=== PATIENT | female | born 1970 | race Caucasian/White ===

== ENCOUNTER 2016-11-21 08:12 | Emergency (ER) | payer OTHER ==
[~2016-11-21 08:12] MED LIST: CYCL5TAB PO; FLUC150T PO; HYDR-2678 PO; HYDR-971 PO; METH-37 PO; ONDA4TAB10 SL
[2016-11-21] MEDS ORDERED: IBUPROFEN 800 MG TABLET. PO ONE (10:15)
[2016-11-21 10:25] LABS: OBC FLU VALID
[2016-11-21 11:41] LABS: BILIRUBIN,URINE NEGATIVE (NEG); GLUCOSE,URINE NEGATIVE (NEG); NITRITE,URINE NEGATIVE (NEG); PROTEIN,URINE NEGATIVE (NEG-TRACE)
[2016-11-21 11:55] LABS: BACTERIA,URINE 0 /HPF (0-FEW); RBC,URINE 0 /HPF (0-2); SQUAMOUS EPITHELIAL CELL,UR MOD /LPF; WBC,URINE 0 /HPF (0-4)
[2016-11-21] MEDS ORDERED: PROAIR HFA8.5 GM INH (12:16)
[2016-11-21] MEDS ORDERED: CYCL10TA2 PO (12:16)
--- NOTE | 2016-11-21 12:16 | PHYS DOC ---
Past Medical History Past Medical History: No Pertinent History, Other Additional Past Medical Histor: sciatica Past Surgical History: Cholecystectomy, Tubal ligation Alcohol Use: None Drug Use: None Adult General Chief Complaint Chief Complaint: BACK PAIN OR INJURY [facility] HPI Patient is a 46 year old female presents emergency department stating that she is having lower back pain. She denies any injury or trauma to the back. She has not taken anything for the pain and discomfort. She states that she comes to the emergency department when she has this pain and discomfort and usually is provided with muscle relaxers and pain medication. Patient states she's had this pain for the last 2 days. She denies urinary frequency urgency pain with urination. She denies any numbness or tingling in the lower extremities. Patient also complains of upper respiratory symptoms, cough congestion runny nose. Review of Systems Review of Systems Constitutional: Denies fever or chills [] Eyes: Denies change in visual acuity, redness, or eye pain [] HENT: nasal congestion denies sore throat [] Respiratory: cough denies shortness of breath [] Cardiovascular: No additional information not addressed in HPI [] GI: Denies abdominal pain, nausea, vomiting, bloody stools or diarrhea [] : Denies dysuria or hematuria [] Musculoskeletal: back pain denies joint pain [] Integument: Denies rash or skin lesions [] Neurologic: Denies headache, focal weakness or sensory changes [] Current Medications Current Medications Current Medications Medications (Trade) Dose Ordered Sig/Nika Start Time Stop Time Status Last Admin Dose Admin Ibuprofen (Motrin) 800 mg 1X ONCE 11/21/16 10:15 11/21/16 10:16 DC 11/21/16 10:27 800 MG Allergies Allergies Allergies Coded Allergies Type Severity Reaction Last Updated Verified No Known Drug Allergies 11/07/13 No Physical Exam Physical Exam Constitutional: Well developed, well nourished, no acute distress, non-toxic appearance. [] HENT: Normocephalic, atraumatic, bilateral external ears normal, oropharynx moist, no oral exudates, nose normal. Lateral tympanic membranes appear to be normal. Throat with no erythematous no drainage no exudates noted. No cervical anterior adenopathy noted. Eyes: PERRLA, EOMI, conjunctiva normal, no discharge. [] Neck: Normal range of motion, no tenderness, supple, no stridor. [] Cardiovascular:Heart rate regular rhythm, no murmur [] Lungs & Thorax: Bilateral breath sounds clear to auscultation [] Skin: Warm, dry, no erythema, no rash. [] Back: Bilateral lower back tenderness. No CVA tenderness noted Extremities: No tenderness, no cyanosis, no clubbing, ROM intact, no edema. [] Neurologic: Alert and oriented X 3, normal motor function, normal sensory function, no focal deficits noted. [] Psychologic: Affect normal, judgement normal, mood normal. [] Current Patient Data Vital Signs Vital Signs Date Time Temp Pulse Resp B/P Pulse Ox O2 Delivery O2 Flow Rate FiO2 11/21/16 08:53 98.8 84 16 144/66 99 Room Air 98.8 Lab Values Laboratory Tests Test 11/21/16 09:50 11/21/16 11:15 Influenza Type A Antigen Negative (NEGATIVE) Influenza Type B Antigen Negative (NEGATIVE) Urine Collection Type Unknown Urine Color Kelsey Urine Clarity Clear Urine pH 6.0 Urine Specific [place] 1.025 Urine Protein Negativemg/dL (NEG-TRACE) Urine Glucose (UA) Negativemg/dL (NEG) Urine Ketones (Stick) >=80mg/dL (NEG) Urine Blood Negative (NEG) Urine Nitrite Negative (NEG) Urine Bilirubin Negative (NEG) Urine Urobilinogen Dipstick 1.0mg/dL (0.2 mg/dL) Urine Leukocyte Esterase Negative (NEG) Urine RBC 0/HPF (0-2) Urine WBC 0/HPF (0-4) Urine Squamous Epithelial Cells Mod/LPF Urine Bacteria 0/HPF (0-FEW) Urine Mucus Marked/LPF EKG EKG [] Radiology/Procedures Radiology/Procedures [] Course & Med Decision Making Course & Med Decision Making Pertinent Labs and Imaging studies reviewed. (See chart for details) Urinalysis was negative, influenza swab was negative. Patient was encouraged to take ibuprofen [id number] as well as providing her with a prescription for Flexeril. She was instructed this medication will cause drowsiness do not take any be alert and oriented. Patient will also be recommended to take over- the-counter medications such as Mucinex DM to help with her cough and congestion. Signs and symptoms to return back to emergency department as been provided. Patient agrees with discharge instructions treatment regimens and follow-up recommendations. [] Dragon Disclaimer Dragon Disclaimer This electronic medical record was generated, in whole or in part, using a voice recognition dictation system. Departure Departure Impression: Primary Impression: URI (upper respiratory infection) Additional Impression: Back pain Disposition: 01 HOME, SELF-CARE Condition: STABLE Referrals: GILSON LEE (PCP) Patient Instructions: Back Pain, Adult, [id number], Upper Respiratory Infection, Adult, [id number] Additional Instructions: Home to rest. You may take Mucinex [id number] to help with her cough and congestion. Ibuprofen 800 mg every 8 hours to help with generalized body aches and discomfort. We'll also help with her back pain. Make sure you take this with food as it may cause an upset stomach. If this develops stop taking the medication. Flexeril as prescribed. This medication will cause drowsiness do not take any be alert and oriented. Stop smoking. Follow-up through primary care physician in the next 3-5 days. Return back to emergency prior signs symptoms of become worse. Scripts Cyclobenzaprine Hcl 10 Mg [id number] Mg PO TID #20 TAB Prov:JENIFER EBNTON NP 11/21/16 Albuterol Sulfate (Proair Hfa Inhaler)8.5 Gm Hfa.aer.ad1 Puff INH PRN Q6HRS PRN SHORTNESS OF BREATH #1 INHALER Prov:JENIFER BENTON NP 11/21/16 Problem Qualifiers JENIFER BENTON NP Nov 21, 2016 12:16
[2016-11-21 12:25] VITALS: BP 122/58
[2016-11-21] MEDS ORDERED: CYCLOBENZAPRINE 10 MG TABLET. PO ONE (12:30)
[2016-11-21] MEDS ORDERED: HYDROCODONE/APAP 5/325MG TABLET. PO ONE (12:30)
== END 2016-11-21 12:32 | disposition home or self-care (01) ==
LOC: ER 08:12
DX: J06.9 Acute upper respiratory infection, unspecified (principal); M54.5 Low back pain
CPT/HCPCS: 81001; 87804; 99284

== ENCOUNTER 2017-03-30 17:04 | Emergency (ER) | payer OTHER ==
[~2017-03-30] VITALS: Ht 162.6 cm; Wt 68.0 kg
[~2017-03-30 17:04] MED LIST changes: +CYCL10TA2 PO; +PROAIR HFA8.5 GM INH
[2017-03-30 17:11] VITALS: BP 147/70
[2017-03-30 17:38] LABS: BILIRUBIN,URINE NEGATIVE (NEG); GLUCOSE,URINE NEGATIVE (NEG); NITRITE,URINE NEGATIVE (NEG); PH,URINE 7.5; PROTEIN,URINE NEGATIVE (NEG-TRACE)
[2017-03-30 17:51] LABS: BACTERIA,URINE 0 /HPF (0-FEW); RBC,URINE 0 /HPF (0-2); SQUAMOUS EPITHELIAL CELL,UR OCC /LPF; WBC,URINE OCC /HPF (0-4)
--- NOTE | 2017-03-30 18:17 | PHYS DOC ---
Past Medical History Past Medical History: Asthma, Other Additional Past Medical Histor: sciatica Past Surgical History: Cholecystectomy, Tubal ligation Alcohol Use: Rarely Drug Use: None Adult General Chief Complaint Chief Complaint: PELVIC PAIN HPI HPI Patient is a 46 year old female presents to the emergency department with a history of left-sided abdominal pain and discomfort. Patient states she's been having normal bowel movements. She states when she vomits that relieves the pain and discomfort. She denies any urinary frequency urgency or pain with urination. She does state she's had some clear vaginal discharge. She does state she sexually active with one partner. Review of Systems Review of Systems Constitutional: Denies fever or chills [] Eyes: Denies change in visual acuity, redness, or eye pain [] HENT: Denies nasal congestion or sore throat [] Respiratory: Denies cough or shortness of breath [] Cardiovascular: No additional information not addressed in HPI [] GI: abdominal pain, nausea, vomiting, denies bloody stools or diarrhea [] : Denies dysuria or hematuria [] Musculoskeletal: Denies back pain or joint pain [] Integument: Denies rash or skin lesions [] Neurologic: Denies headache, focal weakness or sensory changes [] Endocrine: Denies polyuria or polydipsia [] Current Medications Current Medications Current Medications Medications (Trade) Dose Ordered Sig/Nika Start Time Stop Time Status Last Admin Dose Admin Info (Do NOT chart on this entry -- for MONITORING) 1 each PRN DAILY PRN 03/30/17 18:45 04/01/17 18:44 Iohexol (Omnipaque 300 Mg/ml) 75 ml 1X ONCE 03/30/17 18:30 03/30/17 18:31 DC 03/30/17 19:20 75 ML Allergies Allergies Allergies Coded Allergies Type Severity Reaction Last Updated Verified No Known Drug Allergies 11/07/13 No Physical Exam Physical Exam Constitutional: Well developed, well nourished, no acute distress, non-toxic appearance. [] HENT: Normocephalic, atraumatic, bilateral external ears normal, oropharynx moist, no oral exudates, nose normal. [] Eyes: PERRLA, EOMI, conjunctiva normal, no discharge. [] Neck: Normal range of motion, no tenderness, supple, no stridor. [] Cardiovascular:Heart rate regular rhythm, no murmur [] Lungs & Thorax: Bilateral breath sounds clear to auscultation [] Abdomen: Bowel sounds hypoactive, soft, right lower abdominal tenderness, no tenderness noted to the left lower abdominal area, no masses, no pulsatile masses. [] Skin: Warm, dry, no erythema, no rash. [] Back: No tenderness Extremities: No tenderness, no cyanosis, no clubbing, ROM intact, no edema. [] Neurologic: Alert and oriented X 3, normal motor function, normal sensory function, no focal deficits noted. [] Psychologic: Affect normal, judgement normal, mood normal. [] Current Patient Data Vital Signs Vital Signs Date Time Temp Pulse Resp B/P (MAP) Pulse Ox O2 Delivery O2 Flow Rate FiO2 03/30/17 17:11 98.3 87 18 93 Room Air 98.3 Lab Values Laboratory Tests Test 03/30/17 16:38 03/30/17 17:25 03/30/17 17:30 POC Urine HCG, Qualitative Hcg negative (Negative) Urine Color Yellow Urine Clarity Clear Urine pH 7.5 Urine Specific [place] 1.025 Urine Protein Negative mg/dL (NEG-TRACE) Urine Glucose (UA) Negative mg/dL (NEG) Urine Ketones (Stick) Trace mg/dL (NEG) Urine Blood Negative (NEG) Urine Nitrite Negative (NEG) Urine Bilirubin Negative (NEG) Urine Urobilinogen Dipstick 1.0 mg/dL (0.2 mg/dL) Urine Leukocyte Esterase Trace (NEG) Urine RBC 0 /HPF (0-2) Urine WBC Occ /HPF (0-4) Urine Squamous Epithelial Cells Occ /LPF Urine Amorphous Sediment Present /HPF Urine Bacteria 0 /HPF (0-FEW) Urine Mucus Mod /LPF White Blood Count 12.7 x10^3/uL (4.0-11.0) H Red Blood Count 5.13 x10^6/uL (3.50-5.40) Hemoglobin 11.0 g/dL (12.0-15.5) L Hematocrit 35.2 % (36.0-47.0) L Mean Corpuscular Volume 69 fL (79-100) L Mean Corpuscular Hemoglobin 22 pg (25-35) L Mean Corpuscular Hemoglobin Concent 31 g/dL (31-37) Red Cell Distribution Width 18.1 % (11.5-14.5) H Platelet Count 398 x10^3/uL (140-400) Neutrophils (%) (Auto) 79 % (31-73) H Lymphocytes (%) (Auto) 14 % (24-48) L Monocytes (%) (Auto) 6 % (0-9) Eosinophils (%) (Auto) 1 % (0-3) Basophils (%) (Auto) 1 % (0-3) Neutrophils # (Auto) 10.0 x10^3uL (1.8-7.7) H Lymphocytes # (Auto) 1.8 x10^3/uL (1.0-4.8) Monocytes # (Auto) 0.7 x10^3/uL (0.0-1.1) Eosinophils # (Auto) 0.1 x10^3/uL (0.0-0.7) Basophils # (Auto) 0.1 x10^3/uL (0.0-0.2) Platelet Estimate Pending Sodium Level 138 mmol/L (136-145) Potassium Level 3.5 mmol/L (3.5-5.1) Chloride Level 101 mmol/L (98-107) Carbon Dioxide Level 28 mmol/L (21-32) Anion Gap 9 (6-14) Blood Urea Nitrogen 19 mg/dL (7-20) Creatinine 0.7 mg/dL (0.6-1.0) Estimated GFR (Cockcroft-Gault) 90.5 BUN/Creatinine Ratio 27 (6-20) H Glucose Level 94 mg/dL (70-99) Calcium Level 9.2 mg/dL (8.5-10.1) Total Bilirubin 0.5 mg/dL (0.2-1.0) Aspartate Amino Transferase (AST) 18 U/L (15-37) Alanine Aminotransferase (ALT) 25 U/L (14-59) Alkaline Phosphatase 94 U/L (46-116) Total Protein 8.2 g/dL (6.4-8.2) Albumin 4.0 g/dL (3.4-5.0) Albumin/Globulin Ratio 1.0 (1.0-1.7) Laboratory Tests 03/30/17 17:30 Laboratory Tests 03/30/17 17:30 Microbiology 03/30/17 Wet Prep - Final, Complete EKG EKG [] Radiology/Procedures Radiology/Procedures [][facility] [address] [place] [address] IMAGING REPORT Signed PATIENT: ISABELLE WEINER ACCOUNT: [id number] : 1970 LOCATION: ER AGE: 46 SEX: F EXAM STATUS: REG ER ORD. PHYSICIAN: JENIFER BENTON APRN REASON: right lower quadrant and left sided abdominal pain with vomiting PROCEDURE: CT ABD PELV W/ IV CONTRST ONLY EXAM: Abdomen and pelvis CT with intravenous contrast. HISTORY: Right lower quadrant pain. TECHNIQUE: Computed tomographic images of the abdomen and pelvis were obtained following the administration of 75 cc Omnipaque 300 intravenous contrast. Multiplanar reformatting was performed. *One or more of the following individualized dose reduction techniques were utilized for this examination: 1. Automated exposure control. 2. Adjustment of the mA and/or kV according to patient size. 3. Use of iterative reconstruction technique. COMPARISON: 10/09/2014. FINDINGS: Evaluation of the lower thorax demonstrates no infiltrate or effusion. No hepatic lesion is seen. The liver is mildly enlarged. The gallbladder is centrally absent. The pancreas, spleen, adrenal glands and left kidney are unremarkable. There is a 1.8 cm hypodense lesion within the upper pole of the right kidney, likely a cyst. No abnormally thickened or dilated loop of bowel is seen. The appendix is not seen. There is no obstruction. The uterus is unremarkable. There is a 1.8 cm dominant right ovarian follicle/follicular cyst. There is a small amount of nonspecific pelvic free fluid. No suspicious osseous lesion is seen. IMPRESSION: 1. Nonvisualization of the appendix. 2. 1.8 cm dominant right ovarian follicle/follicular cyst and small amount of physiologic pelvic free fluid. 3. Suspected mild hepatomegaly. 4. 1.8 cm hypodense lesion within the upper pole of the right kidney, likely a cyst. Electronically signed by: Kathi Land MD (03/30/2017 7:43 PM) DICTATED and SIGNED BY: KATHI LAND MD DATE: 03/30/17 1938 CC: JENIFER BENTON APRN; NON,STAFF; GILSON LEE ~ Course & Med Decision Making Course & Med Decision Making Pertinent Labs and Imaging studies reviewed. (See chart for details) CBC with a slightly elevated white count at 12.7. Patient's urine was positive for urinary tract infection. Wet prep is negative. Patient does not want to be treated for STDs at this time. Patient's CT scan showed a 1.8 dominant right ovarian follow-up follicular cyst patient was also noted to have a 1.8 cm hypodense lesion within the upper pole of the right kidney likely a cyst. Patient will be discharged home on Macrobid with recommendations to drink plenty of fluids such as water and cranberry juice. Recommended following up with her primary care physician in regards to the CT results. Recommended Tylenol or ibuprofen for pain and discomfort. Signs and symptoms to return back to emergency department has been provided. [] Dragon Disclaimer Dragon Disclaimer This electronic medical record was generated, in whole or in part, using a voice recognition dictation system. Departure Departure Impression: Primary Impression: Urinary tract infection Disposition: HOME, SELF-CARE Condition: STABLE Referrals: GILSON LEE (PCP) Patient Instructions: Urinary Tract Infection, [id number] Additional Instructions: Activity as tolerated. Medication as prescribed. Drink plenty of fluids such as water and cranberry juice. Avoid cranberry juice cocktail, carbonated beverages, citrus fruits and alcohol as this can cause irritation to the bladder. Follow-up with your primary care physician or LOSS CONTROL MANAGER in regards to ovarian cyst on the right. Follow-up through primary care physician in regards to help with dense lesion on the right kidney that is most likely a cyst. Return back to emergency prior signs and symptoms of become worse. Scripts Nitrofurantoin Monohyd/M-Cryst (MACROBID 100 MG CAPSULE) 100 Mg Capsule 1 CAP PO BID, #14 CAP Prov: JENIFER BENTON [employer] 03/30/17 JENIFER BENTON [employer] Mar 30, 2017 18:17
[2017-03-30] MEDS ORDERED: IOHEXOL 300 MG/ML 75 ML VIAL IV ONE (18:30)
[2017-03-30 18:42] LABS: BASO # 0.1 x10^3/uL (0.0-0.2); BASO % 1 % (0-3); EOS % 1 % (0-3); HEMATOCRIT 35.2 % (36.0-47.0); LYMPH # 1.8 x10^3/uL (1.0-4.8); LYMPH % 14 % (24-48); MEAN CORPUSCULAR HEMOGLOBIN 22 pg (25-35); MEAN CORPUSCULAR HGB CONC 31 g/dL (31-37); MEAN CORPUSCULAR VOLUME 69 fL (79-100); MONO % 6 % (0-9); NEUT % 79 % (31-73); PLATELET COUNT 398 x10^3/uL (140-400); RED BLOOD COUNT 5.13 x10^6/uL (3.50-5.40); RED CELL DISTRIBUTION WIDTH 18.1 % (11.5-14.5); WHITE BLOOD COUNT 12.7 x10^3/uL (4.0-11.0)
[2017-03-30] MEDS ORDERED: CONTRAST GIVEN MC PRN (18:45)
[2017-03-30 18:54] LABS: CALCIUM 9.2 mg/dL (8.5-10.1); CREATININE 0.7 mg/dL (0.6-1.0); GFR 90.5; POTASSIUM 3.5 mmol/L (3.5-5.1)
[2017-03-30 19:00] LABS: TOTAL BILIRUBIN 0.5 mg/dL (0.2-1.0); TOTAL PROTEIN 8.2 g/dL (6.4-8.2)
--- NOTE | 2017-03-30 19:46 | RAD ---
EXAM: Abdomen and pelvis CT with intravenous contrast. HISTORY: Right lower quadrant pain. TECHNIQUE: Computed tomographic images of the abdomen and pelvis were obtained following the administration of 75 cc Omnipaque 300 intravenous contrast. Multiplanar reformatting was performed. *One or more of the following individualized dose reduction techniques were utilized for this examination: 1. Automated exposure control. 2. Adjustment of the mA and/or kV according to patient size. 3. Use of iterative reconstruction technique. COMPARISON: 10/09/2014. FINDINGS: Evaluation of the lower thorax demonstrates no infiltrate or effusion. No hepatic lesion is seen. The liver is mildly enlarged. The gallbladder is centrally absent. The pancreas, spleen, adrenal glands and left kidney are unremarkable. There is a 1.8 cm hypodense lesion within the upper pole of the right kidney, likely a cyst. No abnormally thickened or dilated loop of bowel is seen. The appendix is not seen. There is no obstruction. The uterus is unremarkable. There is a 1.8 cm dominant right ovarian follicle/follicular cyst. There is a small amount of nonspecific pelvic free fluid. No suspicious osseous lesion is seen. IMPRESSION: 1. Nonvisualization of the appendix. 2. 1.8 cm dominant right ovarian follicle/follicular cyst and small amount of physiologic pelvic free fluid. 3. Suspected mild hepatomegaly. 4. 1.8 cm hypodense lesion within the upper pole of the right kidney, likely a cyst. Electronically signed by: Kathi Vasques MD (03/30/2017 7:43 PM)
[2017-03-30] MEDS ORDERED: NITR100C62 PO (19:58)
[2017-03-30 20:12] LABS: HYPOCHROMIA SLIGHT; OVALOCYTES OCC; PLT ESTIMATE ADEQUATE (ADEQUATE); POLYCHROMASIA SLIGHT; TARGET CELLS OCC
== END 2017-03-30 20:04 | disposition home or self-care (01) ==
LOC: ER 17:04
DX: N39.0 Urinary tract infection, site not specified (principal); J45.909 Unspecified asthma, uncomplicated; Z90.49 Acquired absence of other specified parts of digestive tract; Z98.51 Tubal ligation status
CPT/HCPCS: 36415; 74177; 80053; 81001; 81025; 85007; 85027; 87086; 87491; 87591; 99285; Q0111; Q9967

== ENCOUNTER 2017-06-08 09:18 | Emergency (ER) | payer SELFPAY ==
[~2017-06-08] VITALS: Ht 162.6 cm; Wt 68.0 kg
[~2017-06-08 09:18] MED LIST changes: +NITR100C62 PO
--- NOTE | 2017-06-08 10:15 | RAD ---
PA and lateral chest radiographs 06/08/2017. Clinical History: Cough for 2 weeks.. PA and lateral digital radiographs of the chest were obtained. Comparison study is dated 06/07/2015. The cardiac and mediastinal silhouettes are within normal limits in size and configuration. No pulmonary infiltrate is seen. No pleural effusion or pneumothorax is noted. Degenerative changes are seen involving the thoracic spine. Impression: No radiographic evidence of active cardiopulmonary disease.
[2017-06-08] MEDS ORDERED: predniSONE 20 MG TABLET PO ONE (11:15)
[2017-06-08] MEDS ORDERED: IPRATRPIUM/ALBUTEROL 0.5/2.5MG 3 ML NEBU. NEB ONE (11:15)
[2017-06-08] MEDS ORDERED: BENZONATATE 100 MG CAPSULE. PO ONE (11:15)
[2017-06-08] MEDS ORDERED: PROAIR HFA8.5 GM INH (11:48)
[2017-06-08] MEDS ORDERED: BENZ100C PO (11:48)
[2017-06-08] MEDS ORDERED: PRED50TA PO (11:48)
[2017-06-08] MEDS ORDERED: ALBU2.5V14 NEB (11:48)
[2017-06-08] MEDS ORDERED: AZIT250T6 PO (11:48)
--- NOTE | 2017-06-08 11:48 | PHYS DOC ---
Past Medical History Past Medical History: Asthma, Bronchitis, Other Additional Past Medical Histor: sciatica Past Surgical History: Cholecystectomy, Tubal ligation Alcohol Use: Rarely Drug Use: None Adult General Chief Complaint Chief Complaint: COUGH HPI HPI Patient is a 47 year old female with history of bronchitis asthma and smoking who presents with a productive cough and nasal congestion for one week. Patient denies any fever. Review of Systems Review of Systems Constitutional: Denies fever or chills [] Eyes: Denies change in visual acuity, redness, or eye pain [] HENT: nasal congestion Respiratory: cough Cardiovascular: No additional information not addressed in HPI [] GI: Denies abdominal pain, nausea, vomiting, bloody stools or diarrhea [] : Denies dysuria or hematuria [] Musculoskeletal: Denies back pain or joint pain [] Integument: Denies rash or skin lesions [] Neurologic: Denies headache, focal weakness or sensory changes [] Endocrine: Denies polyuria or polydipsia [] Current Medications Current Medications Current Medications Medications (Trade) Dose Ordered Sig/[facility] Start Time Stop Time Status Last Admin Dose Admin Albuterol/ Ipratropium (Duoneb) 3 ml 1X ONCE 06/08/17 11:15 06/08/17 11:16 DC 06/08/17 11:12 3 ML Benzonatate (Tessalon Perle) 100 mg 1X ONCE 06/08/17 11:15 06/08/17 11:16 DC 06/08/17 11:00 100 MG Prednisone (Prednisone) 60 mg 1X ONCE 06/08/17 11:15 06/08/17 11:16 DC 06/08/17 11:00 60 MG Allergies Allergies Allergies Coded Allergies Type Severity Reaction Last Updated Verified No Known Drug Allergies 11/07/13 No Physical Exam Physical Exam Constitutional: Well developed, well nourished, no acute distress, non-toxic appearance. [] HENT: Normocephalic, atraumatic, bilateral external ears normal, oropharynx moist, no oral exudates, nose normal. [] Eyes: PERRLA, EOMI, conjunctiva normal, no discharge. [] Neck: Normal range of motion, no tenderness, supple, no stridor. [] Cardiovascular:Heart rate regular rhythm, no murmur [] Lungs & Thorax: Bilateral breath sounds clear to auscultation [] Abdomen: Bowel sounds normal, soft, no tenderness, no masses, no pulsatile masses. [] Skin: Warm, dry, no erythema, no rash. [] Back: No tenderness, no CVA tenderness. [] Extremities: No tenderness, no cyanosis, no clubbing, ROM intact, no edema. [] Neurologic: Alert and oriented X 3, normal motor function, normal sensory function, no focal deficits noted. [] Psychologic: Affect normal, judgement normal, mood normal. [] Current Patient Data Vital Signs Vital Signs Date Time Temp Pulse Resp B/P (MAP) Pulse Ox O2 Delivery O2 Flow Rate FiO2 06/08/17 11:12 98 Room Air 06/08/17 09:45 98.1 80 20 147/70 (95) 98.1 Lab Values Laboratory Tests Test 06/08/17 09:08 POC Urine HCG, Qualitative Hcg negative (Negative) EKG EKG [] Radiology/Procedures Radiology/Procedures [] Course & Med Decision Making Course & Med Decision Making Pertinent Labs and Imaging studies reviewed. (See chart for details) This is a 47-year-old female patient presenting to the ED with symptoms consistent with bronchitis. She is a smoker. Chest x-ray interpreted by radiologist as negative for any acute findings. We encouraged patient to consider smoking cessation. Her blood pressure was 147/70. She has no history of hypertension. We recommended she follows up with the PCP to have this rechecked. Patient was discharged with albuterol inhaler prednisone Duaneon Carlos and Z-Chris. Dragon Disclaimer Dragon Disclaimer This electronic medical record was generated, in whole or in part, using a voice recognition dictation system. Departure Departure Impression: Primary Impression: URI (upper respiratory infection) Additional Impressions: Acute bronchitis Smoking addiction High blood pressure Disposition: HOME, SELF-CARE Condition: STABLE Referrals: UNKNOWN PCP NAME (PCP) follow up with your doctor in one week Patient Instructions: Hypertension, Smoking Cessation, Upper Respiratory Infection, Adult Additional Instructions: You were seen with symptoms consistent of bronchitis. Consider smoking cessation. Your blood pressure was high at 147/70. Follow-up with a primary care doctor and have them recheck your blood pressure. Take the prescribed medicines as ordered. Come back to the ED at any point symptoms worsen. Scripts Prednisone (PREDNISONE) 50 Mg Tablet 1 TAB PO DAILY, #5 TAB Prov: JARED HODGE CLARE 06/08/17 Azithromycin (AZITHROMYCIN TABLET) 250 Mg Tablet 1 PKG PO UD, #6 TAB Prov: JARED HODGE CLARE 06/08/17 Benzonatate (TESSALON PERLE) 100 Mg Capsule 1 CAP PO TID, #30 CAP Prov: JARED HODGE CLARE 06/08/17 Albuterol Sulfate (PROAIR HFA INHALER) 8.5 Gm Hfa.aer.ad 1 PUFF INH PRN Q6HRS Y for SHORTNESS OF BREATH, #1 INHALER 0 Refills Prov: JARED HODGE CLARE 06/08/17 Albuterol Sulfate (ALBUTEROL SULFATE CONC NEB SOLN) 2.5 Mg/0.5 Ml Vial.neb 1 VIAL NEB Q6HRS, #120 VIAL 5 Refills Prov: JARED HODGE CLARE 06/08/17 Problem Qualifiers Primary Impression: URI (upper respiratory infection) URI type: unspecified URI Qualified Codes: J06.9 - Acute upper respiratory infection, unspecified Additional Impressions: Acute bronchitis Bronchitis organism: unspecified organism Qualified Codes: J20.9 - Acute bronchitis, unspecified High blood pressure Hypertension type: unspecified Qualified Codes: I10 - Essential (primary) hypertension JARED HODGE CLARE Jun 08, 2017 11:48
[2017-06-08 11:52] VITALS: BP 141/66
== END 2017-06-08 11:55 | disposition home or self-care (01) ==
LOC: ER 09:18
DX: J06.9 Acute upper respiratory infection, unspecified (principal); J20.9 Acute bronchitis, unspecified; I10 Essential (primary) hypertension; F17.200 Nicotine dependence, unspecified, uncomplicated
CPT/HCPCS: 71020; 81025; 94640; 99284; J7512; J7620

== ENCOUNTER 2019-07-21 08:27 | Emergency (ER) | payer SELFPAY ==
[~2019-07-21] VITALS: Ht 162.6 cm; Wt 56.7 kg
[~2019-07-21 08:27] MED LIST changes: +ALBU2.5V14 NEB; +ALBU2.5V8 INH; +AZIT250T6 PO; +BENZ100C PO; +CIPR500T94 PO; +FERR325T14 PO; +FLUT1DIS3 IH; +HYDR-3164 PO; -HYDR-971 PO; +PRED-220 PO; +PRED50TA PO; -PROAIR HFA8.5 GM INH
[2019-07-21] MEDS ORDERED: IV NORMAL SALINE 1000ML BAG 1,000 ML IV SCH (08:47)
--- NOTE | 2019-07-21 08:52 | PHYS DOC ---
Past Medical History Past Medical History: Asthma, Bronchitis, Other Additional Past Medical Histor: sciatica Past Surgical History: Cholecystectomy, Tubal ligation Smoking: Cigarettes Alcohol Use: Rarely Drug Use: None Adult General Chief Complaint Chief Complaint: SHORTNESS OF BREATH HPI HPI Patient is a 49-year-old female with a past history of COPD, who presents to the emergency department for evaluation. She states that over the past few days she has had a cold, and has had worsening trouble breathing. She appears very anxious and is hyperventilating, out of proportion to the degree of respiratory difficulty she is having. She denies any depression or suicidal ideation. She has had a nonproductive cough. She denies any fevers, or any new pain. There are no alleviating or exacerbating factors to her symptoms otherwise. Review of Systems Review of Systems Constitutional: Denies fever or chills [] Eyes: Denies change in visual acuity, redness, or eye pain [] HENT: Denies nasal congestion or sore throat [] Respiratory: Reports nonproductive cough and shortness of breath, denies pleuritic chest pain[] Cardiovascular: The patient denies any shortness of breath, chest pain, palpitations, or orthopnea [] GI: Denies abdominal pain, nausea, vomiting, bloody stools or diarrhea [] : Denies dysuria or hematuria [] Musculoskeletal: Denies back pain or joint pain [] Integument: Denies rash or skin lesions [] Neurologic: Denies headache, focal weakness or sensory changes [] Endocrine: Denies polyuria or polydipsia [] Psychiatric: Reports being anxious about her breathing, is able to articulate any other definitive stressors. Denies suicidal or homicidal thoughts. All other systems were reviewed and found to be within normal limits, except as documented in this note. Current Medications Current Medications Current Medications Medications (Trade) Dose Ordered Sig/Nika Start Time Stop Time Status Last Admin Dose Admin Albuterol/ Ipratropium (Duoneb) 3 ml 1X ONCE 07/21/19 10:15 07/21/19 10:16 DC 07/21/19 10:10 3 ML Azithromycin 250 ml @ 250 mls/hr 1X ONCE 07/21/19 10:15 07/21/19 11:14 07/21/19 10:27 250 MLS/HR Lorazepam (Ativan Inj) 1 mg 1X ONCE 07/21/19 09:00 07/21/19 09:01 DC 07/21/19 09:26 1 MG Methylprednisolone Sodium Succinate (SOLU-Medrol 125MG VIAL) 125 mg 1X ONCE 07/21/19 10:15 07/21/19 10:16 DC 07/21/19 10:17 125 MG Sodium Chloride 1,000 ml @ 1,000 mls/hr Q1H 07/21/19 08:47 07/21/19 09:46 DC 07/21/19 09:26 1,000 MLS/HR Allergies Allergies Allergies Coded Allergies Type Severity Reaction Last Updated Verified No Known Drug Allergies 11/07/13 No Physical Exam Physical Exam PHYSICAL EXAM: CONSTITUTIONAL: Well developed, well nourished HEAD: normocephalic, atraumatic EENT: PERRL, EOMI. Conjunctivae normal color, sclerae non-icteric; moist mucous membranes. NECK: Supple, non-tender; no meningismus. LUNGS: There are mildly diminished breath sounds diffusely, with faint scattered respiratory wheezes, there are no rhonchi or rales. The patient is hyperventilating. HEART: Regular rate and rhythm, no murmur CHEST: No deformity; non-tender ABDOMEN: The abdomen is soft, and non-tender, no masses or bruits. EXTREM: Normal ROM; no deformity, no calf tenderness. Normal pulses palpable in all extremities. There is no pedal edema. SKIN: No rash; no diaphoresis NEURO: Alert; normal speech and cognition; CN's grossly intact; strength grossly intact without focal deficit. BACK: No CVA TTP. PSYCHIATRIC: The patient exhibits a moderately anxious affect. Current Patient Data Vital Signs Vital Signs Date Time Temp Pulse Resp B/P (MAP) Pulse Ox O2 Delivery O2 Flow Rate FiO2 07/21/19 10:15 93 Room Air 07/21/19 08:27 97.5 83 22 136/86 (103) 97.5 Lab Values Laboratory Tests Test 07/21/19 08:47 07/21/19 08:53 O2 Saturation 90 % (92-99) L Arterial Blood pH 7.46 (7.35-7.45) H Arterial Blood pCO2 at Patient Temp 35 mmHg (35-46) Arterial Blood pO2 at Patient Temp 56 mmHg (75-108) L Arterial Blood HCO3 24 mmol/L (21-28) Arterial Blood Base Excess 1 mmol/L (-3-3) FiO2 21 White Blood Count 7.6 x10^3/uL (4.0-11.0) Red Blood Count 5.79 x10^6/uL (3.50-5.40) H Hemoglobin 13.9 g/dL (12.0-15.5) Hematocrit 42.4 % (36.0-47.0) Mean Corpuscular Volume 73 fL (79-100) L Mean Corpuscular Hemoglobin 24 pg (25-35) L Mean Corpuscular Hemoglobin Concent 33 g/dL (31-37) Red Cell Distribution Width 17.5 % (11.5-14.5) H Platelet Count 352 x10^3/uL (140-400) Neutrophils (%) (Auto) 72 % (31-73) Lymphocytes (%) (Auto) 18 % (24-48) L Monocytes (%) (Auto) 8 % (0-9) Eosinophils (%) (Auto) 1 % (0-3) Basophils (%) (Auto) 1 % (0-3) Neutrophils # (Auto) 5.5 x10^3/uL (1.8-7.7) Lymphocytes # (Auto) 1.4 x10^3/uL (1.0-4.8) Monocytes # (Auto) 0.6 x10^3/uL (0.0-1.1) Eosinophils # (Auto) 0.1 x10^3/uL (0.0-0.7) Basophils # (Auto) 0.0 x10^3/uL (0.0-0.2) Sodium Level 139 mmol/L (136-145) Potassium Level 3.5 mmol/L (3.5-5.1) Chloride Level 99 mmol/L (98-107) Carbon Dioxide Level 29 mmol/L (21-32) Anion Gap 11 (6-14) Blood Urea Nitrogen 16 mg/dL (7-20) Creatinine 0.7 mg/dL (0.6-1.0) Estimated GFR (Cockcroft-Gault) 89.3 BUN/Creatinine Ratio 23 (6-20) H Glucose Level 97 mg/dL (70-99) Calcium Level 9.7 mg/dL (8.5-10.1) Total Bilirubin 0.6 mg/dL (0.2-1.0) Aspartate Amino Transferase (AST) 27 U/L (15-37) Alanine Aminotransferase (ALT) 24 U/L (14-59) Alkaline Phosphatase 100 U/L (46-116) Troponin I Quantitative < 0.017 ng/mL (0.000-0.055) WO-Dnw-B-Type Natriuretic Peptide 130 pg/mL (0-124) H Total Protein 7.9 g/dL (6.4-8.2) Albumin 4.1 g/dL (3.4-5.0) Albumin/Globulin Ratio 1.1 (1.0-1.7) Laboratory Tests 07/21/19 08:53 Laboratory Tests 07/21/19 08:53 EKG EKG Normal sinus rhythm a rate of 79 beats for minute, normal axis, normal intervals, poor anterior R-wave progression, there are no acute ischemic ST/T changes. Left atrial enlargement is present.[] Radiology/Procedures Radiology/Procedures PROCEDURE: CHEST PA & LATERAL EXAM: Chest 2 views DATE: 07/21/2019 9:07 AM INDICATION: Shortness of breath COMPARISON: No Prior FINDINGS: The heart is not enlarged. Mediastinal and hilar contours are normal. No focal parenchymal airspace opacity. No pleural effusion or pneumothorax. Pectus deformity of the chest wall. IMPRESSION: 1. No radiographic evidence for acute cardiopulmonary process.[] Course & Med Decision Making Course & Med Decision Making Pertinent Labs and Imaging studies reviewed. (See chart for details) []10:05 AM: Patient reassessed, diffuse wheezing is now present. Will order additional breathing treatments, steroids, and antibiotics for COPD e xacerbation. 11:10 AM: The patient's condition remains stable. She is feeling better at this time. Her oxygen saturation is in the 90s at rest. She is having more pronounced coarse rhonchorous wheezing at this time. I discussed smoking cessation with the patient, the need for close outpatient follow-up, and return precautions. Dragon Disclaimer Dragon Disclaimer This electronic medical record was generated, in whole or in part, using a voice recognition dictation system. Departure Departure Impression: Primary Impression: COPD exacerbation Disposition: 01 HOME, SELF-CARE Condition: STABLE Referrals: MERRITT MARTINEZ MD Patient Instructions: Acute Bronchitis, Albuterol inhalation aerosol, Chronic Obstructive Pulmonary Disease Scripts Albuterol Sulfate (PROAIR HFA INHALER) 8.5 Gm Hfa.aer.ad 1 PUFF INH PRN Q6HRS PRN for SHORTNESS OF BREATH, #1 INHALER 0 Refills Prov: CHARAN LANDERS MD 07/21/19 Prednisone (PREDNISONE) 20 Mg Tablet 40 MG PO DAILY for 5 Days, #10 TAB Prov: CHARAN LANDERS MD 07/21/19 Azithromycin (AZITHROMYCIN TABLET) 250 Mg Tablet 1 PKG PO UD, #6 TAB Begin 07/22/19 Prov: CHARAN LANDERS MD 07/21/19 CHARAN LANDERS MD Jul 21, 2019 08:52
[2019-07-21] MEDS ORDERED: IPRATRPIUM/ALBUTEROL 0.5/2.5MG 3 ML NEBU. NEB ONE ×3 (09:00→10:15)
[2019-07-21 09:04] LABS: BASO % 1 % (0-3); EOS # 0.1 x10^3/uL (0.0-0.7); EOS % 1 % (0-3); HEMATOCRIT 42.4 % (36.0-47.0); HEMOGLOBIN 13.9 g/dL (12.0-15.5); LYMPH # 1.4 x10^3/uL (1.0-4.8); LYMPH % 18 % (24-48); MEAN CORPUSCULAR HEMOGLOBIN 24 pg (25-35); MEAN CORPUSCULAR HGB CONC 33 g/dL (31-37); MEAN CORPUSCULAR VOLUME 73 fL (79-100); MONO # 0.6 x10^3/uL (0.0-1.1); MONO % 8 % (0-9); NEUT # 5.5 x10^3/uL (1.8-7.7); NEUT % 72 % (31-73); PLATELET COUNT 352 x10^3/uL (140-400); RED BLOOD COUNT 5.79 x10^6/uL (3.50-5.40); RED CELL DISTRIBUTION WIDTH 17.5 % (11.5-14.5); WHITE BLOOD COUNT 7.6 x10^3/uL (4.0-11.0)
[2019-07-21 09:14] LABS: CALCIUM 9.7 mg/dL (8.5-10.1); CREATININE 0.7 mg/dL (0.6-1.0); GFR 89.3; POTASSIUM 3.5 mmol/L (3.5-5.1)
[2019-07-21 09:19] LABS: ALBUMIN 4.1 g/dL (3.4-5.0); ALBUMIN/GLOBULIN RATIO 1.1 (1.0-1.7); TOTAL BILIRUBIN 0.6 mg/dL (0.2-1.0); TOTAL PROTEIN 7.9 g/dL (6.4-8.2)
[2019-07-21 09:30] LABS: BASE EXCESS ABG 1 mmol/L (-3-3); FIO2 ABG 21; HCO3 ABG 24 mmol/L (21-28); PCO2 ABG 35 mmHg (35-46); PO2 ABG 56 mmHg (75-108); SAT O2 ABG 90 % (92-99)
--- NOTE | 2019-07-21 09:31 | RAD ---
EXAM: Chest 2 views DATE: 07/21/2019 9:07 AM INDICATION: Shortness of breath COMPARISON: No Prior FINDINGS: The heart is not enlarged. Mediastinal and hilar contours are normal. No focal parenchymal airspace opacity. No pleural effusion or pneumothorax. Pectus deformity of the chest wall. IMPRESSION: 1. No radiographic evidence for acute cardiopulmonary process. Electronically signed by: Justin Bowser MD (07/21/2019 9:28 AM) [facility]
[2019-07-21] MEDS ORDERED: methylPREDNISolone SOD SUCC PF 125 MG/2 ML VIAL. IV ONE (10:15)
[2019-07-21] MEDS ORDERED: AZITHRMYCN 500MG IVPB FOR OMNI 250 ML IV ONE (10:15)
--- NOTE | 2019-07-21 10:56 | EKG ---
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
[2019-07-21 11:00] VITALS: BP 116/65
[2019-07-21] MEDS ORDERED: AZIT250T6 PO (11:14)
[2019-07-21] MEDS ORDERED: ALBU2.5V8 INH (11:14)
[2019-07-21] MEDS ORDERED: PRED20TA PO (11:14)
== END 2019-07-21 11:45 | disposition home or self-care (01) ==
LOC: ER 08:27
DX: J44.1 Chronic obstructive pulmonary disease with (acute) exacerbation (principal); F17.210 Nicotine dependence, cigarettes, uncomplicated
CPT/HCPCS: 36415; 36600; 71046; 80053; 82805; 83880; 84484; 85025; 93005; 94640; 96365; 96375; 99285; J0456; J2060; J2930; J7030; J7620

== ENCOUNTER → 2019-09-06 | Outpatient (CLI) | payer OTHER ==
[~2019-09-06] MED LIST changes: +ALBUTEROL SULFATE 2.5 MG/3 ML NEBU. NEB ONE; +PRED20TA PO
== END | disposition home or self-care (01) ==
LOC: PF 08:12
PROVIDERS: ATTEND Internal Medicine
DX: Z02.71 Encounter for disability determination (principal)
CPT/HCPCS: 94060; 94640; J7613

== ENCOUNTER 2019-10-07 18:12 | Emergency (ER) | payer SELFPAY ==
[~2019-10-07] VITALS: Ht 162.6 cm; Wt 54.4 kg
[~2019-10-07 18:12] MED LIST changes: -ALBUTEROL SULFATE 2.5 MG/3 ML NEBU. NEB ONE
[2019-10-07 19:43] LABS: BASO % 0 % (0-3); EOS % 0 % (0-3); HEMATOCRIT 41.8 % (36.0-47.0); HEMOGLOBIN 13.8 g/dL (12.0-15.5); LYMPH # 1.6 x10^3/uL (1.0-4.8); LYMPH % 15 % (24-48); MEAN CORPUSCULAR HEMOGLOBIN 24 pg (25-35); MEAN CORPUSCULAR HGB CONC 33 g/dL (31-37); MEAN CORPUSCULAR VOLUME 74 fL (79-100); MONO # 0.5 x10^3/uL (0.0-1.1); MONO % 5 % (0-9); NEUT # 8.6 x10^3/uL (1.8-7.7); NEUT % 80 % (31-73); PLATELET COUNT 281 x10^3/uL (140-400); RED BLOOD COUNT 5.64 x10^6/uL (3.50-5.40); RED CELL DISTRIBUTION WIDTH 19.3 % (11.5-14.5); WHITE BLOOD COUNT 10.8 x10^3/uL (4.0-11.0)
--- NOTE | 2019-10-07 19:43 | PHYS DOC ---
Past Medical History Past Medical History: Asthma, Bronchitis, COPD, Other Additional Past Medical Histor: sciatica Past Surgical History: Cholecystectomy, Tubal ligation Alcohol Use: Rarely Drug Use: None Adult General Chief Complaint Chief Complaint: SHORTNESS OF BREATH HPI HPI 49-year-old female with underlying history of asthma, COPD presents to the emergency department with complaints of epigastric pain, rib pain, decreased appetite, weight loss, nausea. Patient states symptoms been ongoing worse over the last couple of days. Significant other at bedside states she's lost approximately 60 pounds over the last couple of months. Difficult to obtain information from the patient as she is not forthcoming of symptoms or description of symptoms. She denies any headache or visual changes, chest pain. Review of Systems Review of Systems Constitutional: chills Eyes: Denies change in visual acuity, redness, or eye pain [] HENT: Denies nasal congestion or sore throat [] Respiratory: SOB/cough Cardiovascular: No additional information not addressed in HPI [] GI: epigastric pain, nausea, vomiting, no bloody stools or diarrhea [] : Denies dysuria or hematuria [] Musculoskeletal: Denies back pain or joint pain [] Integument: Denies rash or skin lesions [] Neurologic: Denies headache, focal weakness or sensory changes [] All other systems were reviewed and found to be within normal limits, except as documented in this note. Current Medications Current Medications Current Medications Medications (Trade) Dose Ordered Sig/Nika Start Time Stop Time Status Last Admin Dose Admin Albuterol/ Ipratropium (Duoneb) 3 ml 1X ONCE 10/07/19 19:45 10/07/19 19:46 DC 10/07/19 19:59 3 ML Info (CONTRAST GIVEN -- Rx MONITORING) 1 each PRN DAILY PRN 10/07/19 21:45 10/09/19 21:44 Iohexol (Omnipaque 300 Mg/ml) 75 ml 1X ONCE 10/07/19 21:45 10/07/19 21:46 DC 10/07/19 22:12 75 ML Allergies Allergies Allergies Coded Allergies Type Severity Reaction Last Updated Verified No Known Drug Allergies 11/07/13 No Physical Exam Physical Exam Constitutional: Well developed, well nourished, no acute distress, non-toxic appearance. [] HENT: Normocephalic, atraumatic, bilateral external ears normal, oropharynx mois t, no oral exudates, nose normal. [] Eyes: PERRLA, EOMI, conjunctiva normal, no discharge. [] Cardiovascular:Heart rate regular rhythm, no murmur [] Lungs & Thorax: Bilateral breath sounds clear to auscultation [] Abdomen: Bowel sounds normal, soft, no tenderness, no masses, no pulsatile masses. [] Skin: Warm, dry, no erythema, no rash. [] Back: No tenderness, no CVA tenderness. [] Extremities: No tenderness, no edema. [] Neurologic: Alert and oriented X 3, no focal deficits noted. [] Psychologic: Affect normal, judgement normal, mood normal. [] Current Patient Data Vital Signs Vital Signs Date Time Temp Pulse Resp B/P (MAP) Pulse Ox O2 Delivery O2 Flow Rate FiO2 10/07/19 20:49 85 20 113/57 (75) 92 Room Air 10/07/19 19:10 97.7 97.7 Lab Values Laboratory Tests Test 10/07/19 19:20 10/07/19 19:30 10/07/19 19:51 10/07/19 22:23 White Blood Count 10.8 x10^3/uL (4.0-11.0) Red Blood Count 5.64 x10^6/uL (3.50-5.40) H Hemoglobin 13.8 g/dL (12.0-15.5) Hematocrit 41.8 % (36.0-47.0) Mean Corpuscular Volume 74 fL (79-100) L Mean Corpuscular Hemoglobin 24 pg (25-35) L Mean Corpuscular Hemoglobin Concent 33 g/dL (31-37) Red Cell Distribution Width 19.3 % (11.5-14.5) H Platelet Count 281 x10^3/uL (140-400) Neutrophils (%) (Auto) 80 % (31-73) H Lymphocytes (%) (Auto) 15 % (24-48) L Monocytes (%) (Auto) 5 % (0-9) Eosinophils (%) (Auto) 0 % (0-3) Basophils (%) (Auto) 0 % (0-3) Neutrophils # (Auto) 8.6 x10^3/uL (1.8-7.7) H Lymphocytes # (Auto) 1.6 x10^3/uL (1.0-4.8) Monocytes # (Auto) 0.5 x10^3/uL (0.0-1.1) Eosinophils # (Auto) 0.0 x10^3/uL (0.0-0.7) Basophils # (Auto) 0.0 x10^3/uL (0.0-0.2) D-Dimer (Toya) < 0.27 ug/mlFEU Urine Collection Type Unknown Urine Color Kelsey Urine Clarity Clear Urine pH 5.5 Urine Specific [place] >=1.030 Urine Protein 30 mg/dL (NEG-TRACE) Urine Glucose (UA) Negative mg/dL (NEG) Urine Ketones (Stick) >=80 mg/dL (NEG) Urine Blood Negative (NEG) Urine Nitrite Negative (NEG) Urine Bilirubin Small (NEG) Urine Urobilinogen Dipstick 1.0 mg/dL (0.2 mg/dL) Urine Leukocyte Esterase Negative (NEG) Urine RBC Occ /HPF (0-2) Urine WBC 0 /HPF (0-4) Urine Squamous Epithelial Cells Few /LPF Urine Bacteria 0 /HPF (0-FEW) Urine Mucus Marked /LPF Sodium Level 137 mmol/L (136-145) Potassium Level 3.3 mmol/L (3.5-5.1) L Chloride Level 99 mmol/L (98-107) Carbon Dioxide Level 26 mmol/L (21-32) Anion Gap 12 (6-14) Blood Urea Nitrogen 27 mg/dL (7-20) H Creatinine 0.7 mg/dL (0.6-1.0) Estimated GFR (Cockcroft-Gault) 89.3 BUN/Creatinine Ratio 39 (6-20) H Glucose Level 85 mg/dL (70-99) Lactic Acid Level 1.3 mmol/L (0.4-2.0) Calcium Level 9.7 mg/dL (8.5-10.1) Total Bilirubin 1.5 mg/dL (0.2-1.0) H Aspartate Amino Transferase (AST) 29 U/L (15-37) Alanine Aminotransferase (ALT) 27 U/L (14-59) Alkaline Phosphatase 98 U/L (46-116) Troponin I Quantitative < 0.017 ng/mL (0.000-0.055) FI-Ypr-B-Type Natriuretic Peptide 235 pg/mL (0-124) H Total Protein 8.6 g/dL (6.4-8.2) H Albumin 4.8 g/dL (3.4-5.0) Albumin/Globulin Ratio 1.3 (1.0-1.7) Lipase 84 U/L (73-393) POC Urine HCG, Qualitative Hcg negative (Negative) Influenza Type A Antigen Negative (NEGATIVE) Influenza Type B Antigen Negative (NEGATIVE) POC Troponin I 0.00 ng/ml (<0.08) Laboratory Tests 10/07/19 19:20 Laboratory Tests 10/07/19 19:20 EKG EKG [] Radiology/Procedures Radiology/Procedures [facility] [address] [place] [address] IMAGING REPORT Signed PATIENT: ISABELLE WEINER ACCOUNT: [id number] : 1970 LOCATION: ER AGE: 49 SEX: F EXAM STATUS: REG ER ORD. PHYSICIAN: CLINTON HELLER MD REASON: epigastric/adbominal pain/weight loss x 60#, OMNI 300, 75ML IV PROCEDURE: CT ABD PELV W/ IV CONTRST ONLY Examination: CT ABD PELV W/ IV CONTRST ONLY History: Epigastric abdominal pain. Weight loss. Comparison/Correlation: 03/30/2017 CT abdomen and pelvis with contrast Findings: Axial images of the abdomen and pelvis were obtained following IV contrast. Sagittal and coronal reformatted images were provided. Calcified granulomas involve the right lower lung base. Mild mosaic attenuation of lung bases. This may represent small vessel or small airways disease. Small sliding hiatal hernia. Liver, spleen, pancreas and adrenal glands are normal. Left kidney is unremarkable. Right renal superior pole cyst is present. No enlarged abdominal or pelvic lymph nodes. No inflammatory changes about the cecum. Evaluation may be limited due to minimal mesenteric fat. No bowel obstruction. Uterus is unremarkable. No ascites or pelvic free fluid. No enlarged abdominal or pelvic lymph nodes. Bony structures are unremarkable. Impression: Small sliding hiatal hernia. No acute process. PQRS Compliance Statement: One or more of the following individualized dose reduction techniques were utilized for this examination: 1. Automated exposure control 2. Adjustment of the mA and/or kV according to patient size 3. Use of iterative reconstruction technique Electronically signed by: Jimmie Abdi MD (10/07/2019 10:56 PM) [facility] DICTATED and SIGNED BY: JIMMIE ABDI MD DATE: 10/07/192255 [] [facility] [address] [place] [address] IMAGING REPORT Signed PATIENT: ISABELLE WEINER ACCOUNT: [id number] : 1970 LOCATION: ER AGE: 49 SEX: F EXAM STATUS: REG ER ORD. PHYSICIAN: CLINTON HELLER MD REASON: SOB PROCEDURE: PORTABLE CHEST 1V Examination: PORTABLE CHEST 1V History: Shortness of breath Comparison/Correlation: 07/21/2019 two-view chest x-ray exam Findings: Portable frontal view chest was obtained. Heart size and pulmonary vasculature are normal. No infiltrate or pleural effusion. No pneumothorax. Bony structures are unremarkable. Pulmonary hyperinflation is suggested to prior exam. Impression: No infiltrate. No significant change. Electronically signed by: Jimmie Abdi MD (10/07/2019 10:58 PM) [facility] DICTATED and SIGNED BY: JIMMIE ABDI MD DATE: 10/07/192257 Course & Med Decision Making Course & Med Decision Making Pertinent Labs and Imaging studies reviewed. (See chart for details) []49-year-old female with underlying history of asthma, COPD presents to the emergency department with complaints of epigastric pain, rib pain, decreased appetite, weight loss, nausea. Patient states symptoms been ongoing worse over the last couple of days. Significant other at bedside states she's lost approximately 60 pounds over the last couple of months. Difficult to obtain information from the patient as she is not forthcoming of symptoms or description of symptoms. She denies any headache or visual changes, chest pain. Laboratory values reviewed, white blood cell count 10.8, lactic acid 1.3, and function within normal limits urinalysis reveals no evidence of urinary tract infection, d-dimer within normal limits, CT the abdomen and pelvis revealed no evidence of acute process she does have a hiatal hernia that small which may be attributed to some of her pain. Discussed findings with patient/family at bedside Recommend follow up with PCP as outpatient for further workup Dragmiguel angel Disclaimer Dragon Disclaimer This electronic medical record was generated, in whole or in part, using a voice recognition dictation system. Departure Departure Impression: Primary Impression: COPD (chronic obstructive pulmonary disease) Additional Impressions: Epigastric pain Hiatal hernia Disposition: HOME, SELF-CARE Condition: STABLE Referrals: UNKNOWN PCP NAME (PCP) Patient Instructions: Chronic Obstructive Pulmonary Disease Exacerbation, [id number], Hiatal Hernia Additional Instructions: Recommend follow up with PCP 3 - 5 days Return to the ER with worsening symptoms, intractable pain, fever, altered mental status Tylenol/Motrin as needed for pain CT reveals no evidence of intra-abdominal process, there is a small hiatal hernia which may cause some discomfort and should be followed Labs without evidence of acute process, mildly low potassium - replaced in the ER Recommend following with PCP as outpatient Problem Qualifiers Primary Impression: COPD (chronic obstructive pulmonary disease) COPD type: unspecified COPD Qualified Codes: J44.9 - Chronic obstructive pulmonary disease, unspecified CLINTON HELLER MD Oct 07, 2019 19:43
[2019-10-07 19:45] LABS: BILIRUBIN,URINE SMALL (NEG); CLARITY,URINE CLEAR; COLOR,URINE AMBER; NITRITE,URINE NEGATIVE (NEG); PH,URINE 5.5; PROTEIN,URINE 30 mg/dL (NEG-TRACE)
[2019-10-07] MEDS ORDERED: IPRATRPIUM/ALBUTEROL 0.5/2.5MG 3 ML NEBU. NEB ONE (19:45)
[2019-10-07 19:51] LABS: CALCIUM 9.7 mg/dL (8.5-10.1); CREATININE 0.7 mg/dL (0.6-1.0); GFR 89.3; POTASSIUM 3.3 mmol/L (3.5-5.1)
[2019-10-07 19:55] LABS: SQUAMOUS EPITHELIAL CELL,UR FEW /LPF
[2019-10-07 19:56] LABS: BACTERIA,URINE 0 /HPF (0-FEW); RBC,URINE OCC /HPF (0-2); WBC,URINE 0 /HPF (0-4)
[2019-10-07 19:57] LABS: ALBUMIN 4.8 g/dL (3.4-5.0); ALBUMIN/GLOBULIN RATIO 1.3 (1.0-1.7); TOTAL BILIRUBIN 1.5 mg/dL (0.2-1.0); TOTAL PROTEIN 8.6 g/dL (6.4-8.2)
[2019-10-07 20:29] LABS: INFLUENZA A PATIENT NEGATIVE (NEGATIVE); INFLUENZA B PATIENT NEGATIVE (NEGATIVE)
[2019-10-07] MEDS ORDERED: CONTRAST GIVEN. MC PRN (21:45)
[2019-10-07] MEDS ORDERED: IOHEXOL 300 MG/ML 100ML VIAL. IV ONE (21:45)
[2019-10-07 22:08] VITALS: BP 116/59
--- NOTE | 2019-10-07 22:59 | RAD ---
Examination: CT ABD PELV W/ IV CONTRST ONLY History: Epigastric abdominal pain. Weight loss. Comparison/Correlation: 03/30/2017 CT abdomen and pelvis with contrast Findings: Axial images of the abdomen and pelvis were obtained following IV contrast. Sagittal and coronal reformatted images were provided. Calcified granulomas involve the right lower lung base. Mild mosaic attenuation of lung bases. This may represent small vessel or small airways disease. Small sliding hiatal hernia. Liver, spleen, pancreas and adrenal glands are normal. Left kidney is unremarkable. Right renal superior pole cyst is present. No enlarged abdominal or pelvic lymph nodes. No inflammatory changes about the cecum. Evaluation may be limited due to minimal mesenteric fat. No bowel obstruction. Uterus is unremarkable. No ascites or pelvic free fluid. No enlarged abdominal or pelvic lymph nodes. Bony structures are unremarkable. Impression: Small sliding hiatal hernia. No acute process. PQRS Compliance Statement: One or more of the following individualized dose reduction techniques were utilized for this examination: 1. Automated exposure control 2. Adjustment of the mA and/or kV according to patient size 3. Use of iterative reconstruction technique Electronically signed by: Jimmie Barron MD (10/07/2019 10:56 PM) [facility]
--- NOTE | 2019-10-07 23:01 | RAD ---
Examination: PORTABLE CHEST 1V History: Shortness of breath Comparison/Correlation: 07/21/2019 two-view chest x-ray exam Findings: Portable frontal view chest was obtained. Heart size and pulmonary vasculature are normal. No infiltrate or pleural effusion. No pneumothorax. Bony structures are unremarkable. Pulmonary hyperinflation is suggested to prior exam. Impression: No infiltrate. No significant change. Electronically signed by: Jimmie Barron MD (10/07/2019 10:58 PM) [facility]
[2019-10-07] MEDS ORDERED: POTASSIUM CHLORIDE 10 MEQ TABLET.ER. PO ONE (23:30)
--- NOTE | 2019-10-09 12:48 | EKG ---
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
== END 2019-10-07 23:29 | disposition home or self-care (01) ==
LOC: ER 18:12
DX: J44.9 Chronic obstructive pulmonary disease, unspecified (principal); R10.13 Epigastric pain; K44.9 Diaphragmatic hernia without obstruction or gangrene; Z90.49 Acquired absence of other specified parts of digestive tract; Z98.51 Tubal ligation status
CPT/HCPCS: 36415; 71045; 74177; 80053; 81001; 81025; 83605; 83690; 83880; 84484; 85025; 85379; 87804; 93005; 94640; 99285; J7620; Q9967

== ENCOUNTER 2019-11-05 02:52 | Inpatient (IN) | payer SELFPAY ==
[~2019-11-05] VITALS: Ht 162.6 cm; Wt 54.0 kg
[2019-11-05 03:14] LABS: BASO # 0.1 x10^3/uL (0.0-0.2); BASO % 0 % (0-3); EOS # 0.1 x10^3/uL (0.0-0.7); EOS % 0 % (0-3); HEMATOCRIT 38.8 % (36.0-47.0); LYMPH % 5 % (24-48); MEAN CORPUSCULAR HEMOGLOBIN 25 pg (25-35); MEAN CORPUSCULAR HGB CONC 34 g/dL (31-37); MEAN CORPUSCULAR VOLUME 75 fL (79-100); MONO # 0.9 x10^3/uL (0.0-1.1); MONO % 5 % (0-9); NEUT # 17.6 x10^3/uL (1.8-7.7); NEUT % 89 % (31-73); PLATELET COUNT 239 x10^3/uL (140-400); RED BLOOD COUNT 5.16 x10^6/uL (3.50-5.40); RED CELL DISTRIBUTION WIDTH 19.5 % (11.5-14.5); WHITE BLOOD COUNT 19.7 x10^3/uL (4.0-11.0)
[2019-11-05] MEDS ORDERED: ONDANSETRON PF 4 MG/2 ML VIAL. IV ONE (03:15)
[2019-11-05] MEDS ORDERED: KETOROLAC 30 MG/ML VIAL. IV ONE (03:15)
[2019-11-05] MEDS ORDERED: IV NORMAL SALINE 1000ML BAG 1,000 ML IV SCH (03:15)
[2019-11-05 03:24] LABS: CREATININE 0.9 mg/dL (0.6-1.0); GFR 66.8; POTASSIUM 3.6 mmol/L (3.5-5.1)
--- NOTE | 2019-11-05 03:26 | PHYS DOC ---
Past Medical History Past Medical History: Asthma, Bronchitis, COPD, Other Additional Past Medical Histor: sciatica Past Surgical History: Cholecystectomy, Tubal ligation Alcohol Use: Rarely Drug Use: None Adult General Chief Complaint Chief Complaint: FLANK PAIN HPI HPI Patient is a 49-year-old female who presents with complaint of left-sided flank pain. Patient rates her pain to be a 10 out of 10. She is not able to describe the pain but states the pain is worsened with breathing and with movements. She denies any nausea, vomiting or diarrhea. She is not aware of any fever. She denies chest pain or shortness of breath. Patient states that nothing is improving her symptoms. Patient states that symptoms started 2 days ago and got worse a few hours ago.[] Review of Systems Review of Systems Constitutional: Denies fever or chills [] Respiratory: Denies cough or shortness of breath [] Cardiovascular: No additional information not addressed in HPI [] GI: Complains of abdominal/flank pain without vomiting or diarrhea [] : Denies dysuria or hematuria [] Musculoskeletal: Complains of left-sided back pain [] Integument: Denies rash or skin lesions [] Neurologic: Denies headache, focal weakness or sensory changes [] All other systems were reviewed and found to be within normal limits, except as documented in this note. Current Medications Current Medications Current Medications Medications (Trade) Dose Ordered Sig/Nika Start Time Stop Time Status Last Admin Dose Admin Azithromycin (Zithromax) 500 mg 1X ONCE 11/05/19 05:30 11/05/19 05:31 DC Ceftriaxone Sodium (Rocephin) 1 gm 1X ONCE 11/05/19 05:30 11/05/19 05:31 DC Info (CONTRAST GIVEN -- Rx MONITORING) 1 each PRN DAILY PRN 11/05/19 04:45 11/07/19 04:44 Iohexol (Omnipaque 300 Mg/ml) 75 ml 1X ONCE 11/05/19 04:45 11/05/19 04:46 DC 11/05/19 04:47 75 ML Ketorolac Tromethamine (Toradol 30mg Vial) 30 mg 1X ONCE 11/05/19 03:15 11/05/19 03:16 DC 11/05/19 03:11 30 MG Ondansetron HCl (Zofran) 4 mg 1X ONCE 11/05/19 03:15 11/05/19 03:16 DC 11/05/19 03:12 4 MG Sodium Chloride 1,000 ml @ 1,000 mls/hr Q1H 11/05/19 03:15 11/05/19 04:14 DC 11/05/19 03:12 1,000 MLS/HR Allergies Allergies Allergies Coded Allergies Type Severity Reaction Last Updated Verified No Known Drug Allergies 11/07/13 No Physical Exam Physical Exam Constitutional: Well developed, well nourished, appears uncomfortable, non-toxic appearance. [] HENT: Normocephalic, atraumatic, bilateral external ears normal, oropharynx moist, no oral exudates, nose normal. [] Eyes: PERRLA, EOMI, conjunctiva normal, no discharge. [] Neck: Normal range of motion, no tenderness, supple. [] Cardiovascular: Regular rate and rhythm[] Lungs & Thorax: Bilateral breath sounds clear to auscultation [] Abdomen: Bowel sounds normal, soft, with left lower quadrant tenderness. [] Skin: Warm, dry, no erythema, no rash. [] Extremities: No tenderness, no cyanosis, no clubbing, ROM intact, no edema. [] Neurologic: Alert and oriented X 3, no focal deficits noted. [] Current Patient Data Vital Signs Vital Signs Date Time Temp Pulse Resp B/P (MAP) Pulse Ox O2 Delivery O2 Flow Rate FiO2 11/05/19 02:52 98.2 101 32 143/91 (108) 97 Room Air 98.2 Lab Values Laboratory Tests Test 11/05/19 03:05 11/05/19 04:30 11/05/19 04:34 White Blood Count 19.7 x10^3/uL (4.0-11.0) H Red Blood Count 5.16 x10^6/uL (3.50-5.40) Hemoglobin 13.0 g/dL (12.0-15.5) Hematocrit 38.8 % (36.0-47.0) Mean Corpuscular Volume 75 fL (79-100) L Mean Corpuscular Hemoglobin 25 pg (25-35) Mean Corpuscular Hemoglobin Concent 34 g/dL (31-37) Red Cell Distribution Width 19.5 % (11.5-14.5) H Platelet Count 239 x10^3/uL (140-400) Neutrophils (%) (Auto) 89 % (31-73) H Lymphocytes (%) (Auto) 5 % (24-48) L Monocytes (%) (Auto) 5 % (0-9) Eosinophils (%) (Auto) 0 % (0-3) Basophils (%) (Auto) 0 % (0-3) Neutrophils # (Auto) 17.6 x10^3/uL (1.8-7.7) H Lymphocytes # (Auto) 1.0 x10^3/uL (1.0-4.8) Monocytes # (Auto) 0.9 x10^3/uL (0.0-1.1) Eosinophils # (Auto) 0.1 x10^3/uL (0.0-0.7) Basophils # (Auto) 0.1 x10^3/uL (0.0-0.2) Segmented Neutrophils % 87 % (35-66) H Band Neutrophils % 3 % (0-9) Lymphocytes % 6 % (24-48) L Monocytes % 4 % (0-10) Toxic Granulation Slight Platelet Estimate Adequate (ADEQUATE) Anisocytosis Slight Ovalocytes Few Sodium Level 137 mmol/L (136-145) Potassium Level 3.6 mmol/L (3.5-5.1) Chloride Level 98 mmol/L (98-107) Carbon Dioxide Level 26 mmol/L (21-32) Anion Gap 13 (6-14) Blood Urea Nitrogen 18 mg/dL (7-20) Creatinine 0.9 mg/dL (0.6-1.0) Estimated GFR (Cockcroft-Gault) 66.8 BUN/Creatinine Ratio 20 (6-20) Glucose Level 128 mg/dL (70-99) H Calcium Level 9.0 mg/dL (8.5-10.1) Total Bilirubin 1.8 mg/dL (0.2-1.0) H Aspartate Amino Transferase (AST) 15 U/L (15-37) Alanine Aminotransferase (ALT) 18 U/L (14-59) Alkaline Phosphatase 80 U/L (46-116) Total Protein 7.5 g/dL (6.4-8.2) Albumin 3.7 g/dL (3.4-5.0) Albumin/Globulin Ratio 1.0 (1.0-1.7) Lipase 56 U/L (73-393) L Urine Collection Type Unknown Urine Color Kelsey Urine Clarity Clear Urine pH 5.5 Urine Specific [place] >=1.030 Urine Protein 100 mg/dL (NEG-TRACE) Urine Glucose (UA) Negative mg/dL (NEG) Urine Ketones (Stick) 15 mg/dL (NEG) Urine Blood Trace (NEG) Urine Nitrite Negative (NEG) Urine Bilirubin Small (NEG) Urine Urobilinogen Dipstick 1.0 mg/dL (0.2 mg/dL) Urine Leukocyte Esterase Negative (NEG) Urine RBC Occ /HPF (0-2) Urine WBC Occ /HPF (0-4) Urine Squamous Epithelial Cells Few /LPF Urine Amorphous Sediment Present /HPF Urine Bacteria 0 /HPF (0-FEW) Urine Mucus Mod /LPF POC Urine HCG, Qualitative Hcg negative (Negative) Laboratory Tests 11/05/19 03:05 Laboratory Tests 11/05/19 03:05 EKG EKG [] Radiology/Procedures Radiology/Procedures [] Impressions: PROCEDURE: CT ABD PELV W/ IV CONTRST ONLY CT abdomen and pelvis with contrast. HISTORY: Left lower quadrant abdominal pain CT scan the abdomen pelvis was done using 75 mL Omnipaque 300 contrast. There is a consolidating infiltrate in the left lower lobe consistent with an acute pneumonia. There is no effusion. Liver is normal in appearance. Spleen and adrenal glands are unremarkable. There is a cyst in the upper right kidney. There is no renal mass or hydronephrosis. There is no bowel obstruction. Uterus and ovaries are unremarkable. There is no free fluid or ascites or free air. Appendix is not identified. IMPRESSION: 1. Left lower pneumonia. 2. Right renal cyst. 3. No renal or ureteral calculus noted. 4. No bowel obstruction. Course & Med Decision Making Course & Med Decision Making Pertinent Labs and Imaging studies reviewed. (See chart for details) [] Dragon Disclaimer Dragon Disclaimer This electronic medical record was generated, in whole or in part, using a voice recognition dictation system. Departure Departure Impression: Primary Impression: Community acquired pneumonia Disposition: ADMITTED INPATIENT Admitting Physician: BERT (Dr. Don) Condition: IMPROVED Referrals: UNKNOWN PCP NAME (PCP) Problem Qualifiers Primary Impression: Community acquired pneumonia Laterality: left Lung location: lower lobe of lung Qualified Codes: J18.9 - Pneumonia, unspecified organism ELI GUTIÉRREZ Jr. DO Nov 05, 2019 03:25
[2019-11-05 03:30] LABS: ALBUMIN 3.7 g/dL (3.4-5.0); TOTAL BILIRUBIN 1.8 mg/dL (0.2-1.0); TOTAL PROTEIN 7.5 g/dL (6.4-8.2)
[2019-11-05 03:43] LABS: % BANDS 3 % (0-9); % LYMPHS 6 % (24-48); % MONOS 4 % (0-10); % SEGS 87 % (35-66); PLT ESTIMATE ADEQUATE (ADEQUATE)
[2019-11-05 03:44] LABS: ANISOCYTOSIS SLIGHT; OVALOCYTES FEW; TOXIC GRANULATION SLIGHT
[2019-11-05 04:40] LABS: BILIRUBIN,URINE SMALL (NEG); CLARITY,URINE CLEAR; COLOR,URINE AMBER; NITRITE,URINE NEGATIVE (NEG); PH,URINE 5.5; PROTEIN,URINE 100 mg/dL (NEG-TRACE)
[2019-11-05 04:43] LABS: SQUAMOUS EPITHELIAL CELL,UR FEW /LPF
[2019-11-05 04:44] LABS: AMORPHOUS SEDIMENT,UR PRESENT /HPF; BACTERIA,URINE 0 /HPF (0-FEW); RBC,URINE OCC /HPF (0-2); WBC,URINE OCC /HPF (0-4)
[2019-11-05] MEDS ORDERED: CONTRAST GIVEN. MC PRN (04:45)
[2019-11-05] MEDS ORDERED: IOHEXOL 300 MG/ML 100ML VIAL. IV ONE (04:45)
--- NOTE | 2019-11-05 05:09 | RAD ---
CT abdomen and pelvis with contrast. HISTORY: Left lower quadrant abdominal pain CT scan the abdomen pelvis was done using 75 mL Omnipaque 300 contrast. There is a consolidating infiltrate in the left lower lobe consistent with an acute pneumonia. There is no effusion. Liver is normal in appearance. Spleen and adrenal glands are unremarkable. There is a cyst in the upper right kidney. There is no renal mass or hydronephrosis. There is no bowel obstruction. Uterus and ovaries are unremarkable. There is no free fluid or ascites or free air. Appendix is not identified. IMPRESSION: 1. Left lower pneumonia. 2. Right renal cyst. 3. No renal or ureteral calculus noted. 4. No bowel obstruction. PQRS Compliance Statement: One or more of the following individualized dose reduction techniques were utilized for this examination: 1. Automated exposure control 2. Adjustment of the mA and/or kV according to patient size 3. Use of iterative reconstruction technique Electronically signed by: Eladio Haney MD (11/05/2019 5:07 AM) [id number]
[2019-11-05] MEDS ORDERED: AZITHROMYCIN 250 MG TABLET. PO ONE (05:30)
[2019-11-05] MEDS ORDERED: cefTRIAXone IV Push 1 GM VIAL. IVP ONE (05:30)
[2019-11-05] MEDS ORDERED: ONDANSETRON PF 4 MG/2 ML VIAL. IVP ONE (05:45)
[2019-11-05] MEDS ORDERED: ONDANSETRON PF 4 MG/2 ML VIAL. IV PRN ×2 (05:45→09:30)
[2019-11-05] MEDS ORDERED: ACETAMINOPHEN 325 MG TABLET. PO PRN ×2 (05:45→09:30)
[2019-11-05] MEDS ORDERED: MORPHINE SULFATE 4 MG/ML VIAL. IV ONE (05:45)
[2019-11-05] MEDS ORDERED: MORPHINE SULFATE 4 MG/ML VIAL. IV PRN ×2 (05:45→09:30)
--- NOTE | 2019-11-05 05:54 | RAD ---
AP chest. HISTORY: Cough AP view was taken of the chest. Heart is normal in size. There is no effusion. There are no confluent infiltrates. IMPRESSION: 1. No acute infiltrates. Electronically signed by: Eladio Haney MD (11/05/2019 5:51 AM) [id number]
[2019-11-05] MEDS ORDERED: ACETAMINOPHEN 500 MG TABLET PO ONE (06:00)
[2019-11-05] MEDS: IV NORMAL SALINE 1000ML BAG 1,000 ML IV SCH ×3 (06:05→18:03)
[2019-11-05] MEDS ORDERED: IV NORMAL SALINE 1000ML BAG 1,000 ML IV ONE (06:15)
[2019-11-05] MEDS: IPRATRPIUM/ALBUTEROL 0.5/2.5MG 3 ML NEBU. NEB SCH ×4 (07:33→20:00)
[2019-11-05] MEDS ORDERED: guaiFENesin DM 200MG/20MG 10 ML SYRUP PO PRN (09:30)
--- NOTE | 2019-11-05 09:32 | PDOC1 ---
History and Physical Date of Admission Date of Admission DATE: 11/05/19 TIME: 09:22 Identification/Chief Complaint Chief Complaint Shortness of breath Source Source: Patient History of Present Illness History of Present Illness Ms Espinoza is a 49yo F w/ PMHx Asthma, Bronchitis, COPD, sciatica who presents with complaint of left-sided flank pain. Patient rates her pain to be a 10 out of 10. She is not able to describe the pain but states the pain is worsened with breathing and with movements. She denies any nausea, vomiting or diarrhea. She is not aware of any fever. She denies chest pain or shortness of breath. Patient states that nothing is improving her symptoms. Patient states that symptoms started 2 days ago and got worse a few hours prior to admit. WBC 19.7 with left shift. K 3.6, Tbili 1.8. CXR negative, however abdominal CT showed left lower lobe infiltrate. Admitted for further treatment Past Medical History Pulmonary: Asthma, Bronchitis, COPD Musculoskeletal: low back pain Past Surgical History Past Surgical History: Cholecystectomy, Tubal Ligation Family History Family History: Chronic Bronchitis, Other Family History: Parent Social History Smoke: 1 pack per day ALCOHOL: rare Drugs: None Current Problem List Problem List Problems Medical Problems: (1) Community acquired pneumonia Status: Acute Current Medications Current Medications Current Medications Sodium Chloride 1,000 ml @ 1,000 mls/hr Q1H IV Last administered on 11/05/19at 03:12; Start 11/05/19 at 03:15; Stop 11/05/19 at 04:14; Status DC Ondansetron HCl (Zofran) 4 mg 1X ONCE IV Last administered on 11/05/19at 03:12; Start 11/05/19 at 03:15; Stop 11/05/19 at 03:16; Status DC Ketorolac Tromethamine (Toradol 30mg Vial) 30 mg 1X ONCE IV Last administered on 11/05/19at 03:11; Start 11/05/19 at 03:15; Stop 11/05/19 at 03:16; Status DC Iohexol (Omnipaque 300 Mg/ml) 75 ml 1X ONCE IV Last administered on 11/05/19at 04:47; Start 11/05/19 at 04:45; Stop 11/05/19 at 04:46; Status DC Info (CONTRAST GIVEN -- Rx MONITORING) 1 each PRN DAILY PRN MC SEE COMMENTS; Start 11/05/19 at 04:45; Stop 11/07/19 at 04:44 Ceftriaxone Sodium (Rocephin) 1 gm 1X ONCE IVP Last administered on 11/05/19at 06:00; Start 11/05/19 at 05:30; Stop 11/05/19 at 05:31; Status DC Azithromycin (Zithromax) 500 mg 1X ONCE PO Last administered on 11/05/19at 05:58; Start 11/05/19 at 05:30; Stop 11/05/19 at 05:31; Status DC Morphine Sulfate (Morphine Sulfate) 4 mg 1X ONCE IV Last administered on 11/05/19at 05:56; Start 11/05/19 at 05:45; Stop 11/05/19 at 05:52; Status DC Ondansetron HCl (Zofran) 4 mg 1X ONCE IVP Last administered on 11/05/19at 05:58; Start 11/05/19 at 05:45; Stop 11/05/19 at 05:52; Status DC Ondansetron HCl (Zofran) 4 mg PRN Q8HRS PRN IV NAUSEA/VOMITING; Start 11/05/19 at 05:45; Stop 11/06/19 at 05:44 Morphine Sulfate (Morphine Sulfate) 4 mg PRN Q2HR PRN IV PAIN Last administered on 11/05/19at 08:07; Start 11/05/19 at 05:45; Stop 11/06/19 at 05:44 Sodium Chloride 1,000 ml @ 100 mls/hr Q10H IV Last administered on 11/05/19at 08:07; Start 11/05/19 at 05:45; Stop 11/06/19 at 05:44 Acetaminophen (Tylenol) 650 mg PRN Q4HRS PRN PO FEVER; Start 11/05/19 at 05:45; Stop 11/06/19 at 05:44 Albuterol/ Ipratropium (Duoneb) 3 ml RTQID NEB Last administered on 11/05/19at 07:33; Start 11/05/19 at 08:00; Stop 11/06/19 at 07:59 Acetaminophen (Tylenol) 1,000 mg 1X ONCE PO Last administered on 11/05/19at 05:58; Start 11/05/19 at 06:00; Stop 11/05/19 at 06:01; Status DC Sodium Chloride 1,000 ml @ 1,000 mls/hr 1X ONCE IV Last administered on 11/05/19at 06:05; Start 11/05/19 at 06:15; Stop 11/05/19 at 07:14; Status DC Active Scripts Active Proair Hfa Inhaler (Albuterol Sulfate) 8.5 Gm Hfa.aer.ad 1 Puff INH PRN Q6HRS PRN Prednisone 20 Mg Tablet 40 Mg PO DAILY 5 Days Azithromycin Tablet (Azithromycin) 250 Mg Tablet 1 Pkg PO UD Begin 07/22/19 Ferrous Sulfate 325 Mg Tablet 1 Tab PO DAILY Advair 250-50 Diskus (Fluticasone/Salmeterol) 1 Each Disk.w.dev 1 Puff IH BID Cipro (Ciprofloxacin Hcl) 500 Mg Tablet 1 Tab PO BID Prednisone (Prednisone) 10 Mg Tablet 10 Mg PO UD Take 4 tablets by mouth daily for 3 days, then take 3 tablets by mouth daily for 3 days, then take 2 tablet by mouth daily for 3 days, then take 1 tablet by mouth daily x 3 days, then stop. Albuterol Sulfate Conc Neb Soln (Albuterol Sulfate) 2.5 Mg/0.5 Ml Vial.neb 1 Vial NEB Q6HRS Proair Hfa Inhaler (Albuterol Sulfate) 8.5 Gm Hfa.aer.ad 1 Puff INH PRN Q6HRS PRN Allergies Allergies: Coded Allergies: No Known Drug Allergies (Unverified , 11/07/13) ROS General: YES: Fatigue, Malaise; No: Chills, Night Sweats, Appetite, Other PSYCHOLOGICAL ROS: YES: Anxiety; No: Behavioral Disorder, Concentration difficultie, Decreased libido, Depression, Disorientation, Hallucinations, Hostility, Irritablity, Memory difficulties, Mood Swings, Obsessive thoughts, Physical abuse, Sexual abuse, Sleep disturbances, Suicidal ideation, Other Eyes: No Blurry vision, No Decreased vision, No Double vision, No Dry eyes, No Excessive tearing, No Eye Pain, No Itchy Eyes, No Loss of vision, No Photophobia, No Scotomata, No Uses contacts, No Uses glasses, No Other HEENT: No: Heacaches, Visual Changes, Hearing change, Nasal congestion, Nasal discharge, Oral lesions, Sinus pain, Sore Throat, Epistaxis, Sneezing, Snoring, Tinnitus, Vertigo, Vocal changes, Other ALLERGY AND IMMUNOLOGY: No: Hives, Insect Bite Sensitivity, Itchy/Watery Eyes, Nasal Congestion, Post Nasal Drip, Seasonal Allergies, Other Hematological and Lymphatic: No: Bleeding Problems, Blood Clots, Blood Transfusions, Brusing, Night Sweats, Pallor, Swollen Lymph Nodes, Other ENDOCRINE: No: Breast Changes, Galactorrhea, Hair Pattern Changes, Hot Flashes, Malaise/lethargy, Mood Swings, Palpitations, Polydipsia/polyuria, Skin Changes, Temperature Intolerance, Unexpected Weight Changes, Other Breast: No New/Changing Breast Lumps, No Nipple changes, No Nipple discharge, N o Other Respiratory: YES: Cough, Pleuritic Pain, Shortness of breath, SOB with excertion, Tachypnea, Wheezing; No: Hemoptysis, Orthopnea, Sputum Changes, Stridor, Other Cardiovascular: No Chest Pain, No Palpitations, No Orthopnea, No Paroxysmal Noc. Dyspnea, No Edema, No Lt Headedness, No Other Gastrointestinal: No Nausea, No Vomiting, No Abdominal Pain, No Diarrhea, No Constipation, No Melena, No Hematochezia, No Other Genitourinary: YES Flank Pain; No Dysuria, No Frequency, No Incontinence, No Hematuria, No Retention, No Discharge, No Urgency, No Pain, No Other, No , No , No , No , No , No , No Musculoskeletal: No Gait Disturbance, No Joint Pain, No Joint Stiffness, No Joint Swelling, No Muscle Pain, No Muscular Weakness, No Pain In:, No Swelling In:, No Other Neurological: No Behavorial Changes, No Bowel/Bladder ControlChng, No Confusion, No Dizziness, No Gait Disturbance, No Headaches, No Impaired Coord/balance, No Memory Loss, No Numbness/Tingling, No Seizures, No Speech Problems, No Tremors, No Visual Changes, No Weakness, No Other Skin: No Dry Skin, No Eczema, No Hair Changes, No Lumps, No Mole Changes, No Mottling, No Nail Changes, No Pruritus, No Rash, No Skin Lesion Changes, No Other, No Acne Physical Exam General: Alert, Oriented X3, Cooperative, mild distress HEENT: Atraumatic, PERRLA, EOMI, Mucous membr. moist/pink, Other (Poor dentition) Lungs: Normal air movement, Other (Left basilar rhonchi) Heart: S1S2, RRR, no thrills, no rubs, no gallops, no murmurs Abdomen: Normal bowel sounds, Soft, No hepatosplenomegaly, No masses, Other (Left flank tenderness) Rectal Exam: not examined Extremities: No clubbing, No cyanosis, No edema, Normal pulses, No tenderness/swelling Skin: No rashes, No breakdown, No significant lesion Neuro: Normal gait, Normal speech, Strength at 5/5 X4 ext, Normal tone, Sensation intact, Cranial nerves 3-12 NL, Reflexes 2+ Psych/Mental Status: Mental status NL, Mood NL Vitals Vitals Vital Signs Date Time Temp Pulse Resp B/P (MAP) Pulse Ox O2 Delivery O2 Flow Rate FiO2 11/05/19 08:07 97 2.0 11/05/19 07:35 Nasal Cannula 11/05/19 05:56 24 11/05/19 05:51 112 130/69 (89) 11/05/19 02:52 98.2 98.2 Labs Labs Laboratory Tests Test 11/05/19 03:05 11/05/19 04:30 11/05/19 04:34 11/05/19 05:37 White Blood Count 19.7 x10^3/uL (4.0-11.0) Red Blood Count 5.16 x10^6/uL (3.50-5.40) Hemoglobin 13.0 g/dL (12.0-15.5) Hematocrit 38.8 % (36.0-47.0) Mean Corpuscular Volume 75 fL (79-100) Mean Corpuscular Hemoglobin 25 pg (25-35) Mean Corpuscular Hemoglobin Concent 34 g/dL (31-37) Red Cell Distribution Width 19.5 % (11.5-14.5) Platelet Count 239 x10^3/uL (140-400) Neutrophils (%) (Auto) 89 % (31-73) Lymphocytes (%) (Auto) 5 % (24-48) Monocytes (%) (Auto) 5 % (0-9) Eosinophils (%) (Auto) 0 % (0-3) Basophils (%) (Auto) 0 % (0-3) Neutrophils # (Auto) 17.6 x10^3/uL (1.8-7.7) Lymphocytes # (Auto) 1.0 x10^3/uL (1.0-4.8) Monocytes # (Auto) 0.9 x10^3/uL (0.0-1.1) Eosinophils # (Auto) 0.1 x10^3/uL (0.0-0.7) Basophils # (Auto) 0.1 x10^3/uL (0.0-0.2) Segmented Neutrophils % 87 % (35-66) Band Neutrophils % 3 % (0-9) Lymphocytes % 6 % (24-48) Monocytes % 4 % (0-10) Toxic Granulation Slight Platelet Estimate Adequate (ADEQUATE) Anisocytosis Slight Ovalocytes Few Sodium Level 137 mmol/L (136-145) Potassium Level 3.6 mmol/L (3.5-5.1) Chloride Level 98 mmol/L (98-107) Carbon Dioxide Level 26 mmol/L (21-32) Anion Gap 13 (6-14) Blood Urea Nitrogen 18 mg/dL (7-20) Creatinine 0.9 mg/dL (0.6-1.0) Estimated GFR (Cockcroft-Gault) 66.8 BUN/Creatinine Ratio 20 (6-20) Glucose Level 128 mg/dL (70-99) Calcium Level 9.0 mg/dL (8.5-10.1) Total Bilirubin 1.8 mg/dL (0.2-1.0) Aspartate Amino Transf (AST/SGOT) 15 U/L (15-37) Alanine Aminotransferase (ALT/SGPT) 18 U/L (14-59) Alkaline Phosphatase 80 U/L (46-116) Total Protein 7.5 g/dL (6.4-8.2) Albumin 3.7 g/dL (3.4-5.0) Albumin/Globulin Ratio 1.0 (1.0-1.7) Lipase 56 U/L (73-393) Urine Collection Type Unknown Urine Color Kelsey Urine Clarity Clear Urine pH 5.5 Urine Specific [place] >=1.030 Urine Protein 100 mg/dL (NEG-TRACE) Urine Glucose (UA) Negative mg/dL (NEG) Urine Ketones (Stick) 15 mg/dL (NEG) Urine Blood Trace (NEG) Urine Nitrite Negative (NEG) Urine Bilirubin Small (NEG) Urine Urobilinogen Dipstick 1.0 mg/dL (0.2 mg/dL) Urine Leukocyte Esterase Negative (NEG) Urine RBC Occ /HPF (0-2) Urine WBC Occ /HPF (0-4) Urine Squamous Epithelial Cells Few /LPF Urine Amorphous Sediment Present /HPF Urine Bacteria 0 /HPF (0-FEW) Urine Mucus Mod /LPF Bedside Urine HCG, Qualitative Hcg negative (Negative) Lactic Acid Level 0.9 mmol/L (0.4-2.0) Laboratory Tests Test 11/05/19 03:05 11/05/19 04:30 11/05/19 04:34 11/05/19 05:37 White Blood Count 19.7 x10^3/uL (4.0-11.0) Red Blood Count 5.16 x10^6/uL (3.50-5.40) Hemoglobin 13.0 g/dL (12.0-15.5) Hematocrit 38.8 % (36.0-47.0) Mean Corpuscular Volume 75 fL (79-100) Mean Corpuscular Hemoglobin 25 pg (25-35) Mean Corpuscular Hemoglobin Concent 34 g/dL (31-37) Red Cell Distribution Width 19.5 % (11.5-14.5) Platelet Count 239 x10^3/uL (140-400) Neutrophils (%) (Auto) 89 % (31-73) Lymphocytes (%) (Auto) 5 % (24-48) Monocytes (%) (Auto) 5 % (0-9) Eosinophils (%) (Auto) 0 % (0-3) Basophils (%) (Auto) 0 % (0-3) Neutrophils # (Auto) 17.6 x10^3/uL (1.8-7.7) Lymphocytes # (Auto) 1.0 x10^3/uL (1.0-4.8) Monocytes # (Auto) 0.9 x10^3/uL (0.0-1.1) Eosinophils # (Auto) 0.1 x10^3/uL (0.0-0.7) Basophils # (Auto) 0.1 x10^3/uL (0.0-0.2) Segmented Neutrophils % 87 % (35-66) Band Neutrophils % 3 % (0-9) Lymphocytes % 6 % (24-48) Monocytes % 4 % (0-10) Toxic Granulation Slight Platelet Estimate Adequate (ADEQUATE) Anisocytosis Slight Ovalocytes Few Sodium Level 137 mmol/L (136-145) Potassium Level 3.6 mmol/L (3.5-5.1) Chloride Level 98 mmol/L (98-107) Carbon Dioxide Level 26 mmol/L (21-32) Anion Gap 13 (6-14) Blood Urea Nitrogen 18 mg/dL (7-20) Creatinine 0.9 mg/dL (0.6-1.0) Estimated GFR (Cockcroft-Gault) 66.8 BUN/Creatinine Ratio 20 (6-20) Glucose Level 128 mg/dL (70-99) Calcium Level 9.0 mg/dL (8.5-10.1) Total Bilirubin 1.8 mg/dL (0.2-1.0) Aspartate Amino Transf (AST/SGOT) 15 U/L (15-37) Alanine Aminotransferase (ALT/SGPT) 18 U/L (14-59) Alkaline Phosphatase 80 U/L (46-116) Total Protein 7.5 g/dL (6.4-8.2) Albumin 3.7 g/dL (3.4-5.0) Albumin/Globulin Ratio 1.0 (1.0-1.7) Lipase 56 U/L (73-393) Urine Collection Type Unknown Urine Color Kelsey Urine Clarity Clear Urine pH 5.5 Urine Specific [place] >=1.030 Urine Protein 100 mg/dL (NEG-TRACE) Urine Glucose (UA) Negative mg/dL (NEG) Urine Ketones (Stick) 15 mg/dL (NEG) Urine Blood Trace (NEG) Urine Nitrite Negative (NEG) Urine Bilirubin Small (NEG) Urine Urobilinogen Dipstick 1.0 mg/dL (0.2 mg/dL) Urine Leukocyte Esterase Negative (NEG) Urine RBC Occ /HPF (0-2) Urine WBC Occ /HPF (0-4) Urine Squamous Epithelial Cells Few /LPF Urine Amorphous Sediment Present /HPF Urine Bacteria 0 /HPF (0-FEW) Urine Mucus Mod /LPF Bedside Urine HCG, Qualitative Hcg negative (Negative) Lactic Acid Level 0.9 mmol/L (0.4-2.0) Images Images CXR - read as no infiltrate CT abdomen - There is a consolidating infiltrate in the left lower lobe consistent with an acute pneumonia. There is no effusion. Liver is normal in appearance. Spleen and adrenal glands are unremarkable. There is a cyst in the upper right kidney. There is no renal mass or hydronephrosis. There is no bowel obstruction. Uterus and ovaries are unremarkable. There is no free fluid or ascites or free air. Appendix is not identified. IMPRESSION: 1. Left lower pneumonia. 2. Right renal cyst. 3. No renal or ureteral calculus noted. 4. No bowel obstruction. VTE Prophylaxis Ordered VTE Prophylaxis Devices: Yes VTE Pharmacological Prophylaxi: Yes Assessment/Plan Assessment/Plan A/P: Left lower lobe pneumonia - community acquired, on rocephin and azithromycin Sepsis - secondary to pneumonia. Given IVF, empiric antibiotics COPD - nebs prn Microcytic anemia - will check iron studies Smoker - 27 years. Counseled on cessation FEN - General diet PPX - lovenox FULL CODE Dispo - inpatient DUANE CHACKO MD Nov 05, 2019 09:32
[2019-11-05 11:00] VITALS: BP 104/35
[2019-11-05] MEDS: ENOXAPARIN 40 MG/0.4 ML SYRINGE. SQ SCH (11:00)
[2019-11-05] MEDS: KETOROLAC 30 MG/ML VIAL. IVP PRN ×2 (12:32→21:28)
[2019-11-05 15:00] VITALS: BP 111/69
[2019-11-05] MEDS: LIDOCAINE (700MG/PATCH) PATCH. TD SCH (18:00)
[2019-11-05] MEDS: traMADol 50 MG TABLET PO PRN (18:00)
[2019-11-05 19:00] VITALS: BP 99/55
[2019-11-05] MEDS: PATCH REMOVAL. MC SCH (21:00)
[2019-11-05] MEDS: LACTOBACILLUS RHAMNOSUS GG 1 CAPSULE. PO SCH (21:27)
[2019-11-05 23:00] VITALS: BP 99/52
[2019-11-06 03:00] VITALS: BP 11/65
[2019-11-06 04:45] LABS: BASO % 0 % (0-3); EOS # 0.1 x10^3/uL (0.0-0.7); EOS % 1 % (0-3); HEMATOCRIT 31.4 % (36.0-47.0); HEMOGLOBIN 10.3 g/dL (12.0-15.5); LYMPH # 0.9 x10^3/uL (1.0-4.8); LYMPH % 10 % (24-48); MEAN CORPUSCULAR HEMOGLOBIN 25 pg (25-35); MEAN CORPUSCULAR HGB CONC 33 g/dL (31-37); MEAN CORPUSCULAR VOLUME 76 fL (79-100); MONO # 0.6 x10^3/uL (0.0-1.1); MONO % 7 % (0-9); NEUT # 7.7 x10^3/uL (1.8-7.7); NEUT % 83 % (31-73); PLATELET COUNT 165 x10^3/uL (140-400); RED BLOOD COUNT 4.12 x10^6/uL (3.50-5.40); RED CELL DISTRIBUTION WIDTH 19.2 % (11.5-14.5); WHITE BLOOD COUNT 9.4 x10^3/uL (4.0-11.0)
[2019-11-06 05:03] LABS: CALCIUM 8.5 mg/dL (8.5-10.1); CREATININE 0.7 mg/dL (0.6-1.0); GFR 89.3; POTASSIUM 3.3 mmol/L (3.5-5.1)
[2019-11-06 05:10] LABS: ALBUMIN 2.6 g/dL (3.4-5.0); DIRECT BILIRUBIN 0.3 mg/dL (0.0-0.2); TOTAL BILIRUBIN 0.5 mg/dL (0.2-1.0); TOTAL PROTEIN 5.8 g/dL (6.4-8.2)
[2019-11-06] MEDS: cefTRIAXone IV Push 1 GM VIAL. IVP SCH (06:01)
[2019-11-06] MEDS: IV NORMAL SALINE 1000ML BAG 1,000 ML IV SCH (06:01)
[2019-11-06] MEDS: IPRATRPIUM/ALBUTEROL 0.5/2.5MG 3 ML NEBU. NEB SCH ×4 (07:13→20:43)
[2019-11-06 07:59] VITALS: BP 104/58
[2019-11-06] MEDS ORDERED: POTASSIUM CHLORIDE 20 MEQ TABLET.ER. PO ONE ×2 (08:27→09:30)
--- NOTE | 2019-11-06 08:30 | PDOC ---
PROGRESS NOTES Chief Complaint Chief Complaint A/P: Left lower lobe pneumonia - community acquired, on rocephin and azithromycin Sepsis - secondary to pneumonia. Given IVF, empiric antibiotics COPD - nebs prn Microcytic anemia - will check iron studies Smoker - 27 years. 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 Patient rates her pain to be a 10 out o f 10. She is not able to describe the pain but states the pain is worsened with breathing and with movements. She denies any nausea, vomiting or diarrhea. She is not aware of any fever. She denies chest pain or shortness of breath. Patient states that nothing is improving her symptoms. Patient states that symptoms started 2 days ago and got worse a few hours prior to admit. WBC 19.7 with left shift. K 3.6, Tbili 1.8. CXR negative, however abdominal CT showed left lower lobe infiltrate. Admitted for further treatment She is still feeling very short of breath. Pain is improved today. Still feeling pretty weak. WBC down. Cr improved. Vitals Vitals Vital Signs Date Time Temp Pulse Resp B/P (MAP) Pulse Ox O2 Delivery O2 Flow Rate FiO2 11/06/19 07:15 98 Room Air 11/06/19 03:00 98.0 89 20 11/65 (47) 98.0 11/05/19 23:00 2.0 Physical Exam General: Alert, Oriented X3, Cooperative, mild distress Heart: Regular rate, Normal S1, Normal S2 Lungs: Other (Left basilar rhonchi) Abdomen: Normal bowel sounds, Soft, No hepatosplenomegaly, No masses, Other (Left flank tenderness) Extremities: No clubbing, No cyanosis, No edema, Normal pulses, No tenderness/swelling Skin: No rashes, No breakdown, No significant lesion Labs LABS Laboratory Tests Test 11/06/19 04:20 White Blood Count 9.4 x10^3/uL (4.0-11.0) Red Blood Count 4.12 x10^6/uL (3.50-5.40) Hemoglobin 10.3 g/dL (12.0-15.5) Hematocrit 31.4 % (36.0-47.0) Mean Corpuscular Volume 76 fL (79-100) Mean Corpuscular Hemoglobin 25 pg (25-35) Mean Corpuscular Hemoglobin Concent 33 g/dL (31-37) Red Cell Distribution Width 19.2 % (11.5-14.5) Platelet Count 165 x10^3/uL (140-400) Neutrophils (%) (Auto) 83 % (31-73) Lymphocytes (%) (Auto) 10 % (24-48) Monocytes (%) (Auto) 7 % (0-9) Eosinophils (%) (Auto) 1 % (0-3) Basophils (%) (Auto) 0 % (0-3) Neutrophils # (Auto) 7.7 x10^3/uL (1.8-7.7) Lymphocytes # (Auto) 0.9 x10^3/uL (1.0-4.8) Monocytes # (Auto) 0.6 x10^3/uL (0.0-1.1) Eosinophils # (Auto) 0.1 x10^3/uL (0.0-0.7) Basophils # (Auto) 0.0 x10^3/uL (0.0-0.2) Sodium Level 136 mmol/L (136-145) Potassium Level 3.3 mmol/L (3.5-5.1) Chloride Level 102 mmol/L (98-107) Carbon Dioxide Level 27 mmol/L (21-32) Anion Gap 7 (6-14) Blood Urea Nitrogen 24 mg/dL (7-20) Creatinine 0.7 mg/dL (0.6-1.0) Estimated GFR (Cockcroft-Gault) 89.3 Glucose Level 96 mg/dL (70-99) Calcium Level 8.5 mg/dL (8.5-10.1) Total Bilirubin 0.5 mg/dL (0.2-1.0) Direct Bilirubin 0.3 mg/dL (0.0-0.2) Aspartate Amino Transf (AST/SGOT) 8 U/L (15-37) Alanine Aminotransferase (ALT/SGPT) 12 U/L (14-59) Alkaline Phosphatase 73 U/L (46-116) Total Protein 5.8 g/dL (6.4-8.2) Albumin 2.6 g/dL (3.4-5.0) Assessment and Plan Assessmemt and Plan Problems Medical Problems: (1) Community acquired pneumonia Status: Acute Comment Review of Relevant I have reviewed the following items belle (where applicable) has been applied. Labs Laboratory Tests Test 11/05/19 03:05 11/05/19 04:30 11/05/19 04:34 11/05/19 05:37 White Blood Count 19.7 x10^3/uL (4.0-11.0) Red Blood Count 5.16 x10^6/uL (3.50-5.40) Hemoglobin 13.0 g/dL (12.0-15.5) Hematocrit 38.8 % (36.0-47.0) Mean Corpuscular Volume 75 fL (79-100) Mean Corpuscular Hemoglobin 25 pg (25-35) Mean Corpuscular Hemoglobin Concent 34 g/dL (31-37) Red Cell Distribution Width 19.5 % (11.5-14.5) Platelet Count 239 x10^3/uL (140-400) Neutrophils (%) (Auto) 89 % (31-73) Lymphocytes (%) (Auto) 5 % (24-48) Monocytes (%) (Auto) 5 % (0-9) Eosinophils (%) (Auto) 0 % (0-3) Basophils (%) (Auto) 0 % (0-3) Neutrophils # (Auto) 17.6 x10^3/uL (1.8-7.7) Lymphocytes # (Auto) 1.0 x10^3/uL (1.0-4.8) Monocytes # (Auto) 0.9 x10^3/uL (0.0-1.1) Eosinophils # (Auto) 0.1 x10^3/uL (0.0-0.7) Basophils # (Auto) 0.1 x10^3/uL (0.0-0.2) Segmented Neutrophils % 87 % (35-66) Band Neutrophils % 3 % (0-9) Lymphocytes % 6 % (24-48) Monocytes % 4 % (0-10) Toxic Granulation Slight Platelet Estimate Adequate (ADEQUATE) Anisocytosis Slight Ovalocytes Few Sodium Level 137 mmol/L (136-145) Potassium Level 3.6 mmol/L (3.5-5.1) Chloride Level 98 mmol/L (98-107) Carbon Dioxide Level 26 mmol/L (21-32) Anion Gap 13 (6-14) Blood Urea Nitrogen 18 mg/dL (7-20) Creatinine 0.9 mg/dL (0.6-1.0) Estimated GFR (Cockcroft-Gault) 66.8 BUN/Creatinine Ratio 20 (6-20) Glucose Level 128 mg/dL (70-99) Calcium Level 9.0 mg/dL (8.5-10.1) Iron Level 13 ug/dL (50-170) Total Iron Binding Capacity 414 ug/dL (250-450) Iron Saturation 3 % (15-34) Total Bilirubin 1.8 mg/dL (0.2-1.0) Aspartate Amino Transf (AST/SGOT) 15 U/L (15-37) Alanine Aminotransferase (ALT/SGPT) 18 U/L (14-59) Alkaline Phosphatase 80 U/L (46-116) Total Protein 7.5 g/dL (6.4-8.2) Albumin 3.7 g/dL (3.4-5.0) Albumin/Globulin Ratio 1.0 (1.0-1.7) Lipase 56 U/L (73-393) Urine Collection Type Unknown Urine Color Kelsey Urine Clarity Clear Urine pH 5.5 Urine Specific [place] >=1.030 Urine Protein 100 mg/dL (NEG-TRACE) Urine Glucose (UA) Negative mg/dL (NEG) Urine Ketones (Stick) 15 mg/dL (NEG) Urine Blood Trace (NEG) Urine Nitrite Negative (NEG) Urine Bilirubin Small (NEG) Urine Urobilinogen Dipstick 1.0 mg/dL (0.2 mg/dL) Urine Leukocyte Esterase Negative (NEG) Urine RBC Occ /HPF (0-2) Urine WBC Occ /HPF (0-4) Urine Squamous Epithelial Cells Few /LPF Urine Amorphous Sediment Present /HPF Urine Bacteria 0 /HPF (0-FEW) Urine Mucus Mod /LPF Bedside Urine HCG, Qualitative Hcg negative (Negative) Lactic Acid Level 0.9 mmol/L (0.4-2.0) Test 11/06/19 04:20 White Blood Count 9.4 x10^3/uL (4.0-11.0) Red Blood Count 4.12 x10^6/uL (3.50-5.40) Hemoglobin 10.3 g/dL (12.0-15.5) Hematocrit 31.4 % (36.0-47.0) Mean Corpuscular Volume 76 fL (79-100) Mean Corpuscular Hemoglobin 25 pg (25-35) Mean Corpuscular Hemoglobin Concent 33 g/dL (31-37) Red Cell Distribution Width 19.2 % (11.5-14.5) Platelet Count 165 x10^3/uL (140-400) Neutrophils (%) (Auto) 83 % (31-73) Lymphocytes (%) (Auto) 10 % (24-48) Monocytes (%) (Auto) 7 % (0-9) Eosinophils (%) (Auto) 1 % (0-3) Basophils (%) (Auto) 0 % (0-3) Neutrophils # (Auto) 7.7 x10^3/uL (1.8-7.7) Lymphocytes # (Auto) 0.9 x10^3/uL (1.0-4.8) Monocytes # (Auto) 0.6 x10^3/uL (0.0-1.1) Eosinophils # (Auto) 0.1 x10^3/uL (0.0-0.7) Basophils # (Auto) 0.0 x10^3/uL (0.0-0.2) Sodium Level 136 mmol/L (136-145) Potassium Level 3.3 mmol/L (3.5-5.1) Chloride Level 102 mmol/L (98-107) Carbon Dioxide Level 27 mmol/L (21-32) Anion Gap 7 (6-14) Blood Urea Nitrogen 24 mg/dL (7-20) Creatinine 0.7 mg/dL (0.6-1.0) Estimated GFR (Cockcroft-Gault) 89.3 Glucose Level 96 mg/dL (70-99) Calcium Level 8.5 mg/dL (8.5-10.1) Total Bilirubin 0.5 mg/dL (0.2-1.0) Direct Bilirubin 0.3 mg/dL (0.0-0.2) Aspartate Amino Transf (AST/SGOT) 8 U/L (15-37) Alanine Aminotransferase (ALT/SGPT) 12 U/L (14-59) Alkaline Phosphatase 73 U/L (46-116) Total Protein 5.8 g/dL (6.4-8.2) Albumin 2.6 g/dL (3.4-5.0) Laboratory Tests Test 11/06/19 04:20 White Blood Count 9.4 x10^3/uL (4.0-11.0) Red Blood Count 4.12 x10^6/uL (3.50-5.40) Hemoglobin 10.3 g/dL (12.0-15.5) Hematocrit 31.4 % (36.0-47.0) Mean Corpuscular Volume 76 fL (79-100) Mean Corpuscular Hemoglobin 25 pg (25-35) Mean Corpuscular Hemoglobin Concent 33 g/dL (31-37) Red Cell Distribution Width 19.2 % (11.5-14.5) Platelet Count 165 x10^3/uL (140-400) Neutrophils (%) (Auto) 83 % (31-73) Lymphocytes (%) (Auto) 10 % (24-48) Monocytes (%) (Auto) 7 % (0-9) Eosinophils (%) (Auto) 1 % (0-3) Basophils (%) (Auto) 0 % (0-3) Neutrophils # (Auto) 7.7 x10^3/uL (1.8-7.7) Lymphocytes # (Auto) 0.9 x10^3/uL (1.0-4.8) Monocytes # (Auto) 0.6 x10^3/uL (0.0-1.1) Eosinophils # (Auto) 0.1 x10^3/uL (0.0-0.7) Basophils # (Auto) 0.0 x10^3/uL (0.0-0.2) Sodium Level 136 mmol/L (136-145) Potassium Level 3.3 mmol/L (3.5-5.1) Chloride Level 102 mmol/L (98-107) Carbon Dioxide Level 27 mmol/L (21-32) Anion Gap 7 (6-14) Blood Urea Nitrogen 24 mg/dL (7-20) Creatinine 0.7 mg/dL (0.6-1.0) Estimated GFR (Cockcroft-Gault) 89.3 Glucose Level 96 mg/dL (70-99) Calcium Level 8.5 mg/dL (8.5-10.1) Total Bilirubin 0.5 mg/dL (0.2-1.0) Direct Bilirubin 0.3 mg/dL (0.0-0.2) Aspartate Amino Transf (AST/SGOT) 8 U/L (15-37) Alanine Aminotransferase (ALT/SGPT) 12 U/L (14-59) Alkaline Phosphatase 73 U/L (46-116) Total Protein 5.8 g/dL (6.4-8.2) Albumin 2.6 g/dL (3.4-5.0) Microbiology 11/05/19 Blood Culture - Preliminary, Resulted NO GROWTH AFTER 1 DAY Medications Current Medications Sodium Chloride 1,000 ml @ 1,000 mls/hr Q1H IV Last administered on 11/05/19at 03:12; Start 11/05/19 at 03:15; Stop 11/05/19 at 04:14; Status DC Ondansetron HCl (Zofran) 4 mg 1X ONCE IV Last administered on 11/05/19at 03:12; Start 11/05/19 at 03:15; Stop 11/05/19 at 03:16; Status DC Ketorolac Tromethamine (Toradol 30mg Vial) 30 mg 1X ONCE IV Last administered on 11/05/19at 03:11; Start 11/05/19 at 03:15; Stop 11/05/19 at 03:16; Status DC Iohexol (Omnipaque 300 Mg/ml) 75 ml 1X ONCE IV Last administered on 11/05/19at 04:47; Start 11/05/19 at 04:45; Stop 11/05/19 at 04:46; Status DC Info (CONTRAST GIVEN -- Rx MONITORING) 1 each PRN DAILY PRN MC SEE COMMENTS; Start 11/05/19 at 04:45; Stop 11/07/19 at 04:44 Ceftriaxone Sodium (Rocephin) 1 gm 1X ONCE IVP Last administered on 11/05/19at 06:00; Start 11/05/19 at 05:30; Stop 11/05/19 at 05:31; Status DC Azithromycin (Zithromax) 500 mg 1X ONCE PO Last administered on 11/05/19at 05:58; Start 11/05/19 at 05:30; Stop 11/05/19 at 05:31; Status DC Morphine Sulfate (Morphine Sulfate) 4 mg 1X ONCE IV Last administered on 11/05/19at 05:56; Start 11/05/19 at 05:45; Stop 11/05/19 at 05:52; Status DC Ondansetron HCl (Zofran) 4 mg 1X ONCE IVP Last administered on 11/05/19at 05:58; Start 11/05/19 at 05:45; Stop 11/05/19 at 05:52; Status DC Ondansetron HCl (Zofran) 4 mg PRN Q8HRS PRN IV NAUSEA/VOMITING; Start 11/05/19 at 05:45; Stop 11/05/19 at 09:28; Status DC Morphine Sulfate (Morphine Sulfate) 4 mg PRN Q2HR PRN IV PAIN Last administered on 11/05/19at 08:07; Start 11/05/19 at 05:45; Stop 11/05/19 at 09:28; Status DC Sodium Chloride 1,000 ml @ 100 mls/hr Q10H IV Last administered on 11/06/19at 06:01; Start 11/05/19 at 05:45; Stop 11/06/19 at 05:44; Status DC Acetaminophen (Tylenol) 650 mg PRN Q4HRS PRN PO FEVER; Start 11/05/19 at 05:45; Stop 11/05/19 at 09:28; Status DC Albuterol/ Ipratropium (Duoneb) 3 ml RTQID NEB Last administered on 11/06/19at 07:13; Start 11/05/19 at 08:00 Acetaminophen (Tylenol) 1,000 mg 1X ONCE PO Last administered on 11/05/19at 05:58; Start 11/05/19 at 06:00; Stop 11/05/19 at 06:01; Status DC Sodium Chloride 1,000 ml @ 1,000 mls/hr 1X ONCE IV Last administered on 11/05/19at 06:05; Start 11/05/19 at 06:15; Stop 11/05/19 at 07:14; Status DC Morphine Sulfate (Morphine Sulfate) 2 mg PRN Q2HR PRN IV PAIN; Start 11/05/19 at 09:30 Ondansetron HCl (Zofran) 4 mg PRN Q4HRS PRN IV NAUSEA/VOMITING; Start 11/05/19 at 09:30 Acetaminophen (Tylenol) 650 mg PRN Q6HRS PRN PO FEVER; Start 11/05/19 at 09:30 Ketorolac Tromethamine (Toradol 30mg Vial) 30 mg PRN Q6HRS PRN IVP PAIN Last administered on 11/05/19at 21:28; Start 11/05/19 at 09:30 Tramadol HCl (Ultram) 50 mg PRN Q6HRS PRN PO PAIN Last administered on 11/05/19at 18:00; Start 11/05/19 at 09:30 Guaifenesin (Robitussin Dm) 10 ml PRN Q6HRS PRN PO COUGH; Start 11/05/19 at 09:30 Ceftriaxone Sodium (Rocephin) 1 gm Q24H IVP Last administered on 11/06/19at 06:01; Start 11/06/19 at 06:00 Azithromycin (Zithromax) 250 mg DAILY PO ; Start 11/06/19 at 09:00 Enoxaparin Sodium (Lovenox 40mg Syringe) 40 mg Q24H SQ ; Start 11/05/19 at 11:00 Lidocaine (Lidoderm) 1 patch DAILY TD Last administered on 11/05/19at 18:00; Start 11/05/19 at 15:00 Miscellaneous (Lidoderm Patch Removal) 1 ea QHS MC ; Start 11/05/19 at 21:00 Lactobacillus Rhamnosus (Culturelle) 1 cap BID PO Last administered on 11/05/19at 21:27; Start 11/05/19 at 21:00 Active Scripts Active Advair 250-50 Diskus (Fluticasone/Salmeterol) 1 Each Disk.w.dev 1 Puff IH BID Albuterol Sulfate Conc Neb Soln (Albuterol Sulfate) 2.5 Mg/0.5 Ml Vial.neb 1 Vial NEB Q6HRS Proair Hfa Inhaler (Albuterol Sulfate) 8.5 Gm Hfa.aer.ad 1 Puff INH PRN Q6HRS PRN Vitals/I & O Vital Sign - Last 24 Hours 11/05/19 11/05/19 11/05/19 11/05/19 11:00 11:08 11:09 15:00 Temp 98.5 96.9 98.5 96.9 Pulse 94 75 Resp 16 16 B/P (MAP) 104/35 (58) 111/69 (83) Pulse Ox 90 97 88 O2 Delivery Nasal Cannula Nasal Cannula Nasal Cannula Nasal Cannula O2 Flow Rate 2.0 2.0 2.0 2.0 11/05/19 11/05/19 11/05/19 11/05/19 15:13 18:00 19:00 19:16 Temp 97.3 97.3 Pulse 82 Resp 16 16 B/P (MAP) 99/55 (70) Pulse Ox 88 95 88 O2 Delivery Nasal Cannula Nasal Cannula Nasal Cannula Nasal Cannula O2 Flow Rate 2.0 2.0 2.0 2.0 11/05/19 11/05/19 11/05/19 11/06/19 20:16 20:30 23:00 03:00 Temp 98.1 98.0 98.1 98.0 Pulse 90 89 Resp 20 20 B/P (MAP) 99/52 (68) 11/65 (47) Pulse Ox 91 94 O2 Delivery Nasal Cannula Nasal Cannula Nasal Cannula Room Air O2 Flow Rate 2.0 2.0 2.0 11/06/19 07:15 Pulse Ox 98 O2 Delivery Room Air Intake and Output 11/05/19 11/05/19 11/06/19 15:00 23:00 07:00 Intake Total 500 ml Balance 500 ml DUANE CHACKO MD Nov 06, 2019 08:30
[2019-11-06] MEDS: AZITHROMYCIN 250 MG TABLET. PO SCH (08:41)
[2019-11-06] MEDS: LACTOBACILLUS RHAMNOSUS GG 1 CAPSULE. PO SCH ×2 (08:41→20:16)
[2019-11-06] MEDS: LIDOCAINE (700MG/PATCH) PATCH. TD SCH (08:45)
[2019-11-06] MEDS: traMADol 50 MG TABLET PO PRN ×2 (08:50→15:32)
[2019-11-06] MEDS: ENOXAPARIN 40 MG/0.4 ML SYRINGE. SQ SCH (11:39)
[2019-11-06 11:59] VITALS: BP 104/56
[2019-11-06] MEDS ORDERED: LEVO500T59 PO (14:01)
[2019-11-06] MEDS ORDERED: MORPHINE SULFATE 2 MG/ML VIAL. IV PRN (14:52)
[2019-11-06 15:59] VITALS: BP 105/60
[2019-11-06 19:00] VITALS: BP 107/63
[2019-11-06] MEDS: KETOROLAC 30 MG/ML VIAL. IVP PRN (20:16)
[2019-11-06] MEDS: PATCH REMOVAL. MC SCH (20:19)
[2019-11-06 23:08] VITALS: BP 88/38
[2019-11-07 03:00] VITALS: BP 99/59
[2019-11-07] MEDS: cefTRIAXone IV Push 1 GM VIAL. IVP SCH (05:50)
[2019-11-07 07:00] VITALS: BP 125/72
[2019-11-07] MEDS: LACTOBACILLUS RHAMNOSUS GG 1 CAPSULE. PO SCH (08:25)
[2019-11-07] MEDS: AZITHROMYCIN 250 MG TABLET. PO SCH (08:25)
[2019-11-07] MEDS: IPRATRPIUM/ALBUTEROL 0.5/2.5MG 3 ML NEBU. NEB SCH ×2 (08:43→12:36)
[2019-11-07 10:33] LABS: BASO % 0 % (0-3); EOS # 0.1 x10^3/uL (0.0-0.7); EOS % 2 % (0-3); HEMATOCRIT 29.7 % (36.0-47.0); HEMOGLOBIN 9.8 g/dL (12.0-15.5); LYMPH # 0.7 x10^3/uL (1.0-4.8); LYMPH % 10 % (24-48); MEAN CORPUSCULAR HEMOGLOBIN 25 pg (25-35); MEAN CORPUSCULAR HGB CONC 33 g/dL (31-37); MEAN CORPUSCULAR VOLUME 76 fL (79-100); MONO # 0.6 x10^3/uL (0.0-1.1); MONO % 9 % (0-9); NEUT # 5.6 x10^3/uL (1.8-7.7); NEUT % 79 % (31-73); PLATELET COUNT 193 x10^3/uL (140-400); RED BLOOD COUNT 3.92 x10^6/uL (3.50-5.40); RED CELL DISTRIBUTION WIDTH 19.1 % (11.5-14.5); WHITE BLOOD COUNT 7.1 x10^3/uL (4.0-11.0)
[2019-11-07] MEDS: LIDOCAINE (700MG/PATCH) PATCH. TD SCH (10:58)
[2019-11-07] MEDS: traMADol 50 MG TABLET PO PRN (10:58)
[2019-11-07 11:00] VITALS: BP 114/62
[2019-11-07] MEDS: ENOXAPARIN 40 MG/0.4 ML SYRINGE. SQ SCH (11:00)
--- NOTE | 2019-11-07 12:32 | PDOC3 ---
Discharge Summary Visit Information Date of Admission: Nov 05, 2019 Date of Discharge: Nov 07, 2019 Admitting Diagnosis Comment: ACute bronchitis COPD flare Smoker NO PNA on CXR Final Diagnosis Problems Medical Problems: (1) Community acquired pneumonia Status: Acute Brief Hospital Course Allergies Allergies Coded Allergies Type Severity Reaction Last Updated Verified No Known Drug Allergies 11/07/13 No Vital Signs Vital Signs Date Time Temp Pulse Resp B/P (MAP) Pulse Ox O2 Delivery O2 Flow Rate FiO2 11/07/19 10:58 Room Air 11/07/19 08:44 96 11/07/19 07:00 98.4 75 20 125/72 (89) 98.4 11/06/19 11:36 2.0 Lab Results Laboratory Tests Test 11/06/19 04:20 11/07/19 09:41 White Blood Count 9.4 x10^3/uL (4.0-11.0) 7.1 x10^3/uL (4.0-11.0) Red Blood Count 4.12 x10^6/uL (3.50-5.40) 3.92 x10^6/uL (3.50-5.40) Hemoglobin 10.3 g/dL (12.0-15.5) 9.8 g/dL (12.0-15.5) Hematocrit 31.4 % (36.0-47.0) 29.7 % (36.0-47.0) Mean Corpuscular Volume 76 fL (79-100) 76 fL (79-100) Mean Corpuscular Hemoglobin 25 pg (25-35) 25 pg (25-35) Mean Corpuscular Hemoglobin Concent 33 g/dL (31-37) 33 g/dL (31-37) Red Cell Distribution Width 19.2 % (11.5-14.5) 19.1 % (11.5-14.5) Platelet Count 165 x10^3/uL (140-400) 193 x10^3/uL (140-400) Neutrophils (%) (Auto) 83 % (31-73) 79 % (31-73) Lymphocytes (%) (Auto) 10 % (24-48) 10 % (24-48) Monocytes (%) (Auto) 7 % (0-9) 9 % (0-9) Eosinophils (%) (Auto) 1 % (0-3) 2 % (0-3) Basophils (%) (Auto) 0 % (0-3) 0 % (0-3) Neutrophils # (Auto) 7.7 x10^3/uL (1.8-7.7) 5.6 x10^3/uL (1.8-7.7) Lymphocytes # (Auto) 0.9 x10^3/uL (1.0-4.8) 0.7 x10^3/uL (1.0-4.8) Monocytes # (Auto) 0.6 x10^3/uL (0.0-1.1) 0.6 x10^3/uL (0.0-1.1) Eosinophils # (Auto) 0.1 x10^3/uL (0.0-0.7) 0.1 x10^3/uL (0.0-0.7) Basophils # (Auto) 0.0 x10^3/uL (0.0-0.2) 0.0 x10^3/uL (0.0-0.2) Sodium Level 136 mmol/L (136-145) Potassium Level 3.3 mmol/L (3.5-5.1) Chloride Level 102 mmol/L (98-107) Carbon Dioxide Level 27 mmol/L (21-32) Anion Gap 7 (6-14) Blood Urea Nitrogen 24 mg/dL (7-20) Creatinine 0.7 mg/dL (0.6-1.0) Estimated GFR (Cockcroft-Gault) 89.3 Glucose Level 96 mg/dL (70-99) Calcium Level 8.5 mg/dL (8.5-10.1) Magnesium Level 2.0 mg/dL (1.8-2.4) Total Bilirubin 0.5 mg/dL (0.2-1.0) Direct Bilirubin 0.3 mg/dL (0.0-0.2) Aspartate Amino Transf (AST/SGOT) 8 U/L (15-37) Alanine Aminotransferase (ALT/SGPT) 12 U/L (14-59) Alkaline Phosphatase 73 U/L (46-116) Total Protein 5.8 g/dL (6.4-8.2) Albumin 2.6 g/dL (3.4-5.0) Procalcitonin 1.47 ng/mL (0.00-0.10) Laboratory Tests Test 11/07/19 09:41 White Blood Count 7.1 x10^3/uL (4.0-11.0) Red Blood Count 3.92 x10^6/uL (3.50-5.40) Hemoglobin 9.8 g/dL (12.0-15.5) Hematocrit 29.7 % (36.0-47.0) Mean Corpuscular Volume 76 fL (79-100) Mean Corpuscular Hemoglobin 25 pg (25-35) Mean Corpuscular Hemoglobin Concent 33 g/dL (31-37) Red Cell Distribution Width 19.1 % (11.5-14.5) Platelet Count 193 x10^3/uL (140-400) Neutrophils (%) (Auto) 79 % (31-73) Lymphocytes (%) (Auto) 10 % (24-48) Monocytes (%) (Auto) 9 % (0-9) Eosinophils (%) (Auto) 2 % (0-3) Basophils (%) (Auto) 0 % (0-3) Neutrophils # (Auto) 5.6 x10^3/uL (1.8-7.7) Lymphocytes # (Auto) 0.7 x10^3/uL (1.0-4.8) Monocytes # (Auto) 0.6 x10^3/uL (0.0-1.1) Eosinophils # (Auto) 0.1 x10^3/uL (0.0-0.7) Basophils # (Auto) 0.0 x10^3/uL (0.0-0.2) Brief Hospital Course Ms. Espinoza is a 49 old smoker who was admitted for copd flare with normal CXR, Procalcitonin was high, SIRS but no source or organ dysfcn, Will recheck prior to dc today, NO PT needs Colleague has transmitted levaquin to her pharmacy on file, she requested some Pro air rx Consults: none Prco: None Discharge Information Condition at Discharge: Improved, Stable Disposition/Orders: D/C to Home Scheduled Albuterol Sulfate (Albuterol Sulfate Conc Neb Soln) 2.5 Mg/0.5 Ml Vial.neb, 1 VIAL NEB Q6HRS, #120 Ref 5 Prescribed by: Kandi Portillo APRN on 06/08/17 1148 Last Action: Reviewed on 11/05/1943 by ATIF LEON Fluticasone/Salmeterol (Advair 250-50 Diskus) 1 Each Disk.w.dev, 1 PUFF IH BID, #1 Prescribed by: SKYLER POTTER on 09/28/17 1032 Last Action: Reviewed on 11/05/19942 by ATIF LEON Levofloxacin (Levaquin) 500 Mg Tablet, 1 TAB PO DAILY for Pneumonia for 7 Days, #7 Ref 0 Prescribed by: DUANE CHACKO MD on 11/06/19 1401 Scheduled PRN Albuterol Sulfate (Proair Hfa Inhaler) 8.5 Gm Hfa.aer.ad, 1 PUFF INH PRN Q6HRS PRN for SHORTNESS OF BREATH, #1 Prescribed by: JENIFER BENTON APRN on 11/21/16 1216 Last Action: Reviewed on 11/05/19942 by TRUDY RUELAS MD Nov 07, 2019 12:32
--- NOTE | 2019-11-07 15:31 | NUR ---
Discharge Note: Patient was discharged home with self care. Patients IV was discontinued per BRANDON without any complications. Patient was given discharge summary/instructions, follow-ups, prescriptions and educational material. Patients antibiotic prescription was sent to patient preferred pharmacy. Patient did not have any further questions or concerns. Patient ambulated to the main entrance with all personal belongings accompanied by BRANDON Nieto, where her daughter was waiting for her to take her home.
== END 2019-11-07 15:38 | disposition home or self-care (01) | DRG 871 ==
LOC: ER 02:52 → 5 SOUTH 06:28
PROVIDERS: ADMIT Family Medicine; ATTEND Family Medicine
DX: A41.9 Sepsis, unspecified organism (principal); J18.9 Pneumonia, unspecified organism; E43 Unspecified severe protein-calorie malnutrition; J44.0 Chronic obstructive pulmonary disease with (acute) lower respiratory infection; J44.1 Chronic obstructive pulmonary disease with (acute) exacerbation; F17.210 Nicotine dependence, cigarettes, uncomplicated; N28.1 Cyst of kidney, acquired; D50.9 Iron deficiency anemia, unspecified; E87.6 Hypokalemia; Z68.20 Body mass index [BMI] 20.0-20.9, adult; Z82.5 Family history of asthma and other chronic lower respiratory diseases
CPT/HCPCS: 36415; 71045; 74177; 80048; 80053; 80076; 81001; 81025; 83540; 83550; 83605; 83690; 83735; 84145; 85007; 85025; 85651; 87040; 94640; 94760; 96361; 96374; 96375; 96376; J0696; J1650; J1885; J2270; J2405; J7030; J7620; Q0144; Q9967; 99285-25; G0378

== ENCOUNTER 2019-11-10 16:08 | Inpatient (IN) | payer SELFPAY ==
[~2019-11-10] VITALS: Ht 162.6 cm; Wt 61.7 kg
[~2019-11-10 16:08] MED LIST changes: +LEVO500T59 PO
[2019-11-10] MEDS ORDERED: IV NORMAL SALINE 1000ML BAG 1,000 ML IV SCH (16:26)
--- NOTE | 2019-11-10 16:56 | PHYS DOC ---
Past Medical History Past Medical History: Asthma, Bronchitis, COPD, Pneumonia, Other Additional Past Medical Histor: sciatica Past Surgical History: Cholecystectomy, Tubal ligation Alcohol Use: Rarely Drug Use: None Adult General Chief Complaint Chief Complaint: FLANK PAIN HPI HPI Patient is a 49 year old female who presents with patient was admitted here with pneumonia November 05 in discharging the . She is back here today for the same left-sided pain and shortness of breath. Rates her pain a 10 out of 10. States she's been taking ibuprofen she is taking her antibiotics. She states ib uprofen is not helping her pain. Review of Systems Review of Systems Respiratory: cough or shortness of breath [] GI: Denies abdominal pain. + nausea, +vomiting, denies bloody stools or diarrhea [] Musculoskeletal: Left side pain back pain or joint pain [] All other systems were reviewed and found to be within normal limits, except as documented in this note. Current Medications Current Medications Current Medications Medications (Trade) Dose Ordered Sig/Nika Start Time Stop Time Status Last Admin Dose Admin Albuterol/ Ipratropium (Duoneb) 3 ml 1X ONCE 11/10/19 17:00 11/10/19 17:01 DC 11/10/19 17:16 3 ML Fentanyl Citrate (Fentanyl 2ml Vial) 50 mcg 1X ONCE 11/10/19 17:00 11/10/19 17:01 DC 11/10/19 17:20 50 MCG Ondansetron HCl (Zofran) 4 mg 1X ONCE 11/10/19 17:00 11/10/19 17:01 DC 11/10/19 17:20 4 MG Piperacillin Sod/ Tazobactam Sod 3.375 gm/Sodium Chloride 50 ml @ 100 mls/hr 1X ONCE 11/10/19 18:00 11/10/19 18:29 UNV Sodium Chloride 1,000 ml @ 1,000 mls/hr Q1H 11/10/19 16:26 11/10/19 17:25 DC 11/10/19 16:55 1,000 MLS/HR Allergies Allergies Allergies Coded Allergies Type Severity Reaction Last Updated Verified No Known Drug Allergies 11/07/13 No Physical Exam Physical Exam Constitutional: Well developed, well nourished, no acute distress, non-toxic appearance. [] HENT: Normocephalic, atraumatic, bilateral external ears normal, oropharynx moist, no oral exudates, nose normal. [] Eyes: PERRLA, EOMI, conjunctiva normal, no discharge. [] Neck: Normal range of motion, no tenderness, supple, no stridor. [] Cardiovascular:Heart rate regular rhythm, no murmur [] Lungs & Thorax: Bilateral upper breath sounds coarse and lower diminished to auscultation [] Abdomen: Bowel sounds normal, soft, no tenderness, no masses, no pulsatile masses. [] Skin: Warm, dry, no erythema, no rash. [] Back:Left side rib tenderness, no CVA tenderness. [] Extremities: No tenderness, no cyanosis, no clubbing, ROM intact, no edema. [] Neurologic: Alert and oriented X 3, normal motor function, normal sensory function, no focal deficits noted. [] Psychologic: Affect normal, judgement normal, mood normal. [] Current Patient Data Vital Signs Vital Signs Date Time Temp Pulse Resp B/P (MAP) Pulse Ox O2 Delivery O2 Flow Rate FiO2 11/10/19 17:20 28 95 11/10/19 17:17 Room Air 11/10/19 17:06 87 124/58 (80) 11/10/19 16:13 98.1 98.1 Lab Values Laboratory Tests Test 11/10/19 16:13 11/10/19 16:53 Urine Collection Type Unknown Urine Color Yellow Urine Clarity Clear Urine pH 7.0 Urine Specific [place] 1.010 Urine Protein Negative mg/dL (NEG-TRACE) Urine Glucose (UA) Negative mg/dL (NEG) Urine Ketones (Stick) Negative mg/dL (NEG) Urine Blood Negative (NEG) Urine Nitrite Negative (NEG) Urine Bilirubin Negative (NEG) Urine Urobilinogen Dipstick 1.0 mg/dL (0.2 mg/dL) Urine Leukocyte Esterase Negative (NEG) Urine RBC 0 /HPF (0-2) Urine WBC 0 /HPF (0-4) Urine Squamous Epithelial Cells Occ /LPF Urine Bacteria 0 /HPF (0-FEW) White Blood Count 11.3 x10^3/uL (4.0-11.0) H Red Blood Count 4.32 x10^6/uL (3.50-5.40) Hemoglobin 10.5 g/dL (12.0-15.5) L Hematocrit 32.7 % (36.0-47.0) L Mean Corpuscular Volume 76 fL (79-100) L Mean Corpuscular Hemoglobin 24 pg (25-35) L Mean Corpuscular Hemoglobin Concent 32 g/dL (31-37) Red Cell Distribution Width 18.8 % (11.5-14.5) H Platelet Count 395 x10^3/uL (140-400) Neutrophils (%) (Auto) 70 % (31-73) Lymphocytes (%) (Auto) 17 % (24-48) L Monocytes (%) (Auto) 11 % (0-9) H Eosinophils (%) (Auto) 1 % (0-3) Basophils (%) (Auto) 1 % (0-3) Neutrophils # (Auto) 8.0 x10^3/uL (1.8-7.7) H Lymphocytes # (Auto) 1.9 x10^3/uL (1.0-4.8) Monocytes # (Auto) 1.2 x10^3/uL (0.0-1.1) H Eosinophils # (Auto) 0.1 x10^3/uL (0.0-0.7) Basophils # (Auto) 0.1 x10^3/uL (0.0-0.2) Sodium Level 140 mmol/L (136-145) Potassium Level 3.4 mmol/L (3.5-5.1) L Chloride Level 101 mmol/L (98-107) Carbon Dioxide Level 33 mmol/L (21-32) H Anion Gap 6 (6-14) Blood Urea Nitrogen 12 mg/dL (7-20) Creatinine 0.6 mg/dL (0.6-1.0) Estimated GFR (Cockcroft-Gault) 106.7 BUN/Creatinine Ratio 20 (6-20) Glucose Level 124 mg/dL (70-99) H Lactic Acid Level 1.7 mmol/L (0.4-2.0) Calcium Level 8.5 mg/dL (8.5-10.1) Total Bilirubin 0.3 mg/dL (0.2-1.0) Aspartate Amino Transferase (AST) 14 U/L (15-37) L Alanine Aminotransferase (ALT) 22 U/L (14-59) Alkaline Phosphatase 152 U/L (46-116) H Troponin I Quantitative < 0.017 ng/mL (0.000-0.055) Total Protein 6.4 g/dL (6.4-8.2) Albumin 2.8 g/dL (3.4-5.0) L Albumin/Globulin Ratio 0.8 (1.0-1.7) L Lipase 110 U/L (73-393) Laboratory Tests 11/10/19 16:53 Laboratory Tests 11/10/19 16:53 EKG EKG Sinus Rhythm with Ventricular premature complexes and no STEMI[] Interpretation Time: [address] Gramajo Radiology/Procedures Radiology/Procedures [] Impressions: [facility] [address] [place] [address] IMAGING REPORT Signed PATIENT: ISABELLE WEINER ACCOUNT: [id number] : 1970 LOCATION: ER AGE: 49 SEX: F EXAM STATUS: REG ER ORD. PHYSICIAN: JENIFER TRINIDAD APRN REASON: left rib pain PROCEDURE: CHEST PA & LATERAL PA and lateral chest. HISTORY: Left rib pain AP and lateral views were taken of the chest. There is a small left pleural effusion. There is a left lower lobe infiltrate, infiltrates have developed compared to the study of November 05. IMPRESSION: 1. Left lower lobe pneumonia with left pleural effusion. Electronically signed by: Eladio Haney MD (11/10/2019 5:27 PM) [id number] DICTATED and SIGNED BY: ELADIO HANEY MD DATE: 11/10/19 1727 Course & Med Decision Making Course & Med Decision Making Lungs are coarse in upper lobes bilaterally diminished in lower lobes bilaterally. Abdomen soft and nontender. Patient states she took ibuprofen and nauseated. No pedal edema. Alert and oriented. Ambulatory unsteady gait. Speaks in full clear sentences. Skin pink warm and dry. Patient states she is currently still taking the Levaquin but she is not getting better and she is actually feeling worse. Patient is tachycardic and her respirations are elevated. X-ray shows: AP and lateral views were taken of the chest. There is a small left pleural effusion. There is a left lower lobe infiltrate, infiltrates have developed compared to the study of November 05. IMPRESSION: 1. Left lower lobe pneumonia with left pleural effusion. Patient with blood cell count is 11.3 where as on November 07 was 7.1. Lactic acid went from 0.9 to 1.7. Patient to be readmitted because of the findings above. ABG PO2 low and CO2 sightly high. Oxygen 2L placed. I have spoken to Dr Avila and Patient is admitted to Dr Avila. [] Mo Disclaimer Dragon Disclaimer This electronic medical record was generated, in whole or in part, using a voice recognition dictation system. Departure Departure Impression: Primary Impression: Pneumonia Disposition: ADMITTED INPATIENT Admitting Physician: BERT Condition: STABLE Referrals: NO PCP (PCP) Problem Qualifiers Primary Impression: Pneumonia Pneumonia type: due to unspecified organism Laterality: left Lung location: lower lobe of lung Qualified Codes: J18.9 - Pneumonia, unspecified organism JENIFER TRINIDAD [address]FF[employer] TECHNICIAN Nov 10, 2019 16:56
[2019-11-10] MEDS ORDERED: fentaNYL PF VIAL 100 MCG/2 ML VIAL IVP ONE (17:00)
[2019-11-10] MEDS ORDERED: IPRATRPIUM/ALBUTEROL 0.5/2.5MG 3 ML NEBU. NEB ONE (17:00)
[2019-11-10] MEDS ORDERED: ONDANSETRON PF 4 MG/2 ML VIAL. IVP ONE (17:00)
[2019-11-10 17:04] LABS: BASO # 0.1 x10^3/uL (0.0-0.2); BASO % 1 % (0-3); EOS # 0.1 x10^3/uL (0.0-0.7); EOS % 1 % (0-3); HEMATOCRIT 32.7 % (36.0-47.0); HEMOGLOBIN 10.5 g/dL (12.0-15.5); LYMPH # 1.9 x10^3/uL (1.0-4.8); LYMPH % 17 % (24-48); MEAN CORPUSCULAR HEMOGLOBIN 24 pg (25-35); MEAN CORPUSCULAR HGB CONC 32 g/dL (31-37); MEAN CORPUSCULAR VOLUME 76 fL (79-100); MONO # 1.2 x10^3/uL (0.0-1.1); MONO % 11 % (0-9); NEUT % 70 % (31-73); PLATELET COUNT 395 x10^3/uL (140-400); RED BLOOD COUNT 4.32 x10^6/uL (3.50-5.40); RED CELL DISTRIBUTION WIDTH 18.8 % (11.5-14.5); WHITE BLOOD COUNT 11.3 x10^3/uL (4.0-11.0)
[2019-11-10 17:12] LABS: CALCIUM 8.5 mg/dL (8.5-10.1); CREATININE 0.6 mg/dL (0.6-1.0); GFR 106.7; POTASSIUM 3.4 mmol/L (3.5-5.1)
[2019-11-10 17:15] LABS: BILIRUBIN,URINE NEGATIVE (NEG); CLARITY,URINE CLEAR; COLOR,URINE YELLOW; NITRITE,URINE NEGATIVE (NEG); PROTEIN,URINE NEGATIVE (NEG-TRACE)
[2019-11-10 17:17] LABS: ALBUMIN 2.8 g/dL (3.4-5.0); ALBUMIN/GLOBULIN RATIO 0.8 (1.0-1.7); TOTAL BILIRUBIN 0.3 mg/dL (0.2-1.0); TOTAL PROTEIN 6.4 g/dL (6.4-8.2)
[2019-11-10 17:22] LABS: BACTERIA,URINE 0 /HPF (0-FEW); RBC,URINE 0 /HPF (0-2); SQUAMOUS EPITHELIAL CELL,UR OCC /LPF; WBC,URINE 0 /HPF (0-4)
--- NOTE | 2019-11-10 17:29 | RAD ---
PA and lateral chest. HISTORY: Left rib pain AP and lateral views were taken of the chest. There is a small left pleural effusion. There is a left lower lobe infiltrate, infiltrates have developed compared to the study of November 05. IMPRESSION: 1. Left lower lobe pneumonia with left pleural effusion. Electronically signed by: Eladio Haney MD (11/10/2019 5:27 PM) [id number]
[2019-11-10 17:44] LABS: BASE EXCESS ABG 6 mmol/L (-3-3); HCO3 ABG 31 mmol/L (21-28); PCO2 ABG 45 mmHg (35-46); PO2 ABG 60 mmHg (75-108); SAT O2 ABG 91 % (92-99)
[2019-11-10] MEDS ORDERED: PIPERACILLIN/TAZOBACTAM 3.375 GM in IV NORMAL SALINE 50ML 50 ML IV ONE (18:00)
[2019-11-10] MEDS ORDERED: ACETAMINOPHEN 325 MG TABLET. PO PRN (18:00)
[2019-11-10] MEDS ORDERED: fentaNYL PF VIAL 100 MCG/2 ML VIAL IV PRN (18:00)
[2019-11-10] MEDS ORDERED: ONDANSETRON PF 4 MG/2 ML VIAL. IV PRN (18:00)
[2019-11-10 18:07] LABS: FIO2 ABG 21
--- NOTE | 2019-11-10 18:26 | HP ---
ADMIT DATE: 11/10/2019 CHIEF COMPLAINT: Flank pain and shortness of breath. HISTORY OF PRESENT ILLNESS: The patient is a pleasant 49-year-old female who we treated for pneumonia recently. She was discharged a couple of days ago. Now, her symptoms are worsening. She has been taking her home Levaquin. Describes her shortness of breath as irritating, rated at 7/10. Moving makes it worse and sitting still makes it better. I discussed the case with the ER nurse practitioner. We are going to admit the patient and give her IV antibiotics because her chest x-ray is showing recurrent pneumonia on the left. PAST MEDICAL HISTORY: Bronchitis, pneumonia, asthma, COPD, hypertension, sciatica, cholecystectomy and tubal ligation. ALLERGIES: None. FAMILY HISTORY: Hypertension. SOCIAL HISTORY: She does not drink, smoke or take drugs. MEDICATIONS: Reviewed, please refer to the MRAD. REVIEW OF SYSTEMS: GENERAL: No history of weight change, weakness or fevers. SKIN: No bruising, hair changes or rashes. EYES: No blurred, double or loss of vision. NOSE AND THROAT: No history of nosebleeds, hoarseness or sore throat. HEART: No history of palpitations, chest pain or shortness of breath on exertion. LUNGS: She complains of shortness of breath. GASTROINTESTINAL: Denies changes in appetite, nausea, vomiting, diarrhea or constipation. GENITOURINARY: No history of frequency, urgency, hesitancy or nocturia. NEUROLOGIC: Denies history of numbness, tingling, tremor or weakness. PSYCHIATRIC: No history of panic, anxiety or depression. ENDOCRINE: No history of heat or cold intolerance, polyuria or polydipsia. EXTREMITIES: Denies muscle weakness, joint pain, pain on walking or stiffness. PHYSICAL EXAMINATION: VITALS: Within normal limits and are stable. GENERAL: No apparent distress. Alert and oriented. HEENT: Normal cephalic atraumatic, external auditory canals are patent. EYES: Extraocular muscles are intact, pupils are equally round and reactive to light and accommodation. MUSKULOSKELETAL: Well developed, well nourished, good range of motion. ENDOCRINE: No thyromegaly was palpated. LYMPHATICS: No cervical chain or axillary nodes were noted. HEMATOPOIETIC: No bruising. NECK: Supple, no JVD, no thyromegaly was noted. LUNGS: She has left basilar crackles. HEART: RRR, S1, S2 present. Peripheral pulses intact, no obvious murmurs were noted. ABDOMEN: Soft, nontender. Positive bowel sounds no organomegaly, normal bowel sounds. EXTREMITIES: Without any cyanosis, clubbing, or edema. Pedal pulses intact, Homans sign is negative. NEUROLOGIC: Normal speech, normal tone. A & O x3, moves all extremities, no obvious focal deficits. PSYCHIATRIC: Normal affect, normal mood. Stable. SKIN: No ulcerations or rashes, good skin turgor, no jaundice. VASCULAR: Good capillary refill, neurovascular bundle appears to be intact. LABORATORY DATA: White count is 11, hemoglobin 10 and platelets 395. Electrolytes are normal except for potassium of 3.4. Urinalysis, negative. ASSESSMENT AND PLAN: Recurrent pneumonia. We will start IV Zosyn. Consult Pulmonary. DuoNebs. Oxygen. DVT prophylaxis. Home meds. Full code. Frequent labs. CASSIUS SIERRA DO DR: LOPEZ/hermelinda JOB#: [id number] / [id number]
[2019-11-10] MEDS: IPRATRPIUM/ALBUTEROL 0.5/2.5MG 3 ML NEBU. NEB SCH (20:00)
[2019-11-10 21:01] VITALS: BP 123/72
[2019-11-10] MEDS ORDERED: PIP/TAZO PER PHARMACY MC PRN (21:45)
[2019-11-10] MEDS: methylPREDNISolone SOD SUCC PF 40 MG/ML VIAL. IV SCH (22:30)
[2019-11-10] MEDS: BENZONATATE 100 MG CAPSULE. PO SCH (22:30)
[2019-11-10] MEDS: guaiFENesin/CODEINE 100mg/10mg 5 ML LIQUID PO PRN (22:33)
[2019-11-10 23:04] VITALS: BP 106/53
[2019-11-11] MEDS: PIPERACILLIN/TAZOBACTAM 3.375 GM in IV NORMAL SALINE 50ML 50 ML IV SCH ×2 (00:15→05:18)
[2019-11-11 03:34] VITALS: BP 96/53
[2019-11-11] MEDS: guaiFENesin/CODEINE 100mg/10mg 5 ML LIQUID PO PRN ×3 (05:24→21:53)
--- NOTE | 2019-11-11 07:28 | EKG ---
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
[2019-11-11 07:30] VITALS: BP 102/56
[2019-11-11] MEDS: IPRATRPIUM/ALBUTEROL 0.5/2.5MG 3 ML NEBU. NEB SCH ×4 (07:57→21:53)
[2019-11-11] MEDS ORDERED: FLU VAX QS 2019-20 (36MOS+)/PF 0.5 ML SYRINGE. VAX IM ONE (09:00)
[2019-11-11] MEDS: NICOTINE 21MG PATCH. TD SCH (09:02)
[2019-11-11] MEDS: LACTOBACILLUS RHAMNOSUS GG 1 CAPSULE. PO SCH ×2 (09:03→21:53)
[2019-11-11] MEDS: BENZONATATE 100 MG CAPSULE. PO SCH ×3 (09:03→21:53)
[2019-11-11] MEDS: methylPREDNISolone SOD SUCC PF 40 MG/ML VIAL. IV SCH ×2 (09:03→21:44)
[2019-11-11] MEDS ORDERED: ONDANSETRON PF 4 MG/2 ML VIAL. IVP PRN (09:15)
[2019-11-11] MEDS ORDERED: NICOTINE 21MG PATCH. TD PRN (09:15)
[2019-11-11] MEDS ORDERED: TEMAZEPAM 7.5 MG CAPSULE PO PRN (09:15)
[2019-11-11] MEDS ORDERED: fentaNYL PF VIAL 100 MCG/2 ML VIAL IVP PRN (09:15)
[2019-11-11] MEDS ORDERED: POTASSIUM CHLORIDE 20 MEQ TABLET.ER. PO ONE (09:15)
[2019-11-11] MEDS ORDERED: ACETAMINOPHEN 500 MG TABLET PO PRN (09:15)
[2019-11-11 10:58] VITALS: BP 117/61
--- NOTE | 2019-11-11 11:21 | PDOC ---
PROGRESS NOTES Chief Complaint Chief Complaint LLL PNA, gram pos gram neg with pleural effusion SMOKER COPD LEukocytosis WBC 11 SIRS no organ dysfcn MIld hypokalemia 3,.4 Acute hypoxic respi failure (O2 60s on ABG on admit) History of Present Illness History of Present Illness READMISSION FOR THE SAME Dx She went back to smoking at home. she claims she filled the levaquin i prescribed NOw she has pleural effusion on that side of pNA PLAn: Consult Pulmo Zosyn, new patch Counselled on cigarettes Nebs, other supprotive meds KEEP TELE for now MAy eat Ambulate NUtrition consult, thin smoker Vitals Vitals Vital Signs Date Time Temp Pulse Resp B/P (MAP) Pulse Ox O2 Delivery O2 Flow Rate FiO2 11/11/19 10:58 97.5 94 20 117/61 (79) 90 Room Air 97.5 11/10/19 18:56 2.0 Physical Exam General: Alert, Oriented X3, Cooperative, No acute distress Heart: Regular rate, Normal S1, Normal S2, No murmurs, Other (dminished bases, dullness percussion left) Lungs: Wheezing, Other Abdomen: Normal bowel sounds, Soft, No tenderness, No hepatosplenomegaly Extremities: No clubbing, No cyanosis, No edema Skin: No rashes, No breakdown Labs LABS Laboratory Tests Test 11/10/19 16:13 11/10/19 16:53 11/10/19 17:30 Urine Collection Type Unknown Urine Color Yellow Urine Clarity Clear Urine pH 7.0 Urine Specific [place] 1.010 Urine Protein Negative mg/dL (NEG-TRACE) Urine Glucose (UA) Negative mg/dL (NEG) Urine Ketones (Stick) Negative mg/dL (NEG) Urine Blood Negative (NEG) Urine Nitrite Negative (NEG) Urine Bilirubin Negative (NEG) Urine Urobilinogen Dipstick 1.0 mg/dL (0.2 mg/dL) Urine Leukocyte Esterase Negative (NEG) Urine RBC 0 /HPF (0-2) Urine WBC 0 /HPF (0-4) Urine Squamous Epithelial Cells Occ /LPF Urine Bacteria 0 /HPF (0-FEW) White Blood Count 11.3 x10^3/uL (4.0-11.0) Red Blood Count 4.32 x10^6/uL (3.50-5.40) Hemoglobin 10.5 g/dL (12.0-15.5) Hematocrit 32.7 % (36.0-47.0) Mean Corpuscular Volume 76 fL (79-100) Mean Corpuscular Hemoglobin 24 pg (25-35) Mean Corpuscular Hemoglobin Concent 32 g/dL (31-37) Red Cell Distribution Width 18.8 % (11.5-14.5) Platelet Count 395 x10^3/uL (140-400) Neutrophils (%) (Auto) 70 % (31-73) Lymphocytes (%) (Auto) 17 % (24-48) Monocytes (%) (Auto) 11 % (0-9) Eosinophils (%) (Auto) 1 % (0-3) Basophils (%) (Auto) 1 % (0-3) Neutrophils # (Auto) 8.0 x10^3/uL (1.8-7.7) Lymphocytes # (Auto) 1.9 x10^3/uL (1.0-4.8) Monocytes # (Auto) 1.2 x10^3/uL (0.0-1.1) Eosinophils # (Auto) 0.1 x10^3/uL (0.0-0.7) Basophils # (Auto) 0.1 x10^3/uL (0.0-0.2) Sodium Level 140 mmol/L (136-145) Potassium Level 3.4 mmol/L (3.5-5.1) Chloride Level 101 mmol/L (98-107) Carbon Dioxide Level 33 mmol/L (21-32) Anion Gap 6 (6-14) Blood Urea Nitrogen 12 mg/dL (7-20) Creatinine 0.6 mg/dL (0.6-1.0) Estimated GFR (Cockcroft-Gault) 106.7 BUN/Creatinine Ratio 20 (6-20) Glucose Level 124 mg/dL (70-99) Lactic Acid Level 1.7 mmol/L (0.4-2.0) Calcium Level 8.5 mg/dL (8.5-10.1) Total Bilirubin 0.3 mg/dL (0.2-1.0) Aspartate Amino Transf (AST/SGOT) 14 U/L (15-37) Alanine Aminotransferase (ALT/SGPT) 22 U/L (14-59) Alkaline Phosphatase 152 U/L (46-116) Troponin I Quantitative < 0.017 ng/mL (0.000-0.055) Total Protein 6.4 g/dL (6.4-8.2) Albumin 2.8 g/dL (3.4-5.0) Albumin/Globulin Ratio 0.8 (1.0-1.7) Lipase 110 U/L (73-393) O2 Saturation 91 % (92-99) Arterial Blood pH 7.45 (7.35-7.45) Arterial Blood pCO2 at Patient Temp 45 mmHg (35-46) Arterial Blood pO2 at Patient Temp 60 mmHg (75-108) Arterial Blood HCO3 31 mmol/L (21-28) Arterial Blood Base Excess 6 mmol/L (-3-3) FiO2 21 Review of Systems Review of Systems cough, soa, no chest pain, no fevers, may be weak, all else 14 pt negative reviewed with her Comment Review of Relevant I have reviewed the following items belle (where applicable) has been applied. Labs Laboratory Tests Test 11/10/19 16:13 11/10/19 16:53 11/10/19 17:30 Urine Collection Type Unknown Urine Color Yellow Urine Clarity Clear Urine pH 7.0 Urine Specific [place] 1.010 Urine Protein Negative mg/dL (NEG-TRACE) Urine Glucose (UA) Negative mg/dL (NEG) Urine Ketones (Stick) Negative mg/dL (NEG) Urine Blood Negative (NEG) Urine Nitrite Negative (NEG) Urine Bilirubin Negative (NEG) Urine Urobilinogen Dipstick 1.0 mg/dL (0.2 mg/dL) Urine Leukocyte Esterase Negative (NEG) Urine RBC 0 /HPF (0-2) Urine WBC 0 /HPF (0-4) Urine Squamous Epithelial Cells Occ /LPF Urine Bacteria 0 /HPF (0-FEW) White Blood Count 11.3 x10^3/uL (4.0-11.0) Red Blood Count 4.32 x10^6/uL (3.50-5.40) Hemoglobin 10.5 g/dL (12.0-15.5) Hematocrit 32.7 % (36.0-47.0) Mean Corpuscular Volume 76 fL (79-100) Mean Corpuscular Hemoglobin 24 pg (25-35) Mean Corpuscular Hemoglobin Concent 32 g/dL (31-37) Red Cell Distribution Width 18.8 % (11.5-14.5) Platelet Count 395 x10^3/uL (140-400) Neutrophils (%) (Auto) 70 % (31-73) Lymphocytes (%) (Auto) 17 % (24-48) Monocytes (%) (Auto) 11 % (0-9) Eosinophils (%) (Auto) 1 % (0-3) Basophils (%) (Auto) 1 % (0-3) Neutrophils # (Auto) 8.0 x10^3/uL (1.8-7.7) Lymphocytes # (Auto) 1.9 x10^3/uL (1.0-4.8) Monocytes # (Auto) 1.2 x10^3/uL (0.0-1.1) Eosinophils # (Auto) 0.1 x10^3/uL (0.0-0.7) Basophils # (Auto) 0.1 x10^3/uL (0.0-0.2) Sodium Level 140 mmol/L (136-145) Potassium Level 3.4 mmol/L (3.5-5.1) Chloride Level 101 mmol/L (98-107) Carbon Dioxide Level 33 mmol/L (21-32) Anion Gap 6 (6-14) Blood Urea Nitrogen 12 mg/dL (7-20) Creatinine 0.6 mg/dL (0.6-1.0) Estimated GFR (Cockcroft-Gault) 106.7 BUN/Creatinine Ratio 20 (6-20) Glucose Level 124 mg/dL (70-99) Lactic Acid Level 1.7 mmol/L (0.4-2.0) Calcium Level 8.5 mg/dL (8.5-10.1) Total Bilirubin 0.3 mg/dL (0.2-1.0) Aspartate Amino Transf (AST/SGOT) 14 U/L (15-37) Alanine Aminotransferase (ALT/SGPT) 22 U/L (14-59) Alkaline Phosphatase 152 U/L (46-116) Troponin I Quantitative < 0.017 ng/mL (0.000-0.055) Total Protein 6.4 g/dL (6.4-8.2) Albumin 2.8 g/dL (3.4-5.0) Albumin/Globulin Ratio 0.8 (1.0-1.7) Lipase 110 U/L (73-393) O2 Saturation 91 % (92-99) Arterial Blood pH 7.45 (7.35-7.45) Arterial Blood pCO2 at Patient Temp 45 mmHg (35-46) Arterial Blood pO2 at Patient Temp 60 mmHg (75-108) Arterial Blood HCO3 31 mmol/L (21-28) Arterial Blood Base Excess 6 mmol/L (-3-3) FiO2 21 Laboratory Tests Test 11/10/19 16:13 11/10/19 16:53 11/10/19 17:30 Urine Collection Type Unknown Urine Color Yellow Urine Clarity Clear Urine pH 7.0 Urine Specific [place] 1.010 Urine Protein Negative mg/dL (NEG-TRACE) Urine Glucose (UA) Negative mg/dL (NEG) Urine Ketones (Stick) Negative mg/dL (NEG) Urine Blood Negative (NEG) Urine Nitrite Negative (NEG) Urine Bilirubin Negative (NEG) Urine Urobilinogen Dipstick 1.0 mg/dL (0.2 mg/dL) Urine Leukocyte Esterase Negative (NEG) Urine RBC 0 /HPF (0-2) Urine WBC 0 /HPF (0-4) Urine Squamous Epithelial Cells Occ /LPF Urine Bacteria 0 /HPF (0-FEW) White Blood Count 11.3 x10^3/uL (4.0-11.0) Red Blood Count 4.32 x10^6/uL (3.50-5.40) Hemoglobin 10.5 g/dL (12.0-15.5) Hematocrit 32.7 % (36.0-47.0) Mean Corpuscular Volume 76 fL (79-100) Mean Corpuscular Hemoglobin 24 pg (25-35) Mean Corpuscular Hemoglobin Concent 32 g/dL (31-37) Red Cell Distribution Width 18.8 % (11.5-14.5) Platelet Count 395 x10^3/uL (140-400) Neutrophils (%) (Auto) 70 % (31-73) Lymphocytes (%) (Auto) 17 % (24-48) Monocytes (%) (Auto) 11 % (0-9) Eosinophils (%) (Auto) 1 % (0-3) Basophils (%) (Auto) 1 % (0-3) Neutrophils # (Auto) 8.0 x10^3/uL (1.8-7.7) Lymphocytes # (Auto) 1.9 x10^3/uL (1.0-4.8) Monocytes # (Auto) 1.2 x10^3/uL (0.0-1.1) Eosinophils # (Auto) 0.1 x10^3/uL (0.0-0.7) Basophils # (Auto) 0.1 x10^3/uL (0.0-0.2) Sodium Level 140 mmol/L (136-145) Potassium Level 3.4 mmol/L (3.5-5.1) Chloride Level 101 mmol/L (98-107) Carbon Dioxide Level 33 mmol/L (21-32) Anion Gap 6 (6-14) Blood Urea Nitrogen 12 mg/dL (7-20) Creatinine 0.6 mg/dL (0.6-1.0) Estimated GFR (Cockcroft-Gault) 106.7 BUN/Creatinine Ratio 20 (6-20) Glucose Level 124 mg/dL (70-99) Lactic Acid Level 1.7 mmol/L (0.4-2.0) Calcium Level 8.5 mg/dL (8.5-10.1) Total Bilirubin 0.3 mg/dL (0.2-1.0) Aspartate Amino Transf (AST/SGOT) 14 U/L (15-37) Alanine Aminotransferase (ALT/SGPT) 22 U/L (14-59) Alkaline Phosphatase 152 U/L (46-116) Troponin I Quantitative < 0.017 ng/mL (0.000-0.055) Total Protein 6.4 g/dL (6.4-8.2) Albumin 2.8 g/dL (3.4-5.0) Albumin/Globulin Ratio 0.8 (1.0-1.7) Lipase 110 U/L (73-393) O2 Saturation 91 % (92-99) Arterial Blood pH 7.45 (7.35-7.45) Arterial Blood pCO2 at Patient Temp 45 mmHg (35-46) Arterial Blood pO2 at Patient Temp 60 mmHg (75-108) Arterial Blood HCO3 31 mmol/L (21-28) Arterial Blood Base Excess 6 mmol/L (-3-3) FiO2 21 Medications Current Medications Sodium Chloride 1,000 ml @ 1,000 mls/hr Q1H IV Last administered on 11/10/19at 16:55; Start 11/10/19 at 16:26; Stop 11/10/19 at 17:25; Status DC Fentanyl Citrate (Fentanyl 2ml Vial) 50 mcg 1X ONCE IVP Last administered on 11/10/19at 17:20; Start 11/10/19 at 17:00; Stop 11/10/19 at 17:01; Status DC Ondansetron HCl (Zofran) 4 mg 1X ONCE IVP Last administered on 11/10/19at 17:20 ; Start 11/10/19 at 17:00; Stop 11/10/19 at 17:01; Status DC Albuterol/ Ipratropium (Duoneb) 3 ml 1X ONCE NEB Last administered on 11/10/19at 17:16; Start 11/10/19 at 17:00; Stop 11/10/19 at 17:01; Status DC Piperacillin Sod/ Tazobactam Sod 3.375 gm/Sodium Chloride 50 ml @ 100 mls/hr 1X ONCE IV Last administered on 11/10/19at 18:25; Start 11/10/19 at 18:00; Stop 11/10/19 at 18:29; Status DC Ondansetron HCl (Zofran) 4 mg PRN Q8HRS PRN IV NAUSEA/VOMITING; Start 11/10/19 at 18:00; Stop 11/11/19 at 17:59 Fentanyl Citrate (Fentanyl 2ml Vial) 50 mcg PRN Q1HR PRN IV PAIN Last administered on 11/10/19at 21:15; Start 11/10/19 at 18:00; Stop 11/11/19 at 17:59 Acetaminophen (Tylenol) 650 mg PRN Q4HRS PRN PO FEVER; Start 11/10/19 at 18:00; Stop 11/11/19 at 17:59 Albuterol/ Ipratropium (Duoneb) 3 ml RTQID NEB Last administered on 11/11/19at 07:57; Start 11/10/19 at 20:00; Stop 11/11/19 at 19:59 Benzonatate (Tessalon Perle) 100 mg [id number] PO Last administered on 11/11/19at 09:03; Start 11/10/19 at 22:00 Nicotine (Nicoderm Cq 21mg) 1 patch DAILY TD Last administered on 11/11/19at 09:02; Start 11/11/19 at 09:00 Methylprednisolone Sodium Succinate (SOLU-Medrol 40MG VIAL) 60 mg Q12HR IV Last administered on 11/11/19at 09:03; Start 11/10/19 at 22:00 Piperacillin Sod/ Tazobactam Sod (Zosyn Per Pharmacy) 1 each PRN DAILY PRN MC SEE COMMENTS; Start 11/10/19 at 21:45 Guaifenesin/ Codeine Phosphate (Robitussin Ac) 5 ml PRN Q6HRS PRN PO COUGH 1ST CHOICE Last administered on 11/11/19at 05:24; Start 11/10/19 at 21:45 Piperacillin Sod/ Tazobactam Sod 3.375 gm/Sodium Chloride 50 ml @ 100 mls/hr Q6HRS IV Last administered on 11/11/19at 05:18; Start 11/11/19 at 00:00 Lactobacillus Rhamnosus (Culturelle) 1 cap BID PO Last administered on 11/11/19at 09:03; Start 11/11/19 at 09:00 Influenza Virus Vaccine Quadrival (Afluria Quad 2019-20 (3yr Up) Syringe) 0.5 ml ONCE ONCE VAX IM Last administered on 11/11/19at 11:01; Start 11/11/19 at 09:00; Stop 11/11/19 at 09:01; Status DC Fentanyl Citrate (Fentanyl 2ml Vial) 25 mcg PRN Q2HR PRN IVP PAIN; Start 11/11/19 at 09:15 Ondansetron HCl (Zofran) 4 mg PRN Q6HRS PRN IVP NAUSEA/VOMITING; Start 11/11/19 at 09:15 Acetaminophen (Tylenol) 500 mg PRN Q6HRS PRN PO MILD PAIN / TEMP; Start 11/11/19 at 09:15 Acetaminophen/ Hydrocodone Bitart (Lortab 5/325) 1 tab PRN Q4HRS PRN PO PAIN; Start 11/11/19 at 09:15 Temazepam (Restoril) 7.5 mg PRN QHS PRN PO INSOMNIA; Start 11/11/19 at 09:15 Nicotine (Nicoderm Cq 21mg) 1 patch PRN DAILY PRN TD SMOKING CESSATION; Start 11/11/19 at 09:15 Potassium Chloride (Klor-Con) 40 meq 1X ONCE PO Last administered on 11/11/19at 10:59; Start 11/11/19 at 09:15; Stop 11/11/19 at 09:22; Status DC Active Scripts Active Levaquin (Levofloxacin) 500 Mg Tablet 1 Tab PO DAILY 7 Days Advair 250-50 Diskus (Fluticasone/Salmeterol) 1 Each Disk.w.dev 1 Puff IH BID Albuterol Sulfate Conc Neb Soln (Albuterol Sulfate) 2.5 Mg/0.5 Ml Vial.neb 1 Vial NEB Q6HRS Proair Hfa Inhaler (Albuterol Sulfate) 8.5 Gm Hfa.aer.ad 1 Puff INH PRN Q6HRS PRN Vitals/I & O Vital Sign - Last 24 Hours 11/10/19 11/10/19 11/10/19 11/10/19 16:13 16:49 17:06 17:17 Temp 98.1 98.1 Pulse 97 86 87 Resp 24 B/P (MAP) 126/63 (84) 125/62 (83) 124/58 (80) Pulse Ox 96 93 96 O2 Delivery Room Air Room Air Room Air 11/10/19 11/10/19 11/10/19 11/10/19 17:20 17:56 18:26 18:56 Pulse 91 91 87 Resp 23 B/P (MAP) 118/57 (77) 106/52 (70) 108/58 (75) Pulse Ox 95 92 95 95 O2 Delivery Nasal Cannula O2 Flow Rate 2.0 11/10/19 11/10/19 11/10/19 11/10/19 19:26 19:56 20:26 20:45 Pulse 87 87 91 Resp 24 B/P (MAP) 109/58 (75) 113/58 (76) 103/58 (73) Pulse Ox 96 90 O2 Delivery Room Air Room Air 11/10/19 11/10/19 11/10/19 11/10/19 21:01 21:15 21:45 23:04 Temp 98.0 98.7 98.0 98.7 Pulse 89 89 Resp 20 20 18 16 B/P (MAP) 123/72 (89) 106/53 (70) Pulse Ox 93 93 92 O2 Delivery Room Air Room Air Room Air Room Air 1/31/11/11/19 11/11/19 11/11/19 03:34 07:30 08:00 10:58 Temp 98.0 98.3 97.5 98.0 98.3 97.5 Pulse 74 76 94 Resp 16 16 20 B/P (MAP) 96/53 (67) 102/56 (71) 117/61 (79) Pulse Ox 90 94 90 O2 Delivery Room Air Room Air Room Air Room Air Intake and Output 11/10/19 11/10/19 11/11/19 15:00 23:00 07:00 Intake Total 1000 ml 110 ml Balance 1000 ml 110 ml TRUDY PEDRAZA MD Nov 11, 2019 11:21
[2019-11-11] MEDS: PIPERACILLIN/TAZOBACTAM 4.5 GM in IV NORMAL SALINE 100ML 100 ML IV SCH ×2 (12:45→18:25)
[2019-11-11] MEDS: HYDROcodone/APAP 5/325MG 1 TAB TABLET PO PRN (13:29)
[2019-11-11 14:50] VITALS: BP 121/56
--- NOTE | 2019-11-11 15:17 | NUR ---
SS following for discharge planning. SS reviewed pt chart. Pt is self pay pt. HCFS following for self pay status. Pt is from home and is currently on room air. SS will continue to follow for discharge planning.
--- NOTE | 2019-11-11 17:20 | PDOC ---
PULMONARY PROGRESS NOTES Vitals Vital Signs Date Time Temp Pulse Resp B/P (MAP) Pulse Ox O2 Delivery O2 Flow Rate FiO2 11/11/19 16:31 91 Room Air 11/11/19 14:50 97.9 104 18 121/56 (77) 97.9 11/11/19 07:50 2.0 General: Alert, No acute distress Lungs: Wheezing, Other Cardiovascular: S1 Abdomen: Soft Extremities: No Edema Labs Laboratory Tests Test 11/10/19 16:13 11/10/19 16:53 11/10/19 17:30 Urine Collection Type Unknown Urine Color Yellow Urine Clarity Clear Urine pH 7.0 Urine Specific [place] 1.010 Urine Protein Negative mg/dL (NEG-TRACE) Urine Glucose (UA) Negative mg/dL (NEG) Urine Ketones (Stick) Negative mg/dL (NEG) Urine Blood Negative (NEG) Urine Nitrite Negative (NEG) Urine Bilirubin Negative (NEG) Urine Urobilinogen Dipstick 1.0 mg/dL (0.2 mg/dL) Urine Leukocyte Esterase Negative (NEG) Urine RBC 0 /HPF (0-2) Urine WBC 0 /HPF (0-4) Urine Squamous Epithelial Cells Occ /LPF Urine Bacteria 0 /HPF (0-FEW) White Blood Count 11.3 x10^3/uL (4.0-11.0) Red Blood Count 4.32 x10^6/uL (3.50-5.40) Hemoglobin 10.5 g/dL (12.0-15.5) Hematocrit 32.7 % (36.0-47.0) Mean Corpuscular Volume 76 fL (79-100) Mean Corpuscular Hemoglobin 24 pg (25-35) Mean Corpuscular Hemoglobin Concent 32 g/dL (31-37) Red Cell Distribution Width 18.8 % (11.5-14.5) Platelet Count 395 x10^3/uL (140-400) Neutrophils (%) (Auto) 70 % (31-73) Lymphocytes (%) (Auto) 17 % (24-48) Monocytes (%) (Auto) 11 % (0-9) Eosinophils (%) (Auto) 1 % (0-3) Basophils (%) (Auto) 1 % (0-3) Neutrophils # (Auto) 8.0 x10^3/uL (1.8-7.7) Lymphocytes # (Auto) 1.9 x10^3/uL (1.0-4.8) Monocytes # (Auto) 1.2 x10^3/uL (0.0-1.1) Eosinophils # (Auto) 0.1 x10^3/uL (0.0-0.7) Basophils # (Auto) 0.1 x10^3/uL (0.0-0.2) Sodium Level 140 mmol/L (136-145) Potassium Level 3.4 mmol/L (3.5-5.1) Chloride Level 101 mmol/L (98-107) Carbon Dioxide Level 33 mmol/L (21-32) Anion Gap 6 (6-14) Blood Urea Nitrogen 12 mg/dL (7-20) Creatinine 0.6 mg/dL (0.6-1.0) Estimated GFR (Cockcroft-Gault) 106.7 BUN/Creatinine Ratio 20 (6-20) Glucose Level 124 mg/dL (70-99) Lactic Acid Level 1.7 mmol/L (0.4-2.0) Calcium Level 8.5 mg/dL (8.5-10.1) Total Bilirubin 0.3 mg/dL (0.2-1.0) Aspartate Amino Transf (AST/SGOT) 14 U/L (15-37) Alanine Aminotransferase (ALT/SGPT) 22 U/L (14-59) Alkaline Phosphatase 152 U/L (46-116) Troponin I Quantitative < 0.017 ng/mL (0.000-0.055) Total Protein 6.4 g/dL (6.4-8.2) Albumin 2.8 g/dL (3.4-5.0) Albumin/Globulin Ratio 0.8 (1.0-1.7) Lipase 110 U/L (73-393) O2 Saturation 91 % (92-99) Arterial Blood pH 7.45 (7.35-7.45) Arterial Blood pCO2 at Patient Temp 45 mmHg (35-46) Arterial Blood pO2 at Patient Temp 60 mmHg (75-108) Arterial Blood HCO3 31 mmol/L (21-28) Arterial Blood Base Excess 6 mmol/L (-3-3) FiO2 21 Laboratory Tests Test 11/10/19 17:30 O2 Saturation 91 % (92-99) Arterial Blood pH 7.45 (7.35-7.45) Arterial Blood pCO2 at Patient Temp 45 mmHg (35-46) Arterial Blood pO2 at Patient Temp 60 mmHg (75-108) Arterial Blood HCO3 31 mmol/L (21-28) Arterial Blood Base Excess 6 mmol/L (-3-3) FiO2 21 Medications Active Scripts Medications Dose Route/Sig Max Daily Dose Days Date Category Levaquin (Levofloxacin) 500 Mg Tablet 1 Tab PO DAILY 7 11/06/19 Rx Advair 250-50 Diskus (Fluticasone/Salmeterol) 1 Each Disk.w.dev 1 Puff IH BID 09/28/17 Rx Albuterol Sulfate Conc Neb Soln (Albuterol Sulfate) 2.5 Mg/0.5 Ml Vial.neb 1 Vial NEB Q6HRS 06/08/17 Rx Proair Hfa Inhaler (Albuterol Sulfate) 8.5 Gm Hfa.aer.ad 1 Puff INH PRN Q6HRS PRN 11/21/16 Rx Impression . FULL NOTE DICTATED AGREE WITH CURRENT RX THANKS ADD TORADOL FOR PLEURISY MERRITT MARTINEZ MD Nov 11, 2019 17:20
[2019-11-11] MEDS ORDERED: KETOROLAC 15 MG/ML VIAL. IM ONE (17:30)
[2019-11-11] MEDS ORDERED: KETOROLAC 15 MG/ML VIAL. IVP PRN (17:30)
[2019-11-11] MEDS: DOXYCYCLINE HYCLATE 100 MG TABLET PO SCH (18:24)
[2019-11-11 19:56] VITALS: BP 116/56
[2019-11-11 23:06] VITALS: BP 114/66
[2019-11-12] MEDS: PIPERACILLIN/TAZOBACTAM 4.5 GM in IV NORMAL SALINE 100ML 100 ML IV SCH ×5 (00:10→23:35)
--- NOTE | 2019-11-12 00:46 | CONS ---
DATE OF CONSULTATION: 11/11/2019 ATTENDING PHYSICIAN: Dr. Avila. DICTATING PHYSICIAN: Dr. Martinez. REASON FOR CONSULTATION: The patient is seen in pulmonary consultation at the request of Dr. Avila for abnormal x-ray. HISTORY OF PRESENT ILLNESS: The patient is a 49-year-old who was recently hospitalized. She was treated for pneumonia. She was prescribed Levaquin, re-presented with increasing shortness of breath, fever, chills, left lower lobe infiltrate, some pleuritic type of discomfort. She is currently admitted. I was asked to see her in consultation. She is currently on Zosyn. She continues to smoke. PAST MEDICAL HISTORY: COPD, tobacco dependent; previous pneumonia; hypertension, sciatica. PAST SURGICAL HISTORY: Status post cholecystectomy and tubal ligation. ALLERGIES: No known drug allergies. FAMILY HISTORY: Hypertension. SOCIAL HISTORY: She smokes. REVIEW OF SYSTEMS: As indicated above, otherwise, a 10-point system was reviewed and negative. PHYSICAL EXAMINATION: VITAL SIGNS: Stable. O2 saturation was greater than 92%. HEENT: Eyes, the sclerae were nonicteric. NECK: Jugular venous distention was not elevated. No lymphadenopathy. CHEST: Full expansion. LUNGS: Rales in the left base. CARDIOVASCULAR: Regular rate and rhythm with S1, S2, no S3. ABDOMEN: Soft, nontender, nondistended. EXTREMITIES: No clubbing, cyanosis or edema. LABORATORY DATA: Arterial blood gas on room air, pH of 7.45, PaCO2 of 45, PaO2 of 60. White count was 11.3, hemoglobin and hematocrit were noted. Chest x-ray revealed new infiltrate in left lower lobe in comparison to the one on 11/05/2019. IMPRESSION: 1. Abnormal x-ray compatible with pneumonia, treated for gram-negative, possibly gram-positive. 2. Acute exacerbation of chronic obstructive pulmonary disease. 3. Acute hypoxemic respiratory failure. PLAN: 1. Recommend to continue current IV antibiotics, IV steroids. 2. Nebulized treatments. 3. Oxygen supplementation. 4. Nonsteroidal for pleurisy. 5. Follow blood culture results. I do appreciate the privilege in sharing in the patient's care. MERRITT MARTINEZ MD DR: VALE/hermelinda JOB#: [id number] / [id number]
[2019-11-12 03:05] VITALS: BP 127/54
[2019-11-12] MEDS: IPRATRPIUM/ALBUTEROL 0.5/2.5MG 3 ML NEBU. NEB SCH ×4 (07:08→19:25)
[2019-11-12 07:30] VITALS: BP 107/65
--- NOTE | 2019-11-12 10:27 | PDOC ---
PULMONARY PROGRESS NOTES Subjective resting comfortable on Room air, reports she is feeling better today on room air, reports SOA with exertion Vitals Vital Signs Date Time Temp Pulse Resp B/P (MAP) Pulse Ox O2 Delivery O2 Flow Rate FiO2 11/12/19 07:30 97.7 79 20 107/65 (79) 94 Room Air 97.7 11/11/19 07:50 2.0 ROS: No Nausea, No Chest Pain, No Abdominal Pain, No Increase Cough General: Alert, Oriented X4, No acute distress Cardiovascular: S1, S2 Abdomen: Soft Neuro Exam: Alert, Oriented Extremities: No Edema Skin: Warm, Dry Labs Laboratory Tests Test 11/10/19 16:13 11/10/19 16:53 11/10/19 17:30 Urine Collection Type Unknown Urine Color Yellow Urine Clarity Clear Urine pH 7.0 Urine Specific [place] 1.010 Urine Protein Negative mg/dL (NEG-TRACE) Urine Glucose (UA) Negative mg/dL (NEG) Urine Ketones (Stick) Negative mg/dL (NEG) Urine Blood Negative (NEG) Urine Nitrite Negative (NEG) Urine Bilirubin Negative (NEG) Urine Urobilinogen Dipstick 1.0 mg/dL (0.2 mg/dL) Urine Leukocyte Esterase Negative (NEG) Urine RBC 0 /HPF (0-2) Urine WBC 0 /HPF (0-4) Urine Squamous Epithelial Cells Occ /LPF Urine Bacteria 0 /HPF (0-FEW) White Blood Count 11.3 x10^3/uL (4.0-11.0) Red Blood Count 4.32 x10^6/uL (3.50-5.40) Hemoglobin 10.5 g/dL (12.0-15.5) Hematocrit 32.7 % (36.0-47.0) Mean Corpuscular Volume 76 fL (79-100) Mean Corpuscular Hemoglobin 24 pg (25-35) Mean Corpuscular Hemoglobin Concent 32 g/dL (31-37) Red Cell Distribution Width 18.8 % (11.5-14.5) Platelet Count 395 x10^3/uL (140-400) Neutrophils (%) (Auto) 70 % (31-73) Lymphocytes (%) (Auto) 17 % (24-48) Monocytes (%) (Auto) 11 % (0-9) Eosinophils (%) (Auto) 1 % (0-3) Basophils (%) (Auto) 1 % (0-3) Neutrophils # (Auto) 8.0 x10^3/uL (1.8-7.7) Lymphocytes # (Auto) 1.9 x10^3/uL (1.0-4.8) Monocytes # (Auto) 1.2 x10^3/uL (0.0-1.1) Eosinophils # (Auto) 0.1 x10^3/uL (0.0-0.7) Basophils # (Auto) 0.1 x10^3/uL (0.0-0.2) Sodium Level 140 mmol/L (136-145) Potassium Level 3.4 mmol/L (3.5-5.1) Chloride Level 101 mmol/L (98-107) Carbon Dioxide Level 33 mmol/L (21-32) Anion Gap 6 (6-14) Blood Urea Nitrogen 12 mg/dL (7-20) Creatinine 0.6 mg/dL (0.6-1.0) Estimated GFR (Cockcroft-Gault) 106.7 BUN/Creatinine Ratio 20 (6-20) Glucose Level 124 mg/dL (70-99) Lactic Acid Level 1.7 mmol/L (0.4-2.0) Calcium Level 8.5 mg/dL (8.5-10.1) Total Bilirubin 0.3 mg/dL (0.2-1.0) Aspartate Amino Transf (AST/SGOT) 14 U/L (15-37) Alanine Aminotransferase (ALT/SGPT) 22 U/L (14-59) Alkaline Phosphatase 152 U/L (46-116) Troponin I Quantitative < 0.017 ng/mL (0.000-0.055) Total Protein 6.4 g/dL (6.4-8.2) Albumin 2.8 g/dL (3.4-5.0) Albumin/Globulin Ratio 0.8 (1.0-1.7) Lipase 110 U/L (73-393) O2 Saturation 91 % (92-99) Arterial Blood pH 7.45 (7.35-7.45) Arterial Blood pCO2 at Patient Temp 45 mmHg (35-46) Arterial Blood pO2 at Patient Temp 60 mmHg (75-108) Arterial Blood HCO3 31 mmol/L (21-28) Arterial Blood Base Excess 6 mmol/L (-3-3) FiO2 21 Medications Active Scripts Medications Dose Route/Sig Max Daily Dose Days Date Category Levaquin (Levofloxacin) 500 Mg Tablet 1 Tab PO DAILY 7 11/06/19 Rx Advair 250-50 Diskus (Fluticasone/Salmeterol) 1 Each Disk.w.dev 1 Puff IH BID 09/28/17 Rx Albuterol Sulfate Conc Neb Soln (Albuterol Sulfate) 2.5 Mg/0.5 Ml Vial.neb 1 Vial NEB Q6HRS 06/08/17 Rx Proair Hfa Inhaler (Albuterol Sulfate) 8.5 Gm Hfa.aer.ad 1 Puff INH PRN Q6HRS PRN 11/21/16 Rx Impression . IMPRESSION: 1. Abnormal x-ray compatible with pneumonia, treated for gram-negative, possibly gram-positive. 2. Acute exacerbation of chronic obstructive pulmonary disease. 3. Acute hypoxemic respiratory failure. IMPRESSION: CXR 11/11/2019 1. Left lower lobe pneumonia with left pleural effusion. Plan . PLAN: on room air, supplemental oxygen as needed IS at bedside Cont. current ABX, Follow cultures Cont. steroids W/ taper NEBS NSAID for pleurtic pain D/W RN HOME IN AM OK BY MERRITT ANDERSON MD Nov 12, 2019 10:27
[2019-11-12] MEDS: DOXYCYCLINE HYCLATE 100 MG TABLET PO SCH ×2 (10:43→22:09)
[2019-11-12] MEDS: guaiFENesin/CODEINE 100mg/10mg 5 ML LIQUID PO PRN ×2 (10:43→22:08)
[2019-11-12] MEDS: BENZONATATE 100 MG CAPSULE. PO SCH ×3 (10:43→22:09)
[2019-11-12] MEDS: LACTOBACILLUS RHAMNOSUS GG 1 CAPSULE. PO SCH ×2 (10:43→22:09)
[2019-11-12] MEDS: methylPREDNISolone SOD SUCC PF 40 MG/ML VIAL. IV SCH ×2 (10:44→22:09)
[2019-11-12] MEDS: NICOTINE 21MG PATCH. TD SCH (10:44)
--- NOTE | 2019-11-12 11:13 | PDOC ---
PROGRESS NOTES Chief Complaint Chief Complaint impression LLL PNA, gram pos gram neg with pleural effusion Left lower lobe pneumonia with left pleural effusion. 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 PLAn: Pulmo following Zosyn, new patch Counselled on cigarette cessation Nebs, other supprotive meds KEEP TELE Ambulate NUtrition consult, thin smoker Vitals Vitals Vital Signs Date Time Temp Pulse Resp B/P (MAP) Pulse Ox O2 Delivery O2 Flow Rate FiO2 11/12/19 07:30 97.7 79 20 107/65 (79) 94 Room Air 97.7 11/11/19 07:50 2.0 Physical Exam General: Alert, Oriented X3, Cooperative, No acute distress Heart: Regular rate, Normal S1, Normal S2, No murmurs, Other (dminished bases, dullness percussion left) Lungs: Crackles Abdomen: Normal bowel sounds, Soft, No tenderness, No hepatosplenomegaly Extremities: No clubbing, No cyanosis, No edema Skin: No rashes, No breakdown Labs LABS PA and lateral chest. HISTORY: Left rib pain AP and lateral views were taken of the chest. There is a small left pleural effusion. There is a left lower lobe infiltrate, infiltrates have developed compared to the study of November 05. IMPRESSION: 1. Left lower lobe pneumonia with left pleural effusion. Electronically signed by: Eladio Lee MD (11/10/2019 5:27 PM) [id number] DICTATED and SIGNED BY: ELADIO LEE MD DATE: 11/10/19 1727 Comment Review of Relevant I have reviewed the following items belle (where applicable) has been applied. Labs Laboratory Tests Test 11/10/19 16:13 11/10/19 16:53 11/10/19 17:30 Urine Collection Type Unknown Urine Color Yellow Urine Clarity Clear Urine pH 7.0 Urine Specific [place] 1.010 Urine Protein Negative mg/dL (NEG-TRACE) Urine Glucose (UA) Negative mg/dL (NEG) Urine Ketones (Stick) Negative mg/dL (NEG) Urine Blood Negative (NEG) Urine Nitrite Negative (NEG) Urine Bilirubin Negative (NEG) Urine Urobilinogen Dipstick 1.0 mg/dL (0.2 mg/dL) Urine Leukocyte Esterase Negative (NEG) Urine RBC 0 /HPF (0-2) Urine WBC 0 /HPF (0-4) Urine Squamous Epithelial Cells Occ /LPF Urine Bacteria 0 /HPF (0-FEW) White Blood Count 11.3 x10^3/uL (4.0-11.0) Red Blood Count 4.32 x10^6/uL (3.50-5.40) Hemoglobin 10.5 g/dL (12.0-15.5) Hematocrit 32.7 % (36.0-47.0) Mean Corpuscular Volume 76 fL (79-100) Mean Corpuscular Hemoglobin 24 pg (25-35) Mean Corpuscular Hemoglobin Concent 32 g/dL (31-37) Red Cell Distribution Width 18.8 % (11.5-14.5) Platelet Count 395 x10^3/uL (140-400) Neutrophils (%) (Auto) 70 % (31-73) Lymphocytes (%) (Auto) 17 % (24-48) Monocytes (%) (Auto) 11 % (0-9) Eosinophils (%) (Auto) 1 % (0-3) Basophils (%) (Auto) 1 % (0-3) Neutrophils # (Auto) 8.0 x10^3/uL (1.8-7.7) Lymphocytes # (Auto) 1.9 x10^3/uL (1.0-4.8) Monocytes # (Auto) 1.2 x10^3/uL (0.0-1.1) Eosinophils # (Auto) 0.1 x10^3/uL (0.0-0.7) Basophils # (Auto) 0.1 x10^3/uL (0.0-0.2) Sodium Level 140 mmol/L (136-145) Potassium Level 3.4 mmol/L (3.5-5.1) Chloride Level 101 mmol/L (98-107) Carbon Dioxide Level 33 mmol/L (21-32) Anion Gap 6 (6-14) Blood Urea Nitrogen 12 mg/dL (7-20) Creatinine 0.6 mg/dL (0.6-1.0) Estimated GFR (Cockcroft-Gault) 106.7 BUN/Creatinine Ratio 20 (6-20) Glucose Level 124 mg/dL (70-99) Lactic Acid Level 1.7 mmol/L (0.4-2.0) Calcium Level 8.5 mg/dL (8.5-10.1) Total Bilirubin 0.3 mg/dL (0.2-1.0) Aspartate Amino Transf (AST/SGOT) 14 U/L (15-37) Alanine Aminotransferase (ALT/SGPT) 22 U/L (14-59) Alkaline Phosphatase 152 U/L (46-116) Troponin I Quantitative < 0.017 ng/mL (0.000-0.055) Total Protein 6.4 g/dL (6.4-8.2) Albumin 2.8 g/dL (3.4-5.0) Albumin/Globulin Ratio 0.8 (1.0-1.7) Lipase 110 U/L (73-393) O2 Saturation 91 % (92-99) Arterial Blood pH 7.45 (7.35-7.45) Arterial Blood pCO2 at Patient Temp 45 mmHg (35-46) Arterial Blood pO2 at Patient Temp 60 mmHg (75-108) Arterial Blood HCO3 31 mmol/L (21-28) Arterial Blood Base Excess 6 mmol/L (-3-3) FiO2 21 Medications Current Medications Sodium Chloride 1,000 ml @ 1,000 mls/hr Q1H IV Last administered on 11/10/19at 16:55; Start 11/10/19 at 16:26; Stop 11/10/19 at 17:25; Status DC Fentanyl Citrate (Fentanyl 2ml Vial) 50 mcg 1X ONCE IVP Last administered on 11/10/19at 17:20; Start 11/10/19 at 17:00; Stop 11/10/19 at 17:01; Status DC Ondansetron HCl (Zofran) 4 mg 1X ONCE IVP Last administered on 11/10/19at 17:20; Start 11/10/19 at 17:00; Stop 11/10/19 at 17:01; Status DC Albuterol/ Ipratropium (Duoneb) 3 ml 1X ONCE NEB Last administered on 11/10/19at 17:16; Start 11/10/19 at 17:00; Stop 11/10/19 at 17:01; Status DC Piperacillin Sod/ Tazobactam Sod 3.375 gm/Sodium Chloride 50 ml @ 100 mls/hr 1X ONCE IV Last administered on 11/10/19at 18:25; Start 11/10/19 at 18:00; Stop 11/10/19 at 18:29; Status DC Ondansetron HCl (Zofran) 4 mg PRN Q8HRS PRN IV NAUSEA/VOMITING; Start 11/10/19 at 18:00; Stop 11/11/19 at 17:59; Status DC Fentanyl Citrate (Fentanyl 2ml Vial) 50 mcg PRN Q1HR PRN IV PAIN Last administered on 11/10/19at 21:15; Start 11/10/19 at 18:00; Stop 11/11/19 at 17:59; Status DC Acetaminophen (Tylenol) 650 mg PRN Q4HRS PRN PO FEVER; Start 11/10/19 at 18:00; Stop 11/11/19 at 17:59; Status DC Albuterol/ Ipratropium (Duoneb) 3 ml RTQID NEB Last administered on 11/11/19at 16:30; Start 11/10/19 at 20:00; Stop 11/11/19 at 19:59; Status DC Benzonatate (Tessalon Perle) 100 mg [id number] PO Last administered on 11/12/19at 10:43; Start 11/10/19 at 22:00 Nicotine (Nicoderm Cq 21mg) 1 patch DAILY TD Last administered on 11/12/19at 10:44; Start 11/11/19 at 09:00 Methylprednisolone Sodium Succinate (SOLU-Medrol 40MG VIAL) 60 mg Q12HR IV Last administered on 11/12/19at 10:44; Start 11/10/19 at 22:00 Piperacillin Sod/ Tazobactam Sod (Zosyn Per Pharmacy) 1 each PRN DAILY PRN MC SEE COMMENTS; Start 11/10/19 at 21:45 Guaifenesin/ Codeine Phosphate (Robitussin Ac) 5 ml PRN Q6HRS PRN PO COUGH 1ST CHOICE Last administered on 11/12/19at 10:43; Start 11/10/19 at 21:45 Piperacillin Sod/ Tazobactam Sod 3.375 gm/Sodium Chloride 50 ml @ 100 mls/hr Q6HRS IV Last administered on 11/11/19at 05:18; Start 11/11/19 at 00:00; Stop 11/11/19 at 11:18; Status DC Lactobacillus Rhamnosus (Culturelle) 1 cap BID PO Last administered on 11/12/19at 10:43; Start 11/11/19 at 09:00 Influenza Virus Vaccine Quadrival (Afluria Quad 2019-20 (3yr Up) Syringe) 0.5 ml ONCE ONCE VAX IM Last administered on 11/11/19at 11:01; Start 11/11/19 at 09:00; Stop 11/11/19 at 09:01; Status DC Fentanyl Citrate (Fentanyl 2ml Vial) 25 mcg PRN Q2HR PRN IVP PAIN; Start 11/11/19 at 09:15 Ondansetron HCl (Zofran) 4 mg PRN Q6HRS PRN IVP NAUSEA/VOMITING; Start 11/11/19 at 09:15 Acetaminophen (Tylenol) 500 mg PRN Q6HRS PRN PO MILD PAIN / TEMP; Start 11/11/19 at 09:15 Acetaminophen/ Hydrocodone Bitart (Lortab 5/325) 1 tab PRN Q4HRS PRN PO PAIN Last administered on 11/11/19at 13:29; Start 11/11/19 at 09:15 Temazepam (Restoril) 7.5 mg PRN QHS PRN PO INSOMNIA; Start 11/11/19 at 09:15 Nicotine (Nicoderm Cq 21mg) 1 patch PRN DAILY PRN TD SMOKING CESSATION; Start 11/11/19 at 09:15 Potassium Chloride (Klor-Con) 40 meq 1X ONCE PO Last administered on 11/11/19at 10:59; Start 11/11/19 at 09:15; Stop 11/11/19 at 09:22; Status DC Piperacillin Sod/ Tazobactam Sod 4.5 gm/Sodium Chloride 100 ml @ 200 mls/hr Q6HRS IV Last administered on 11/12/19at 05:51; Start 11/11/19 at 12:00 Doxycycline Hyclate (Vibra-Tab) 100 mg BID PO Last administered on 11/12/19at 10:43; Start 11/11/19 at 18:00 Ketorolac Tromethamine (Toradol 15mg Vial) 15 mg 1X ONCE IM Last administered on 11/11/19at 18:25; Start 11/11/19 at 17:30; Stop 11/11/19 at 17:31; Status DC Ketorolac Tromethamine (Toradol 15mg Vial) 15 mg PRN Q6HRS PRN IVP PAIN; Start 11/11/19 at 17:30; Stop 11/16/19 at 17:29 Albuterol/ Ipratropium (Duoneb) 3 ml RTQID NEB Last administered on 11/12/19at 07:08; Start 11/12/19 at 08:00 Active Scripts Active Levaquin (Levofloxacin) 500 Mg Tablet 1 Tab PO DAILY 7 Days Advair 250-50 Diskus (Fluticasone/Salmeterol) 1 Each Disk.w.dev 1 Puff IH BID Albuterol Sulfate Conc Neb Soln (Albuterol Sulfate) 2.5 Mg/0.5 Ml Vial.neb 1 Vial NEB Q6HRS Proair Hfa Inhaler (Albuterol Sulfate) 8.5 Gm Hfa.aer.ad 1 Puff INH PRN Q6HRS PRN Vitals/I & O Vital Sign - Last 24 Hours 11/11/19 11/11/19 11/11/19 11/11/19 13:05 13:29 14:30 14:50 Temp 97.9 97.9 Pulse 104 Resp 17 17 18 B/P (MAP) 121/56 (77) Pulse Ox 96 90 O2 Delivery Room Air Room Air Room Air Room Air 11/11/19 11/11/19 11/11/19 11/11/19 16:31 19:56 20:00 21:54 Temp 97.6 97.6 Pulse 89 Resp 16 B/P (MAP) 116/56 (76) Pulse Ox 91 94 93 O2 Delivery Room Air Room Air Room Air Room Air 11/11/19 11/12/19 11/12/19 11/12/19 23:06 03:05 07:08 07:30 Temp 98.1 98.4 97.7 98.1 98.4 97.7 Pulse 98 89 79 Resp 16 16 20 B/P (MAP) 114/66 (82) 127/54 (78) 107/65 (79) Pulse Ox 93 94 96 94 O2 Delivery Room Air Room Air Room Air Room Air Intake and Output 11/11/19 11/11/19 11/12/19 15:00 23:00 07:00 Intake Total 480 ml 440 ml 240 ml Balance 480 ml 440 ml 240 ml LYNETTE LACY MD Nov 12, 2019 11:13
[2019-11-12 11:29] VITALS: BP 124/70
[2019-11-12 15:28] VITALS: BP 113/62
[2019-11-12] MEDS: HYDROcodone/APAP 5/325MG 1 TAB TABLET PO PRN (16:48)
[2019-11-12 19:40] VITALS: BP 120/74
[2019-11-12 23:29] VITALS: BP 131/77
[2019-11-13 03:34] VITALS: BP 119/74
[2019-11-13] MEDS: PIPERACILLIN/TAZOBACTAM 4.5 GM in IV NORMAL SALINE 100ML 100 ML IV SCH (05:08)
[2019-11-13 07:25] VITALS: BP 108/66
[2019-11-13] MEDS: IPRATRPIUM/ALBUTEROL 0.5/2.5MG 3 ML NEBU. NEB SCH ×2 (08:57→13:21)
[2019-11-13] MEDS ORDERED: methylPREDNISolone SOD SUCC PF 40 MG/ML VIAL. IV SCH (09:00)
--- NOTE | 2019-11-13 09:00 | PDOC ---
PULMONARY PROGRESS NOTES Subjective resting comfortable on Room air, reports she is feeling better today on room air,no SOA no increased cough, would like to discharge home today Vitals Vital Signs Date Time Temp Pulse Resp B/P (MAP) Pulse Ox O2 Delivery O2 Flow Rate FiO2 11/13/19 07:25 97.9 84 20 108/66 (80) 92 Room Air 97.9 11/12/19 08:25 2.0 ROS: No Nausea, No Chest Pain, No Abdominal Pain, No Increase Cough General: Alert, Oriented X4, No acute distress Lungs: Crackles Cardiovascular: S1, S2 Abdomen: Soft Neuro Exam: Alert, Oriented Extremities: No Edema Skin: Warm, Dry Medications Active Scripts Medications Dose Route/Sig Max Daily Dose Days Date Category Levaquin (Levofloxacin) 500 Mg Tablet 1 Tab PO DAILY 7 11/06/19 Rx Advair 250-50 Diskus (Fluticasone/Salmeterol) 1 Each Disk.w.dev 1 Puff IH BID 09/28/17 Rx Albuterol Sulfate Conc Neb Soln (Albuterol Sulfate) 2.5 Mg/0.5 Ml Vial.neb 1 Vial NEB Q6HRS 06/08/17 Rx Proair Hfa Inhaler (Albuterol Sulfate) 8.5 Gm Hfa.aer.ad 1 Puff INH PRN Q6HRS PRN 11/21/16 Rx Impression . IMPRESSION: 1. Abnormal x-ray compatible with pneumonia, treated for gram-negative, possibly gram-positive. 2. Acute exacerbation of chronic obstructive pulmonary disease. 3. Acute hypoxemic respiratory failure. IMPRESSION: CXR 11/11/2019 1. Left lower lobe pneumonia with left pleural effusion. Plan . PLAN: on room air, supplemental oxygen as needed IS at bedside D/C zosyn, cont. DOXY for full course Cont. steroids W/ taper NEBS NSAID for pleurtic pain Ok to D/C home from our stand point D/W MERRITT MEEKS MD Nov 13, 2019 09:00
[2019-11-13] MEDS: BENZONATATE 100 MG CAPSULE. PO SCH ×2 (10:28→15:20)
[2019-11-13] MEDS: DOXYCYCLINE HYCLATE 100 MG TABLET PO SCH (10:28)
[2019-11-13] MEDS: LACTOBACILLUS RHAMNOSUS GG 1 CAPSULE. PO SCH (10:28)
[2019-11-13] MEDS: NICOTINE 21MG PATCH. TD SCH (10:30)
[2019-11-13] MEDS: guaiFENesin/CODEINE 100mg/10mg 5 ML LIQUID PO PRN (10:30)
[2019-11-13] MEDS: HYDROcodone/APAP 5/325MG 1 TAB TABLET PO PRN (10:33)
--- NOTE | 2019-11-13 10:56 | PDOC ---
PROGRESS NOTES Chief Complaint Chief Complaint discharge dx LLL PNA, gram pos gram neg with pleural effusion Left lower lobe pneumonia with left pleural effusion. 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 ama PLAn: Pulmo following Zosyn d/c, new patch Counselled on cigarette cessation Nebs, other supprotive meds KEEP TELE Ambulate NUtrition consult, thin smoker rx doxycycline 100mg po bid x 10 days d/c planning 34 min Vitals Vitals Vital Signs Date Time Temp Pulse Resp B/P (MAP) Pulse Ox O2 Delivery O2 Flow Rate FiO2 11/13/19 10:33 16 Room Air 11/13/19 08:58 96 11/13/19 07:25 97.9 84 108/66 (80) 97.9 11/12/19 08:25 2.0 Physical Exam General: Alert, Oriented X3, Cooperative, No acute distress Heart: Regular rate, Normal S1, Normal S2, No murmurs, Other (dminished bases, dullness percussion left) Lungs: Crackles Abdomen: Normal bowel sounds, Soft, No tenderness, No hepatosplenomegaly Extremities: No clubbing, No cyanosis, No edema Skin: No rashes, No breakdown Comment Review of Relevant I have reviewed the following items belle (where applicable) has been applied. Medications Current Medications Sodium Chloride 1,000 ml @ 1,000 mls/hr Q1H IV Last administered on 11/10/19at 16:55; Start 11/10/19 at 16:26; Stop 11/10/19 at 17:25; Status DC Fentanyl Citrate (Fentanyl 2ml Vial) 50 mcg 1X ONCE IVP Last administered on 11/10/19at 17:20; Start 11/10/19 at 17:00; Stop 11/10/19 at 17:01; Status DC Ondansetron HCl (Zofran) 4 mg 1X ONCE IVP Last administered on 11/10/19at 17:20; Start 11/10/19 at 17:00; Stop 11/10/19 at 17:01; Status DC Albuterol/ Ipratropium (Duoneb) 3 ml 1X ONCE NEB Last administered on 11/10/19at 17:16; Start 11/10/19 at 17:00; Stop 11/10/19 at 17:01; Status DC Piperacillin Sod/ Tazobactam Sod 3.375 gm/Sodium Chloride 50 ml @ 100 mls/hr 1X ONCE IV Last administered on 11/10/19at 18:25; Start 11/10/19 at 18:00; Stop 11/10/19 at 18:29; Status DC Ondansetron HCl (Zofran) 4 mg PRN Q8HRS PRN IV NAUSEA/VOMITING; Start 11/10/19 at 18:00; Stop 11/11/19 at 17:59; Status DC Fentanyl Citrate (Fentanyl 2ml Vial) 50 mcg PRN Q1HR PRN IV PAIN Last administered on 11/10/19at 21:15; Start 11/10/19 at 18:00; Stop 11/11/19 at 17:59; Status DC Acetaminophen (Tylenol) 650 mg PRN Q4HRS PRN PO FEVER; Start 11/10/19 at 18:00; Stop 11/11/19 at 17:59; Status DC Albuterol/ Ipratropium (Duoneb) 3 ml RTQID NEB Last administered on 11/11/19at 16:30; Start 11/10/19 at 20:00; Stop 11/11/19 at 19:59; Status DC Benzonatate (Tessalon Perle) 100 mg SOD311 PO Last administered on 11/13/19at 10:28; Start 11/10/19 at 22:00 Nicotine (Nicoderm Cq 21mg) 1 patch DAILY TD Last administered on 11/13/19at 10:30; Start 11/11/19 at 09:00 Methylprednisolone Sodium Succinate (SOLU-Medrol 40MG VIAL) 60 mg Q12HR IV Last administered on 11/12/19at 22:09; Start 11/10/19 at 22:00; Stop 11/13/19 at 09:00; Status DC Piperacillin Sod/ Tazobactam Sod (Zosyn Per Pharmacy) 1 each PRN DAILY PRN MC SEE COMMENTS; Start 11/10/19 at 21:45 Guaifenesin/ Codeine Phosphate (Robitussin Ac) 5 ml PRN Q6HRS PRN PO COUGH 1ST CHOICE Last administered on 11/13/19at 10:30; Start 11/10/19 at 21:45 Piperacillin Sod/ Tazobactam Sod 3.375 gm/Sodium Chloride 50 ml @ 100 mls/hr Q6HRS IV Last administered on 11/11/19at 05:18; Start 11/11/19 at 00:00; Stop 11/11/19 at 11:18; Status DC Lactobacillus Rhamnosus (Culturelle) 1 cap BID PO Last administered on 11/13/19at 10:28; Start 11/11/19 at 09:00 Influenza Virus Vaccine Quadrival (Afluria Quad 2019-20 (3yr Up) Syringe) 0.5 ml ONCE ONCE VAX IM Last administered on 11/11/19at 11:01; Start 11/11/19 at 09:00; Stop 11/11/19 at 09:01; Status DC Fentanyl Citrate (Fentanyl 2ml Vial) 25 mcg PRN Q2HR PRN IVP PAIN Last administered on 11/12/19at 18:34; Start 11/11/19 at 09:15 Ondansetron HCl (Zofran) 4 mg PRN Q6HRS PRN IVP NAUSEA/VOMITING; Start 11/11/19 at 09:15 Acetaminophen (Tylenol) 500 mg PRN Q6HRS PRN PO MILD PAIN / TEMP; Start 11/11/19 at 09:15 Acetaminophen/ Hydrocodone Bitart (Lortab 5/325) 1 tab PRN Q4HRS PRN PO MODE RATE PAIN, SEVERE PAIN Last administered on 11/13/19at 10:33; Start 11/11/19 at 09:15 Temazepam (Restoril) 7.5 mg PRN QHS PRN PO INSOMNIA; Start 11/11/19 at 09:15 Nicotine (Nicoderm Cq 21mg) 1 patch PRN DAILY PRN TD SMOKING CESSATION; Start 11/11/19 at 09:15; Stop 11/12/19 at 14:20; Status DC Potassium Chloride (Klor-Con) 40 meq 1X ONCE PO Last administered on 11/11/19at 10:59; Start 11/11/19 at 09:15; Stop 11/11/19 at 09:22; Status DC Piperacillin Sod/ Tazobactam Sod 4.5 gm/Sodium Chloride 100 ml @ 200 mls/hr Q6HRS IV Last administered on 11/13/19at 05:08; Start 11/11/19 at 12:00; Stop 11/13/19 at 09:20; Status DC Doxycycline Hyclate (Vibra-Tab) 100 mg BID PO Last administered on 11/13/19at 10:28; Start 11/11/19 at 18:00 Ketorolac Tromethamine (Toradol 15mg Vial) 15 mg 1X ONCE IM Last administered on 11/11/19at 18:25; Start 11/11/19 at 17:30; Stop 11/11/19 at 17:31; Status DC Ketorolac Tromethamine (Toradol 15mg Vial) 15 mg PRN Q6HRS PRN IVP PAIN; Start 11/11/19 at 17:30; Stop 11/16/19 at 17:29 Albuterol/ Ipratropium (Duoneb) 3 ml RTQID NEB Last administered on 11/13/19at 08:57; Start 11/12/19 at 08:00 Methylprednisolone Sodium Succinate (SOLU-Medrol 40MG VIAL) 40 mg DAILY IV Last administered on 11/13/19at 10:28; Start 11/13/19 at 09:00 Active Scripts Active Levaquin (Levofloxacin) 500 Mg Tablet 1 Tab PO DAILY 7 Days Advair 250-50 Diskus (Fluticasone/Salmeterol) 1 Each Disk.w.dev 1 Puff IH BID Albuterol Sulfate Conc Neb Soln (Albuterol Sulfate) 2.5 Mg/0.5 Ml Vial.neb 1 Vial NEB Q6HRS Proair Hfa Inhaler (Albuterol Sulfate) 8.5 Gm Hfa.aer.ad 1 Puff INH PRN Q6HRS PRN Vitals/I & O Vital Sign - Last 24 Hours 11/12/19 11/12/19 11/12/19 11/12/19 11:29 11:30 15:28 15:41 Temp 98.0 98.8 98.0 98.8 Pulse 88 79 Resp 18 18 B/P (MAP) 124/70 (88) 113/62 (79) Pulse Ox 95 97 O2 Delivery Room Air Room Air Room Air Room Air 11/12/19 11/12/19 11/12/19 2/1/20 16:48 17:50 18:34 19:10 Resp 16 16 17 16 O2 Delivery Room Air Room Air Room Air Room Air 11/12/19 11/12/19 11/12/19 11/12/19 19:26 19:40 19:51 23:29 Temp 97.8 97.9 97.8 97.9 Pulse 105 76 Resp 18 18 B/P (MAP) 120/74 (89) 131/77 (95) Pulse Ox 94 94 95 O2 Delivery Room Air Room Air Room Air Room Air 11/13/19 11/13/19 11/13/19 11/13/19 03:34 07:25 08:58 10:33 Temp 98.0 97.9 98.0 97.9 Pulse 81 84 Resp 18 20 16 B/P (MAP) 119/74 (89) 108/66 (80) Pulse Ox 97 92 96 O2 Delivery Room Air Room Air Room Air Room Air Intake and Output 11/12/19 11/12/19 11/13/19 15:00 23:00 07:00 Intake Total 800 ml 480 ml 440 ml Balance 800 ml 480 ml 440 ml LYNETTE LACY MD Nov 13, 2019 10:56
[2019-11-13 11:00] VITALS: BP 117/51
[2019-11-13 15:20] VITALS: BP 113/57
--- NOTE | 2019-11-13 15:20 | PDOC3 ---
Discharge Summary Date of Admission: Nov 10, 2019 Date of Discharge: Nov 13, 2019 Follow-Up: 3-5 days Admitting Diagnosis comment: discharge dx LLL PNA, gram pos gram neg with pleural effusion Left lower lobe pneumonia with left pleural effusion. 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 ama PLAn: Pulmo following Zosyn d/c, new patch Counselled on cigarette cessation Nebs, other supprotive meds KEEP TELE Ambulate NUtrition consult, thin smoker rx doxycycline 100mg po bid x 10 days d/c planning 34 min Vitals Vitals Vital Signs Date Time Temp Pulse Resp B/P (MAP) Pulse Ox O2 Delivery O2 Flow Rate FiO2 11/13/19 10:33 16 Room Air 11/13/19 08:58 96 11/13/19 07:25 97.9 84 108/66 (80) 97.9 11/12/19 08:25 2.0 Physical Exam General: Alert, Oriented X3, Cooperative, No acute distress Heart: Regular rate, Normal S1, Normal S2, No murmurs, Other (diminished bases, dullness percussion left) Lungs: Crackles Abdomen: Normal bowel sounds, Soft, No tenderness, No hepatosplenomegaly Extremities: No clubbing, No cyanosis, No edema Skin: No rashes, No breakdown Brief Hospital Course Ms. Espinoza is a 49 old [sex] who presented with [pneumonia, ciopd ] CONDITION AT DISCHARGE: Improved Discharge Medications Current Medications Sodium Chloride 1,000 ml @ 1,000 mls/hr Q1H IV Last administered on 11/10/19at 16:55; Start 11/10/19 at 16:26; Stop 11/10/19 at 17:25; Status DC Fentanyl Citrate (Fentanyl 2ml Vial) 50 mcg 1X ONCE IVP Last administered on 11/10/19at 17:20; Start 11/10/19 at 17:00; Stop 11/10/19 at 17:01; Status DC Ondansetron HCl (Zofran) 4 mg 1X ONCE IVP Last administered on 11/10/19at 17:20 ; Start 11/10/19 at 17:00; Stop 11/10/19 at 17:01; Status DC Albuterol/ Ipratropium (Duoneb) 3 ml 1X ONCE NEB Last administered on 11/10/19at 17:16; Start 11/10/19 at 17:00; Stop 11/10/19 at 17:01; Status DC Piperacillin Sod/ Tazobactam Sod 3.375 gm/Sodium Chloride 50 ml @ 100 mls/hr 1X ONCE IV Last administered on 11/10/19at 18:25; Start 11/10/19 at 18:00; Stop 11/10/19 at 18:29; Status DC Ondansetron HCl (Zofran) 4 mg PRN Q8HRS PRN IV NAUSEA/VOMITING; Start 11/10/19 at 18:00; Stop 11/11/19 at 17:59; Status DC Fentanyl Citrate (Fentanyl 2ml Vial) 50 mcg PRN Q1HR PRN IV PAIN Last administered on 11/10/19at 21:15; Start 11/10/19 at 18:00; Stop 11/11/19 at 17:59; Status DC Acetaminophen (Tylenol) 650 mg PRN Q4HRS PRN PO FEVER; Start 11/10/19 at 18:00; Stop 11/11/19 at 17:59; Status DC Albuterol/ Ipratropium (Duoneb) 3 ml RTQID NEB Last administered on 11/11/19at 16:30; Start 11/10/19 at 20:00; Stop 11/11/19 at 19:59; Status DC Benzonatate (Tessalon Perle) 100 mg [id number] PO Last administered on 11/13/19at 10:28; Start 11/10/19 at 22:00 Nicotine (Nicoderm Cq 21mg) 1 patch DAILY TD Last administered on 11/13/19at 10:30; Start 11/11/19 at 09:00 Methylprednisolone Sodium Succinate (SOLU-Medrol 40MG VIAL) 60 mg Q12HR IV Last administered on 11/12/19at 22:09; Start 11/10/19 at 22:00; Stop 11/13/19 at 09:00; Status DC Piperacillin Sod/ Tazobactam Sod (Zosyn Per Pharmacy) 1 each PRN DAILY PRN MC SEE COMMENTS; Start 11/10/19 at 21:45 Guaifenesin/ Codeine Phosphate (Robitussin Ac) 5 ml PRN Q6HRS PRN PO COUGH 1ST CHOICE Last administered on 11/13/19at 10:30; Start 11/10/19 at 21:45 Piperacillin Sod/ Tazobactam Sod 3.375 gm/Sodium Chloride 50 ml @ 100 mls/hr Q6HRS IV Last administered on 11/11/19at 05:18; Start 11/11/19 at 00:00; Stop 11/11/19 at 11:18; Status DC Lactobacillus Rhamnosus (Culturelle) 1 cap BID PO Last administered on 11/13/19at 10:28; Start 11/11/19 at 09:00 Influenza Virus Vaccine Quadrival (Afluria Quad 2019-20 (3yr Up) Syringe) 0.5 ml ONCE ONCE VAX IM Last administered on 11/11/19at 11:01; Start 11/11/19 at 09:00; Stop 11/11/19 at 09:01; Status DC Fentanyl Citrate (Fentanyl 2ml Vial) 25 mcg PRN Q2HR PRN IVP PAIN Last admini stered on 11/12/19at 18:34; Start 11/11/19 at 09:15 Ondansetron HCl (Zofran) 4 mg PRN Q6HRS PRN IVP NAUSEA/VOMITING; Start 11/11/19 at 09:15 Acetaminophen (Tylenol) 500 mg PRN Q6HRS PRN PO MILD PAIN / TEMP; Start 11/11/19 at 09:15 Acetaminophen/ Hydrocodone Bitart (Lortab 5/325) 1 tab PRN Q4HRS PRN PO MODERATE PAIN, SEVERE PAIN Last administered on 11/13/19at 10:33; Start 11/11/19 a t 09:15 Temazepam (Restoril) 7.5 mg PRN QHS PRN PO INSOMNIA; Start 11/11/19 at 09:15 Nicotine (Nicoderm Cq 21mg) 1 patch PRN DAILY PRN TD SMOKING CESSATION; Start 11/11/19 at 09:15; Stop 11/12/19 at 14:20; Status DC Potassium Chloride (Klor-Con) 40 meq 1X ONCE PO Last administered on 11/11/19at 10:59; Start 11/11/19 at 09:15; Stop 11/11/19 at 09:22; Status DC Piperacillin Sod/ Tazobactam Sod 4.5 gm/Sodium Chloride 100 ml @ 200 mls/hr Q6HRS IV Last administered on 11/13/19at 05:08; Start 11/11/19 at 12:00; Stop 11/13/19 at 09:20; Status DC Doxycycline Hyclate (Vibra-Tab) 100 mg BID PO Last administered on 11/13/19at 10:28; Start 11/11/19 at 18:00 Ketorolac Tromethamine (Toradol 15mg Vial) 15 mg 1X ONCE IM Last administered on 11/11/19at 18:25; Start 11/11/19 at 17:30; Stop 11/11/19 at 17:31; Status DC Ketorolac Tromethamine (Toradol 15mg Vial) 15 mg PRN Q6HRS PRN IVP PAIN; Start 11/11/19 at 17:30; Stop 11/16/19 at 17:29 Albuterol/ Ipratropium (Duoneb) 3 ml RTQID NEB Last administered on 11/13/19at 13:21; Start 11/12/19 at 08:00 Methylprednisolone Sodium Succinate (SOLU-Medrol 40MG VIAL) 40 mg DAILY IV Last administered on 11/13/19at 10:28; Start 11/13/19 at 09:00 Active Scripts Active Levaquin (Levofloxacin) 500 Mg Tablet 1 Tab PO DAILY 7 Days Advair 250-50 Diskus (Fluticasone/Salmeterol) 1 Each Disk.w.dev 1 Puff IH BID Albuterol Sulfate Conc Neb Soln (Albuterol Sulfate) 2.5 Mg/0.5 Ml Vial.neb 1 Vial NEB Q6HRS Proair Hfa Inhaler (Albuterol Sulfate) 8.5 Gm Hfa.aer.ad 1 Puff INH PRN Q6HRS PRN Vital Signs Vital Signs Date Time Temp Pulse Resp B/P (MAP) Pulse Ox O2 Delivery O2 Flow Rate FiO2 11/13/19 13:22 94 Room Air 11/13/19 11:00 97.8 83 20 117/51 (73) 97.8 11/12/19 08:25 2.0 Allergies Allergies Coded Allergies Type Severity Reaction Last Updated Verified No Known Drug Allergies 11/07/13 No Disposition/Orders: D/C to Home LYNETTE LACY MD Nov 13, 2019 15:20
[2019-11-13] MEDS ORDERED: DOXY100T PO (15:23)
[2019-11-13] MEDS ORDERED: BENZ-8 PO (15:23)
[2019-11-13] MEDS ORDERED: LACT1CAP19 PO (15:23)
[2019-11-13] MEDS ORDERED: PRED50TA PO (15:23)
[2019-11-13] MEDS ORDERED: ACET500T68 PO (15:23)
--- NOTE | 2019-11-13 15:24 | DISCH ---
DISCHARGE INSTRUCTIONS Condition on Discharge Condition on Discharge: Stable Activity After Discharge Activity Instructions for Disc: No restrictions, Activity as tolerated Lifting Instructions after Dis: No heavy lifting Exercise Instruction after Dis: Progress as tolerated Driving Instructions after Dis: Do not drive today Weight Bearing Status after Di: Full weight bearing, As tolerated Diet after Discharge Diet after Discharge: Cardiac Diet Texture: Regular Liquid Texture: Thin Liquid Swallowing Supervision: None needed Checks after Discharge Checks after discharge: Check blood press - daily, Check your Temp as needed Contacting the DR. after DC Call your doctor for: If your condition worsens Treatment/Equipment after DC Adaptive Equipment Issued: None Warfarin Follow-Up Warfarin Follow UP: no smoking, see pcp in 5 days LYNETTE LACY MD Nov 13, 2019 15:24
== END 2019-11-13 16:55 | disposition home or self-care (01) | DRG 177 ==
LOC: ER 16:08 → ED HOLD 17:36 → 6 SOUTH 20:45
PROVIDERS: ADMIT Internal Medicine; ATTEND Internal Medicine
DX: J15.6 Pneumonia due to other Gram-negative bacteria (principal); J96.01 Acute respiratory failure with hypoxia; J44.0 Chronic obstructive pulmonary disease with (acute) lower respiratory infection; J91.8 Pleural effusion in other conditions classified elsewhere; R65.10 Systemic inflammatory response syndrome (SIRS) of non-infectious origin without acute organ dysfunction; J44.1 Chronic obstructive pulmonary disease with (acute) exacerbation; E87.6 Hypokalemia; F17.200 Nicotine dependence, unspecified, uncomplicated; Z82.49 Family history of ischemic heart disease and other diseases of the circulatory system; Z87.01 Personal history of pneumonia (recurrent); Z90.49 Acquired absence of other specified parts of digestive tract; Z98.51 Tubal ligation status; Z79.899 Other long term (current) drug therapy; I10 Essential (primary) hypertension; M54.30 Sciatica, unspecified side
CPT/HCPCS: 36415; 36600; 71046; 80053; 81001; 82805; 83605; 83690; 84484; 85025; 90471; 90686; 93005; 94640; 94760; 99406; J1885; J2405; J2543; J2920; J3010; J7030; J7620; G0378

== ENCOUNTER 2020-03-07 14:33 | Emergency (ER) | payer OTHER ==
[~2020-03-07] VITALS: Ht 162.6 cm; Wt 59.0 kg
[~2020-03-07 14:33] MED LIST changes: +ACET500T68 PO; +BENZ-8 PO; +DOXY100T PO; +LACT1CAP19 PO
--- NOTE | 2020-03-07 15:23 | RAD ---
EXAM: CHEST AP ONLY 03/07/2020 3:00 PM CLINICAL INDICATION:Shortness of breath, cough COMPARISON:Chest radiograph 11/10/2019 TECHNIQUE:AP upright chest radiograph FINDINGS:The heart and mediastinum are normal. Lungs are well-expanded. No pulmonary edema. There are decreased, now minimal residual opacities in the left lung base. No new consolidation. No pleural effusion or pneumothorax. No acute osseous abnormality. IMPRESSION:Decreased, now minimal residual opacities in the left lung base. No new abnormality. Electronically signed by: Myra Dial MD (03/07/2020 3:20 PM) [id number]
--- NOTE | 2020-03-07 15:42 | EKG ---
[facility] [address] [place] [address] Test Date: 2020-03-07 Test Time: 14:56:45 Pat Name: ISABELLE WEINER Department: Room: Gender: F [employer] Super[employer]: : 1970 Requested By: REJI HOFFMAN Order Number: [id number] Reading MD: Tulio Lee MD Measurements Intervals [place] Rate: 63 P: 76 MT: 162 QRS: 89 QRSD: 70 T: 77 QT: 398 QTc: 410 Interpretive Statements SINUS RHYTHM Electronically Signed On 03-08-2020 14:58:52 CDT by Tulio Lee MD
[2020-03-07 15:45] LABS: BASO % 0 % (0-3); EOS # 0.1 x10^3/uL (0.0-0.7); EOS % 1 % (0-3); HEMATOCRIT 40.4 % (36.0-47.0); HEMOGLOBIN 13.4 g/dL (12.0-15.5); LYMPH # 1.5 x10^3/uL (1.0-4.8); LYMPH % 17 % (24-48); MEAN CORPUSCULAR HEMOGLOBIN 24 pg (25-35); MEAN CORPUSCULAR HGB CONC 33 g/dL (31-37); MEAN CORPUSCULAR VOLUME 72 fL (79-100); MONO # 0.6 x10^3/uL (0.0-1.1); MONO % 6 % (0-9); NEUT # 6.9 x10^3/uL (1.8-7.7); NEUT % 76 % (31-73); PLATELET COUNT 339 x10^3/uL (140-400); RED BLOOD COUNT 5.62 x10^6/uL (3.50-5.40); RED CELL DISTRIBUTION WIDTH 17.2 % (11.5-14.5); WHITE BLOOD COUNT 9.1 x10^3/uL (4.0-11.0)
[2020-03-07 16:03] LABS: CALCIUM 9.1 mg/dL (8.5-10.1); CREATININE 0.8 mg/dL (0.6-1.0); GFR 76.6; PLT ESTIMATE ADEQUATE (ADEQUATE); POTASSIUM 3.8 mmol/L (3.5-5.1)
[2020-03-07 16:04] LABS: ANISOCYTOSIS SLIGHT; MICROCYTOSIS SLIGHT
[2020-03-07 16:05] LABS: SCHISTOCYTES OCC
[2020-03-07 16:09] LABS: ALBUMIN 4.1 g/dL (3.4-5.0); ALBUMIN/GLOBULIN RATIO 1.1 (1.0-1.7); TOTAL BILIRUBIN 0.6 mg/dL (0.2-1.0); TOTAL PROTEIN 7.7 g/dL (6.4-8.2)
--- NOTE | 2020-03-07 17:14 | PHYS DOC ---
Past Medical History Past Medical History: Asthma, Bronchitis, COPD, Pneumonia, Other Additional Past Medical Histor: sciatica Past Surgical History: Cholecystectomy, Tubal ligation Smoking Status: Current Every Day Smoker Alcohol Use: Rarely Drug Use: None General Adult EDM: Chief Complaint: SHORTNESS OF BREATH HPI: HPI: Patient is a 49 year old female who presented to ER today for evaluation of productive cough with clear sputum, body ache, upper respiratory congestion for about 3 days. Patient also complained of trouble breathing. Patient has history of COPD, she is heavy smoker of 1 pack a day. Patient denies any chest pain, she denies any fever. Patient denies being exposed to anybody who tested positive for COVID-19. Patient is not on any oxygen at home. Patient denies any abdominal pain, no nausea vomiting. Patient called her doctor who told to come to ER for evaluation. Patient says she has some chest pain whenever she coughs, the pain is sharp and stabbing in nature. Patient denies any history of blood clot disorder. Review of Systems: Review of Systems: Constitutional: Denies fever or chills. [] Eyes: Denies change in visual acuity. [] HENT: Denies nasal congestion or sore throat. [] Respiratory: Positive for cough and trouble breathing Cardiovascular: Positive for chest pain GI: Denies abdominal pain, nausea, vomiting, bloody stools or diarrhea. [] : Denies dysuria. [] Musculoskeletal: Denies back pain or joint pain. [] Integument: Denies rash. [] Neurologic: Denies headache, focal weakness or sensory changes. [] Endocrine: Denies polyuria or polydipsia. [] Lymphatic: Denies swollen glands. [] Psychiatric: Denies depression or anxiety. [] Heart Score: Risk Factors: Risk Factors: DM, Current or recent (<one month) smoker, HTN, HLP, family history of CAD, obesity. Risk Scores: Score 0 - 3: 2.5% MACE over next 6 weeks - Discharge Home Score 4 - 6: 20.3% MACE over next 6 weeks - Admit for Clinical Observation Score 7 - 10: 72.7% MACE over next 6 weeks - Early Invasive Strategies Allergies: Allergies: Allergies Coded Allergies Type Severity Reaction Last Updated Verified No Known Drug Allergies 11/07/13 No Physical Exam: PE: Constitutional: Well developed, well nourished, no acute distress, non-toxic appearance. [] HENT: Normocephalic, atraumatic, bilateral external ears normal, oropharynx moist, no oral exudates, nose normal. [] Eyes: PERRLA, EOMI, conjunctiva normal, no discharge. [] Neck: Normal range of motion, no tenderness, supple, no stridor. [] Cardiovascular:Heart rate regular rhythm, no murmur [] Lungs & Thorax: Bilateral breath sounds clear to auscultation [] Abdomen: Bowel sounds normal, soft, no tenderness, no masses, no pulsatile masses. [] Skin: Warm, dry, no erythema, no rash. [] Back: No tenderness, no CVA tenderness. [] Extremities: No tenderness, no cyanosis, no clubbing, ROM intact, no edema. [] Neurologic: Alert and oriented X 3, normal motor function, normal sensory function, no focal deficits noted. [] Psychologic: Affect normal, judgement normal, mood normal. [] Current Patient Data: Labs: Laboratory Tests Test 03/07/20 15:03 White Blood Count 9.1 x10^3/uL (4.0-11.0) Red Blood Count 5.62 x10^6/uL (3.50-5.40) H Hemoglobin 13.4 g/dL (12.0-15.5) Hematocrit 40.4 % (36.0-47.0) Mean Corpuscular Volume 72 fL (79-100) L Mean Corpuscular Hemoglobin 24 pg (25-35) L Mean Corpuscular Hemoglobin Concent 33 g/dL (31-37) Red Cell Distribution Width 17.2 % (11.5-14.5) H Platelet Count 339 x10^3/uL (140-400) Neutrophils (%) (Auto) 76 % (31-73) H Lymphocytes (%) (Auto) 17 % (24-48) L Monocytes (%) (Auto) 6 % (0-9) Eosinophils (%) (Auto) 1 % (0-3) Basophils (%) (Auto) 0 % (0-3) Neutrophils # (Auto) 6.9 x10^3/uL (1.8-7.7) Lymphocytes # (Auto) 1.5 x10^3/uL (1.0-4.8) Monocytes # (Auto) 0.6 x10^3/uL (0.0-1.1) Eosinophils # (Auto) 0.1 x10^3/uL (0.0-0.7) Basophils # (Auto) 0.0 x10^3/uL (0.0-0.2) Platelet Estimate Adequate (ADEQUATE) Anisocytosis Slight Microcytosis Slight Macrocytosis Slight Schistocytes Occ Sodium Level 133 mmol/L (136-145) L Potassium Level 3.8 mmol/L (3.5-5.1) Chloride Level 98 mmol/L (98-107) Carbon Dioxide Level 27 mmol/L (21-32) Anion Gap 8 (6-14) Blood Urea Nitrogen 21 mg/dL (7-20) H Creatinine 0.8 mg/dL (0.6-1.0) Estimated GFR (Cockcroft-Gault) 76.6 BUN/Creatinine Ratio 26 (6-20) H Glucose Level 90 mg/dL (70-99) Calcium Level 9.1 mg/dL (8.5-10.1) Magnesium Level 2.0 mg/dL (1.8-2.4) Total Bilirubin 0.6 mg/dL (0.2-1.0) Aspartate Amino Transferase (AST) 24 U/L (15-37) Alanine Aminotransferase (ALT) 22 U/L (14-59) Alkaline Phosphatase 94 U/L (46-116) Troponin I Quantitative < 0.017 ng/mL (0.000-0.055) TZ-[id number]-Type Natriuretic Peptide 96 pg/mL (0-124) Total Protein 7.7 g/dL (6.4-8.2) Albumin 4.1 g/dL (3.4-5.0) Albumin/Globulin Ratio 1.1 (1.0-1.7) Laboratory Tests 03/07/20 15:03 Laboratory Tests 03/07/20 15:03 Vital Signs: Vital Signs Date Time Temp Pulse Resp B/P (MAP) Pulse Ox O2 Delivery O2 Flow Rate FiO2 03/07/20 16:28 62 16 119/63 (81) 95 Room Air 03/07/20 15:58 98.3 98.3 EKG: EKG: EKG was done at 1456, heart rate of 63 beats per minutes, normal sinus rhythm, no ST segment elevation. EKG was read by this physician. Radiology/Procedures: Radiology/Procedures: [][facility] [address] [place] [address] IMAGING REPORT Signed PATIENT: ISABELLE WEINER ACCOUNT: [id number] : 1970 LOCATION: ER AGE: 49 SEX: F EXAM STATUS: REG ER ORD. PHYSICIAN: REJI HOFFMAN DO REASON: SOA,COUGH PROCEDURE: CHEST AP ONLY EXAM: CHEST AP ONLY 03/07/2020 3:00 PM CLINICAL INDICATION:Shortness of breath, cough COMPARISON:Chest radiograph 11/10/2019 TECHNIQUE:AP upright chest radiograph FINDINGS:The heart and mediastinum are normal. Lungs are well-expanded. No pulmonary edema. There are decreased, now minimal residual opacities in the left lung base. No new consolidation. No pleural effusion or pneumothorax. No acute osseous abnormality. IMPRESSION:Decreased, now minimal residual opacities in the left lung base. No new abnormality. Electronically signed by: Myra Dial MD (03/07/2020 3:20 PM) [id number] DICTATED and SIGNED BY: MYRA DIAL MD DATE: 03/07/20 152 Course & Med Decision Making: Course & Med Decision Making Pertinent Labs and Imaging studies reviewed. (See chart for details) Patient is a 49-year-old female who is a smoker, presented to ER today for upper respiratory symptom, chest x-ray did not show any infiltration. Patient oxygen saturation was about 96% 97% on room air. Patient was in no acute distress, she will be discharged home, advised to stop smoking. Dragon Disclaimer: [employer] Disclaimer: This electronic medical record was generated, in whole or in part, using a voice recognition dictation system. Departure Departure Impression: Primary Impression: Acute bronchitis Disposition: 01 HOME, SELF-CARE Condition: STABLE Referrals: UNKNOWN PCP NAME (PCP) Patient Instructions: Acute Bronchitis Scripts Prednisone (PREDNISONE) 20 Mg Tablet 2 TAB PO DAILY for 7 Days, #14 TAB Prov: REJI HOFFMAN DO 03/07/20 Azithromycin (ZITHROMAX) 250 Mg Tablet 1 PKG PO UD, #6 TAB Prov: REJI HOFFMAN DO 03/07/20 REJI HOFFMAN DO March 07, 2020 17:14
[2020-03-07] MEDS ORDERED: KETOROLAC 30 MG/ML VIAL. IVP ONE (17:15)
[2020-03-07] MEDS ORDERED: PRED20TA PO (17:24)
[2020-03-07] MEDS ORDERED: AZIT250T PO (17:24)
[2020-03-07 17:28] VITALS: BP 122/72
--- NOTE | 2020-03-09 06:50 | NUR ---
IP: Pt is COVID negative.
== END 2020-03-07 17:37 | disposition home or self-care (01) ==
LOC: ER 14:33
DX: J20.9 Acute bronchitis, unspecified (principal); J44.9 Chronic obstructive pulmonary disease, unspecified; F17.200 Nicotine dependence, unspecified, uncomplicated
CPT/HCPCS: 36415; 71045; 80053; 83735; 83880; 84484; 85025; 93005; 96374; 99285; J1885; U0003-CS

== ENCOUNTER 2020-05-29 03:17 | Emergency (ER) | payer OTHER ==
[~2020-05-29] VITALS: Ht 165.1 cm; Wt 59.0 kg
[~2020-05-29 03:17] MED LIST changes: +AZIT250T PO
[2020-05-29 05:37] LABS: BASO # 0.1 x10^3/uL (0.0-0.2); BASO % 1 % (0-3); EOS % 0 % (0-3); HEMATOCRIT 38.7 % (36.0-47.0); HEMOGLOBIN 12.7 g/dL (12.0-15.5); LYMPH # 0.9 x10^3/uL (1.0-4.8); LYMPH % 8 % (24-48); MEAN CORPUSCULAR HEMOGLOBIN 24 pg (25-35); MEAN CORPUSCULAR HGB CONC 33 g/dL (31-37); MEAN CORPUSCULAR VOLUME 72 fL (79-100); MONO # 0.3 x10^3/uL (0.0-1.1); MONO % 3 % (0-9); NEUT # 9.3 x10^3/uL (1.8-7.7); NEUT % 88 % (31-73); PLATELET COUNT 328 x10^3/uL (140-400); RED BLOOD COUNT 5.35 x10^6/uL (3.50-5.40); RED CELL DISTRIBUTION WIDTH 20.5 % (11.5-14.5); WHITE BLOOD COUNT 10.5 x10^3/uL (4.0-11.0)
[2020-05-29 06:09] LABS: CALCIUM 8.6 mg/dL (8.5-10.1); CREATININE 0.6 mg/dL (0.6-1.0); GFR 106.3; POTASSIUM 3.6 mmol/L (3.5-5.1)
[2020-05-29 06:14] LABS: ALBUMIN 3.6 g/dL (3.4-5.0); ALBUMIN/GLOBULIN RATIO 1.2 (1.0-1.7); TOTAL BILIRUBIN 0.5 mg/dL (0.2-1.0); TOTAL PROTEIN 6.7 g/dL (6.4-8.2)
[2020-05-29 06:32] LABS: BILIRUBIN,URINE NEGATIVE (NEG); CLARITY,URINE CLEAR; COLOR,URINE YELLOW; NITRITE,URINE NEGATIVE (NEG); PROTEIN,URINE NEGATIVE (NEG-TRACE); UROBILINOGEN,URINE 0.2 mg/dL (0.2 mg/dL)
[2020-05-29 06:48] LABS: RBC,URINE OCC /HPF (0-2); WBC,URINE OCC /HPF (0-4)
[2020-05-29 06:49] LABS: BACTERIA,URINE FEW /HPF (0-FEW); HYALINE CASTS, URINE OCCASIONAL /HPF; SQUAMOUS EPITHELIAL CELL,UR MOD /LPF
[2020-05-29] MEDS ORDERED: METOCLOPRAMIDE HCL 10 MG/2 ML VIAL. IV ONE (07:00)
[2020-05-29] MEDS ORDERED: DICYCLOMINE HCL 10 MG CAPSULE PO ONE (07:00)
[2020-05-29] MEDS ORDERED: diphenhydrAMINE 50 MG/ML VIAL IVP ONE (07:00)
[2020-05-29] MEDS ORDERED: IV NORMAL SALINE 1000ML BAG 1,000 ML IV ONE (07:00)
[2020-05-29 07:32] LABS: % BANDS 1 % (0-9); % LYMPHS 8 % (24-48); % MONOS 2 % (0-10); % SEGS 89 % (35-66); OVALOCYTES FEW; PLT ESTIMATE ADEQUATE (ADEQUATE)
[2020-05-29 07:33] LABS: ANISOCYTOSIS SLIGHT
[2020-05-29] MEDS ORDERED: ONDA4TAB12 PO (07:43)
[2020-05-29] MEDS ORDERED: DICY10CA3 PO (07:43)
--- NOTE | 2020-05-29 07:43 | PHYS DOC ---
Past Medical History Past Medical History: Asthma, Bronchitis, COPD, Pneumonia, Other Additional Past Medical Histor: sciatica Past Surgical History: Cholecystectomy, Tubal ligation Smoking Status: Current Every Day Smoker Alcohol Use: Rarely Drug Use: None General Adult EDM: Chief Complaint: ABDOMINAL PAIN HPI: HPI: Patient is a 50-year-old female who presents with diffuse abdominal discomfort. She states is been ongoing for a few days. She states it is cramping in nature. She states it waxes and wanes. She denies any fever chills or sweats. She denies vomiting she states she has been nauseated. She states she has not had is much to drink or eat lately because of her symptoms. [] Review of Systems: Review of Systems: Constitutional: Denies fever or chills. [] Eyes: Denies change in visual acuity. [] HENT: Denies nasal congestion or sore throat. [] Respiratory: Denies cough or shortness of breath. [] Cardiovascular: Denies chest pain or edema. [] GI: Per HPI. [] : Denies dysuria. [] Musculoskeletal: Denies back pain or joint pain. [] Integument: Denies rash. [] Neurologic: Denies headache, focal weakness or sensory changes. [] Endocrine: Denies polyuria or polydipsia. [] Lymphatic: Denies swollen glands. [] Psychiatric: Denies depression or anxiety. [] Heart Score: Risk Factors: Risk Factors: DM, Current or recent (<one month) smoker, HTN, HLP, family history of CAD, obesity. Risk Scores: Score 0 - 3: 2.5% MACE over next 6 weeks - Discharge Home Score 4 - 6: 20.3% MACE over next 6 weeks - Admit for Clinical Observation Score 7 - 10: 72.7% MACE over next 6 weeks - Early Invasive Strategies Current Medications: Current Medications Medications (Trade) Dose Ordered Sig/Nika Start Time Stop Time Status Last Admin Dose Admin Dicyclomine HCl (Bentyl) 10 mg 1X ONCE 05/29/20 07:00 05/29/20 07:01 DC Diphenhydramine HCl (Benadryl) 25 mg 1X ONCE 05/29/20 07:00 05/29/20 07:01 DC Metoclopramide HCl (Reglan Vial) 10 mg 1X ONCE 8/18/20 07:00 05/29/20 07:01 DC Sodium Chloride 1,000 ml @ 1,000 mls/hr 1X ONCE 05/29/20 07:00 05/29/20 07:59 Allergies: Allergies: Allergies Coded Allergies Type Severity Reaction Last Updated Verified No Known Drug Allergies 11/07/13 No Physical Exam: PE: Constitutional: Well developed, well nourished, no acute distress, non-toxic appearance. [] HENT: Normocephalic, atraumatic, bilateral external ears normal, oropharynx moist, no oral exudates, nose normal. [] Eyes: PERRLA, EOMI, conjunctiva normal, no discharge. [] Neck: Normal range of motion, no tenderness, supple, no stridor. [] Cardiovascular:Heart rate regular rhythm, no murmur [] Lungs & Thorax: Bilateral breath sounds clear to auscultation [] Abdomen: Bowel sounds normal, soft, no tenderness, no masses, no pulsatile masses. [] Skin: Warm, dry, no erythema, no rash. [] Back: No tenderness, no CVA tenderness. [] Extremities: No tenderness, no cyanosis, no clubbing, ROM intact, no edema. [] Neurologic: Alert and oriented X 3, normal motor function, normal sensory function, no focal deficits noted. [] Psychologic: Affect normal, judgement normal, mood normal. [] Current Patient Data: Labs: Laboratory Tests Test 05/29/20 05:25 05/29/20 06:14 05/29/20 06:22 White Blood Count 10.5 x10^3/uL (4.0-11.0) Red Blood Count 5.35 x10^6/uL (3.50-5.40) Hemoglobin 12.7 g/dL (12.0-15.5) Hematocrit 38.7 % (36.0-47.0) Mean Corpuscular Volume 72 fL (79-100) L Mean Corpuscular Hemoglobin 24 pg (25-35) L Mean Corpuscular Hemoglobin Concent 33 g/dL (31-37) Red Cell Distribution Width 20.5 % (11.5-14.5) H Platelet Count 328 x10^3/uL (140-400) Neutrophils (%) (Auto) 88 % (31-73) H Lymphocytes (%) (Auto) 8 % (24-48) L Monocytes (%) (Auto) 3 % (0-9) Eosinophils (%) (Auto) 0 % (0-3) Basophils (%) (Auto) 1 % (0-3) Neutrophils # (Auto) 9.3 x10^3/uL (1.8-7.7) H Lymphocytes # (Auto) 0.9 x10^3/uL (1.0-4.8) L Monocytes # (Auto) 0.3 x10^3/uL (0.0-1.1) Eosinophils # (Auto) 0.0 x10^3/uL (0.0-0.7) Basophils # (Auto) 0.1 x10^3/uL (0.0-0.2) Segmented Neutrophils % 89 % (35-66) H Band Neutrophils % 1 % (0-9) Lymphocytes % 8 % (24-48) L Monocytes % 2 % (0-10) Platelet Estimate Adequate (ADEQUATE) Anisocytosis Slight Ovalocytes Few Sodium Level 138 mmol/L (136-145) Potassium Level 3.6 mmol/L (3.5-5.1) Chloride Level 101 mmol/L (98-107) Carbon Dioxide Level 29 mmol/L (21-32) Anion Gap 8 (6-14) Blood Urea Nitrogen 20 mg/dL (7-20) Creatinine 0.6 mg/dL (0.6-1.0) Estimated GFR (Cockcroft-Gault) 106.3 BUN/Creatinine Ratio 33 (6-20) H Glucose Level 105 mg/dL (70-99) H Calcium Level 8.6 mg/dL (8.5-10.1) Total Bilirubin 0.5 mg/dL (0.2-1.0) Aspartate Amino Transferase (AST) 16 U/L (15-37) Alanine Aminotransferase (ALT) 18 U/L (14-59) Alkaline Phosphatase 77 U/L (46-116) Total Protein 6.7 g/dL (6.4-8.2) Albumin 3.6 g/dL (3.4-5.0) Albumin/Globulin Ratio 1.2 (1.0-1.7) Lipase 88 U/L (73-393) Urine Collection Type Unknown Urine Color Yellow Urine Clarity Clear Urine pH 5.0 (<5.0-8.0) Urine Specific [place] 1.020 (1.000-1.030) Urine Protein Negative mg/dL (NEG-TRACE) Urine Glucose (UA) Negative mg/dL (NEG) Urine Ketones (Stick) Trace mg/dL (NEG) Urine Blood Small (NEG) Urine Nitrite Negative (NEG) Urine Bilirubin Negative (NEG) Urine Urobilinogen Dipstick 0.2 mg/dL (0.2 mg/dL) Urine Leukocyte Esterase Negative (NEG) Urine RBC Occ /HPF (0-2) Urine WBC Occ /HPF (0-4) Urine Squamous Epithelial Cells Mod /LPF Urine Bacteria Few /HPF (0-FEW) Urine Hyaline Casts Occasional /HPF Urine Mucus Marked /LPF POC Urine HCG, Qualitative Hcg negative (Negative) Laboratory Tests 05/29/20 05:25 Laboratory Tests 05/29/20 05:25 Vital Signs: Vital Signs Date Time Temp Pulse Resp B/P (MAP) Pulse Ox O2 Delivery O2 Flow Rate FiO2 05/29/20 03:30 97.9 75 18 128/60 (82) 96 Room Air 97.9 EKG: EKG: [] Radiology/Procedures: Radiology/Procedures: [] Course & Med Decision Making: Course & Med Decision Making Pertinent Labs and Imaging studies reviewed. (See chart for details) [ED course: Evaluation reveals a 50-year-old female with abdominal cramping. She was given IV fluids Bentyl and Zofran which did help her feel better. She has had no further cramping since she has been here in the department. I will give her Zofran and Bentyl to take at home. Mo Disclaimer: Mo Disclaimer: This electronic medical record was generated, in whole or in part, using a voice recognition dictation system. Departure Departure Impression: Primary Impression: Abdominal pain Qualified Codes: R10.84 - Generalized abdominal pain Disposition: HOME, SELF-CARE Condition: IMPROVED Referrals: UNKNOWN PCP NAME (PCP) Patient Instructions: Abdominal Pain (Nonspecific) Additional Instructions: Return to the emergency department with any new or concerning symptoms Scripts Ondansetron (ONDANSETRON ODT) 4 Mg Tab.rapdis 1 TAB PO PRN Q6-8HRS for VOMITING, #16 TAB Prov: JOURDAN QUIÑONES DO 05/29/20 Dicyclomine Hcl (DICYCLOMINE HCL) 10 Mg Capsule 1 CAP PO TID, #90 CAP 11 Refills Prov: JOURDAN QUIÑONES DO 05/29/20 Justicifation of Admission Dx: Justifications for Admission: Justification of Admission Dx: No JOURDAN QUIÑONES DO May 29, 2020 07:43
[2020-05-29 08:30] VITALS: BP 107/53
== END 2020-05-29 09:09 | disposition home or self-care (01) ==
LOC: ER 03:17
DX: R10.84 Generalized abdominal pain (principal); R11.0 Nausea; J44.9 Chronic obstructive pulmonary disease, unspecified; F17.200 Nicotine dependence, unspecified, uncomplicated; Z90.49 Acquired absence of other specified parts of digestive tract; Z98.51 Tubal ligation status
CPT/HCPCS: 36415; 80053; 81001; 81025; 83690; 85007; 85025; 96361; 96374; 96375; 99285; J1200; J2765; J7030

== ENCOUNTER 2020-06-11 09:26 | Emergency (ER) | payer OTHER ==
[~2020-06-11] VITALS: Ht 162.6 cm; Wt 56.8 kg
[~2020-06-11 09:26] MED LIST changes: +DICY10CA3 PO; +ONDA4TAB12 PO
[2020-06-11 09:46] LABS: BILIRUBIN,URINE NEGATIVE (NEG); CLARITY,URINE CLEAR; COLOR,URINE AMBER; NITRITE,URINE NEGATIVE (NEG); PROTEIN,URINE NEGATIVE (NEG-TRACE); UROBILINOGEN,URINE 0.2 mg/dL (0.2 mg/dL)
[2020-06-11 10:04] LABS: BACTERIA,URINE FEW /HPF (0-FEW); RBC,URINE OCC /HPF (0-2); SQUAMOUS EPITHELIAL CELL,UR FEW /LPF
[2020-06-11] MEDS ORDERED: KETOROLAC 15 MG/ML VIAL. IVP ONE (10:30)
[2020-06-11] MEDS ORDERED: IV NORMAL SALINE 1000ML BAG 1,000 ML IV ONE (10:30)
[2020-06-11] MEDS ORDERED: ONDANSETRON PF 4 MG/2 ML VIAL. IVP ONE (10:30)
[2020-06-11] MEDS ORDERED: FAMOTIDINE 20 MG/2 ML VIAL IVP ONE (10:30)
[2020-06-11 10:54] LABS: BASO % 1 % (0-3); EOS % 0 % (0-3); HEMATOCRIT 40.8 % (36.0-47.0); HEMOGLOBIN 13.4 g/dL (12.0-15.5); LYMPH # 1.1 x10^3/uL (1.0-4.8); LYMPH % 12 % (24-48); MEAN CORPUSCULAR HEMOGLOBIN 24 pg (25-35); MEAN CORPUSCULAR HGB CONC 33 g/dL (31-37); MEAN CORPUSCULAR VOLUME 73 fL (79-100); MONO # 0.4 x10^3/uL (0.0-1.1); MONO % 5 % (0-9); NEUT # 7.8 x10^3/uL (1.8-7.7); NEUT % 83 % (31-73); PLATELET COUNT 309 x10^3/uL (140-400); RED BLOOD COUNT 5.58 x10^6/uL (3.50-5.40); RED CELL DISTRIBUTION WIDTH 20.7 % (11.5-14.5); WHITE BLOOD COUNT 9.4 x10^3/uL (4.0-11.0)
--- NOTE | 2020-06-11 10:54 | PHYS DOC ---
Past Medical History Past Medical History: Asthma, Bronchitis, COPD, Pneumonia, Other Additional Past Medical Histor: sciatica Past Surgical History: Cholecystectomy, Tubal ligation Smoking Status: Current Every Day Smoker Alcohol Use: Rarely Drug Use: None General Adult EDM: Chief Complaint: Right upper quadrant abdominal pain with associated nausea and vomiting. HPI: HPI: Mrs. Espinoza is a 50-year-old white female, who presents with a two-week history of colicky right upper quadrant abdominal pain. Patient has been having intermittent episodes of right upper quadrant pain that started as 5 to 10 minutes in length and now have progressed to approximately 20 minutes in length. She describes the pain as sharp and colicky in nature, approximately 10 out of 10 during an episode, and 1 out of 10 between episodes. She describes no associated or alleviating factors, including no associated with eating or drinking. These episodes are associated with nausea, she had one episode of vomiting. Yesterday she had an episode of diarrhea that was preceded by left lower quadrant abdominal pain that was crampy in nature. She reported improvement in this pain with her BM. Patient denies fever chills and generalized weakness. Patient reports being on pancreatic enzyme replacement despite no history of pancreatitis, or alcoholism. Past medical history: COPD, denies any history of chronic pancreatitis Past surgical history: open Cholecystectomy and left tubal removal due to tubal . Social history: Denies alcohol. 1/pack/day smoker for 30 years. Denies illicit drugs. Meds: Pancreatic enzyme replacement. Review of Systems: Review of Systems: Constitutional: Denies fever or chills Eyes: Denies redness or eye pain HENT: Denies nasal congestion or sore throat Respiratory: Denies cough or shortness of breath Cardiovascular: Denies chest pain or palpitations GI: Reports nausea vomiting diarrhea. : Denies dysuria or hematuria Musculoskeletal: Denies back pain or joint pain Integument: Denies rash or skin lesions Neurologic: Denies headache, focal weakness or sensory changes Complete systems were reviewed and found to be within normal limits, except as documented in this note. Heart Score: Risk Factors: Risk Factors: DM, Current or recent (<one month) smoker, HTN, HLP, family history of CAD, obesity. Risk Scores: Score 0 - 3: 2.5% MACE over next 6 weeks - Discharge Home Score 4 - 6: 20.3% MACE over next 6 weeks - Admit for Clinical Observation Score 7 - 10: 72.7% MACE over next 6 weeks - Early Invasive Strategies Current Medications: Current Medications Medications (Trade) Dose Ordered Sig/Nika Start Time Stop Time Status Last Admin Dose Admin Famotidine (Pepcid Vial) 20 mg 1X ONCE 06/11/20 10:30 06/11/20 10:31 DC Ketorolac Tromethamine (Toradol 15mg Vial) 15 mg 1X ONCE 06/11/20 10:30 06/11/20 10:31 DC Ondansetron HCl (Zofran) 4 mg 1X ONCE 06/11/20 10:30 06/11/20 10:31 DC Sodium Chloride 1,000 ml @ 1,000 mls/hr 1X ONCE 06/11/20 10:30 06/11/20 11:29 Allergies: Allergies: Allergies Coded Allergies Type Severity Reaction Last Updated Verified No Known Drug Allergies 11/07/13 No Physical Exam: PE: Constitutional: Well developed, well nourished. Patient appears to be in mild acute distress with episodes of mild abdominal pain, holding right side, HENT: Normocephalic, atraumatic,. Cranial nerves II through XII grossly intact bilaterally. Eyes: PERRL, EOMI, conjunctiva normal, no discharge. No scleral icterus. Neck: Normal range of motion, no tenderness, supple Lungs & Thorax: Crackles on auscultation at all 4 listening posts, worse in the lower lobes. Heart: Regular rate and rhythm no murmurs. S1 and S2 normal. S3 and S4 absent. Abdomen: Mild guarding present. Tender to palpation in right upper and lower quadrant. Positive rebound tenderness, negative heel strike. Skin: Warm, dry, no erythema, no rash. No jaundice present. Back: No tenderness, positive Balbir's punch on the right. Extremities: No tenderness, ROM intact, no edema. 2+/4 pulses in all 4 extremities. Neurologic: Alert and oriented X 3, normal motor function, normal sensory function, no focal deficits noted. Psychologic: Affect normal, judgment normal Current Patient Data: Labs: Laboratory Tests Test 06/11/20 09:34 06/11/20 09:40 Urine Collection Type Void Urine Color Kelsey Urine Clarity Clear Urine pH 5.0 (<5.0-8.0) Urine Specific [place] 1.025 (1.000-1.030) Urine Protein Negative mg/dL (NEG-TRACE) Urine Glucose (UA) Negative mg/dL (NEG) Urine Ketones (Stick) Negative mg/dL (NEG) Urine Blood Negative (NEG) Urine Nitrite Negative (NEG) Urine Bilirubin Negative (NEG) Urine Urobilinogen Dipstick 0.2 mg/dL (0.2 mg/dL) Urine Leukocyte Esterase Negative (NEG) Urine RBC Occ /HPF (0-2) Urine WBC 1-4 /HPF (0-4) Urine Squamous Epithelial Cells Few /LPF Urine Bacteria Few /HPF (0-FEW) Urine Mucus Mod /LPF POC Urine HCG, Qualitative Hcg negative (Negative) EKG: EKG: [] Radiology/Procedures: Radiology/Procedures: PROCEDURE: CT ABD PELV W/ IV CONTRST ONLY CT abdomen and pelvis with contrast History: Abdominal pain, nausea, vomiting, diarrhea Technique: After the administration of intravenous contrast, CT imaging was performed of the abdomen and pelvis. No oral contrast was given. Multiplanar images are reviewed. Exposure: One or more of the following individualized dose reduction techniques were utilized for this examination: 1. Automated exposure control 2. Adjustment of the mA and/or kV according to patient size 3. Use of iterative reconstruction technique. Comparison: March 30, 2017 and October 07, 2019 exams. Findings: There is some emphysema of the visualized lung bases. There is no new significant focal abnormality of the liver, spleen, pancreas, adrenal glands. There is again minimal elongation of the right lobe of the liver. Both kidneys enhance without hydronephrosis. There is a 1.6 cm hypodense lesion of the superior right kidney, density measurements somewhat greater than a simple cyst 25 Hounsfield units although size fairly similar dating back to 2017 exam. Gallbladder is absent. Accurate evaluation of bowel is limited without oral contrast. Bowel is not significantly dilated. There is no free fluid or free air. There is some variable retained stool in the colon, also some nonspecific fecalization of segments of small bowel. Appendix is not confidently identified. Variable mild proximal small bowel wall thickening is difficult to exclude by this exam. Impression: 1. There is some variable retained stool in the colon. Appendix is not clearly identified, no obvious inflammatory type change about the bowel. There could be a degree of proximal small bowel wall thickening as could be seen with enteritis in the appropriate clinical setting. 2. There is a stable hypodense lesion of the superior right kidney, likely somewhat complex cyst. Electronically signed by: Michael Leiva MD (06/11/2020 12:06 PM) [id number] Course & Med Decision Making: Course & Med Decision Making Pertinent Labs and Imaging studies reviewed. (See chart for details) 50-year-old white female, with colicky right upper quadrant abdominal pain. DD: Sphincter of Oddi dysfunction, pancreatitis, nephrolithiasis. Past medical history including cholecystectomy rules out the most probable di agnosis of cholelithiasis. Patient describes a vague history of EGD like a test, potentially ERCP at the time of her cholecystectomy 30 years ago. History is therefore most consistent with sphincter of Oddi dysfunction. we will proceed with CT to narrow differential diagnosis. -CT abdomen with contrast -Lipase Dragon Disclaimer: Dragon Disclaimer: This electronic medical record was generated, in whole or in part, using a voice recognition dictation system. Departure Departure Impression: Primary Impression: Abdominal pain Qualified Codes: R10.84 - Generalized abdominal pain Additional Impression: Constipation Qualified Codes: K59.00 - Constipation, unspecified Disposition: HOME, SELF-CARE Condition: STABLE Referrals: UNKNOWN PCP NAME (PCP) NARAYAN LAYNE MD Patient Instructions: Abdominal Pain (Nonspecific), Constipation, Adult, Opfu-ha-Mxou Scripts Sennosides/Docusate Sodium (Colace 2-in-1 Tablet) 1 Each Tablet 1 TAB PO QHS PRN for CONSTIPATION, #20 TAB 0 Refills Prov: REBECCA MATHEWS DO 06/11/20 Hyoscyamine Sulfate (LEVSIN-SL) 0.125 Mg Tab.subl 0.125 MG SL Q4-6HRS PRN for PAIN, #14 TAB Prov: REBECCA MATHEWS DO 06/11/20 Famotidine (PEPCID) 20 Mg Tablet 20 MG PO BID, #20 TAB Prov: REBECCA MATHEWS DO 06/11/20 Ondansetron (ONDANSETRON ODT) 4 Mg Tab.rapdis 1 TAB PO PRN Q6-8HRS PRN for NAUSEA, #16 TAB Prov: REBECCA MATHEWS DO 06/11/20 Justicifation of Admission Dx: Justifications for Admission: Justification of Admission Dx: No REBECCA MATHEWS DO Jun 11, 2020 10:54
[2020-06-11] MEDS ORDERED: CONTRAST GIVEN. MC PRN (11:15)
[2020-06-11] MEDS ORDERED: IOHEXOL 300 MG/ML 100ML VIAL. IV ONE (11:15)
[2020-06-11 11:42] LABS: ANISOCYTOSIS SLIGHT; MICROCYTOSIS SLIGHT; OVALOCYTES FEW; PLT ESTIMATE ADEQUATE (ADEQUATE); TARGET CELLS OCC; TEAR DROP CELLS OCC
--- NOTE | 2020-06-11 12:09 | RAD ---
CT abdomen and pelvis with contrast History: Abdominal pain, nausea, vomiting, diarrhea Technique: After the administration of intravenous contrast, CT imaging was performed of the abdomen and pelvis. No oral contrast was given. Multiplanar images are reviewed. Exposure: One or more of the following individualized dose reduction techniques were utilized for this examination: 1. Automated exposure control 2. Adjustment of the mA and/or kV according to patient size 3. Use of iterative reconstruction technique. Comparison: March 30, 2017 and October 07, 2019 exams. Findings: There is some emphysema of the visualized lung bases. There is no new significant focal abnormality of the liver, spleen, pancreas, adrenal glands. There is again minimal elongation of the right lobe of the liver. Both kidneys enhance without hydronephrosis. There is a 1.6 cm hypodense lesion of the superior right kidney, density measurements somewhat greater than a simple cyst 25 Hounsfield units although size fairly similar dating back to 2017 exam. Gallbladder is absent. Accurate evaluation of bowel is limited without oral contrast. Bowel is not significantly dilated. There is no free fluid or free air. There is some variable retained stool in the colon, also some nonspecific fecalization of segments of small bowel. Appendix is not confidently identified. Variable mild proximal small bowel wall thickening is difficult to exclude by this exam. Impression: 1. There is some variable retained stool in the colon. Appendix is not clearly identified, no obvious inflammatory type change about the bowel. There could be a degree of proximal small bowel wall thickening as could be seen with enteritis in the appropriate clinical setting. 2. There is a stable hypodense lesion of the superior right kidney, likely somewhat complex cyst. Electronically signed by: Michael Leiva MD (06/11/2020 12:06 PM) [id number]
[2020-06-11 12:15] LABS: CALCIUM 7.8 mg/dL (8.5-10.1); CREATININE 0.7 mg/dL (0.6-1.0); GFR 88.9; POTASSIUM 3.8 mmol/L (3.5-5.1)
[2020-06-11 12:20] LABS: ALBUMIN 3.3 g/dL (3.4-5.0); ALBUMIN/GLOBULIN RATIO 1.2 (1.0-1.7); TOTAL BILIRUBIN 0.5 mg/dL (0.2-1.0)
[2020-06-11 12:31] LABS: CREATINE KINASE 45 U/L (26-192)
[2020-06-11] MEDS ORDERED: SENN-121 PO (13:14)
[2020-06-11] MEDS ORDERED: HYOS0.1265 SL (13:14)
[2020-06-11] MEDS ORDERED: FAMO-63 PO (13:14)
[2020-06-11] MEDS ORDERED: ONDA4TAB12 PO (13:14)
[2020-06-11 13:30] VITALS: BP 109/52
== END 2020-06-11 13:31 | disposition home or self-care (01) ==
LOC: ER 09:26
DX: K59.00 Constipation, unspecified (principal); R10.84 Generalized abdominal pain; R10.11 Right upper quadrant pain; R11.2 Nausea with vomiting, unspecified; R19.7 Diarrhea, unspecified; J44.9 Chronic obstructive pulmonary disease, unspecified; F17.200 Nicotine dependence, unspecified, uncomplicated; Z90.49 Acquired absence of other specified parts of digestive tract; Z98.51 Tubal ligation status
CPT/HCPCS: 36415; 74177; 80053; 81001; 81025; 82553; 83690; 83735; 85025; 85610; 85730; 96361; 96374; 96375; 99285; J1885; J2405; J3490; J7030; Q9967

== ENCOUNTER 2020-06-14 09:23 | Emergency (ER) | payer OTHER ==
[~2020-06-14] VITALS: Ht 162.6 cm; Wt 56.8 kg
[~2020-06-14 09:23] MED LIST changes: +FAMO-63 PO; +HYOS0.1265 SL; +SENN-121 PO
[2020-06-14] MEDS ORDERED: ONDANSETRON PF 4 MG/2 ML VIAL. IVP ONE (11:00)
[2020-06-14 11:17] LABS: BASO % 0 % (0-3); EOS % 0 % (0-3); HEMATOCRIT 41.3 % (36.0-47.0); HEMOGLOBIN 13.4 g/dL (12.0-15.5); LYMPH # 1.6 x10^3/uL (1.0-4.8); LYMPH % 15 % (24-48); MEAN CORPUSCULAR HEMOGLOBIN 24 pg (25-35); MEAN CORPUSCULAR HGB CONC 32 g/dL (31-37); MEAN CORPUSCULAR VOLUME 74 fL (79-100); MONO # 0.5 x10^3/uL (0.0-1.1); MONO % 4 % (0-9); NEUT # 8.7 x10^3/uL (1.8-7.7); NEUT % 80 % (31-73); PLATELET COUNT 267 x10^3/uL (140-400); RED BLOOD COUNT 5.57 x10^6/uL (3.50-5.40); RED CELL DISTRIBUTION WIDTH 21.3 % (11.5-14.5); WHITE BLOOD COUNT 10.8 x10^3/uL (4.0-11.0)
[2020-06-14 11:27] LABS: CALCIUM 9.1 mg/dL (8.5-10.1); CREATININE 0.7 mg/dL (0.6-1.0); GFR 88.9; POTASSIUM 3.6 mmol/L (3.5-5.1)
[2020-06-14 11:32] LABS: ALBUMIN 3.9 g/dL (3.4-5.0); ALBUMIN/GLOBULIN RATIO 1.3 (1.0-1.7); TOTAL BILIRUBIN 0.3 mg/dL (0.2-1.0); TOTAL PROTEIN 6.9 g/dL (6.4-8.2)
[2020-06-14 12:00] LABS: BILIRUBIN,URINE NEGATIVE (NEG); CLARITY,URINE CLEAR; COLOR,URINE YELLOW; NITRITE,URINE NEGATIVE (NEG); PROTEIN,URINE NEGATIVE (NEG-TRACE); UROBILINOGEN,URINE 0.2 mg/dL (0.2 mg/dL)
[2020-06-14 12:18] LABS: AMPHETAMINE/METHAMPHETAMINE NEG (NEG); BARBITURATES NEG (NEG); BENZODIAZEPINES NEG (NEG); CANNABINOIDS NEG (NEG); COCAINE NEG (NEG); METHADONE NEG (NEG); OPIATES NEG (NEG); PHENCYCLIDINE NEG (NEG)
[2020-06-14 12:28] LABS: SQUAMOUS EPITHELIAL CELL,UR MOD /LPF
[2020-06-14 12:29] LABS: AMORPHOUS SEDIMENT,UR PRESENT /HPF; BACTERIA,URINE 0 /HPF (0-FEW); WBC,URINE 0 /HPF (0-4)
--- NOTE | 2020-06-14 12:38 | RAD ---
Single AP view the chest as well as 2 views of the abdomen. Comparison: CT from 06/11/2020 Indication :abdominal pain nausea and vomiting Findings: The heart is not enlarged. No pneumothorax, effusion, airspace or interstitial disease. The bowel gas pattern is unremarkable. The bony structures are unremarkable. No abnormal calcification or organomegaly. Impression: 1. Unremarkable plain film examination of the chest and abdomen. Electronically signed by: Sampson Del Rio MD (06/14/2020 12:35 PM) [id number]
[2020-06-14 12:41] LABS: OVALOCYTES MOD; PLT ESTIMATE ADEQUATE (ADEQUATE); TARGET CELLS OCC; TEAR DROP CELLS OCC
[2020-06-14 12:42] LABS: ANISOCYTOSIS SLIGHT; MICROCYTOSIS SLIGHT
[2020-06-14] MEDS ORDERED: METOCLOPRAMIDE HCL 10 MG/2 ML VIAL. IVP ONE (13:00)
[2020-06-14] MEDS ORDERED: ALPR0.25 PO (13:20)
[2020-06-14] MEDS ORDERED: METO10TA81 PO (13:20)
--- NOTE | 2020-06-14 13:26 | PHYS DOC ---
Past Medical History Past Medical History: Asthma, Bronchitis, COPD, GERD, Pneumonia, Other Additional Past Medical Histor: sciatica Past Surgical History: Cholecystectomy, Tubal ligation Smoking Status: Current Every Day Smoker Alcohol Use: Rarely Drug Use: None General Adult EDM: Chief Complaint: ABDOMINAL PAIN HPI: HPI: Patient is a 50 year old female who presented to ER today for evaluation of epigastric abdominal pain associate with nausea vomiting. Patient said there is something in her stomach that need to be getting out. Patient was very anxious, she said she cannot move but she was observed moving all her of extremities. Patient was seen here on June 11 of this year for the same problem, CT scan her abdomen pelvic did not show any acute problem, her lab work was normal. Patient was discharged home with medication. Patient had a follow-up with a GI doctor today however she decided to come to ER instead of no see her GI doctor.. Patient denies any chest pain, no cough, no fever. Review of Systems: Review of Systems: Constitutional: Denies fever or chills. [] Eyes: Denies change in visual acuity. [] HENT: Denies nasal congestion or sore throat. [] Respiratory: Denies cough or shortness of breath. [] Cardiovascular: Denies chest pain or edema. [] GI: Positive for abdominal pain nausea vomiting : Denies dysuria. [] Musculoskeletal: Denies back pain or joint pain. [] Integument: Denies rash. [] Neurologic: Denies headache, focal weakness or sensory changes. [] Endocrine: Denies polyuria or polydipsia. [] Lymphatic: Denies swollen glands. [] Psychiatric: Denies depression or anxiety. [] Heart Score: Risk Factors: Risk Factors: DM, Current or recent (<one month) smoker, HTN, HLP, family history of CAD, obesity. Risk Scores: Score 0 - 3: 2.5% MACE over next 6 weeks - Discharge Home Score 4 - 6: 20.3% MACE over next 6 weeks - Admit for Clinical Observation Score 7 - 10: 72.7% MACE over next 6 weeks - Early Invasive Strategies Current Medications: Current Medications Medications (Trade) Dose Ordered Sig/Nika Start Time Stop Time Status Last Admin Dose Admin Lorazepam (Ativan Inj) 1 mg 1X ONCE 06/14/20 13:15 06/14/20 13:16 UNV Metoclopramide HCl (Reglan Vial) 10 mg 1X ONCE 06/14/20 13:00 06/14/20 13:01 DC 06/14/20 12:57 10 MG Ondansetron HCl (Zofran) 4 mg 1X ONCE 06/14/20 11:00 06/14/20 11:01 DC 06/14/20 11:06 4 MG Allergies: Allergies: Allergies Coded Allergies Type Severity Reaction Last Updated Verified No Known Drug Allergies 11/07/13 No Physical Exam: PE: Constitutional: Well developed, well nourished, no acute distress, non-toxic appearance. [] HENT: Normocephalic, atraumatic, bilateral external ears normal, oropharynx moist, no oral exudates, nose normal. [] Eyes: PERRLA, EOMI, conjunctiva normal, no discharge. [] Neck: Normal range of motion, no tenderness, supple, no stridor. [] Cardiovascular:Heart rate regular rhythm, no murmur [] Lungs & Thorax: Bilateral breath sounds clear to auscultation [] Abdomen: Bowel sounds normal, soft, no tenderness, no masses, no pulsatile masses. [] Skin: Warm, dry, no erythema, no rash. [] Back: No tenderness, no CVA tenderness. [] Extremities: No tenderness, no cyanosis, no clubbing, ROM intact, no edema. [] Neurologic: Alert and oriented X 3, normal motor function, normal sensory function, no focal deficits noted. [] Psychologic: patient appears to be very anxious Current Patient Data: Labs: Laboratory Tests Test 06/14/20 10:02 06/14/20 10:57 06/14/20 11:32 06/14/20 11:50 Urine Opiates Screen Neg (NEG) Urine Methadone Screen Neg (NEG) Urine Barbiturates Neg (NEG) Urine Phencyclidine Screen Neg (NEG) Urine Amphetamine/Methamphetamine Neg (NEG) Urine Benzodiazepines Screen Neg (NEG) Urine Cocaine Screen Neg (NEG) Urine Cannabinoids Screen Neg (NEG) Urine Ethyl Alcohol Neg (NEG) White Blood Count 10.8 x10^3/uL (4.0-11.0) Red Blood Count 5.57 x10^6/uL (3.50-5.40) H Hemoglobin 13.4 g/dL (12.0-15.5) Hematocrit 41.3 % (36.0-47.0) Mean Corpuscular Volume 74 fL (79-100) L Mean Corpuscular Hemoglobin 24 pg (25-35) L Mean Corpuscular Hemoglobin Concent 32 g/dL (31-37) Red Cell Distribution Width 21.3 % (11.5-14.5) H Platelet Count 267 x10^3/uL (140-400) Neutrophils (%) (Auto) 80 % (31-73) H Lymphocytes (%) (Auto) 15 % (24-48) L Monocytes (%) (Auto) 4 % (0-9) Eosinophils (%) (Auto) 0 % (0-3) Basophils (%) (Auto) 0 % (0-3) Neutrophils # (Auto) 8.7 x10^3/uL (1.8-7.7) H Lymphocytes # (Auto) 1.6 x10^3/uL (1.0-4.8) Monocytes # (Auto) 0.5 x10^3/uL (0.0-1.1) Eosinophils # (Auto) 0.0 x10^3/uL (0.0-0.7) Basophils # (Auto) 0.0 x10^3/uL (0.0-0.2) Platelet Estimate Adequate (ADEQUATE) Anisocytosis Slight Microcytosis Slight Target Cells Occ Tear Drop Cells Occ Ovalocytes Mod Sodium Level 137 mmol/L (136-145) Potassium Level 3.6 mmol/L (3.5-5.1) Chloride Level 102 mmol/L (98-107) Carbon Dioxide Level 25 mmol/L (21-32) Anion Gap 10 (6-14) Blood Urea Nitrogen 22 mg/dL (7-20) H Creatinine 0.7 mg/dL (0.6-1.0) Estimated GFR (Cockcroft-Gault) 88.9 BUN/Creatinine Ratio 31 (6-20) H Glucose Level 128 mg/dL (70-99) H Calcium Level 9.1 mg/dL (8.5-10.1) Magnesium Level 2.0 mg/dL (1.8-2.4) Total Bilirubin 0.3 mg/dL (0.2-1.0) Aspartate Amino Transferase (AST) 15 U/L (15-37) Alanine Aminotransferase (ALT) 17 U/L (14-59) Alkaline Phosphatase 82 U/L (46-116) Total Protein 6.9 g/dL (6.4-8.2) Albumin 3.9 g/dL (3.4-5.0) Albumin/Globulin Ratio 1.3 (1.0-1.7) Lipase 64 U/L (73-393) L Urine Collection Type Unknown Urine Color Yellow Urine Clarity Clear Urine pH 6.0 (<5.0-8.0) Urine Specific [place] 1.025 (1.000-1.030) Urine Protein Negative mg/dL (NEG-TRACE) Urine Glucose (UA) Negative mg/dL (NEG) Urine Ketones (Stick) Trace mg/dL (NEG) Urine Blood Negative (NEG) Urine Nitrite Negative (NEG) Urine Bilirubin Negative (NEG) Urine Urobilinogen Dipstick 0.2 mg/dL (0.2 mg/dL) Urine Leukocyte Esterase Negative (NEG) Urine RBC 1-2 /HPF (0-2) Urine WBC 0 /HPF (0-4) Urine Squamous Epithelial Cells Mod /LPF Urine Amorphous Sediment Present /HPF Urine Bacteria 0 /HPF (0-FEW) Urine Mucus Mod /LPF POC Urine HCG, Qualitative Hcg negative (Negative) Laboratory Tests 06/14/20 10:57 Laboratory Tests 06/14/20 10:57 Vital Signs: Vital Signs Date Time Temp Pulse Resp B/P (MAP) Pulse Ox O2 Delivery O2 Flow Rate FiO2 06/14/20 09:29 98.0 59 18 125/63 (83) 99 Room Air 98.0 EKG: EKG: [] Radiology/Procedures: Radiology/Procedures: [][facility] [address] [place] [address] IMAGING REPORT Signed PATIENT: ISABELLE WEINER ACCOUNT: [id number] : 1970 LOCATION: ER AGE: 50 SEX: F EXAM STATUS: REG ER ORD. PHYSICIAN: REJI HOFFMAN DO REASON: abdominal pain, nausea, vomiting PROCEDURE: ACUTE ABDOMEN SERIES Single AP view the chest as well as 2 views of the abdomen. Comparison: CT from 06/11/2020 Indication :abdominal pain nausea and vomiting Findings: The heart is not enlarged. No pneumothorax, effusion, airspace or interstitial disease. The bowel gas pattern is unremarkable. The bony structures are unremarkable. No abnormal calcification or organomegaly. Impression: 1. Unremarkable plain film examination of the chest and abdomen. Electronically signed by: Sampson Del Rio MD (06/14/2020 12:35 PM) [id number] DICTATED and SIGNED BY: SAMPSON DEL RIO MD DATE: 06/14/20 1235 Course & Med Decision Making: Course & Med Decision Making Pertinent Labs and Imaging studies reviewed. (See chart for details) Patient is a 50-year-old female who was brought here for evaluation of nausea vomiting and abdominal pain. Work-up did not find any acute problem. Will need follow-up with GI doctor. Dragon Disclaimer: Dragon Disclaimer: This electronic medical record was generated, in whole or in part, using a voice recognition dictation system. Departure Departure Impression: Primary Impression: Abdominal pain Additional Impression: Anxiety Disposition: HOME, SELF-CARE Condition: IMPROVED Referrals: UNKNOWN PCP NAME (PCP) NARAYAN LAYNE MD Please follow-up with the GI specialist or your GI doctor this week. Patient Instructions: Abdominal Pain (Nonspecific), Anxiety and Panic Attacks Additional Instructions: Thank you for visiting our Emergency Department. We appreciate you trusting us with your care. If any additional problems come up don't hesitate to return to visit us. Please follow up with your primary care provider so they can plan additional care if needed and know about the problem that you had. If symptoms worsen come back to the Emergency Department. Any concerning symptoms that start such as chest pain, shortness of air, weakness or numbness on one side of the body, running high fevers or any other concerning symptoms return to the ER. Scripts Metoclopramide Hcl (REGLAN) 10 Mg Tablet 1 TAB PO QID PRN for NAUSEA for 5 Days, #20 TAB 0 Refills before food and bedtime Prov: REJI HOFFMAN DO 06/14/20 Justicifation of Admission Dx: Justifications for Admission: Justification of Admission Dx: N/A REJI HOFFMAN DO Jun 14, 2020 13:26
[2020-06-14 13:39] VITALS: BP 125/65
== END 2020-06-14 13:49 | disposition home or self-care (01) ==
LOC: ER 09:23
DX: R10.13 Epigastric pain (principal); R11.2 Nausea with vomiting, unspecified; F41.8 Other specified anxiety disorders; J44.9 Chronic obstructive pulmonary disease, unspecified; K21.9 Gastro-esophageal reflux disease without esophagitis; F17.200 Nicotine dependence, unspecified, uncomplicated; Z90.49 Acquired absence of other specified parts of digestive tract; Z98.51 Tubal ligation status
CPT/HCPCS: 36415; 74022; 80053; 80307; 81001; 81025; 83690; 83735; 85025; 96374; 96375; 99285; J2060; J2405; J2765

== ENCOUNTER 2020-06-23 16:15 | Inpatient (IN) | payer OTHER ==
[~2020-06-23] VITALS: Ht 162.6 cm; Wt 57.9 kg
[~2020-06-23 16:15] MED LIST changes: +ALPR0.25 PO; +METO10TA81 PO
--- NOTE | 2020-06-23 17:49 | PHYS DOC ---
Past Medical History Past Medical History: Asthma, Bronchitis, COPD, GERD, Pneumonia, Other Additional Past Medical Histor: sciatica (CHARLES SALGUERO MD) Past Surgical History: Cholecystectomy, Tubal ligation (CHARLES SALGUERO MD) Smoking Status: Current Every Day Smoker Alcohol Use: Rarely Drug Use: None (CHARLES SALGUERO MD) General Adult EDM: Chief Complaint: WEAKNESS/GENERALIZED HPI: HPI: Patient is a 50-year-old female with a past medical history of COPD who presents to the emergency room complaining of generalized weakness. Patient states 2 weeks ago she came in with abdominal pain and had a work-up that was negative at that time. She states she continues have abdominal pain with nausea and vomiting. Over the last few days she did seem to be getting better and was able to eat and drink. She is now having nausea, burping, mild epigastric pain, shaking, generalized weakness. She states that she had a fall today due to weakness. She also mentions that she is postmenopausal but has had heavy vaginal bleeding this month. (CHARLES SALGUERO MD) Review of Systems: Review of Systems: General: Denies fever, chills, sweats, fatigue Eyes: Denies drainage, blurred vision, eye redness HENT: Denies rhinorrhea, sore throat, earache Respiratory: Denies cough, shortness of breath, wheezing Cardiac: Denies edema, palpitations, chest pain GI: Reports abdominal pain, Nausea, vomiting MSK: Denies back pain, neck pain Skin: Denies rash, jaundice Neuro: Denies headache, dizziness Psychiatric: Denies SI/HI (CHARLES SALGUERO MD) Heart Score: Risk Factors: Risk Factors: DM, Current or recent (<one month) smoker, HTN, HLP, family history of CAD, obesity. Risk Scores: Score 0 - 3: 2.5% MACE over next 6 weeks - Discharge Home Score 4 - 6: 20.3% MACE over next 6 weeks - Admit for Clinical Observation Score 7 - 10: 72.7% MACE over next 6 weeks - Early Invasive Strategies (CHARLES SALGUERO MD) Allergies: Allergies: Allergies Coded Allergies Type Severity Reaction Last Updated Verified No Known Drug Allergies 11/07/13 No (CHARLES SALGUERO MD) Physical Exam: PE: General: Awake, alert, NAD. Well Nourished, well hydrated. Cooperative HEENT: Atraumatic, EOMI, PERRL, airway patent, moist oral mucosa Neck: Supple, trachea midline Respiratory: CTA bilaterally, normal effort, no wheezing/crackles CV: RRR, no murmur, cap refill <2 GI: Soft, nondistended, nontender, no masses MSK: No obvious deformities Skin: Warm, dry, intact Neuro: A&O x3, speech NL, sensory and motor grossly intact, no focal deficits Psych: Normal affect, normal mood, not suicidal or homicidal (CHARLES SALGUERO MD) Current Patient Data: Labs: Laboratory Tests Test 06/23/20 17:51 White Blood Count 8.0 x10^3/uL Red Blood Count 5.36 x10^6/uL Hemoglobin 13.1 g/dL Hematocrit 39.8 % Mean Corpuscular Volume 74 fL Mean Corpuscular Hemoglobin 24 pg Mean Corpuscular Hemoglobin Concent 33 g/dL Red Cell Distribution Width 20.5 % Platelet Count 272 x10^3/uL Neutrophils (%) (Auto) 67 % Lymphocytes (%) (Auto) 22 % Monocytes (%) (Auto) 9 % Eosinophils (%) (Auto) 1 % Basophils (%) (Auto) 1 % Neutrophils # (Auto) 5.3 x10^3/uL Lymphocytes # (Auto) 1.8 x10^3/uL Monocytes # (Auto) 0.7 x10^3/uL Eosinophils # (Auto) 0.1 x10^3/uL Basophils # (Auto) 0.1 x10^3/uL Platelet Estimate Adequate Hypochromasia Slight Anisocytosis Slight Microcytosis Slight Sodium Level 142 mmol/L Potassium Level 2.6 mmol/L Chloride Level 103 mmol/L Carbon Dioxide Level 33 mmol/L Anion Gap 6 Blood Urea Nitrogen 23 mg/dL Creatinine 0.7 mg/dL Estimated GFR (Cockcroft-Gault) 88.9 BUN/Creatinine Ratio 33 Glucose Level 97 mg/dL Calcium Level 9.2 mg/dL Total Bilirubin 0.5 mg/dL Aspartate Amino Transf (AST/SGOT) 18 U/L Alanine Aminotransferase (ALT/SGPT) 31 U/L Alkaline Phosphatase 75 U/L Lactate Dehydrogenase 164 U/L Troponin I Quantitative < 0.017 ng/mL C-Reactive Protein, Quantitative 0.9 mg/L KT-Ssp-S-Type Natriuretic Peptide 324 pg/mL Total Protein 6.8 g/dL Albumin 3.8 g/dL Albumin/Globulin Ratio 1.3 Serum Test, Qualitative Negative Current Medications Medications (Trade) Dose Ordered Sig/Nika Route PRN Reason Start Time Stop Time Status Last Admin Dose Admin Sodium Chloride 1,000 ml @ 1,000 mls/hr 1X ONCE IV 06/23/20 18:00 06/23/20 18:59 DC 06/23/20 18:12 Potassium Chloride (Klor-Con) 40 meq 1X ONCE PO 06/23/20 18:30 06/23/20 18:31 DC 06/23/20 19:18 Magnesium Sulfate 50 ml @ 25 mls/hr 1X ONCE IV 06/23/20 18:30 06/23/20 20:29 06/23/20 19:19 Potassium Chloride/Water 100 ml @ 50 mls/hr 1X ONCE IV 06/23/20 18:30 06/23/20 20:29 06/23/20 19:18 Vital Signs: Vital Signs Date Time Temp Pulse Resp B/P (MAP) Pulse Ox O2 Delivery O2 Flow Rate FiO2 06/23/20 19:07 58 17 97 06/23/20 18:37 62 16 99 06/23/20 18:07 64 16 98 06/23/20 17:40 98.4 72 18 137/77 (97) 98 98.4 (NARAYAN BONILLA MD) EKG: EKG: [] (CHARLES SALGUERO MD) Radiology/Procedures: Radiology/Procedures: [] (CHARLES SALGUERO MD) Radiology/Procedures: [facility] [address] [place], [place] [id number] IMAGING REPORT Signed PATIENT: ISABELLE WEINER ACCOUNT: [id number] : 1970 LOCATION: ER AGE: 50 SEX: F EXAM STATUS: REG ER ORD. PHYSICIAN: CHARLES SALGUERO MD REASON: bleeding post menopausal PROCEDURE: PELVIS ULTRASOUND Exam: Ultrasound pelvis Indication: Bleeding, postmenopausal Technique: Real-time grayscale and color Doppler images of the pelvis were obtained by the department blindstitch lining feller. Comparisons: None FINDINGS: Uterus measures 9.5 x 5.9 x 4.3 cm. Endometrium is 12.9 cm in length. Right ovary measures 3.0 x 1.9 x 1.7 cm. Left ovary measures 2.6 x 1.8 x 1.6 cm. Vascular flow identified within the ovaries bilaterally. No free fluid. IMPRESSION: Normal sonographic appearance of the uterus and ovaries. Electronically signed by: Phillip Salas MD (06/23/2020 7:48 PM) [id number] DICTATED and SIGNED BY: PHILLIP SALAS MD DATE: 06/23/20 194 [facility] [address] [place] [address] IMAGING REPORT Signed PATIENT: ISABELLE WEINER ACCOUNT: [id number] : 1970 LOCATION: ER AGE: 50 SEX: F EXAM STATUS: REG ER ORD. PHYSICIAN: CHARLES SALGUERO MD REASON: sob PREG TEST PROCEDURE: CHEST AP ONLY Exam: Chest one view INDICATION: Shortness of breath TECHNIQUE: Frontal view of the chest Comparisons: None FINDINGS: The cardiomediastinal silhouette and pulmonary vessels are within normal limits. The lung and pleural spaces are clear. IMPRESSION: No acute cardiopulmonary process. Electronically signed by: Phillip Salas MD (06/23/2020 8:18 PM) [id number] DICTATED and SIGNED BY: PHILLIP SALAS MD DATE: 06/23/202017 (NARAYAN BONILLA MD) Course & Med Decision Making: Course & Med Decision Making Pertinent Labs and Imaging studies reviewed. (See chart for details) Patient is a 50-year-old female who presents to the emergency room complaining of generalized weakness. She also has had cough with her abdominal pain. Is possible she has atypical COVID. Patient is also complaining of dysfunctional uterine bleeding. Ultrasound will be done of her pelvis. Basic labs were ordered including a chest x-ray. COVID swab was ordered. Patient will be given fluids here in the emergency room. Patient discussed with oncoming physician who will assume care. (CHARLES SALGUERO MD) Course & Med Decision Making Received signout from Dr. Salguero regarding MsZiyad Weiner is had generalized weakness with some GI symptoms as well as a cough. Patient also had vaginal bleeding. Ultrasound is unremarkable. H&H is stable. Patient has significant hypokalemia will need to be admitted for further electrolyte replacement. Patient will be swabbed for COVID and was placed on a COVID rule out unit. (NARAYAN BONILLA MD) Dragon Disclaimer: Dragon Disclaimer: This electronic medical record was generated, in whole or in part, using a voice recognition dictation system. (CHARLES SALGUERO MD) Departure Departure Impression: Primary Impression: Weakness Additional Impressions: Dysfunctional uterine bleeding Hypokalemia Disposition: ADMITTED INPATIENT Admitting Physician: BERT yousif) (NARAYAN BONILLA MD) Condition: STABLE Referrals: UNKNOWN PCP NAME (PCP) Justicifation of Admission Dx: Justifications for Admission: Justification of Admission Dx: N/A (CHARLES SALGUERO MD) Justification of Admission Dx: Yes (hypokalemia) (NARAYAN BONILLA MD) CHARLES SALGUERO MD Jun 23, 2020 17:49 NARAYAN BONILLA MD Jun 23, 2020 19:56
--- NOTE | 2020-06-23 17:59 | EKG ---
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
[2020-06-23] MEDS ORDERED: IV NORMAL SALINE 1000ML BAG 1,000 ML IV ONE ×2 (18:00→20:45)
[2020-06-23 18:01] LABS: BASO # 0.1 x10^3/uL (0.0-0.2); BASO % 1 % (0-3); EOS # 0.1 x10^3/uL (0.0-0.7); EOS % 1 % (0-3); HEMATOCRIT 39.8 % (36.0-47.0); HEMOGLOBIN 13.1 g/dL (12.0-15.5); LYMPH # 1.8 x10^3/uL (1.0-4.8); LYMPH % 22 % (24-48); MEAN CORPUSCULAR HEMOGLOBIN 24 pg (25-35); MEAN CORPUSCULAR HGB CONC 33 g/dL (31-37); MEAN CORPUSCULAR VOLUME 74 fL (79-100); MONO # 0.7 x10^3/uL (0.0-1.1); MONO % 9 % (0-9); NEUT # 5.3 x10^3/uL (1.8-7.7); NEUT % 67 % (31-73); PLATELET COUNT 272 x10^3/uL (140-400); RED BLOOD COUNT 5.36 x10^6/uL (3.50-5.40); RED CELL DISTRIBUTION WIDTH 20.5 % (11.5-14.5)
[2020-06-23 18:15] LABS: ALBUMIN 3.8 g/dL (3.4-5.0); ALBUMIN/GLOBULIN RATIO 1.3 (1.0-1.7); C-REACTIVE PROTEIN 0.9 mg/L (0-3.3); CALCIUM 9.2 mg/dL (8.5-10.1); CREATININE 0.7 mg/dL (0.6-1.0); GFR 88.9; TOTAL BILIRUBIN 0.5 mg/dL (0.2-1.0); TOTAL PROTEIN 6.8 g/dL (6.4-8.2)
[2020-06-23 18:17] LABS: POTASSIUM 2.6 mmol/L (3.5-5.1)
[2020-06-23 18:26] LABS: ANISOCYTOSIS SLIGHT; HYPOCHROMIA SLIGHT; MICROCYTOSIS SLIGHT; PLT ESTIMATE ADEQUATE (ADEQUATE)
[2020-06-23 18:28] LABS: PREG TEST PT QUAL NEGATIVE (NEG)
[2020-06-23] MEDS ORDERED: POTASSIUM CHLORIDE 20MEQ 100 ML IV ONE (18:30)
[2020-06-23] MEDS ORDERED: POTASSIUM CHLORIDE 10 MEQ TABLET.ER. PO ONE (18:30)
[2020-06-23] MEDS ORDERED: MAGNESIUM SULFATE 2GM 50 ML IV ONE (18:30)
--- NOTE | 2020-06-23 19:51 | RAD ---
Exam: Ultrasound pelvis Indication: Bleeding, postmenopausal Technique: Real-time grayscale and color Doppler images of the pelvis were obtained by the department computer consultant. Comparisons: None FINDINGS: Uterus measures 9.5 x 5.9 x 4.3 cm. Endometrium is 12.9 cm in length. Right ovary measures 3.0 x 1.9 x 1.7 cm. Left ovary measures 2.6 x 1.8 x 1.6 cm. Vascular flow identified within the ovaries bilaterally. No free fluid. IMPRESSION: Normal sonographic appearance of the uterus and ovaries. Electronically signed by: Phillip Pace MD (06/23/2020 7:48 PM) [id number]
--- NOTE | 2020-06-23 20:21 | RAD ---
Exam: Chest one view INDICATION: Shortness of breath TECHNIQUE: Frontal view of the chest Comparisons: None FINDINGS: The cardiomediastinal silhouette and pulmonary vessels are within normal limits. The lung and pleural spaces are clear. IMPRESSION: No acute cardiopulmonary process. Electronically signed by: Phillip Pace MD (06/23/2020 8:18 PM) [id number]
[2020-06-23] MEDS ORDERED: ONDANSETRON PF 4 MG/2 ML VIAL. IV PRN ×2 (20:30→22:45)
[2020-06-23] MEDS ORDERED: POTASSIUM CL 20MEQ D5-0.45NACL 1,000 ML IV ONE (22:00)
[2020-06-23] MEDS ORDERED: SODIUM PHOSPHATES 19/7GM 133 ML ENEMA. PR PRN (22:45)
[2020-06-23] MEDS ORDERED: guaiFENesin ORAL 200 MG/10 ML LIQUID. PO PRN (22:45)
[2020-06-23] MEDS ORDERED: ACETAMINOPHEN 325 MG TABLET. PO PRN (22:45)
[2020-06-23] MEDS ORDERED: DOCUSATE SODIUM 100 MG CAPSULE. PO PRN (22:45)
[2020-06-23] MEDS ORDERED: ALBUTEROL SULFATE 2.5 MG/3 ML NEBU. NEB PRN (22:45)
[2020-06-23] MEDS ORDERED: MAG HYDROX/ALUMINUM HYD/SIMETH 30 ML ORAL.SUSP PO PRN (22:45)
[2020-06-23] MEDS ORDERED: cloNIDine HCL 0.1 MG TABLET PO PRN (22:45)
[2020-06-23] MEDS ORDERED: 0.9 % SODIUM CHLORIDE 10 ML DISP.SYRIN. IV PRN (22:45)
[2020-06-23 22:54] VITALS: BP 130/63
[2020-06-23] MEDS ORDERED: POTASSIUM CHLORIDE 20 MEQ TABLET.ER. PO ONE (23:00)
[2020-06-23] MEDS ORDERED: POTASSIUM BICARB 20 MEQ EFFERVESCENT TABLET. FT ONE (23:00)
[2020-06-23] MEDS ORDERED: METOCLOPRAMIDE 10 MG TABLET. PO PRN (23:00)
[2020-06-23] MEDS ORDERED: MAGNESIUM SULFATE 2GM 50 ML IV PRN (23:00)
[2020-06-23] MEDS ORDERED: SENNOSIDES/DOCUSATE 8.6/50MG TABLET. PO PRN (23:00)
[2020-06-23] MEDS ORDERED: POTASSIUM BICARB 20 MEQ EFFERVESCENT TABLET. PO PRN (23:00)
[2020-06-23] MEDS ORDERED: POTASSIUM CHLORIDE 10MEQ 100 ML IV PRN ×2 (23:00)
[2020-06-23] MEDS: ENOXAPARIN 40 MG/0.4 ML SYRINGE. SQ SCH (23:31)
[2020-06-24 04:20] VITALS: BP 98/52
[2020-06-24 05:05] LABS: CALCIUM 8.3 mg/dL (8.5-10.1); CREATININE 0.6 mg/dL (0.6-1.0); GFR 106.3; POTASSIUM 4.7 mmol/L (3.5-5.1)
[2020-06-24 07:15] VITALS: BP 107/66
[2020-06-24] MEDS: BUDESONIDE 0.5 MG/2 ML NEBU. NEB SCH ×2 (08:00→20:00)
[2020-06-24] MEDS ORDERED: ALBUTEROL SULFATE 2.5 MG/3 ML NEBU. NEB SCH (08:00)
--- NOTE | 2020-06-24 08:18 | PDOC1 ---
History and Physical Date of Admission Date of Admission DATE: 06/24/20 TIME: 08:18 Identification/Chief Complaint Chief Complaint seen in er with low k, weakness , mild cough. [id number] female with a past medical history of COPD who presents to the emergency room complaining of generalized weakness. Patient states 2 weeks ago she came in with abdominal pain and had a work-up that was negative at that time. She states she continues have abdominal pain with nausea and vomiting. last few days she did seem to be getting better and was able to eat and drink. She is now having nausea, burping, mild epigastric pain, shaking, generalized weakness. She states that she had a fall 06/23 due to weakness. She also mentions that she is postmenopausal but has had heavy vaginal bleeding this month. Past Medical History Past Medical History Past Medical History Past Medical History Past Medical History: Asthma, Bronchitis, COPD, GERD, Pneumonia, Other Additional Past Medical Histor: sciatica Past Surgical History: Cholecystectomy, Tubal ligation Smoking Status: Current Every Day Smoker Alcohol Use: Rarely Drug Use: None FHX COPD Pulmonary: Asthma, Bronchitis, COPD Musculoskeletal: low back pain Renal/: No pertinent hx Past Surgical History Past Surgical History: Cholecystectomy, Tubal Ligation Family History Family History: Chronic Bronchitis, Hypertension, Other Family History: Parent Social History Smoke: <1 pack per day ALCOHOL: rare Drugs: None Current Problem List Problem List Problems Medical Problems: (1) Dysfunctional uterine bleeding Status: Acute (2) Hypokalemia Status: Acute (3) Weakness Status: Acute Current Medications Current Medications Current Medications Sodium Chloride 1,000 ml @ 1,000 mls/hr 1X ONCE IV Last administered on 06/23/20at 18:12; Start 06/23/20 at 18:00; Stop 06/23/20 at 18:59; Status DC Potassium Chloride (Klor-Con) 40 meq 1X ONCE PO Last administered on 06/23/20at 19:18; Start 06/23/20 at 18:30; Stop 06/23/20 at 18:31; Status DC Magnesium Sulfate 50 ml @ 25 mls/hr 1X ONCE IV Last administered on 06/23/20at 19:19; Start 06/23/20 at 18:30; Stop 06/23/20 at 20:29; Status DC Potassium Chloride/Water 100 ml @ 50 mls/hr 1X ONCE IV Last administered on 06/23/20at 19:18; Start 06/23/20 at 18:30; Stop 06/23/20 at 20:29; Status DC Ondansetron HCl (Zofran) 4 mg PRN Q8HRS PRN IV NAUSEA/VOMITING; Start 06/23/20 at 20:30; Stop 06/24/20 at 20:29 Sodium Chloride 1,000 ml @ 100 mls/hr 1X ONCE IV Last administered on 06/23/20at 20:35; Start 06/23/20 at 20:45; Stop 06/24/20 at 06:44; Status DC Potassium Chloride/Dextrose/ Sod Cl 1,000 ml @ 100 mls/hr Q10H ONCE IV Last administered on 06/23/20at 21:53; Start 06/23/20 at 22:00; Stop 06/24/20 at 08:00; Status DC Sodium Chloride (Normal Saline Flush) 3 ml QSHIFT PRN IV AFTER MEDS AND BLOOD DRAWS; Start 06/23/20 at 22:45 Sodium Chloride 1,000 ml @ 100 mls/hr Q10H IV ; Start 06/23/20 at 22:44 Ondansetron HCl (Zofran) 4 mg PRN Q4HRS PRN IV NAUSEA/VOMITING 1ST CHOICE; Start 06/23/20 at 22:45 Acetaminophen (Tylenol) 650 mg PRN Q4HRS PRN PO TEMP OVER 100.4F OR MILD PAIN; Start 06/23/20 at 22:45 Al Hydroxide/Mg Hydroxide (Mylanta Plus Xs) 30 ml PRN DAILY PRN PO HEARTBURN / GAS; Start 06/23/20 at 22:45 Clonidine HCl (Catapres) 0.1 mg PRN Q6HRS PRN PO SBP>160 OR DBP>90; Start 06/23/20 at 22:45 Sodium Monofluorophosphate (Fleet Adult) 133 ml PRN DAILY PRN SD CONSTIPATION 2NDCHOICE; Start 06/23/20 at 22:45 Docusate Sodium (Colace) 100 mg PRN BID PRN PO HARD STOOLS; Start 06/23/20 at 22:45 Albuterol Sulfate (Ventolin Neb Soln) 2.5 mg PRN Q4HRS PRN NEB SHORTNESS OF BREATH; Start 06/23/20 at 22:45 Guaifenesin (Robitussin) 200 mg PRN Q4HRS PRN PO COUGH; Start 06/23/20 at 22:45 Enoxaparin Sodium (Lovenox 40mg Syringe) 40 mg Q24H SQ Last administered on 06/23/20at 23:31; Start 06/23/20 at 23:00 Benzonatate (Tessalon Perle) 100 mg [id number] PO ; Start 06/24/20 at 09:00 Dicyclomine HCl (Bentyl) 10 mg TID PO ; Start 06/24/20 at 09:00 Famotidine (Pepcid) 20 mg BID PO ; Start 06/24/20 at 09:00 Metoclopramide HCl (Reglan) 10 mg PRN QID PRN PO NAUSEA; Start 06/23/20 at 23:00 Senna/Docusate Sodium (Senna Plus) 1 tab PRN QHS PRN PO CONSTIPATION 1ST CHOICE; Start 06/23/20 at 23:00 Albuterol Sulfate (Ventolin Neb Soln) 2.5 mg RTQID NEB ; Start 06/24/20 at 08:00 Budesonide (Pulmicort) 0.5 mg RTBID NEB ; Start 06/24/20 at 08:00 Potassium Chloride (Klor-Con) 40 meq 1X ONCE PO Last administered on 06/23/20at 23:32; Start 06/23/20 at 23:00; Stop 06/23/20 at 23:01; Status DC Potassium Bicarbonate (Potassium Effervescent Tablet) 40 meq 1X ONCE FT Last administered on 06/23/20at 23:31; Start 06/23/20 at 23:00; Stop 06/23/20 at 23:01; Status DC Potassium Chloride/Water 100 ml @ 100 mls/hr PRN Q1HR PRN IV SEE PROTOCOL; Start 06/23/20 at 23:00 Magnesium Sulfate 50 ml @ 25 mls/hr PRN DAILY PRN IV SEE PROTOCOL; Start 06/23/20 at 23:00 Potassium Phos/ Sodium Phos (Phos-Nak) 1 pkt PRN BID PRN PO SEE PROTOCOL; Start 06/24/20 at 09:00 Potassium Bicarbonate (Potassium Effervescent Tablet) 40 meq PRN Q4HRS PRN PO SEE PROTOCOL; Start 9/12/20 at 23:00 Potassium Chloride/Water 100 ml @ 100 mls/hr PRN Q1HR PRN IV SEE PROTOCOL; Start 06/23/20 at 23:00 Active Scripts Active Reglan (Metoclopramide Hcl) 10 Mg Tablet 1 Tab PO QID PRN 5 Days before food and bedtime Colace 2-in-1 Tablet (Sennosides/Docusate Sodium) 1 Each Tablet 1 Tab PO QHS PRN Levsin-Sl (Hyoscyamine Sulfate) 0.125 Mg Tab.subl 0.125 Mg SL Q4-6HRS PRN Pepcid (Famotidine) 20 Mg Tablet 20 Mg PO BID Ondansetron Odt (Ondansetron) 4 Mg Tab.rapdis 1 Tab PO PRN Q6-8HRS PRN Ondansetron Odt (Ondansetron) 4 Mg Tab.rapdis 1 Tab PO PRN Q6-8HRS Dicyclomine Hcl 10 Mg Capsule 1 Cap PO TID Prednisone 20 Mg Tablet 2 Tab PO DAILY 7 Days Zithromax (Azithromycin) 250 Mg Tablet 1 Pkg PO UD Prednisone 50 Mg Tablet 1 Tab PO DAILY 7 Days Culturelle (Lactobacillus Rhamnosus Gg) 1 Each Cap.sprink 1 Cap PO BID 30 Days Benzonatate 100 Mg Capsule 100 Mg PO [id number] 14 Days Acetaminophen 500 Mg Tablet 500 Mg PO PRN Q6HRS PRN 10 Days Doxycycline Hyclate 100 Mg Tablet 100 Mg PO BID 10 Days Advair 250-50 Diskus (Fluticasone/Salmeterol) 1 Each Disk.w.dev 1 Puff IH BID Albuterol Sulfate Conc Neb Soln (Albuterol Sulfate) 2.5 Mg/0.5 Ml Vial.neb 1 Vial NEB Q6HRS Proair Hfa Inhaler (Albuterol Sulfate) 8.5 Gm Hfa.aer.ad 1 Puff INH PRN Q6HRS PRN Allergies Allergies: Coded Allergies: No Known Drug Allergies (Unverified , 11/07/13) ROS Review of System Review of Systems: Review of Systems: General: Denies fever, chills, sweats, POS fatigue Eyes: Denies drainage, blurred vision, eye redness HENT: Denies rhinorrhea, sore throat, earache Respiratory: Denies cough, shortness of breath, wheezing Cardiac: Denies edema, palpitations, chest pain GI: Reports abdominal pain, Nausea, vomiting MSK: Denies back pain, neck pain Skin: Denies rash, jaundice Neuro: Denies headache, dizziness 14 PT ROS OTHERWISE NEG General: YES: Fatigue, Malaise ALLERGY AND IMMUNOLOGY: No: Hives, Insect Bite Sensitivity, Itchy/Watery Eyes, Nasal Congestion, Post Nasal Drip, Seasonal Allergies, Other Hematological and Lymphatic: No: Bleeding Problems, Blood Clots, Blood Transfusions, Brusing, Night Sweats, Pallor, Swollen Lymph Nodes, Other Respiratory: YES: Cough; No: Hemoptysis, Orthopnea, Pleuritic Pain, Shortness of breath, SOB with excertion, Sputum Changes, Stridor, Tachypnea, Wheezing, Other Gastrointestinal: Yes Nausea Skin: Yes Dry Skin Physical Exam Physical Exam General: Awake, alert, NAD. Well Nourished, well hydrated. Cooperative HEENT: Atraumatic, EOMI, PERRL, airway patent, moist oral mucosa Neck: Supple, trachea midline Respiratory: CTA bilaterally, normal effort, no wheezing/crackles CV: RRR, no murmur, cap refill <2 GI: Soft, nondistended, nontender, no masses MSK: No obvious deformities Skin: Warm, dry, intact Neuro: A&O x3, speech NL, sensory and motor grossly intact, no focal deficits General: Alert, Oriented X3, Cooperative, No acute distress HEENT: Atraumatic, EOMI, Mucous membr. moist/pink Lungs: Normal air movement Heart: RRR Breasts: Not examined Abdomen: Soft Extremities: No cyanosis Skin: No significant lesion Neuro: Normal speech, Cranial nerves 3-12 NL Psych/Mental Status: Mental status NL, Mood NL Vitals Vitals Vital Signs Date Time Temp Pulse Resp B/P (MAP) Pulse Ox O2 Delivery O2 Flow Rate FiO2 06/24/20 04:20 97.7 62 22 98/52 (67) 97 Room Air 97.7 Labs Labs Laboratory Tests Test 06/23/20 17:51 06/24/20 04:30 White Blood Count 8.0 x10^3/uL (4.0-11.0) Red Blood Count 5.36 x10^6/uL (3.50-5.40) Hemoglobin 13.1 g/dL (12.0-15.5) Hematocrit 39.8 % (36.0-47.0) Mean Corpuscular Volume 74 fL (79-100) Mean Corpuscular Hemoglobin 24 pg (25-35) Mean Corpuscular Hemoglobin Concent 33 g/dL (31-37) Red Cell Distribution Width 20.5 % (11.5-14.5) Platelet Count 272 x10^3/uL (140-400) Neutrophils (%) (Auto) 67 % (31-73) Lymphocytes (%) (Auto) 22 % (24-48) Monocytes (%) (Auto) 9 % (0-9) Eosinophils (%) (Auto) 1 % (0-3) Basophils (%) (Auto) 1 % (0-3) Neutrophils # (Auto) 5.3 x10^3/uL (1.8-7.7) Lymphocytes # (Auto) 1.8 x10^3/uL (1.0-4.8) Monocytes # (Auto) 0.7 x10^3/uL (0.0-1.1) Eosinophils # (Auto) 0.1 x10^3/uL (0.0-0.7) Basophils # (Auto) 0.1 x10^3/uL (0.0-0.2) Platelet Estimate Adequate (ADEQUATE) Hypochromasia Slight Anisocytosis Slight Microcytosis Slight Sodium Level 142 mmol/L (136-145) 141 mmol/L (136-145) Potassium Level 2.6 mmol/L (3.5-5.1) 4.7 mmol/L (3.5-5.1) Chloride Level 103 mmol/L (98-107) 109 mmol/L (98-107) Carbon Dioxide Level 33 mmol/L (21-32) 29 mmol/L (21-32) Anion Gap 6 (6-14) 3 (6-14) Blood Urea Nitrogen 23 mg/dL (7-20) 17 mg/dL (7-20) Creatinine 0.7 mg/dL (0.6-1.0) 0.6 mg/dL (0.6-1.0) Estimated GFR (Cockcroft-Gault) 88.9 106.3 BUN/Creatinine Ratio 33 (6-20) Glucose Level 97 mg/dL (70-99) 86 mg/dL (70-99) Calcium Level 9.2 mg/dL (8.5-10.1) 8.3 mg/dL (8.5-10.1) Total Bilirubin 0.5 mg/dL (0.2-1.0) Aspartate Amino Transf (AST/SGOT) 18 U/L (15-37) Alanine Aminotransferase (ALT/SGPT) 31 U/L (14-59) Alkaline Phosphatase 75 U/L (46-116) Lactate Dehydrogenase 164 U/L (81-234) Troponin I Quantitative < 0.017 ng/mL (0.000-0.055) C-Reactive Protein, Quantitative 0.9 mg/L (0-3.3) QF-Dah-X-Type Natriuretic Peptide 324 pg/mL (0-124) Total Protein 6.8 g/dL (6.4-8.2) Albumin 3.8 g/dL (3.4-5.0) Albumin/Globulin Ratio 1.3 (1.0-1.7) Serum Test, Qualitative Negative (NEG) Laboratory Tests Test 06/23/20 17:51 06/24/20 04:30 White Blood Count 8.0 x10^3/uL (4.0-11.0) Red Blood Count 5.36 x10^6/uL (3.50-5.40) Hemoglobin 13.1 g/dL (12.0-15.5) Hematocrit 39.8 % (36.0-47.0) Mean Corpuscular Volume 74 fL (79-100) Mean Corpuscular Hemoglobin 24 pg (25-35) Mean Corpuscular Hemoglobin Concent 33 g/dL (31-37) Red Cell Distribution Width 20.5 % (11.5-14.5) Platelet Count 272 x10^3/uL (140-400) Neutrophils (%) (Auto) 67 % (31-73) Lymphocytes (%) (Auto) 22 % (24-48) Monocytes (%) (Auto) 9 % (0-9) Eosinophils (%) (Auto) 1 % (0-3) Basophils (%) (Auto) 1 % (0-3) Neutrophils # (Auto) 5.3 x10^3/uL (1.8-7.7) Lymphocytes # (Auto) 1.8 x10^3/uL (1.0-4.8) Monocytes # (Auto) 0.7 x10^3/uL (0.0-1.1) Eosinophils # (Auto) 0.1 x10^3/uL (0.0-0.7) Basophils # (Auto) 0.1 x10^3/uL (0.0-0.2) Platelet Estimate Adequate (ADEQUATE) Hypochromasia Slight Anisocytosis Slight Microcytosis Slight Sodium Level 142 mmol/L (136-145) 141 mmol/L (136-145) Potassium Level 2.6 mmol/L (3.5-5.1) 4.7 mmol/L (3.5-5.1) Chloride Level 103 mmol/L (98-107) 109 mmol/L (98-107) Carbon Dioxide Level 33 mmol/L (21-32) 29 mmol/L (21-32) Anion Gap 6 (6-14) 3 (6-14) Blood Urea Nitrogen 23 mg/dL (7-20) 17 mg/dL (7-20) Creatinine 0.7 mg/dL (0.6-1.0) 0.6 mg/dL (0.6-1.0) Estimated GFR (Cockcroft-Gault) 88.9 106.3 BUN/Creatinine Ratio 33 (6-20) Glucose Level 97 mg/dL (70-99) 86 mg/dL (70-99) Calcium Level 9.2 mg/dL (8.5-10.1) 8.3 mg/dL (8.5-10.1) Total Bilirubin 0.5 mg/dL (0.2-1.0) Aspartate Amino Transf (AST/SGOT) 18 U/L (15-37) Alanine Aminotransferase (ALT/SGPT) 31 U/L (14-59) Alkaline Phosphatase 75 U/L (46-116) Lactate Dehydrogenase 164 U/L (81-234) Troponin I Quantitative < 0.017 ng/mL (0.000-0.055) C-Reactive Protein, Quantitative 0.9 mg/L (0-3.3) EL-Iqs-S-Type Natriuretic Peptide 324 pg/mL (0-124) Total Protein 6.8 g/dL (6.4-8.2) Albumin 3.8 g/dL (3.4-5.0) Albumin/Globulin Ratio 1.3 (1.0-1.7) Serum Test, Qualitative Negative (NEG) Images Images Exam: Ultrasound pelvis Indication: Bleeding, postmenopausal Technique: Real-time grayscale and color Doppler images of the pelvis were obtained by the department inserting press operator. Comparisons: None FINDINGS: Uterus measures 9.5 x 5.9 x 4.3 cm. Endometrium is 12.9 cm in length. Right ovary measures 3.0 x 1.9 x 1.7 cm. Left ovary measures 2.6 x 1.8 x 1.6 cm. Vascular flow identified within the ovaries bilaterally. No free fluid. IMPRESSION: Normal sonographic appearance of the uterus and ovaries. Electronically signed by: Mayank Salas MD (06/23/2020 7:48 PM) [id number] DICTATED and SIGNED BY: MAYANK SALAS MD DATE: 06/23/201947 Exam: Chest one view INDICATION: Shortness of breath TECHNIQUE: Frontal view of the chest Comparisons: None FINDINGS: The cardiomediastinal silhouette and pulmonary vessels are within normal limits. The lung and pleural spaces are clear. IMPRESSION: No acute cardiopulmonary process. Electronically signed by: Mayank Salas MD (06/23/2020 8:18 PM) [id number] DICTATED and SIGNED BY: MAYANK SALAS MD DATE: 06/23/202017 DPOA REVIEW 17 MIN What Is a Power of Supervisor Reclamation? A power of manager consumer insights (POA) is a legal document giving one person (the agent or [id number]) the power to act for another person (the principal). The agent can have broad legal authority or limited authority to make legal decisions about the principal's property, finances or medical care. The power of manager consumer insights is frequently used in the event of a principal's illness or disability, or when the principal can't be present to sign necessary legal documents for financial transactions. A power of manager consumer insights can end for a number of reasons, such as when the principal dies, the principal revokes it, a court invalidates it, the principal divorces their spouse, who happens to be the agent, or the agent can no longer carry out the outlined responsibilities. Conventional POAs lapse when the creator becomes incapacitated, but a durable POA remains in force to enable the agent to manage the creators affairs, and a springing POA comes into effect only if and when the creator of the POA becomes incapacitated. A medical or healthcare POA enables an agent to make medical decisions on behalf of an incapacitated person. [employer] Take[employer] A power of manager consumer insights (POA) is a legal document giving one person, the agent or [id number] the power to act for another person, the principal. The agent can have broad legal authority or limited authority to make decisions about the principal's property, finances or medical care. The power of manager consumer insights is often used when a principal becomes ill or disabled, or when they can't be present to sign necessary legal documents for financial transactions. Understanding Power of Supervisor Reclamation A power of manager consumer insights should be considered when planning for long-term care. There are different types of POAs that fall under either a general power of manager consumer insights or limited power of manager consumer insights. A general power of manager consumer insights acts on behalf of the principal in any and all matters, as allowed by the state. The agent under a general POA agreement may be authorized to take care of issues such as handling bank accounts, signing checks, selling property and assets like stocks, f A limited power of manager consumer insights gives the agent the power to act on behalf of the principal in specific matters or events. For example, the limited POA may explicitly state that the agent is only allowed to manage the principal's halfway accounts. A limited POA may also be limited to a specific period of time (e.g., if the principal will be out of the country for, say, two years). Most danielson of manager consumer insights documents allow an agent to represent the principal in all property and financial matters as long as the principals mental state of mind is good. If a situation occurs where the principal becomes incapable of making decisions for him or herself, the POA agreement would automatically end. However, someone who wants the POA to remain in effect after the persons health deteriorates would need to sign a durable power of manager consumer insights (DPOA). VTE Prophylaxis Ordered VTE Prophylaxis Devices: No VTE Pharmacological Prophylaxi: Yes Assessment/Plan Assessment/Plan Impression: Weakness SECONDARY TO SEVERE HYPONATREMIA HX Tobacco abuse Dysfunctional uterine bleeding Hypokalemia sec poor oral intake Nebs, other supprotive meds KEEP TELE Ambulate NUtrition consult, PLAN ADMITTED PUI REPLACE K NEEDS DPOA DUONEBS QID DVT PROPHYLAXIS RESP ISOLATION PELVIC SONO, SEE DRIVER EDUCATION ROAD INSTRUCTOR SOON WHEN COVID NEG D/W ER Justifications for Admission Other Justification LYNETTE LACY MD Jun 24, 2020 08:18
[2020-06-24] MEDS: IV NORMAL SALINE 1000ML BAG 1,000 ML IV SCH ×2 (08:44→09:02)
[2020-06-24] MEDS: FAMOTIDINE 20 MG TABLET. PO SCH ×2 (09:00→23:42)
[2020-06-24] MEDS ORDERED: POTASSIUM & SODIUM PHOSPHATES PACKET. PO PRN (09:00)
[2020-06-24] MEDS: DICYCLOMINE HCL 10 MG CAPSULE PO SCH ×3 (09:00→23:43)
[2020-06-24] MEDS: BENZONATATE 100 MG CAPSULE. PO SCH ×3 (09:00→23:43)
[2020-06-24 10:31] LABS: PHOSPHORUS 2.8 mg/dL (2.6-4.7)
[2020-06-24 11:50] VITALS: BP 97/57
[2020-06-24] MEDS ORDERED: ALBUTEROL SULFATE 8GM INHALER. INH PRN (12:00)
[2020-06-24] MEDS: ALBUTEROL SULFATE 8GM INHALER. INH SCH ×3 (12:12→23:45)
[2020-06-24 15:49] VITALS: BP 117/62
[2020-06-24 19:45] VITALS: BP 94/55
[2020-06-24 23:30] VITALS: BP 87/43
[2020-06-24] MEDS: ENOXAPARIN 40 MG/0.4 ML SYRINGE. SQ SCH (23:46)
[2020-06-25 03:59] VITALS: BP 92/48
--- NOTE | 2020-06-25 05:00 | NUR ---
Pt c/o epigastric/chest pain. Pt's trop was negative and pt has a hx of abdominal pain and COPD. Pt remains SB on the monitor with no EKG changes noted. Placed pt on 2L NC. Within 15 min, pt states that pain has improved. Awaiting lab results to check electrolytes this a.m. which were critically low yesterday. Call light within reach. Will continue to monitor.
[2020-06-25 05:01] LABS: HEMATOCRIT 33.3 % (36.0-47.0); RED BLOOD COUNT 4.48 x10^6/uL (3.50-5.40); RED CELL DISTRIBUTION WIDTH 20.8 % (11.5-14.5); WHITE BLOOD COUNT 6.4 x10^3/uL (4.0-11.0)
[2020-06-25 05:32] LABS: BILIRUBIN,URINE NEGATIVE (NEG); CLARITY,URINE CLEAR; COLOR,URINE YELLOW; NITRITE,URINE NEGATIVE (NEG); PH,URINE 5.5 (<5.0-8.0); PROTEIN,URINE NEGATIVE (NEG-TRACE); UROBILINOGEN,URINE 0.2 mg/dL (0.2 mg/dL)
[2020-06-25 05:37] LABS: ALBUMIN/GLOBULIN RATIO 1.2 (1.0-1.7); CALCIUM 8.7 mg/dL (8.5-10.1); CREATININE 0.6 mg/dL (0.6-1.0); GFR 106.3; POTASSIUM 4.5 mmol/L (3.5-5.1); TOTAL BILIRUBIN 0.3 mg/dL (0.2-1.0); TOTAL PROTEIN 5.5 g/dL (6.4-8.2)
[2020-06-25 05:51] LABS: RBC,URINE 0 /HPF (0-2); WBC,URINE OCC /HPF (0-4)
[2020-06-25 05:52] LABS: BACTERIA,URINE FEW /HPF (0-FEW); SQUAMOUS EPITHELIAL CELL,UR MOD /LPF
[2020-06-25 07:15] VITALS: BP 135/82
[2020-06-25] MEDS: BUDESONIDE 0.5 MG/2 ML NEBU. NEB SCH (08:00)
[2020-06-25] MEDS: DICYCLOMINE HCL 10 MG CAPSULE PO SCH ×2 (09:51→14:33)
[2020-06-25] MEDS: FAMOTIDINE 20 MG TABLET. PO SCH (09:51)
[2020-06-25] MEDS: BENZONATATE 100 MG CAPSULE. PO SCH ×2 (09:51→14:33)
[2020-06-25] MEDS: ALBUTEROL SULFATE 8GM INHALER. INH SCH ×3 (09:51→16:00)
[2020-06-25] MEDS ORDERED: IV NORMAL SALINE 1000ML BAG 1,000 ML IV SCH (10:00)
[2020-06-25 11:30] VITALS: BP 137/62
[2020-06-25 15:12] VITALS: BP 136/72
--- NOTE | 2020-06-25 15:12 | PDOC2 ---
CONSULT Date of Consult Date of Consult DATE: 06/25/20 TIME: 15:11 Reason for Consult Reason for Consult: PMB HPI: 50y who presented to the ER after a fall. The pt reported generalized weakness that began a couple of wks ago. She felt like her heart was dropping. She feels that she has been eating and drinking less. When her symptoms first arose she presented for a abd pain w/u that returned neg. Since that times she has continued to have abdominal pain with nausea and vomiting. The pt stopped having periods about 14 months ago. Then a couple wks ago she began bleeding. It was light and last 4 days. She then had a second bleed about 1.5wks ago. This one was heavier and again last about 3-4 days. She feels that when she stopped having periods she developed hot flashes and night sweats. These vasomotor symptoms have stopped a few months ago. In the ER she underwent an u/s on 06/23 in the ER revealing an endometrial stripe of 12.9 mm. The pt states that st sometime has drainage from her umb inc. That began recently although the surgery was 20yrs ago. The p thas no seen a Hospitality Internship for 4-5 yrs. PMH: Asthma, Bronchitis, COPD, GERD, Pneumonia, sciatica PSH: Cholecystectomy, Salpingectomy for ectopic , BTL (pt does not recall this procedure) OBHx: 3 x TSVD, 1 x ectopic (txed surgically) Hospitality Internship: LMP ~14 months ago H/o OCP for ~2yrs Never ERT/HRT 16yo / regular until the end / 49yo SH: 1 PPD, rare EtOH FH: Chronic Bronchitis, Hypertension, Other Past Medical History Pulmonary: Asthma, Bronchitis, COPD Musculoskeletal: low back pain Renal/: No pertinent hx Past Surgical History Past Surgical History: Cholecystectomy, Tubal Ligation Family History Family History: Chronic Bronchitis, Hypertension, Other Social History Social History: Parent <1 pack per day ALCOHOL: rare Drugs: None Current Problem List Problem List Problems Medical Problems: (1) Dysfunctional uterine bleeding Status: Acute (2) Hypokalemia Status: Acute (3) Weakness Status: Acute Current Medications Current Medications Current Medications Sodium Chloride 1,000 ml @ 1,000 mls/hr 1X ONCE IV Last administered on 06/23/20at 18:12; Start 06/23/20 at 18:00; Stop 06/23/20 at 18:59; Status DC Potassium Chloride (Klor-Con) 40 meq 1X ONCE PO Last administered on 06/23/20at 19:18; Start 06/23/20 at 18:30; Stop 06/23/20 at 18:31; Status DC Magnesium Sulfate 50 ml @ 25 mls/hr 1X ONCE IV Last administered on 06/23/20at 19:19; Start 06/23/20 at 18:30; Stop 06/23/20 at 20:29; Status DC Potassium Chloride/Water 100 ml @ 50 mls/hr 1X ONCE IV Last administered on 06/23/20at 19:18; Start 06/23/20 at 18:30; Stop 06/23/20 at 20:29; Status DC Ondansetron HCl (Zofran) 4 mg PRN Q8HRS PRN IV NAUSEA/VOMITING Last administered on 06/24/20at 09:00; Start 06/23/20 at 20:30; Stop 06/24/20 at 20:29; Status DC Sodium Chloride 1,000 ml @ 100 mls/hr 1X ONCE IV Last administered on 06/23/20at 20:35; Start 06/23/20 at 20:45; Stop 06/24/20 at 06:44; Status DC Potassium Chloride/Dextrose/ Sod Cl 1,000 ml @ 100 mls/hr Q10H ONCE IV Last administered on 06/23/20at 21:53; Start 06/23/20 at 22:00; Stop 06/24/20 at 08 :00; Status DC Sodium Chloride (Normal Saline Flush) 3 ml QSHIFT PRN IV AFTER MEDS AND BLOOD DRAWS; Start 06/23/20 at 22:45 Sodium Chloride 1,000 ml @ 100 mls/hr Q10H IV Last administered on 06/24/20at 09:02; Start 06/23/20 at 22:44; Stop 06/24/20 at 17:43; Status DC Ondansetron HCl (Zofran) 4 mg PRN Q4HRS PRN IV NAUSEA/VOMITING 1ST CHOICE; Start 06/23/20 at 22:45 Acetaminophen (Tylenol) 650 mg PRN Q4HRS PRN PO TEMP OVER 100.4F OR MILD PAIN; Start 06/23/20 at 22:45 Al Hydroxide/Mg Hydroxide (Mylanta Plus Xs) 30 ml PRN DAILY PRN PO HEARTBURN / GAS; Start 06/23/20 at 22:45 Clonidine HCl (Catapres) 0.1 mg PRN Q6HRS PRN PO SBP>160 OR DBP>90; Start 06/23/20 at 22:45 Sodium Monofluorophosphate (Fleet Adult) 133 ml PRN DAILY PRN WI CONSTIPATION 2NDCHOICE; Start 06/23/20 at 22:45 Docusate Sodium (Colace) 100 mg PRN BID PRN PO HARD STOOLS; Start 06/23/20 at 22:45 Albuterol Sulfate (Ventolin Neb Soln) 2.5 mg PRN Q4HRS PRN NEB SHORTNESS OF BREATH; Start 06/23/20 at 22:45; Stop 06/24/20 at 10:50; Status DC Guaifenesin (Robitussin) 200 mg PRN Q4HRS PRN PO COUGH; Start 06/23/20 at 22:45 Enoxaparin Sodium (Lovenox 40mg Syringe) 40 mg Q24H SQ Last administered on 06/24/20at 23:46; Start 06/23/20 at 23:00 Benzonatate (Tessalon Perle) 100 mg [id number] PO Last administered on 06/25/20at 14:33; Start 06/24/20 at 09:00 Dicyclomine HCl (Bentyl) 10 mg TID PO Last administered on 06/25/20at 14:33; Start 06/24/20 at 09:00 Famotidine (Pepcid) 20 mg BID PO Last administered on 06/25/20at 09:51; Start 06/24/20 at 09:00 Metoclopramide HCl (Reglan) 10 mg PRN QID PRN PO NAUSEA Last administered on 06/24/20at 23:44; Start 06/23/20 at 23:00 Senna/Docusate Sodium (Senna Plus) 1 tab PRN QHS PRN PO CONSTIPATION 1ST CHOICE; Start 06/23/20 at 23:00 Albuterol Sulfate (Ventolin Neb Soln) 2.5 mg RTQID NEB ; Start 06/24/20 at 08:00; Stop 06/24/20 at 10:49; Status DC Budesonide (Pulmicort) 0.5 mg RTBID NEB ; Start 06/24/20 at 08:00 Potassium Chloride (Klor-Con) 40 meq 1X ONCE PO Last administered on 06/23/20at 23:32; Start 06/23/20 at 23:00; Stop 06/23/20 at 23:01; Status DC Potassium Bicarbonate (Potassium Effervescent Tablet) 40 meq 1X ONCE FT Last administered on 06/23/20at 23:31; Start 06/23/20 at 23:00; Stop 06/23/20 at 23:01; Status DC Potassium Chloride/Water 100 ml @ 100 mls/hr PRN Q1HR PRN IV SEE PROTOCOL; Start 06/23/20 at 23:00 Magnesium Sulfate 50 ml @ 25 mls/hr PRN DAILY PRN IV SEE PROTOCOL; Start at 23:00 Potassium Phos/ Sodium Phos (Phos-Nak) 1 pkt PRN BID PRN PO SEE PROTOCOL; Start 06/24/20 at 09:00 Potassium Bicarbonate (Potassium Effervescent Tablet) 40 meq PRN Q4HRS PRN PO SEE PROTOCOL; Start 06/23/20 at 23:00 Potassium Chloride/Water 100 ml @ 100 mls/hr PRN Q1HR PRN IV SEE PROTOCOL; Start 06/23/20 at 23:00 Albuterol Sulfate (Ventolin Hfa) 1 puff RTQID INH Last administered on 06/25/20at 14:34; Start 06/24/20 at 12:00 Albuterol Sulfate (Ventolin Hfa) 1 puff PRN Q4HRS PRN INH WHEEZING; Start 06/24/20 at 12:00 Sodium Chloride 1,000 ml @ 100 mls/hr Q10H IV Last administered on 06/25/20at 10:07; Start 06/25/20 at 10:00 Active Scripts Active Reglan (Metoclopramide Hcl) 10 Mg Tablet 1 Tab PO QID PRN 5 Days before food and bedtime Colace 2-in-1 Tablet (Sennosides/Docusate Sodium) 1 Each Tablet 1 Tab PO QHS PRN Levsin-Sl (Hyoscyamine Sulfate) 0.125 Mg Tab.subl 0.125 Mg SL Q4-6HRS PRN Pepcid (Famotidine) 20 Mg Tablet 20 Mg PO BID Ondansetron Odt (Ondansetron) 4 Mg Tab.rapdis 1 Tab PO PRN Q6-8HRS PRN Ondansetron Odt (Ondansetron) 4 Mg Tab.rapdis 1 Tab PO PRN Q6-8HRS Dicyclomine Hcl 10 Mg Capsule 1 Cap PO TID Prednisone 20 Mg Tablet 2 Tab PO DAILY 7 Days Zithromax (Azithromycin) 250 Mg Tablet 1 Pkg PO UD Prednisone 50 Mg Tablet 1 Tab PO DAILY 7 Days Culturelle (Lactobacillus Rhamnosus Gg) 1 Each Cap.sprink 1 Cap PO BID 30 Days Benzonatate 100 Mg Capsule 100 Mg PO [id number] 14 Days Acetaminophen 500 Mg Tablet 500 Mg PO PRN Q6HRS PRN 10 Days Doxycycline Hyclate 100 Mg Tablet 100 Mg PO BID 10 Days Advair 250-50 Diskus (Fluticasone/Salmeterol) 1 Each Disk.w.dev 1 Puff IH BID Albuterol Sulfate Conc Neb Soln (Albuterol Sulfate) 2.5 Mg/0.5 Ml Vial.neb 1 Vial NEB Q6HRS Proair Hfa Inhaler (Albuterol Sulfate) 8.5 Gm Hfa.aer.ad 1 Puff INH PRN Q6HRS PRN Allergies Allergies: Coded Allergies: No Known Drug Allergies (Unverified , 11/07/13) Physical Exam General: Alert, Oriented X3, Cooperative, No acute distress HEENT: PERRLA, Mucous membr. moist/pink Heart: Regular rate, Normal S1, Normal S2, No murmurs Abdomen: Normal bowel sounds, Soft, No tenderness, No hepatosplenomegaly, No masses Extremities: No clubbing, No cyanosis, No edema, Normal pulses, No tenderness/swelling Vitals VITALS Vital Signs Date Time Temp Pulse Resp B/P (MAP) Pulse Ox O2 Delivery O2 Flow Rate FiO2 06/25/20 11:30 96.9 58 20 137/62 (87) 99 Room Air 96.9 06/25/20 08:05 1.0 Labs Labs Laboratory Tests Test 06/23/20 17:49 06/23/20 17:51 06/24/20 04:30 06/25/20 04:00 Coronavirus (PCR) Not detected (Not Detected) White Blood Count 8.0 x10^3/uL (4.0-11.0) 6.4 x10^3/uL (4.0-11.0) Red Blood Count 5.36 x10^6/uL (3.50-5.40) 4.48 x10^6/uL (3.50-5.40) Hemoglobin 13.1 g/dL (12.0-15.5) 11.0 g/dL (12.0-15.5) Hematocrit 39.8 % (36.0-47.0) 33.3 % (36.0-47.0) Mean Corpuscular Volume 74 fL (79-100) 74 fL (79-100) Mean Corpuscular Hemoglobin 24 pg (25-35) 25 pg (25-35) Mean Corpuscular Hemoglobin Concent 33 g/dL (31-37) 33 g/dL (31-37) Red Cell Distribution Width 20.5 % (11.5-14.5) 20.8 % (11.5-14.5) Platelet Count 272 x10^3/uL (140-400) 220 x10^3/uL (140-400) Neutrophils (%) (Auto) 67 % (31-73) Lymphocytes (%) (Auto) 22 % (24-48) Monocytes (%) (Auto) 9 % (0-9) Eosinophils (%) (Auto) 1 % (0-3) Basophils (%) (Auto) 1 % (0-3) Neutrophils # (Auto) 5.3 x10^3/uL (1.8-7.7) Lymphocytes # (Auto) 1.8 x10^3/uL (1.0-4.8) Monocytes # (Auto) 0.7 x10^3/uL (0.0-1.1) Eosinophils # (Auto) 0.1 x10^3/uL (0.0-0.7) Basophils # (Auto) 0.1 x10^3/uL (0.0-0.2) Platelet Estimate Adequate (ADEQUATE) Hypochromasia Slight Anisocytosis Slight Microcytosis Slight Sodium Level 142 mmol/L (136-145) 141 mmol/L (136-145) 138 mmol/L (136-145) Potassium Level 2.6 mmol/L (3.5-5.1) 4.7 mmol/L (3.5-5.1) 4.5 mmol/L (3.5-5.1) Chloride Level 103 mmol/L (98-107) 109 mmol/L (98-107) 106 mmol/L (98-107) Carbon Dioxide Level 33 mmol/L (21-32) 29 mmol/L (21-32) 29 mmol/L (21-32) Anion Gap 6 (6-14) 3 (6-14) 3 (6-14) Blood Urea Nitrogen 23 mg/dL (7-20) 17 mg/dL (7-20) 10 mg/dL (7-20) Creatinine 0.7 mg/dL (0.6-1.0) 0.6 mg/dL (0.6-1.0) 0.6 mg/dL (0.6-1.0) Estimated GFR (Cockcroft-Gault) 88.9 106.3 106.3 BUN/Creatinine Ratio 33 (6-20) 17 (6-20) Glucose Level 97 mg/dL (70-99) 86 mg/dL (70-99) 79 mg/dL (70-99) Calcium Level 9.2 mg/dL (8.5-10.1) 8.3 mg/dL (8.5-10.1) 8.7 mg/dL (8.5-10.1) Total Bilirubin 0.5 mg/dL (0.2-1.0) 0.3 mg/dL (0.2-1.0) Aspartate Amino Transf (AST/SGOT) 18 U/L (15-37) 17 U/L (15-37) Alanine Aminotransferase (ALT/SGPT) 31 U/L (14-59) 25 U/L (14-59) Alkaline Phosphatase 75 U/L (46-116) 62 U/L (46-116) Lactate Dehydrogenase 164 U/L (81-234) Troponin I Quantitative < 0.017 ng/mL (0.000-0.055) C-Reactive Protein, Quantitative 0.9 mg/L (0-3.3) NW-Juc-M-Type Natriuretic Peptide 324 pg/mL (0-124) Total Protein 6.8 g/dL (6.4-8.2) 5.5 g/dL (6.4-8.2) Albumin 3.8 g/dL (3.4-5.0) 3.0 g/dL (3.4-5.0) Albumin/Globulin Ratio 1.3 (1.0-1.7) 1.2 (1.0-1.7) Serum Test, Qualitative Negative (NEG) Phosphorus Level 2.8 mg/dL (2.6-4.7) Magnesium Level 2.1 mg/dL (1.8-2.4) Ferritin 27 ng/mL (8-252) Test 06/25/20 04:55 Urine Collection Type Unknown Urine Color Yellow Urine Clarity Clear Urine pH 5.5 (<5.0-8.0) Urine Specific [place] 1.010 (1.000-1.030) Urine Protein Negative mg/dL (NEG-TRACE) Urine Glucose (UA) Negative mg/dL (NEG) Urine Ketones (Stick) Negative mg/dL (NEG) Urine Blood Negative (NEG) Urine Nitrite Negative (NEG) Urine Bilirubin Negative (NEG) Urine Urobilinogen Dipstick 0.2 mg/dL (0.2 mg/dL) Urine Leukocyte Esterase Negative (NEG) Urine RBC 0 /HPF (0-2) Urine WBC Occ /HPF (0-4) Urine Squamous Epithelial Cells Mod /LPF Urine Bacteria Few /HPF (0-FEW) Urine Mucus Mod /LPF Laboratory Tests Test 06/25/20 04:00 06/25/20 04:55 White Blood Count 6.4 x10^3/uL (4.0-11.0) Red Blood Count 4.48 x10^6/uL (3.50-5.40) Hemoglobin 11.0 g/dL (12.0-15.5) Hematocrit 33.3 % (36.0-47.0) Mean Corpuscular Volume 74 fL (79-100) Mean Corpuscular Hemoglobin 25 pg (25-35) Mean Corpuscular Hemoglobin Concent 33 g/dL (31-37) Red Cell Distribution Width 20.8 % (11.5-14.5) Platelet Count 220 x10^3/uL (140-400) Sodium Level 138 mmol/L (136-145) Potassium Level 4.5 mmol/L (3.5-5.1) Chloride Level 106 mmol/L (98-107) Carbon Dioxide Level 29 mmol/L (21-32) Anion Gap 3 (6-14) Blood Urea Nitrogen 10 mg/dL (7-20) Creatinine 0.6 mg/dL (0.6-1.0) Estimated GFR (Cockcroft-Gault) 106.3 BUN/Creatinine Ratio 17 (6-20) Glucose Level 79 mg/dL (70-99) Calcium Level 8.7 mg/dL (8.5-10.1) Magnesium Level 2.1 mg/dL (1.8-2.4) Ferritin 27 ng/mL (8-252) Total Bilirubin 0.3 mg/dL (0.2-1.0) Aspartate Amino Transf (AST/SGOT) 17 U/L (15-37) Alanine Aminotransferase (ALT/SGPT) 25 U/L (14-59) Alkaline Phosphatase 62 U/L (46-116) Total Protein 5.5 g/dL (6.4-8.2) Albumin 3.0 g/dL (3.4-5.0) Albumin/Globulin Ratio 1.2 (1.0-1.7) Urine Collection Type Unknown Urine Color Yellow Urine Clarity Clear Urine pH 5.5 (<5.0-8.0) Urine Specific [place] 1.010 (1.000-1.030) Urine Protein Negative mg/dL (NEG-TRACE) Urine Glucose (UA) Negative mg/dL (NEG) Urine Ketones (Stick) Negative mg/dL (NEG) Urine Blood Negative (NEG) Urine Nitrite Negative (NEG) Urine Bilirubin Negative (NEG) Urine Urobilinogen Dipstick 0.2 mg/dL (0.2 mg/dL) Urine Leukocyte Esterase Negative (NEG) Urine RBC 0 /HPF (0-2) Urine WBC Occ /HPF (0-4) Urine Squamous Epithelial Cells Mod /LPF Urine Bacteria Few /HPF (0-FEW) Urine Mucus Mod /LPF Assessment/Plan Assessment/Plan Assessment: 50y admitted for generalize weakness Recommendation: 1.) PMB discussed pelvic u/s with radiologist. The measurement Endometrium is 12.9 cm in length. Was meant to be an endometrial thickness of 12.9 mm. Informed he pt that an endometrial stripe thicker than 4 mm would require eval of the endometrium with either an office endometrial bx (EMB) or H/S, D&C. Discussed performing the EMB in the office after this hospitalization. 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 Will need a pap and mammogram (both can be done as an outpt). 3.) Menopause symptoms improved over last few months 4.) Covid neg 5.) COPD managed per primary team 6.) Will continue to follow REBECCA BROOKS MD Jun 25, 2020 15:12
--- NOTE | 2020-06-25 16:54 | PDOC ---
[employer] PROGRESS NOTE Date of Service DOS: DATE: 06/25/20 TIME: 16:52 Chief Complaint Chief Complaint Weakness History of Present Illness History of Present Illness Patient states her weakness weakness has improved with potassium replacement. She is working with physical therapy. She is stable to discharge home, with outpatient PHOTO SPECIALIST follow-up. Vitals/I&O Vitals/I&O: Vital Signs Date Time Temp Pulse Resp B/P (MAP) Pulse Ox O2 Delivery O2 Flow Rate FiO2 06/25/20 15:12 97.0 62 22 136/72 (93) 97 Room Air 97.0 06/25/20 08:05 1.0 I & O 06/24/20 06/24/20 06/25/20 15:00 23:00 07:00 Intake Total 760 ml 450 ml 180 ml Output Total 400 ml 900 ml Balance 360 ml 450 ml -720 ml Physical Exam General: Alert, Oriented X3, Cooperative, No acute distress Heart: Regular rate, Normal S1, Normal S2, No murmurs Lungs: Crackles Abdomen: Normal bowel sounds, Soft, No tenderness, No hepatosplenomegaly, No masses Extremities: No clubbing, No cyanosis, No edema, Normal pulses, No tenderness/swelling Skin: No significant lesion Labs Labs: Laboratory Tests Test 06/25/20 04:00 06/25/20 04:55 White Blood Count 6.4 x10^3/uL (4.0-11.0) Red Blood Count 4.48 x10^6/uL (3.50-5.40) Hemoglobin 11.0 g/dL (12.0-15.5) Hematocrit 33.3 % (36.0-47.0) Mean Corpuscular Volume 74 fL (79-100) Mean Corpuscular Hemoglobin 25 pg (25-35) Mean Corpuscular Hemoglobin Concent 33 g/dL (31-37) Red Cell Distribution Width 20.8 % (11.5-14.5) Platelet Count 220 x10^3/uL (140-400) Sodium Level 138 mmol/L (136-145) Potassium Level 4.5 mmol/L (3.5-5.1) Chloride Level 106 mmol/L (98-107) Carbon Dioxide Level 29 mmol/L (21-32) Anion Gap 3 (6-14) Blood Urea Nitrogen 10 mg/dL (7-20) Creatinine 0.6 mg/dL (0.6-1.0) Estimated GFR (Cockcroft-Gault) 106.3 BUN/Creatinine Ratio 17 (6-20) Glucose Level 79 mg/dL (70-99) Calcium Level 8.7 mg/dL (8.5-10.1) Magnesium Level 2.1 mg/dL (1.8-2.4) Ferritin 27 ng/mL (8-252) Total Bilirubin 0.3 mg/dL (0.2-1.0) Aspartate Amino Transf (AST/SGOT) 17 U/L (15-37) Alanine Aminotransferase (ALT/SGPT) 25 U/L (14-59) Alkaline Phosphatase 62 U/L (46-116) Total Protein 5.5 g/dL (6.4-8.2) Albumin 3.0 g/dL (3.4-5.0) Albumin/Globulin Ratio 1.2 (1.0-1.7) Urine Collection Type Unknown Urine Color Yellow Urine Clarity Clear Urine pH 5.5 (<5.0-8.0) Urine Specific [place] 1.010 (1.000-1.030) Urine Protein Negative mg/dL (NEG-TRACE) Urine Glucose (UA) Negative mg/dL (NEG) Urine Ketones (Stick) Negative mg/dL (NEG) Urine Blood Negative (NEG) Urine Nitrite Negative (NEG) Urine Bilirubin Negative (NEG) Urine Urobilinogen Dipstick 0.2 mg/dL (0.2 mg/dL) Urine Leukocyte Esterase Negative (NEG) Urine RBC 0 /HPF (0-2) Urine WBC Occ /HPF (0-4) Urine Squamous Epithelial Cells Mod /LPF Urine Bacteria Few /HPF (0-FEW) Urine Mucus Mod /LPF Assessment and Plan Assessmemt and Plan Problems Medical Problems: (1) Dysfunctional uterine bleeding Status: Acute (2) Hypokalemia Status: Acute (3) Weakness Status: Acute Plan: Symptoms improved with potassium replacement. May follow-up outpatient with INSURANCE VERIFICATION CLERK for endometrial biopsy. Comment Review of Relevant I have reviewed the following items belle (where applicable) has been applied. Medications: Current Medications Medications (Trade) Dose Ordered Sig/Nika Route PRN Reason Start Time Stop Time Status Last Admin Dose Admin Sodium Chloride 1,000 ml @ 100 mls/hr Q10H IV 06/25/20 10:00 06/25/20 10:07 Justifications for Admission Other Justification JENNI BRADFORD MD Jun 25, 2020 16:54
--- NOTE | 2020-06-25 17:01 | PDOC3 ---
Discharge Summary Visit Information Date of Admission: Jun 23, 2020 Date of Discharge: Jun 25, 2020 Final Diagnosis Problems Medical Problems: (1) Dysfunctional uterine bleeding Status: Acute (2) Hypokalemia Status: Acute (3) Weakness Status: Acute Brief Hospital Course Allergies Allergies Coded Allergies Type Severity Reaction Last Updated Verified No Known Drug Allergies 11/07/13 No Vital Signs Vital Signs Date Time Temp Pulse Resp B/P (MAP) Pulse Ox O2 Delivery O2 Flow Rate FiO2 06/25/20 15:12 97.0 62 22 136/72 (93) 97 Room Air 97.0 06/25/20 08:05 1.0 Lab Results Laboratory Tests Test 06/23/20 17:49 06/23/20 17:51 06/24/20 04:30 06/25/20 04:00 Coronavirus (PCR) Not detected (Not Detected) White Blood Count 8.0 x10^3/uL (4.0-11.0) 6.4 x10^3/uL (4.0-11.0) Red Blood Count 5.36 x10^6/uL (3.50-5.40) 4.48 x10^6/uL (3.50-5.40) Hemoglobin 13.1 g/dL (12.0-15.5) 11.0 g/dL (12.0-15.5) Hematocrit 39.8 % (36.0-47.0) 33.3 % (36.0-47.0) Mean Corpuscular Volume 74 fL (79-100) 74 fL (79-100) Mean Corpuscular Hemoglobin 24 pg (25-35) 25 pg (25-35) Mean Corpuscular Hemoglobin Concent 33 g/dL (31-37) 33 g/dL (31-37) Red Cell Distribution Width 20.5 % (11.5-14.5) 20.8 % (11.5-14.5) Platelet Count 272 x10^3/uL (140-400) 220 x10^3/uL (140-400) Neutrophils (%) (Auto) 67 % (31-73) Lymphocytes (%) (Auto) 22 % (24-48) Monocytes (%) (Auto) 9 % (0-9) Eosinophils (%) (Auto) 1 % (0-3) Basophils (%) (Auto) 1 % (0-3) Neutrophils # (Auto) 5.3 x10^3/uL (1.8-7.7) Lymphocytes # (Auto) 1.8 x10^3/uL (1.0-4.8) Monocytes # (Auto) 0.7 x10^3/uL (0.0-1.1) Eosinophils # (Auto) 0.1 x10^3/uL (0.0-0.7) Basophils # (Auto) 0.1 x10^3/uL (0.0-0.2) Platelet Estimate Adequate (ADEQUATE) Hypochromasia Slight Anisocytosis Slight Microcytosis Slight Sodium Level 142 mmol/L (136-145) 141 mmol/L (136-145) 138 mmol/L (136-145) Potassium Level 2.6 mmol/L (3.5-5.1) 4.7 mmol/L (3.5-5.1) 4.5 mmol/L (3.5-5.1) Chloride Level 103 mmol/L (98-107) 109 mmol/L (98-107) 106 mmol/L (98-107) Carbon Dioxide Level 33 mmol/L (21-32) 29 mmol/L (21-32) 29 mmol/L (21-32) Anion Gap 6 (6-14) 3 (6-14) 3 (6-14) Blood Urea Nitrogen 23 mg/dL (7-20) 17 mg/dL (7-20) 10 mg/dL (7-20) Creatinine 0.7 mg/dL (0.6-1.0) 0.6 mg/dL (0.6-1.0) 0.6 mg/dL (0.6-1.0) Estimated GFR (Cockcroft-Gault) 88.9 106.3 106.3 BUN/Creatinine Ratio 33 (6-20) 17 (6-20) Glucose Level 97 mg/dL (70-99) 86 mg/dL (70-99) 79 mg/dL (70-99) Calcium Level 9.2 mg/dL (8.5-10.1) 8.3 mg/dL (8.5-10.1) 8.7 mg/dL (8.5-10.1) Total Bilirubin 0.5 mg/dL (0.2-1.0) 0.3 mg/dL (0.2-1.0) Aspartate Amino Transf (AST/SGOT) 18 U/L (15-37) 17 U/L (15-37) Alanine Aminotransferase (ALT/SGPT) 31 U/L (14-59) 25 U/L (14-59) Alkaline Phosphatase 75 U/L (46-116) 62 U/L (46-116) Lactate Dehydrogenase 164 U/L (81-234) Troponin I Quantitative < 0.017 ng/mL (0.000-0.055) C-Reactive Protein, Quantitative 0.9 mg/L (0-3.3) EW-Ddi-U-Type Natriuretic Peptide 324 pg/mL (0-124) Total Protein 6.8 g/dL (6.4-8.2) 5.5 g/dL (6.4-8.2) Albumin 3.8 g/dL (3.4-5.0) 3.0 g/dL (3.4-5.0) Albumin/Globulin Ratio 1.3 (1.0-1.7) 1.2 (1.0-1.7) Serum Test, Qualitative Negative (NEG) Phosphorus Level 2.8 mg/dL (2.6-4.7) Magnesium Level 2.1 mg/dL (1.8-2.4) Ferritin 27 ng/mL (8-252) Test 06/25/20 04:55 Urine Collection Type Unknown Urine Color Yellow Urine Clarity Clear Urine pH 5.5 (<5.0-8.0) Urine Specific [place] 1.010 (1.000-1.030) Urine Protein Negative mg/dL (NEG-TRACE) Urine Glucose (UA) Negative mg/dL (NEG) Urine Ketones (Stick) Negative mg/dL (NEG) Urine Blood Negative (NEG) Urine Nitrite Negative (NEG) Urine Bilirubin Negative (NEG) Urine Urobilinogen Dipstick 0.2 mg/dL (0.2 mg/dL) Urine Leukocyte Esterase Negative (NEG) Urine RBC 0 /HPF (0-2) Urine WBC Occ /HPF (0-4) Urine Squamous Epithelial Cells Mod /LPF Urine Bacteria Few /HPF (0-FEW) Urine Mucus Mod /LPF Laboratory Tests Test 06/25/20 04:00 06/25/20 04:55 White Blood Count 6.4 x10^3/uL (4.0-11.0) Red Blood Count 4.48 x10^6/uL (3.50-5.40) Hemoglobin 11.0 g/dL (12.0-15.5) Hematocrit 33.3 % (36.0-47.0) Mean Corpuscular Volume 74 fL (79-100) Mean Corpuscular Hemoglobin 25 pg (25-35) Mean Corpuscular Hemoglobin Concent 33 g/dL (31-37) Red Cell Distribution Width 20.8 % (11.5-14.5) Platelet Count 220 x10^3/uL (140-400) Sodium Level 138 mmol/L (136-145) Potassium Level 4.5 mmol/L (3.5-5.1) Chloride Level 106 mmol/L (98-107) Carbon Dioxide Level 29 mmol/L (21-32) Anion Gap 3 (6-14) Blood Urea Nitrogen 10 mg/dL (7-20) Creatinine 0.6 mg/dL (0.6-1.0) Estimated GFR (Cockcroft-Gault) 106.3 BUN/Creatinine Ratio 17 (6-20) Glucose Level 79 mg/dL (70-99) Calcium Level 8.7 mg/dL (8.5-10.1) Magnesium Level 2.1 mg/dL (1.8-2.4) Ferritin 27 ng/mL (8-252) Total Bilirubin 0.3 mg/dL (0.2-1.0) Aspartate Amino Transf (AST/SGOT) 17 U/L (15-37) Alanine Aminotransferase (ALT/SGPT) 25 U/L (14-59) Alkaline Phosphatase 62 U/L (46-116) Total Protein 5.5 g/dL (6.4-8.2) Albumin 3.0 g/dL (3.4-5.0) Albumin/Globulin Ratio 1.2 (1.0-1.7) Urine Collection Type Unknown Urine Color Yellow Urine Clarity Clear Urine pH 5.5 (<5.0-8.0) Urine Specific [place] 1.010 (1.000-1.030) Urine Protein Negative mg/dL (NEG-TRACE) Urine Glucose (UA) Negative mg/dL (NEG) Urine Ketones (Stick) Negative mg/dL (NEG) Urine Blood Negative (NEG) Urine Nitrite Negative (NEG) Urine Bilirubin Negative (NEG) Urine Urobilinogen Dipstick 0.2 mg/dL (0.2 mg/dL) Urine Leukocyte Esterase Negative (NEG) Urine RBC 0 /HPF (0-2) Urine WBC Occ /HPF (0-4) Urine Squamous Epithelial Cells Mod /LPF Urine Bacteria Few /HPF (0-FEW) Urine Mucus Mod /LPF Brief Hospital Course Ms. Espinoza is a 50 old female who presented with hypokalemia. Patient was potassium was replaced, with resolution of her weakness. Consults were placed to MECHANICAL MAINTENANCE TECHNICIAN. She was recommended outpatient follow-up for endometrial biopsy. Patient stable for discharge. Discharge Information Condition at Discharge: Improved Disposition/Orders: D/C to Home Scheduled Albuterol Sulfate (Albuterol Sulfate Conc Neb Soln) 2.5 Mg/0.5 Ml Vial.neb, 1 VIAL NEB Q6HRS, #120 Ref 5 Prescribed by: Kandi Portillo APRN on 06/08/17 1148 Last Action: Converted on 06/23/202247 by LYNETTE LACY MD Famotidine (Pepcid) 20 Mg Tablet, 20 MG PO BID, #20 Prescribed by: REBECCA MATHEWS D.O. on 06/11/20 1314 Last Action: Continued on 06/23/202247 by LYNETTE LACY MD Fluticasone/Salmeterol (Advair 250-50 Diskus) 1 Each Disk.w.dev, 1 PUFF IH BID, #1 Prescribed by: SKYLER POTTER on 09/28/17 1032 Last Action: Converted on 06/23/202247 by LYNETTE LACY MD Lactobacillus Rhamnosus Gg (Culturelle) 1 Each Cap.sprink, 1 CAP PO BID for supplement for 30 Days, #60 Prescribed by: LYNETTE LACY MD on 11/13/19 1523 Last Action: HELD on 06/23/202247 by LYNETTE LACY MD Scheduled PRN Acetaminophen (Acetaminophen) 500 Mg Tablet, 500 MG PO PRN Q6HRS PRN for MILD PAIN / TEMP for 10 Days, #30 Prescribed by: LYNETTE LACY MD on 11/13/19 1523 Albuterol Sulfate (Proair Hfa Inhaler) 8.5 Gm Hfa.aer.ad, 1 PUFF INH PRN Q6HRS PRN for SHORTNESS OF BREATH, #1 Prescribed by: JENIFER BENTON APRN on 11/21/16 1216 Hyoscyamine Sulfate (Levsin-Sl) 0.125 Mg Tab.subl, 0.125 MG SL Q4-6HRS PRN for PAIN, #14 Prescribed by: REBECCA MATHEWS D.O. on 06/11/201313 Last Action: HELD on 06/23/202247 by LYNETTE LACY MD Metoclopramide Hcl (Reglan) 10 Mg Tablet, 1 TAB PO QID PRN for NAUSEA for 5 Days, #20 Ref 0 before food and bedtime Prescribed by: REJI HOFFMAN D.O. on 06/14/20 1320 Last Action: Continued on 06/23/202247 by LYNETTE LACY MD Ondansetron (Ondansetron Odt) 4 Mg Tab.rapdis, 1 TAB PO PRN Q6-8HRS PRN for NAUSEA, #16 Prescribed by: REBECCA MATHEWS D.O. on 06/11/201313 Last Action: HELD on 06/23/202247 by LYNETTE LACY MD Sennosides/Docusate Sodium (Colace 2-in-1 Tablet) 1 Each Tablet, 1 TAB PO QHS PRN for CONSTIPATION, #20 Ref 0 Prescribed by: REBECCA MATHEWS D.O. on 06/11/201313 Last Action: Continued on 06/23/202247 by LYNETTE LACY MD Discontinued Medications Azithromycin (Zithromax) 250 Mg Tablet, 1 PKG PO UD, #6 Prescribed by: REJI HOFFMAN D.O. on 03/07/20 1724 Benzonatate (Benzonatate) 100 Mg Capsule, 100 MG PO [id number] for cough for 14 Days, #60 Prescribed by: LYNETTE LACY MD on 11/13/19 1523 Last Action: Continued on 06/23/202247 by LYNETTE LACY MD Dicyclomine Hcl (Dicyclomine Hcl) 10 Mg Capsule, 1 CAP PO TID, #90 Ref 11 Prescribed by: JOURDAN QUIÑONES D.O. on 05/29/20 0743 Last Action: Continued on 06/23/202247 by LYNETTE LACY MD Doxycycline Hyclate (Doxycycline Hyclate) 100 Mg Tablet, 100 MG PO BID for pneumonia for 10 Days, #20 Prescribed by: LYNETTE LACY MD on 11/13/19 1523 Last Action: HELD on 06/23/202247 by LYNETTE LACY MD Ondansetron (Ondansetron Odt) 4 Mg Tab.rapdis, 1 TAB PO PRN Q6-8HRS for VOMITING, #16 Prescribed by: JOURDAN QUIÑONES D.O. on 05/29/20 0743 Last Action: HELD on 06/23/202247 by LYNETTE LACY MD Prednisone (Prednisone) 50 Mg Tablet, 1 TAB PO DAILY for copd for 7 Days, #7 Prescribed by: LYNETTE LACY MD on 11/13/19 1523 Last Action: HELD on 06/23/202247 by LYNETTE LACY MD Prednisone (Prednisone) 20 Mg Tablet, 2 TAB PO DAILY for 7 Days, #14 Prescribed by: REJI HOFFMAN D.O. on 03/07/20 1724 Last Action: HELD on 06/23/202247 by LYNETTE LACY MD Justicifation of Admission Dx: Justifications for Admission: Justification of Admission Dx: Yes (hypokalemia) JENNI BRADFORD MD Jun 25, 2020 17:01
--- NOTE | 2020-06-25 17:21 | NUR ---
SW following. Spoke with RN and reviewed chart. Pt to discharge home, self-care. Pt on room air, oral medications, COVID negative. No SW needs at discharge.
--- NOTE | 2020-06-25 17:33 | PDOC2 ---
KATELYN ALBARADO LIQUEFIED NATURAL GAS PLANT OPERATOR 06/25/20 1733: CARDIAC CONSULT DATE OF CONSULT Date of Consult DATE: 06/25/20 TIME: 17:20 REASON FOR CONSULT Reason for Consult: Bradycardia, hypotension REFERRING PHYSICIAN Referring Physician: Dr. Mccormack SOURCE Source: Chart review, Patient HISTORY OF PRESENT ILLNESS HISTORY OF PRESENT ILLNESS This is a 50 yo female who presented secondary to dizziness and generalized weakness for the last couple of days. Was hospitalized a couple of weeks ago for abdominal pain. Reports she was unable to eat until the last couple of days. Has been intermittently dizzy. Reports this seems to be worse with turning her head. Was noted to be bradycardiac, which prompted this consult. Is talking with the patient, she turned her head and became dizzy. Was noted with HR at 70 at that time on monitor in the room. She denies any chest pain, palpitations. Feels slightly short of breath. PAST MEDICAL HISTORY Pulmonary: COPD GI: GERD PAST SURGICAL HISTORY Past Surgical History: No pertinent history FAMILY HISTORY Family History: Heart Disease, Hypertension SOCIAL HISTORY Smoke: 1 pack per day ALCOHOL: none Drugs: None CURRENT MEDICATIONS CURRENT MEDICATIONS Current Medications Medications (Trade) Dose Ordered Sig/Nika Route PRN Reason Start Time Stop Time Status Last Admin Dose Admin Sodium Chloride 1,000 ml @ 100 mls/hr Q10H IV 06/25/20 10:00 06/25/20 10:07 ALLERGIES ALLERGIES: Coded Allergies: No Known Drug Allergies (Unverified , 11/07/13) ROS Review of System 14 point ROS conducted with pertinent positives noted above in hPI PHYSICAL EXAM General: Alert, Oriented X3, Cooperative, No acute distress HEENT: Atraumatic, Mucous membr. moist/pink Lungs: Clear to auscultation Heart: Regular rate (SR/SB) Abdomen: Soft Extremities: No edema, Normal pulses Skin: No breakdown, No significant lesion Neuro: Normal speech, Sensation intact Psych/Mental Status: Mental status NL, Mood NL MUSCULOSKELETAL: No joint tenderness VITALS/I&O VITALS/I&O: Vital Signs Date Time Temp Pulse Resp B/P (MAP) Pulse Ox O2 Delivery O2 Flow Rate FiO2 06/25/20 15:12 97.0 62 22 136/72 (93) 97 Room Air 97.0 06/25/20 08:05 1.0 I & O 06/24/20 06/24/20 06/25/20 15:00 23:00 07:00 Intake Total 760 ml 450 ml 180 ml Output Total 400 ml 900 ml Balance 360 ml 450 ml -720 ml LABS Lab: Laboratory Tests Test 06/25/20 04:00 06/25/20 04:55 White Blood Count 6.4 x10^3/uL (4.0-11.0) Red Blood Count 4.48 x10^6/uL (3.50-5.40) Hemoglobin 11.0 g/dL (12.0-15.5) L Hematocrit 33.3 % (36.0-47.0) L Mean Corpuscular Volume 74 fL (79-100) L Mean Corpuscular Hemoglobin 25 pg (25-35) Mean Corpuscular Hemoglobin Concent 33 g/dL (31-37) Red Cell Distribution Width 20.8 % (11.5-14.5) H Platelet Count 220 x10^3/uL (140-400) Sodium Level 138 mmol/L (136-145) Potassium Level 4.5 mmol/L (3.5-5.1) Chloride Level 106 mmol/L (98-107) Carbon Dioxide Level 29 mmol/L (21-32) Anion Gap 3 (6-14) L Blood Urea Nitrogen 10 mg/dL (7-20) Creatinine 0.6 mg/dL (0.6-1.0) Estimated GFR (Cockcroft-Gault) 106.3 BUN/Creatinine Ratio 17 (6-20) Glucose Level 79 mg/dL (70-99) Calcium Level 8.7 mg/dL (8.5-10.1) Magnesium Level 2.1 mg/dL (1.8-2.4) Ferritin 27 ng/mL (8-252) Total Bilirubin 0.3 mg/dL (0.2-1.0) Aspartate Amino Transferase (AST) 17 U/L (15-37) Alanine Aminotransferase (ALT) 25 U/L (14-59) Alkaline Phosphatase 62 U/L (46-116) Total Protein 5.5 g/dL (6.4-8.2) L Albumin 3.0 g/dL (3.4-5.0) L Albumin/Globulin Ratio 1.2 (1.0-1.7) Urine Collection Type Unknown Urine Color Yellow Urine Clarity Clear Urine pH 5.5 (<5.0-8.0) Urine Specific [place] 1.010 (1.000-1.030) Urine Protein Negative mg/dL (NEG-TRACE) Urine Glucose (UA) Negative mg/dL (NEG) Urine Ketones (Stick) Negative mg/dL (NEG) Urine Blood Negative (NEG) Urine Nitrite Negative (NEG) Urine Bilirubin Negative (NEG) Urine Urobilinogen Dipstick 0.2 mg/dL (0.2 mg/dL) Urine Leukocyte Esterase Negative (NEG) Urine RBC 0 /HPF (0-2) Urine WBC Occ /HPF (0-4) Urine Squamous Epithelial Cells Mod /LPF Urine Bacteria Few /HPF (0-FEW) Urine Mucus Mod /LPF Laboratory Tests 06/25/20 04:00 Laboratory Tests 06/25/20 04:00 ASSESSMENT/PLAN ASSESSMENT/PLAN 1. Dizziness, weakness; improved. Continues to have dizziness, which seems to be worse with turning head. 2. Sinus bradycardia; lowest 43. No pauses. Mean 60. Doubt this is contributing to dizziness as her HR was 70 while experiencing dizziness. 3. Severe hypokalemia; replaced 4. Nausea/vomiting/abdominal pain with poor PO intake. as per PCP 5. Tobaccoism; discussed/encouraged cessation 6. Dysfunctional uterine bleeding; OBGYN following Recommendations Avoid AV pasha blocking agents Baseline echo to assess LV systolic functions; this can be arranged on an outpatient basis Lipids, TSH Follow up in our office with Dr. Quiros Supportive care BEATA QUIROS MD 06/25/201953: CARDIAC CONSULT ASSESSMENT/PLAN ASSESSMENT/PLAN Patient seen and examined. Agree with VICE PRESIDENT REGULATORY's assessment and plan. Dizziness appears to be secondary to BPV Sinus bradycardia probably vasovagal Plan for outpatient echo and event monitor Thank you for your consultation KATELYN ALBARADO APRN Jun 25, 2020 17:33 BEATA QUIROS MD Jun 25, 2020 19:54
--- NOTE | 2020-06-25 18:07 | NUR ---
Discharge: Teaching verbal and written. Reviewed medications, follow-up, ECHO, dizziness, event monitor, bradycardia, hypokalemia, ect. Patient verbalized understanding. All belongings with patient. IV removed without complications, catheter tip in tact. Waiting on patients ride.
[2020-06-25 18:20] LABS: CHOLESTEROL/HDL RATIO 2.6
--- NOTE | 2020-06-25 18:37 | NUR ---
Patients daughter bought a walker for $20 [employer]. Receipt attached to walker. Le nursing coin machine supervisor and Shadow, BRANDON assisted patient and patients daughter
== END 2020-06-25 18:30 | disposition home or self-care (01) | DRG 760 ==
LOC: ER 16:15 → 6 SOUTH 22:05 → OBSVTOIN 22:47
PROVIDERS: ADMIT Family Medicine; ATTEND Family Medicine
DX: N93.8 Other specified abnormal uterine and vaginal bleeding (principal); E87.1 Hypo-osmolality and hyponatremia; E87.6 Hypokalemia; F17.210 Nicotine dependence, cigarettes, uncomplicated; I10 Essential (primary) hypertension; J43.9 Emphysema, unspecified; N28.1 Cyst of kidney, acquired; N95.1 Menopausal and female climacteric states; Z79.51 Long term (current) use of inhaled steroids; Z79.899 Other long term (current) drug therapy; Z82.49 Family history of ischemic heart disease and other diseases of the circulatory system; Z82.5 Family history of asthma and other chronic lower respiratory diseases; Z90.49 Acquired absence of other specified parts of digestive tract; K21.9 Gastro-esophageal reflux disease without esophagitis; Z20.828 Contact with and (suspected) exposure to other viral communicable diseases
CPT/HCPCS: 36415; 71045; 76856; 80048; 80053; 80061; 81001; 82088; 82728; 83615; 83735; 83880; 84100; 84443; 84484; 84703; 85025; 85027; 86140; 93005; 96361; 96365; 96366; 99285; G0379; J1650; J2405; J3475; J3480; J7030; 97116-GP; G0378; U0003-CS

== ENCOUNTER → 2020-07-25 | Outpatient (CLI) | payer OTHER ==
[2020-06-25 15:12] VITALS: BP 136/72
[~2020-07-25] MED LIST changes: +REGADENOSON 0.4 MG/5 ML DISP.SYRIN. IV ONE
--- NOTE | 2020-07-25 11:49 | RAD ---
MR#: [id number] Date of Study: 07/25/2020 Ordering Physician: BEATA BETTS, Referring Physician: CHAD MENDOZA Tech: MINAL Carrillo ARRT (R) (N) APPROVED REPORT Test Type: Pharmacological Stress Nurse/Tech: Vikki Mcmahan R.N. Test Indications: low heart rate, chest pain Cardiac History: Family history Medications: See Electronic Medical Record Medical History: See Electronic Medical Record Resting ECG: s bernabe Resting Heart Rate: 52 bpm Resting Blood Pressure: 97/53mmHg Pretest Chest Pain: No chest pain Nurse/Tech Notes S1S2, coarse breath sounds Consent: The procedure was explained to the patient in lay terms. Informed consent was witnessed. Monty eout was entered into [employer]. History and Stress Test performed by Vikki Mcmahan R.N. Pharm. Details Pharmacologic stress testing was performed using 0.4mg per 5ml of regadenoson given intravenously ove r 7-10 seconds. Stress Symptoms Dyspnea Chest pain typical of angina occurred (Severity 10 on pain scale , 2 min. after inj. min duration). POST EXERCISE Reason for Termination: Infusion complete Target HR: 145 Max HR: 114 bpm Max Blood Pressure: 100/60mmHg Blood Pressure response to exercise: Normal blood pressure response during stress. Chest Pain: Yes. rated at 10 "pressure" lasted 2 min. Arrhythmia: No. ST Change: No. INTERPRETATION Stress EKG Conclusion: The resting EKG shows a sinus rhythm with mild nonspecific ST T wave changes. The stress EKG shows no significant changes from baseline. No EKG evidence of stress-induced ischemia. Imaging Protocol IMAGE PROTOCOL: Rest Tc-99m/stress Tc-99m 1 day Rest: Stress: Viability: Radiopharm.Tc99m EziaaoqonLw37x Sestamibi Pysr34uNo 31mCi Img Date 07/25/2020 07/25/2020 Inj-Img Akve29uvf. 60min. Rest Admin Site:IV - Left AntecubitalAdministrator:MINAL Carrillo ARRT (R)(N) Stress Admin Site: IV - Left AntecubitalAdministrator: Ronald Cerda, RT (R)(N) STRESS DATA End Diast. Vol.94.0mlAv. Heart Rate61.0bpm End Syst. Vol.21.0mlCO Index BSA0.0L/min Myocardial Cieg458.0gEject. Etvdjndm24.0% Stress Rates Pk. Fill Rate2.89EDV/secLVtime Pk. Fill 156.82msec Pk. Empty Rate3.18ESV/secLVtime Pk. Fgkus244.74msec 10/14 Pk. Fill1.55EDV/sec Stress Scores Regional WT0.00Summed WT0.00 Regional WM0.00Summed WM0.00 LV Perfusion The stress scans show no significant defects. The rest scans show no significant defects. Nuclear imaging shows no reversible ischemia or infarct. Wall Motion Left ventricular systolic function is normal with no regional wall motion abnormalities and ejection fraction of greater than 70% and a TID of 1.15. LV Perf. Quant 17 Seg. SSS0.00 17 Seg. SRS1.00 17 Seg. SDS0.00 Stress Defect Extent (% LAD)0.00Rest Defect Extent (% LAD)0.00Rev. Defect Extent (% LAD)0.00 Stress Defect Extent (% LCX) 0.00Rest Defect Extent (% LCX)0.00Rev. Defect Extent (% LCX)0.00 Stress Defect Extent (% RCA)0.00Rest Defect Extent (% RCA)0.00Rev. Defect Extent (% RCA)0.00 Stress Defect Extent (% IVANA)0.00Rest Defect Extent (% IVANA)0.00Rev. Defect Extent (% IVANA)0.00 Conclusion 1. No EKG evidence of stress-induced ischemia. 2. Episode of chest pain with infusion. 3. Nuclear imaging shows no reversible ischemia or infarct. 4. Normal left ventricular systolic function with no regional wall motion abnormalities, an ejection fraction of greater than 72% and a TID of 1.15. 5. Moderately low to low risk Lexiscan nuclear stress test. Signed by : Rob Cruz MD Electronically Approved : 07/25/2020 11:49:28
--- NOTE | 2020-07-25 12:17 | CARD ---
MR#: [id number] Date of Study: 07/25/2020 Ordering Physician: BEATA BETTS, Referring Physician: BEATA BETTS Tech: Antonietta Rivas RDCS APPROVED REPORT EXAM: Two-dimensional and M-mode echocardiogram with Doppler and color Doppler. Other Information Quality : Fair Rhythm : Bradycardia INDICATION Dyspnea Rib and Lung Interference RISK FACTORS Smoking 2D DIMENSIONS RVDd2.0 (2.9-3.5cm)Left Atrium(2D)2.4 (1.6-4.0cm) IVSd0.6 (0.7-1.1cm)Aortic Root(2D)2.5 (2.0-3.7cm) LVDd4.5 (3.9-5.9cm)LVOT Diameter2.0 (1.8-2.4cm) PWd0.8 (0.7-1.1cm)LVDs3.2 (2.5-4.0cm) FS (%) 28.3 %SV50.8 ml Aortic Valve AoV Peak Palmer.126.1cm/sAoV VTI26.6cm AO Peak GR.6.4mmHgLVOT Peak Palmer.104.7cm/s AO Mean GR.3mmHgAVA (VMAX)2.74cm2 NARA (VTI)3.23cm2 Mitral Valve MV E Aucspfrj928.1cm/sMV DECEL HUSY393qp MV A Fnbglzvd74.0cm/sE/A Ratio1.7 Tricuspid Valve TR P. Utmriwqd942rx/sRAP UOIOWMCB4yjZt TR Peak Gr.23cfMgQMBE33xlSy Pulmonary Vein S1 Xuyfmlsu36.7cm/sD2 Dxzephho10.0cm/s LEFT VENTRICLE The left ventricle is normal size. There is normal left ventricular wall thickness. Left ventricle sy stolic function is low normal. The Ejection Fraction is estimated at 50%. There is normal LV segmenta l wall motion. The left ventricular diastolic function and filling is normal for age. RIGHT VENTRICLE The right ventricle is normal size. The right ventricular systolic function is normal. ATRIA The left atrium size is normal. The right atrium size is normal. The interatrial septum is intact wit h no evidence for an atrial septal defect or patent foramen ovale as noted on 2-D or Doppler imaging. AORTIC VALVE The aortic valve is not well visualized. Doppler and Color Flow revealed no significant aortic regurg itation. There is no significant aortic valvular stenosis. MITRAL VALVE The mitral valve is calcified but opens well. There is no evidence of mitral valve prolapse. There is no mitral valve stenosis. Doppler and Color-flow revealed trace mitral regurgitation. TRICUSPID VALVE The tricuspid valve is normal in structure and function. Doppler and Color Flow revealed trace tricus pid regurgitation. The PA pressure was estimated at 22 mmHg. There is no tricuspid valve stenosis. PULMONIC VALVE The pulmonic valve is not well visualized. Doppler and Color Flow revealed no pulmonic valvular regur gitation. There is no pulmonic valvular stenosis. GREAT VESSELS The aortic root is normal in size. The ascending aorta is not well seen. The IVC is normal in size an d collapses <50% with inspiration. PERICARDIAL EFFUSION There is no evidence of significant pericardial effusion. Critical Notification Critical Value: No <Conclusion> The left ventricle is normal size. Left ventricle systolic function is low normal. The Ejection Fraction is estimated at 50%. There is normal LV segmental wall motion. Doppler and Color Flow revealed no significant aortic regurgitation. There is no significant aortic valvular stenosis. Doppler and Color-flow revealed trace mitral regurgitation. Doppler and Color Flow revealed trace tricuspid regurgitation. The PA pressure was estimated at 22 mmHg. Signed by : Rob Cruz MD Electronically Approved : 07/25/2020 12:16:59
== END ==
LOC: NM 07:40
PROVIDERS: ATTEND Internal Medicine Cardiovascular Disease
DX: I34.0 Nonrheumatic mitral (valve) insufficiency (principal)
CPT/HCPCS: 78452; 93017; 93306; A9500; J2785

== ENCOUNTER 2020-12-19 07:09 | Observation (INO) | payer OTHER ==
[~2020-12-19] VITALS: Ht 162.6 cm; Wt 62.4 kg
[~2020-12-19 07:09] MED LIST changes: -REGADENOSON 0.4 MG/5 ML DISP.SYRIN. IV ONE
--- NOTE | 2020-12-19 07:49 | PHYS DOC ---
Past Medical History Past Medical History: Asthma, Bronchitis, COPD, GERD, Pneumonia, Other Additional Past Medical Histor: sciatica Past Surgical History: Cholecystectomy, Tubal ligation Smoking Status: Current Every Day Smoker Alcohol Use: Rarely Drug Use: None General Adult EDM: Chief Complaint: ABDOMINAL PAIN HPI: HPI: 50-year-old female presenting the emergency department today with abdominal pain. Her abdominal pain is throughout the entire abdomen without localization. It is a cramping aching nonradiating moderate pain that comes and goes. She has had some loose stools with it. She denies blood in her stools. She denies chest pain or shortness of breath. She has had some nausea associated with it. Review of systems is negative for shortness of breath chest pain fevers chills o r rash. All other review of systems negative. ED course: 50-year-old female presenting with abdominal pain. She has had a few episodes of cough recently so we placed her as a PUI. On arrival the patient was afebrile. She is breathing comfortably in the examination room. Labs show a mild nonspecific leukocytosis of 12.7. Chemistry shows a BUN of 27. Lactic acid within normal limits. Trope within normal limits. D-dimer normal. Urine analysis shows an increase of specific gravity. Negative nitrates. Negative leuk esterase. No bacteria. Chest x-ray unremarkable. CT abdomen pelvis shows colitis. We will give the patient IV Cipro and Flagyl and IV fluids. On reexamination the patient's pain persists so we will admit her for pain control and antibiotics. I spoke with the hospitalist who accepts patient for admission. Heart Score: C/O Chest Pain: No Risk Factors: Risk Factors: DM, Current or recent (<one month) smoker, HTN, HLP, family histo ry of CAD, obesity. Risk Scores: Score 0 - 3: 2.5% MACE over next 6 weeks - Discharge Home Score 4 - 6: 20.3% MACE over next 6 weeks - Admit for Clinical Observation Score 7 - 10: 72.7% MACE over next 6 weeks - Early Invasive Strategies Allergies: Allergies: Allergies Coded Allergies Type Severity Reaction Last Updated Verified No Known Drug Allergies 11/07/13 No Physical Exam: PE: Constitutional: Well developed, well nourished, no acute distress, non-toxic appearance. [] HENT: Normocephalic, atraumatic, bilateral external ears normal, oropharynx moist, no oral exudates, nose normal. [] Eyes: PERRLA, EOMI, conjunctiva normal, no discharge. [] Neck: Normal range of motion, no tenderness, supple, no stridor. [] Cardiovascular:Heart rate regular rhythm, no murmur [] Lungs & Thorax: Bilateral breath sounds clear to auscultation [] Abdomen: Bowel sounds normal, soft, ttp generally without a focus, no masses, no pulsatile masses. [] No rebound tenderness or guarding. Skin: Warm, dry, no erythema, no rash. [] Back: No tenderness, no CVA tenderness. [] Extremities: No tenderness, no cyanosis, no clubbing, ROM intact, no edema. [] Neurologic: Alert and oriented X 3, normal motor function, normal sensory function, no focal deficits noted. [] Psychologic: Affect normal, judgement normal, mood normal. [] EKG: EKG: [] Radiology/Procedures: Radiology/Procedures: [] Course & Med Decision Making: Course & Med Decision Making Pertinent Labs and Imaging studies reviewed. (See chart for details) [] Dragon Disclaimer: Dragon Disclaimer: This electronic medical record was generated, in whole or in part, using a voice recognition dictation system. Departure Departure Impression: Primary Impression: Abdominal pain Disposition: ADMITTED INPT THIS HOSP Condition: STABLE Referrals: CHARLEEN ARBOLEDA MD (PCP) VICTORINA BALDWIN MD Dec 19, 2020 07:48
[2020-12-19 08:07] LABS: BASO % 0 % (0-3); EOS # 0.1 x10^3/uL (0.0-0.7); EOS % 0 % (0-3); HEMOGLOBIN 12.9 g/dL (12.0-15.5); LYMPH % 8 % (24-48); MEAN CORPUSCULAR HEMOGLOBIN 23 pg (25-35); MEAN CORPUSCULAR HGB CONC 32 g/dL (31-37); MEAN CORPUSCULAR VOLUME 71 fL (79-100); MONO # 0.2 x10^3/uL (0.0-1.1); MONO % 2 % (0-9); NEUT # 11.4 x10^3/uL (1.8-7.7); NEUT % 90 % (31-73); PLATELET COUNT 334 x10^3/uL (140-400); RED BLOOD COUNT 5.63 x10^6/uL (3.50-5.40); WHITE BLOOD COUNT 12.7 x10^3/uL (4.0-11.0)
--- NOTE | 2020-12-19 08:07 | RAD ---
EXAM: XR CHEST 1V 12/19/2020 7:44 AM CLINICAL INDICATION: Cough COMPARISON: Chest radiograph 06/23/2020 TECHNIQUE: AP upright view the chest FINDINGS: The heart and mediastinum are normal. Lungs are well-expanded. No consolidation, pleural effusion, or pneumothorax. Pulmonary vascularity is normal. The thoracic skeleton is intact. IMPRESSION: No acute cardiopulmonary abnormality. Electronically signed by: Myra Dial MD (12/19/2020 8:05 AM) [id number]
[2020-12-19 08:16] LABS: CALCIUM 9.2 mg/dL (8.5-10.1); CREATININE 0.7 mg/dL (0.6-1.0); GFR 88.9; POTASSIUM 3.5 mmol/L (3.5-5.1)
[2020-12-19 08:21] LABS: PREG TEST PT QUAL NEGATIVE (NEG)
[2020-12-19 08:22] LABS: ALBUMIN/GLOBULIN RATIO 1.2 (1.0-1.7); TOTAL BILIRUBIN 0.5 mg/dL (0.2-1.0); TOTAL PROTEIN 7.4 g/dL (6.4-8.2)
[2020-12-19] MEDS ORDERED: CONTRAST GIVEN. MC PRN (08:45)
[2020-12-19] MEDS ORDERED: IOHEXOL 300 MG/ML 100ML VIAL. IV ONE (08:45)
--- NOTE | 2020-12-19 09:19 | RAD ---
Exam: CT abdomen/pelvis with intravenous contrast Indication: Abdominal pain Comparison: CT abdomen pelvis 06/11/2020 Technique: Helical CT imaging performed of the abdomen and pelvis after the intravenous administratio n of 75 mL Omnipaque 300 contrast. Sagittal and coronal reformats were obtained. One or more of the following individualized dose reduction techniques were utilized for this examinat ion: 1. Automated exposure control 2. Adjustment of the mA and/or kV according to patient size 3. Use of iterative reconstruction technique. Findings: Lower chest: Lung bases are clear. The heart is normal in size. Liver: Liver is mildly enlarged measuring 19 cm craniocaudally, unchanged. No focal liver lesion. Gallbladder/Biliary Tree: The gallbladder is not visualized. Bile ducts are normal. Pancreas: Normal. Spleen: Normal. Adrenal Glands: Normal. Kidneys/Ureters/Bladder: Kidneys are normal in size and enhance symmetrically. No hydronephrosis. The re is a 1.3 cm minimally complicated cyst in the superior right kidney, unchanged in size from 2014. Ureters and bladder are normal. Reproductive Organs: Uterus is anteverted. There is no adnexal mass. Stomach, small bowel, and colon: The stomach, and small bowel are normal. There is possible mild diff use colonic wall thickening, although the colon is incompletely distended, limiting evaluation. The a ppendix is not definitely visualized but there is no inflammation in the right lower quadrant. Vasculature: No aortic aneurysm. Lymph Nodes: No lymphadenopathy. Peritoneum and retroperitoneum: No free fluid or free air. Bones: No acute osseous abnormality. Impression: Possible mild diffuse colonic wall thickening, although this appearance may be due to inc omplete distention of the colon. Correlate for colitis. Electronically signed by: Myra Dial MD (12/19/2020 9:16 AM) [id number]
[2020-12-19 09:25] LABS: % BANDS 3 % (0-9); % LYMPHS 11 % (24-48); % MONOS 1 % (0-10); % SEGS 85 % (35-66); PLT ESTIMATE ADEQUATE (ADEQUATE)
[2020-12-19] MEDS ORDERED: IV NORMAL SALINE 1000ML BAG 1,000 ML IV ONE (09:30)
[2020-12-19] MEDS ORDERED: MORPHINE SULFATE 2 MG/ML VIAL. IV ONE (09:30)
[2020-12-19] MEDS ORDERED: ONDANSETRON PF 4 MG/2 ML VIAL. ONE (09:37)
[2020-12-19] MEDS ORDERED: ONDANSETRON PF 4 MG/2 ML VIAL. IV ONE (09:45)
[2020-12-19] MEDS ORDERED: CIPROFLOXACIN 400MG PREMIX 200 ML IV ONE (09:45)
[2020-12-19 09:52] LABS: AMPHETAMINE/METHAMPHETAMINE NEG (NEG); BARBITURATES NEG (NEG); BENZODIAZEPINES NEG (NEG); CANNABINOIDS NEG (NEG); COCAINE NEG (NEG); METHADONE NEG (NEG); OPIATES NEG (NEG); PHENCYCLIDINE NEG (NEG)
[2020-12-19 10:02] LABS: BACTERIA,URINE 0 /HPF (0-FEW); BILIRUBIN,URINE NEGATIVE (NEG); CLARITY,URINE CLEAR; COLOR,URINE YELLOW; NITRITE,URINE NEGATIVE (NEG); PROTEIN,URINE 30 mg/dL (NEG-TRACE); RBC,URINE 0 /HPF (0-2); UROBILINOGEN,URINE 0.2 mg/dL (0.2 mg/dL); WBC,URINE 0 /HPF (0-4)
--- NOTE | 2020-12-19 10:48 | PDOC2 ---
GI CONSULT Date of Service: DATE: 12/19/20 TIME: 10:34 Reason For Consult: abd pain HPI: HPI: 50 y/o female seen in ER. History difficult to obtain - she is anxious and uncomfortable, constantly shifting positions in bed, saying "please I can't do this no more! You have to give me something!" Has abdominal pain - can't specify location. Might have started yesterday or today or a week ago. Not sure if constant or intermittent. Might have had two loose stools, also had bilious emesis in ER. Denies bleeding. H/o GERD - untreated. No dysphagia or constipation. Before this appetite was "so-so." I asked about weight loss or weight gain - "both." No previous EGD or colonoscopy. S/p cholecystectomy for stones. Denies liver and PUD history. Chart lists "pancreatitis" - she says "please no more questions!" Has had 6 CTs A/P for pain since 2016. Recent cardiology eval - normal echo, low-moderate risk MPI. Also recently saw HAND CANDLE DIPPER for AUB/thickened endometrium - recommendation for outpt follow-up which she did not pursue. Iron deficient in 10/2019. I asked about use of pain meds at home - no answer. PMH: PMH: per chart: COPD cholecystectomy, salpingectomy (ectopic ), tubal ligation FH: Family History: Other (won't answer) Social History: Smoke: 1 pack per day ALCOHOL: rare Drugs: None ROS: GEN: +sweats HEENT: Denies blurred vision, sore throat CV: Denies chest pain RESP: +cough GI: Per HPI : Denies hematuria, dysuria ENDO: +weight changes NEURO: Denies confusion, dizziness MSK: Denies weakness, joint pain/swelling SKIN: Denies jaundice, pruritus Vitals: Vitals: Vital Signs Date Time Temp Pulse Resp B/P (MAP) Pulse Ox O2 Delivery O2 Flow Rate FiO2 12/19/20 09:36 80 20 148/82 (104) 95 Room Air 12/19/20 08:00 97.5 97.5 Labs: Labs: Laboratory Tests Test 12/19/20 07:59 12/19/20 09:25 White Blood Count 12.7 x10^3/uL (4.0-11.0) Red Blood Count 5.63 x10^6/uL (3.50-5.40) Hemoglobin 12.9 g/dL (12.0-15.5) Hematocrit 40.0 % (36.0-47.0) Mean Corpuscular Volume 71 fL (79-100) Mean Corpuscular Hemoglobin 23 pg (25-35) Mean Corpuscular Hemoglobin Concent 32 g/dL (31-37) Red Cell Distribution Width 17.0 % (11.5-14.5) Platelet Count 334 x10^3/uL (140-400) Neutrophils (%) (Auto) 90 % (31-73) Lymphocytes (%) (Auto) 8 % (24-48) Monocytes (%) (Auto) 2 % (0-9) Eosinophils (%) (Auto) 0 % (0-3) Basophils (%) (Auto) 0 % (0-3) Neutrophils # (Auto) 11.4 x10^3/uL (1.8-7.7) Lymphocytes # (Auto) 1.0 x10^3/uL (1.0-4.8) Monocytes # (Auto) 0.2 x10^3/uL (0.0-1.1) Eosinophils # (Auto) 0.1 x10^3/uL (0.0-0.7) Basophils # (Auto) 0.0 x10^3/uL (0.0-0.2) Segmented Neutrophils % 85 % (35-66) Band Neutrophils % 3 % (0-9) Lymphocytes % 11 % (24-48) Monocytes % 1 % (0-10) Platelet Estimate Adequate (ADEQUATE) Sodium Level 136 mmol/L (136-145) Potassium Level 3.5 mmol/L (3.5-5.1) Chloride Level 100 mmol/L (98-107) Carbon Dioxide Level 29 mmol/L (21-32) Anion Gap 7 (6-14) Blood Urea Nitrogen 27 mg/dL (7-20) Creatinine 0.7 mg/dL (0.6-1.0) Estimated GFR (Cockcroft-Gault) 88.9 BUN/Creatinine Ratio 39 (6-20) Glucose Level 158 mg/dL (70-99) Calcium Level 9.2 mg/dL (8.5-10.1) Total Bilirubin 0.5 mg/dL (0.2-1.0) Aspartate Amino Transf (AST/SGOT) 16 U/L (15-37) Alanine Aminotransferase (ALT/SGPT) 23 U/L (14-59) Alkaline Phosphatase 83 U/L (46-116) Troponin I Quantitative < 0.017 ng/mL (0.000-0.055) Total Protein 7.4 g/dL (6.4-8.2) Albumin 4.0 g/dL (3.4-5.0) Albumin/Globulin Ratio 1.2 (1.0-1.7) Lipase 95 U/L (73-393) Serum Test, Qualitative Negative (NEG) Urine Collection Type Clean catch Urine Color Yellow Urine Clarity Clear Urine pH 6.0 (<5.0-8.0) Urine Specific [place] >=1.030 (1.000-1.030) Urine Protein 30 mg/dL (NEG-TRACE) Urine Glucose (UA) Negative mg/dL (NEG) Urine Ketones (Stick) Trace mg/dL (NEG) Urine Blood Negative (NEG) Urine Nitrite Negative (NEG) Urine Bilirubin Negative (NEG) Urine Urobilinogen Dipstick 0.2 mg/dL (0.2 mg/dL) Urine Leukocyte Esterase Negative (NEG) Urine RBC 0 /HPF (0-2) Urine WBC 0 /HPF (0-4) Urine Squamous Epithelial Cells Many /LPF Urine Bacteria 0 /HPF (0-FEW) Urine Mucus Marked /LPF Urine Opiates Screen Neg (NEG) Urine Methadone Screen Neg (NEG) Urine Barbiturates Neg (NEG) Urine Phencyclidine Screen Neg (NEG) Urine Amphetamine/Methamphetamine Neg (NEG) Urine Benzodiazepines Screen Neg (NEG) Urine Cocaine Screen Neg (NEG) Urine Cannabinoids Screen Neg (NEG) Urine Ethyl Alcohol Neg (NEG) Allergies: Coded Allergies: No Known Drug Allergies (Unverified , 11/07/13) Medications: Current Medications Medications (Trade) Dose Ordered Sig/Nika Route PRN Reason Start Time Stop Time Status Last Admin Dose Admin Iohexol (Omnipaque 300 Mg/ml) 75 ml 1X ONCE IV 12/19/20 08:45 12/19/20 08:46 DC 12/19/20 08:57 Morphine Sulfate (Morphine Sulfate) 2 mg 1X ONCE IV 12/19/20 09:30 12/19/20 09:31 DC 12/19/20 09:31 Sodium Chloride 1,000 ml @ 1,000 mls/hr 1X ONCE IV 12/19/20 09:30 12/19/20 10:29 12/19/20 09:31 Ondansetron HCl (Zofran) 4 mg 1X ONCE IV 12/19/20 09:45 12/19/20 09:46 DC 12/19/20 09:38 Imaging: Imaging: CXR IMPRESSION: No acute cardiopulmonary abnormality. CT A/P Impression: Possible mild diffuse colonic wall thickening, although this appearance may be due to incomplete distention of the colon. Correlate for colitis. PE: GEN: mild distress HEENT: Atraumatic, poor dentition LUNGS: able to listen posteriorly on right - clear, frequent coughing during exam HEART: RRR ABD: non-distended - didn't allow me to listen or palpate EXTREMITY: No edema SKIN: No rashes, no jaundice NEURO/PSYCH: A & O 3 A/P: A/P: Abd pain, vomiting, loose stools, cough Leukocytosis ?abnormal CT - possible mild diffuse colonic wall thickening possibly due to i ncomplete distention or "colitis," non-vis appendix but no RLQ inflammation H/o iron deficiency H/o GERD CRC screen - none S/p cholecystectomy ?h/o pancreatitis - unclear - lipase normal now R/o COVID -- Difficult to obtain good history - does seem to have recurrent pain issues w/ past ER visits and CTs. Started on IV atbx per ER. IVF per Dr. Avila. 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 Would benefit from EGD and colonoscopy - can pursue as outpt pending clinical course. Additional inpt recs per Dr. Mullins. CLARISSA TURNER Dec 19, 2020 10:48
[2020-12-19 11:45] VITALS: BP 136/76
--- NOTE | 2020-12-19 12:39 | HP ---
ADMIT DATE: 12/19/2020 CHIEF COMPLAINT: Abdominal pain. HISTORY OF PRESENT ILLNESS: The patient is a pleasant 50-year-old female well known to our service. She seems to have recurrent colitis. Once again, she presents with abdominal pain, is crampy, rated at 10/10. She has associated nausea. She increased her home meds, but that did not work, described as very irritating. I discussed the case with ER physician. We are going to admit the patient and consult GI. We placed her on IV Levaquin and Cipro. PAST MEDICAL HISTORY: Colitis, asthma, bronchitis, COPD, GERD, pneumonia, cholecystectomy, tubal ligation, tobacco abuse, sciatica. ALLERGIES: None. FAMILY HISTORY: Diabetes. SOCIAL HISTORY: She smokes. No drinking or drugs. MEDICATIONS: Reviewed, please refer to the MRAD. REVIEW OF SYSTEMS: GENERAL: No history of weight change, weakness or fevers. SKIN: No bruising, hair changes or rashes. EYES: No blurred, double or loss of vision. NOSE AND THROAT: No history of nosebleeds, hoarseness or sore throat. HEART: No history of palpitations, chest pain or shortness of breath on exertion. LUNGS: Denies cough, hemoptysis, wheezing or shortness of breath. GASTROINTESTINAL: She complains of abdominal pain, nausea, vomiting. GENITOURINARY: No history of frequency, urgency, hesitancy or nocturia. NEUROLOGIC: Denies history of numbness, tingling, tremor or weakness. PSYCHIATRIC: No history of panic, anxiety or depression. ENDOCRINE: No history of heat or cold intolerance, polyuria or polydipsia. EXTREMITIES: Denies muscle weakness, joint pain, pain on walking or stiffness. PHYSICAL EXAMINATION: VITALS: Within normal limits and are stable. GENERAL: No apparent distress. Alert and oriented. HEENT: Normal cephalic atraumatic, external auditory canals are patent EYES: Extraocular muscles are intact, pupils are equally round and reactive to light and accommodation MUSCULOSKELETAL: Well developed, well nourished, good range of motion ENDOCRINE: No thyromegaly was palpated LYMPHATICS: No cervical chain or axillary nodes were noted HEMATOPOIETIC: No bruising NECK: Supple, no JVD, no thyromegaly was noted. LUNGS: Clear to auscultation in all lung narayan without rhonchi or wheezing. HEART: RRR, S1, S2 present. Peripheral pulses intact, no obvious murmurs were noted. ABDOMEN: She has decreased bowel sounds with tenderness diffusely. EXTREMITIES: She has trace edema. NEUROLOGIC: Normal speech, normal tone. A & O x3, moves all extremities, no obvious focal deficits. PSYCHIATRIC: Normal affect, normal mood. Stable. SKIN: No ulcerations or rashes, good skin turgor, no jaundice. VASCULAR: Good capillary refill, neurovascular bundle appears to be intact. LABORATORY DATA: White count is 12.7. Electrolytes are normal. Urinalysis negative. Drug screen negative. CT of the abdomen shows diffuse colitis. ASSESSMENT AND PLAN: Colitis. The patient has been admitted. We will consult GI, IV Flagyl, IV Levaquin, IV fluids, p.r.n. morphine, home meds, DVT prophylaxis. Full code. CASSIUS SIERRA DO DR: LOPEZ/hermelinda JOB#: [id number] / [id number]
[2020-12-19] MEDS: PANTOPRAZOLE IV PUSH 40 MG VIAL. IVP SCH (12:42)
[2020-12-19] MEDS: MORPHINE SULFATE 2 MG/ML VIAL. IV PRN ×2 (12:43→14:50)
[2020-12-19 15:49] VITALS: BP 151/71
[2020-12-19 19:00] VITALS: BP 119/51
[2020-12-19 22:46] VITALS: BP 109/62
[2020-12-20 02:52] VITALS: BP 97/35
[2020-12-20 06:59] LABS: BASO % 0 % (0-3); EOS # 0.1 x10^3/uL (0.0-0.7); EOS % 1 % (0-3); HEMATOCRIT 35.1 % (36.0-47.0); HEMOGLOBIN 11.5 g/dL (12.0-15.5); LYMPH # 1.7 x10^3/uL (1.0-4.8); LYMPH % 20 % (24-48); MEAN CORPUSCULAR HEMOGLOBIN 23 pg (25-35); MEAN CORPUSCULAR HGB CONC 33 g/dL (31-37); MEAN CORPUSCULAR VOLUME 71 fL (79-100); MONO # 0.7 x10^3/uL (0.0-1.1); MONO % 9 % (0-9); NEUT # 6.1 x10^3/uL (1.8-7.7); NEUT % 71 % (31-73); PLATELET COUNT 270 x10^3/uL (140-400); RED BLOOD COUNT 4.95 x10^6/uL (3.50-5.40); WHITE BLOOD COUNT 8.6 x10^3/uL (4.0-11.0)
[2020-12-20 07:00] VITALS: BP 104/62
[2020-12-20 07:08] LABS: ALBUMIN 3.3 g/dL (3.4-5.0); ALBUMIN/GLOBULIN RATIO 1.1 (1.0-1.7); CALCIUM 8.2 mg/dL (8.5-10.1); CREATININE 0.6 mg/dL (0.6-1.0); GFR 106.3; POTASSIUM 3.3 mmol/L (3.5-5.1); TOTAL BILIRUBIN 0.6 mg/dL (0.2-1.0); TOTAL PROTEIN 6.2 g/dL (6.4-8.2)
[2020-12-20] MEDS: PANTOPRAZOLE IV PUSH 40 MG VIAL. IVP SCH (08:02)
[2020-12-20] MEDS: MORPHINE SULFATE 2 MG/ML VIAL. IV PRN ×3 (08:41→20:12)
[2020-12-20 11:00] VITALS: BP 105/60
[2020-12-20] MEDS ORDERED: POTASSIUM CHLORIDE 20 MEQ TABLET.ER. PO ONE (11:00)
--- NOTE | 2020-12-20 11:25 | PDOC ---
Date of Service: DATE: 12/20/20 TIME: 11:22 Subjective: Subjective: Better today. No vomiting, no abd pain, no diarrhea. Tolerating liquids. Objective: Vital Signs: Vital Signs Date Time Temp Pulse Resp B/P (MAP) Pulse Ox O2 Delivery O2 Flow Rate FiO2 12/20/20 11:00 98.5 81 18 105/60 (75) 94 Room Air 98.5 Labs: Laboratory Tests Test 12/19/20 12:25 12/20/20 06:10 Lactic Acid Level 1.1 mmol/L White Blood Count 8.6 x10^3/uL Red Blood Count 4.95 x10^6/uL Hemoglobin 11.5 g/dL Hematocrit 35.1 % Mean Corpuscular Volume 71 fL Mean Corpuscular Hemoglobin 23 pg Mean Corpuscular Hemoglobin Concent 33 g/dL Red Cell Distribution Width 17.0 % Platelet Count 270 x10^3/uL Neutrophils (%) (Auto) 71 % Lymphocytes (%) (Auto) 20 % Monocytes (%) (Auto) 9 % Eosinophils (%) (Auto) 1 % Basophils (%) (Auto) 0 % Neutrophils # (Auto) 6.1 x10^3/uL Lymphocytes # (Auto) 1.7 x10^3/uL Monocytes # (Auto) 0.7 x10^3/uL Eosinophils # (Auto) 0.1 x10^3/uL Basophils # (Auto) 0.0 x10^3/uL Sodium Level 140 mmol/L Potassium Level 3.3 mmol/L Chloride Level 102 mmol/L Carbon Dioxide Level 28 mmol/L Anion Gap 10 Blood Urea Nitrogen 24 mg/dL Creatinine 0.6 mg/dL Estimated GFR (Cockcroft-Gault) 106.3 BUN/Creatinine Ratio 40 Glucose Level 90 mg/dL Calcium Level 8.2 mg/dL Total Bilirubin 0.6 mg/dL Aspartate Amino Transf (AST/SGOT) 13 U/L Alanine Aminotransferase (ALT/SGPT) 17 U/L Alkaline Phosphatase 61 U/L Total Protein 6.2 g/dL Albumin 3.3 g/dL Albumin/Globulin Ratio 1.1 PE: GEN: in isolation w/ pending COVID test - visual exam done LUNGS: room air HEART: RRR ABD: non-distended NEURO/PSYCH: was sleeping - easily awakened - much more calm today A/P: Abd pain, vomiting, loose stools - resolved Microcytic anemia, h/o iron deficiency ?abnormal CT - underdistention vs colitis H/o GERD COVID negative (resulted after I saw) -- ADAT, PO PPI, add PO iron. Stool studies uncollected as diarrhea has not recurred. Outpt scopes - our office will arrange. Justicifation of Admission Dx: Justifications for Admission: Justification of Admission Dx: Yes CLARISSA TURNER Dec 20, 2020 11:25
[2020-12-20] MEDS: LORazepam 0.5 MG TABLET PO PRN ×2 (11:52→20:12)
--- NOTE | 2020-12-20 13:11 | PDOC ---
[employer] PROGRESS NOTE Date of Service DOS: DATE: 12/20/20 TIME: 13:08 Chief Complaint Chief Complaint Acute abdominal pain due to colitis Prerenal azotemia Morbid obesity Anemia of chronic disease Appreciate GI recommendationscontinue with empiric IV antibiotics pending stool studies History of Present Illness History of Present Illness 12/20/2020 No acute events overnight. Patient continues to have abdominal pain. Tolerating clears. Patient's chart, labs, images were reviewed and discussed with RN 50-year-old female well known to our service. She seems to have recurrent colitis. Once again, she presents with abdominal pain, is crampy, rated at 10/10. She has associated nausea. She increased her home meds, but that did not work, described as very irritating. I discussed the case with ER physician. We are going to admit the patient and consult GI. Vitals/I&O Vitals/I&O: Vital Signs Date Time Temp Pulse Resp B/P (MAP) Pulse Ox O2 Delivery O2 Flow Rate FiO2 12/20/20 11:00 98.5 81 18 105/60 (75) 94 Room Air 98.5 I & O 12/19/20 12/19/20 12/20/20 15:00 23:00 07:00 Intake Total 1000 ml 300 ml 800 ml Balance 1000 ml 300 ml 800 ml Physical Exam General: Alert, mild distress Heart: Regular rate, Normal S1 Lungs: Crackles Abdomen: No tenderness Extremities: No edema Labs Labs: Laboratory Tests Test 12/20/20 06:10 White Blood Count 8.6 x10^3/uL (4.0-11.0) Red Blood Count 4.95 x10^6/uL (3.50-5.40) Hemoglobin 11.5 g/dL (12.0-15.5) Hematocrit 35.1 % (36.0-47.0) Mean Corpuscular Volume 71 fL (79-100) Mean Corpuscular Hemoglobin 23 pg (25-35) Mean Corpuscular Hemoglobin Concent 33 g/dL (31-37) Red Cell Distribution Width 17.0 % (11.5-14.5) Platelet Count 270 x10^3/uL (140-400) Neutrophils (%) (Auto) 71 % (31-73) Lymphocytes (%) (Auto) 20 % (24-48) Monocytes (%) (Auto) 9 % (0-9) Eosinophils (%) (Auto) 1 % (0-3) Basophils (%) (Auto) 0 % (0-3) Neutrophils # (Auto) 6.1 x10^3/uL (1.8-7.7) Lymphocytes # (Auto) 1.7 x10^3/uL (1.0-4.8) Monocytes # (Auto) 0.7 x10^3/uL (0.0-1.1) Eosinophils # (Auto) 0.1 x10^3/uL (0.0-0.7) Basophils # (Auto) 0.0 x10^3/uL (0.0-0.2) Sodium Level 140 mmol/L (136-145) Potassium Level 3.3 mmol/L (3.5-5.1) Chloride Level 102 mmol/L (98-107) Carbon Dioxide Level 28 mmol/L (21-32) Anion Gap 10 (6-14) Blood Urea Nitrogen 24 mg/dL (7-20) Creatinine 0.6 mg/dL (0.6-1.0) Estimated GFR (Cockcroft-Gault) 106.3 BUN/Creatinine Ratio 40 (6-20) Glucose Level 90 mg/dL (70-99) Calcium Level 8.2 mg/dL (8.5-10.1) Total Bilirubin 0.6 mg/dL (0.2-1.0) Aspartate Amino Transf (AST/SGOT) 13 U/L (15-37) Alanine Aminotransferase (ALT/SGPT) 17 U/L (14-59) Alkaline Phosphatase 61 U/L (46-116) Total Protein 6.2 g/dL (6.4-8.2) Albumin 3.3 g/dL (3.4-5.0) Albumin/Globulin Ratio 1.1 (1.0-1.7) Assessment and Plan Assessmemt and Plan Problems Medical Problems: (1) Abdominal pain Status: Acute Comment Review of Relevant I have reviewed the following items belle (where applicable) has been applied. Medications: Current Medications Medications (Trade) Dose Ordered Sig/Nika Route PRN Reason Start Time Stop Time Status Last Admin Dose Admin Metronidazole 100 ml @ 100 mls/hr Q8HRS IV 12/19/20 21:00 12/20/20 06:44 Lorazepam (Ativan) 0.5 mg PRN Q6HRS PRN PO ANXIETY / AGITATION 12/20/20 11:00 12/20/20 11:52 Potassium Chloride (Klor-Con) 40 meq 1X ONCE PO 12/20/20 11:00 12/20/20 11:03 DC 12/20/20 11:52 Justifications for Admission Other Justification HI MTAAMOROS MD Dec 20, 2020 13:11
--- NOTE | 2020-12-20 13:25 | NUR ---
SW following for discharge planning. Spoke with RN and reviewed chart. SW consulted for frequent hospitalizations. Pt from home. Pt on room air, COVID negative. Pt on IV pain medication. Working to advance pt's diet. Potassium 3.3. Discharge plan is home, self-care. No anticipated SW needs on discharge. SW following.
[2020-12-20 15:00] VITALS: BP 109/63
[2020-12-20] MEDS ORDERED: ONDANSETRON PF 4 MG/2 ML VIAL. IVP PRN (16:45)
[2020-12-20 19:00] VITALS: BP 107/58
[2020-12-20] MEDS: LACTOBACILLUS RHAMNOSUS GG 1 CAPSULE. PO SCH (20:12)
[2020-12-20 23:34] VITALS: BP 99/54
[2020-12-21 03:00] VITALS: BP 95/59
[2020-12-21 07:00] VITALS: BP 107/71
[2020-12-21] MEDS ORDERED: PANTOPRAZOLE 40 MG TABLET.DR. PO SCH (07:30)
[2020-12-21] MEDS ORDERED: FERROUS SULFATE 325 MG TABLET. PO SCH (08:00)
[2020-12-21] MEDS: LACTOBACILLUS RHAMNOSUS GG 1 CAPSULE. PO SCH (08:38)
[2020-12-21 11:00] VITALS: BP 113/64
[2020-12-21] MEDS ORDERED: LIDO:MAALOX 1:1 20 ML SINGLE DOSE. SWSW ONE (11:00)
--- NOTE | 2020-12-21 11:40 | PDOC ---
Date of Service: DATE: 12/21/20 TIME: 11:35 Subjective: Subjective: Has some chest pain, tolerating diet, "pooped on myself." No dysphagia/odynophagia. No bleeding. Objective: Objective: D/w nurse - has c/o chest pain, no vomiting - pt concerned w/ possibility of C Diff although test was negative - nurse offered to send another sample but pt declined. Says possible DC today, wonders if GI cocktail would help. Vital Signs: Vital Signs Date Time Temp Pulse Resp B/P (MAP) Pulse Ox O2 Delivery O2 Flow Rate FiO2 12/21/20 11:00 98.0 78 18 113/64 (80) 95 Room Air 98.0 Labs: Laboratory Tests Test 12/20/20 12:00 Stool Campylobacter PCR Negative Stool E. coli Shiga Toxins (PCR) Negative Stool Salmonella PCR Negative Stool Shigella PCR Negative Clostridium difficile Toxin (PCR) Negative PE: GEN: tearful and walking to restroom LUNGS: room air HEART: RRR in chart ABD: non-distended, soft, non-tender NEURO/PSYCH: A & O 3 A/P: ?chest pain, diarrhea, h/o GERD ZACH Abnormal CT - underdistention vs colitis COVID negative -- Varying symptoms - difficult to get a good feel. Okay to try GI cocktail - nurse ordered. Stool tests negative. 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 ADAT. Justicifation of Admission Dx: Justifications for Admission: Justification of Admission Dx: Yes CLARISSA TURNER Dec 21, 2020 11:40
--- NOTE | 2020-12-21 14:32 | RAD ---
Exam Date: 12/21/2020 1:42 PM XR CHEST 1V Indication: Reason: Left-sided chest pain / Spl. Instructions: / History: Comparison: December 19, 2020 FINDINGS/ IMPRESSION: The cardiac silhouette and pulmonary vasculature are within normal limits. There is no focal consolidation, pleural effusion or pneumothorax. The visualized osseous structures are intact. Electronically signed by: Won Newton MD (12/21/2020 2:30 PM) [id number]
[2020-12-21 15:00] VITALS: BP 113/57
--- NOTE | 2020-12-21 15:32 | NUR ---
SW following for discharge planning. Spoke with RN and reviewed chart. Pt remains on room air. Pt negative for Cdiff. Working to advance diet. Discharge plan remains home, self-care. Possible discharge today, 12/21. No SW needs identified. SW available as needed. Addendum: 12/21/20 at 1610 by EDY BRISCOE SW Pt discharging home, self-care.
[2020-12-21] MEDS ORDERED: MAGN296S68 PO (16:01)
[2020-12-21] MEDS ORDERED: PANT40TA77 PO (16:01)
[2020-12-21] MEDS ORDERED: POLY17PO29 PO (16:01)
[2020-12-21] MEDS ORDERED: FERR325T72 PO (16:01)
--- NOTE | 2020-12-21 16:04 | DISCH ---
DISCHARGE INSTRUCTIONS Condition on Discharge Condition on Discharge: Stable Activity After Discharge Activity Instructions for Disc: Activity as tolerated Lifting Instructions after Dis: No heavy lifting Exercise Instruction after Dis: Progress as tolerated Driving Instructions after Dis: Do not drive today Weight Bearing Status after Di: Full weight bearing Diet after Discharge Diet after Discharge: Regular Diet Texture: Regular Liquid Texture: Thin Liquid Swallowing Supervision: None needed Checks after Discharge Checks after discharge: Check blood press - daily, Check your Temp as needed Contacting the DR. after DC Call your doctor for: If your condition worsens Follow-Up Follow up with: PCP within 2 weeks of discharge Follow Up With: Gastroenterology L[facility] or as scheduled Treatment/Equipment after DC Adaptive Equipment Issued: None HI MATAMOROS MD Dec 21, 2020 16:04
--- NOTE | 2020-12-21 17:28 | NUR ---
Pt left unit at approx 1728 by ambulation via private vehicle, accompanied by daughter. Pt's IV removed without complication, VSS. Discharge paperwork, including follow-up and medications discussed with pt. Handout on abdominal pain provided. Additional questions addressed.
--- NOTE | 2020-12-23 10:27 | PDOC3 ---
[facility]-Discharge Summary Date of Admission: Date of Admission: Dec 19, 2020 Date of Discharge: Date of Discharge: Dec 21, 2020 Discharge Diagnosis: Discharge Diagnosis: Acute abdominal pain due to colitis Prerenal azotemia Morbid obesity Anemia of chronic disease Hospital Course: Hospital Course: By day of discharge, patient was tolerating soft GI diet. Pain is moderately controlled and GI cocktail did help with her symptoms. Rest of her hospital course was uneventful. 12/20/2020 No acute events overnight. Patient continues to have abdominal pain. Tolerating clears. Patient's chart, labs, images were reviewed and discussed with RN 50-year-old female well known to our service. She seems to have recurrent colitis. Once again, she presents with abdominal pain, is crampy, rated at 10/10. She has associated nausea. She increased her home meds, but that did not work, described as very irritating. I discussed the case with ER physician. We are going to admit the patient and consult GI. Disposition: Disposition/Orders: D/C to Home Activity: Activity: Resume previous activity Diet: Diet: Soft Medications: Home Meds Active Scripts Magnesium Citrate (MAGNESIUM CITRATE) 296 Ml Solution, 296 ML PO DAILY for constipation for 10 Days, #296 ML Prov:HI MATAMOROS MD 12/21/20 Polyethylene Glycol 3350 (MIRALAX) 17 Gm Powd.pack, 1 PACKET PO DAILY for constipation, #30 PACKET 0 Refills dissolve in water Prov:HI MATAMOROS MD 12/21/20 Pantoprazole Sodium (PANTOPRAZOLE SODIUM ) 40 Mg Tablet.dr, 40 MG PO DAILYAC for gastric reflux for 30 Days, #30 TAB.SR Prov:HI MATAMOROS MD 12/21/20 Ferrous Sulfate (FEOSOL) 325 Mg Tablet, 325 MG PO QODAY for iron deficiency a for 30 Days, #30 TAB Prov:HI MATAMOROS MD 12/21/20 Sennosides/Docusate Sodium (Colace 2-in-1 Tablet) 1 Each Tablet, 1 TAB PO QHS PRN for CONSTIPATION, #20 TAB 0 Refills Prov:REBECCA MATHEWS DO 06/11/20 Hyoscyamine Sulfate (LEVSIN-SL) 0.125 Mg Tab.subl, 0.125 MG SL Q4-6HRS PRN for PAIN, #14 TAB Prov:REBECCA MATHEWS DO 06/11/20 Ondansetron (ONDANSETRON ODT) 4 Mg Tab.rapdis, 1 TAB PO PRN Q6-8HRS PRN for NAUSEA, #16 TAB Prov:REBECCA MATHEWS DO 06/11/20 Lactobacillus Rhamnosus Gg (CULTURELLE) 1 Each Cap.sprink, 1 CAP PO BID for supplement for 30 Days, #60 CAP Prov:LYNETTE LACY MD 11/13/19 Acetaminophen (ACETAMINOPHEN) 500 Mg Tablet, 500 MG PO PRN Q6HRS PRN for MILD PAIN / TEMP for 10 Days, #30 TAB Prov:LYNETTE ALCY MD 11/13/19 Fluticasone/Salmeterol (ADVAIR 250-50 DISKUS) 1 Each Disk.w.dev, 1 PUFF IH BID, #1 INHALER Prov:SKYLER POTTER MD 09/28/17 Albuterol Sulfate (PROAIR HFA INHALER) 8.5 Gm Hfa.aer.ad, 1 PUFF INH PRN Q6HRS PRN for SHORTNESS OF BREATH, #1 INHALER Prov:JENIFER BETNON APRN 11/21/16 Discontinued Scripts Metoclopramide Hcl (REGLAN) 10 Mg Tablet, 1 TAB PO QID PRN for NAUSEA for 5 Days, #20 TAB 0 Refills before food and bedtime Prov:REJI HOFFMAN DO 06/14/20 Famotidine (PEPCID) 20 Mg Tablet, 20 MG PO BID, #20 TAB Prov:REBECCA MATHEWS DO 06/11/20 Albuterol Sulfate (ALBUTEROL SULFATE CONC NEB SOLN) 2.5 Mg/0.5 Ml Vial.neb, 1 VIAL NEB Q6HRS, #120 VIAL 5 Refills Prov:JARED HODGE ACTIVITIES ATTENDANT 06/08/17 Scheduled Ferrous Sulfate (Feosol), 325 MG PO QODAY Fluticasone/Salmeterol (Advair 250-50 Diskus), 1 PUFF IH BID Lactobacillus Rhamnosus Gg (Culturelle), 1 CAP PO BID Magnesium Citrate (Magnesium Citrate), 296 ML PO DAILY Pantoprazole Sodium (Pantoprazole Sodium ), 40 MG PO DAILYAC Polyethylene Glycol 3350 (Miralax), 1 PACKET PO DAILY Scheduled PRN Acetaminophen (Acetaminophen), 500 MG PO PRN Q6HRS PRN for MILD PAIN / TEMP Albuterol Sulfate (Proair Hfa Inhaler), 1 PUFF INH PRN Q6HRS PRN for SHORTNESS OF BREATH Hyoscyamine Sulfate (Levsin-Sl), 0.125 MG SL Q4-6HRS PRN for PAIN Ondansetron (Ondansetron Odt), 1 TAB PO PRN Q6-8HRS PRN for NAUSEA Sennosides/Docusate Sodium (Colace 2-in-1 Tablet), 1 TAB PO QHS PRN for CONSTIPATION Discontinued Medications Albuterol Sulfate (Albuterol Sulfate Conc Neb Soln), 1 VIAL NEB Q6HRS Famotidine (Pepcid), 20 MG PO BID Metoclopramide Hcl (Reglan), 1 TAB PO QID PRN for NAUSEA Total Time: Total Time: Total time spent was 45 minutes in preparing scripts, discharge planning with SW and RN, and preparing this discharge summary. Patient seen and examined on day of discharge. Justicifation of Admission Dx: Justifications for Admission: Justification of Admission Dx: Yes HI MATAMOROS MD Dec 23, 2020 10:27
== END 2020-12-21 17:31 | disposition home or self-care (01) ==
LOC: ER 07:09 → 6 SOUTH 09:28
PROVIDERS: ADMIT Internal Medicine; ATTEND Internal Medicine
DX: K52.9 Noninfective gastroenteritis and colitis, unspecified (principal); Z20.822 Contact with and (suspected) exposure to COVID-19; D50.9 Iron deficiency anemia, unspecified; D63.8 Anemia in other chronic diseases classified elsewhere; E11.9 Type 2 diabetes mellitus without complications; J44.9 Chronic obstructive pulmonary disease, unspecified; K85.90 Acute pancreatitis without necrosis or infection, unspecified; I10 Essential (primary) hypertension; J18.9 Pneumonia, unspecified organism; D72.829 Elevated white blood cell count, unspecified; K21.9 Gastro-esophageal reflux disease without esophagitis; D64.9 Anemia, unspecified; E66.01 Morbid (severe) obesity due to excess calories; E78.5 Hyperlipidemia, unspecified; R79.89 Other specified abnormal findings of blood chemistry; D63.1 Anemia in chronic kidney disease; F17.210 Nicotine dependence, cigarettes, uncomplicated; Z90.49 Acquired absence of other specified parts of digestive tract; Z98.51 Tubal ligation status; Z98.890 Other specified postprocedural states; Z68.23 Body mass index [BMI] 23.0-23.9, adult; Z79.899 Other long term (current) drug therapy
CPT/HCPCS: 36415; 71045; 74177; 80053; 80307; 81001; 82533; 83605; 83690; 84484; 84703; 85007; 85025; 85379; 87493; 87505; 96361; 96365; 96366; 96367; 96368; 96375; 96376; 99285; C9113; G0378; J0744; J1956; J2270; J2405; J3490; J7030; Q9967; U0003; G0379

== ENCOUNTER → 2021-01-01 | Outpatient (CLI) | payer OTHER ==
[2020-12-21 15:00] VITALS: BP 113/57
[~2021-01-01] MED LIST changes: +FERR325T72 PO; +MAGN296S68 PO; +PANT40TA77 PO; +POLY17PO29 PO
== END ==
LOC: LAB 11:35
PROVIDERS: ATTEND Internal Medicine Gastroenterology
DX: Z01.812 Encounter for preprocedural laboratory examination (principal); K21.9 Gastro-esophageal reflux disease without esophagitis; Z20.822 Contact with and (suspected) exposure to COVID-19
CPT/HCPCS: U0003

== ENCOUNTER → 2021-01-02 | Day surgery (SDC) | payer OTHER ==
[~2021-01-02] MED LIST changes: +IV RINGERS,LACTATED 1000ML 1,000 ML IV SCH; +PROPOFOL 10 MG/ML (20ML) VIAL. IV ONE
[2021-01-02 09:00] VITALS: BP 109/71
--- NOTE | 2021-01-07 18:20 | PATHOLOGY ---
[facility] Accession Number: [id number] . 01 Material submitted: . stomach - GASTRIC ULCER BIOPSY . 01 Clinical history: . PRE-OPERATIVE DIAGNOSIS: GERD, ABDOMINAL PAIN, ANEMIA OPERATIVE PROCEDURE: EGD/COLON POST-OPERATIVE DIAGNOSIS: GASTRIC ULCER . 02 Diagnosis: Gastric biopsies, gastric ulcer: - Mild reactive gastropathy with focal erosion and acute inflammation. (JPM:hunter; 01/07/2021) S 01/07/2021 1346 Local . 02 Comment: Sections of the gastric ulcer biopsy reveal segments of gastric antral mucosa showing congestion, edema, and reactive foveolar hyperplasia with focal mucosal erosion and acute inflammation. There is no significant chronic inflammation present. A properly controlled immunoperoxidase stain for Helicobacter is negative for Helicobacter organisms. The findings are consistent with a reactive gastropathy. (JPM:hunter; 01/07/2021) . Special stain performed: Immunoperoxidase stain for Helicobacter on A1 . 02 Electronically signed: . Kenton Love MD, Pathologist NPI- [id number] . 01 Gross description: . Received in formalin labeled "Hallmark, Tyra, gastric ulcer biopsy" are multiple sanford-brown soft tissue fragments measuring in aggregate 1.2 x 0.6 x 0.3 cm. The specimen is submitted entirely in A1. ([facility]; 01/04/2021) GZA/GZA 01/04/2021 1420 Local . 02 Pathologist provided ICD-10: K31.9, K25.9, K29.00 . 02 CPT . 473495, G53361 Specimen Comment: A courtesy copy of this report has been sent to [phone], [phone] Specimen Comment: [id number] Specimen Comment: Report sent to / DR ARBOLEDA Performed at: 01 [facility] [address], [place], [place] [id number] MD Kevan Cifuentes MD Phone: [phone] Performed at: 02 [facility] [address] [place], [place] [id number] MD Kenton Love MD Phone: [phone]
== END | disposition home or self-care (01) ==
LOC: SURG 07:15
PROVIDERS: ATTEND Internal Medicine Gastroenterology
DX: D50.9 Iron deficiency anemia, unspecified (principal); R10.13 Epigastric pain; K64.0 First degree hemorrhoids; K31.89 Other diseases of stomach and duodenum; K29.00 Acute gastritis without bleeding; K21.9 Gastro-esophageal reflux disease without esophagitis; J44.9 Chronic obstructive pulmonary disease, unspecified; F41.9 Anxiety disorder, unspecified; F17.210 Nicotine dependence, cigarettes, uncomplicated; Z90.49 Acquired absence of other specified parts of digestive tract; Z98.890 Other specified postprocedural states; Z79.899 Other long term (current) drug therapy; Z72.89 Other problems related to lifestyle
CPT/HCPCS: 43239; 45378; J2704

== ENCOUNTER 2021-03-13 07:45 | Emergency (ER) | payer OTHER ==
[~2021-03-13] VITALS: Ht 162.6 cm; Wt 59.0 kg
[~2021-03-13 07:45] MED LIST changes: -IV RINGERS,LACTATED 1000ML 1,000 ML IV SCH; -PROPOFOL 10 MG/ML (20ML) VIAL. IV ONE
--- NOTE | 2021-03-13 08:29 | ED.ADGEN ---
Past Medical History Past Medical History: Asthma, Bronchitis, COPD, Pancreatitis, Pneumonia, Other Additional Past Medical Histor: sciatica Past Surgical History: Cholecystectomy, Tubal ligation Smoking Status: Current Every Day Smoker Alcohol Use: None Drug Use: None General Adult EDM: Chief Complaint: HEADACHE HPI: HPI: Patient is a 50-year-old female who arrives ambulatory to the emergency department complaining of multiple symptoms that have been ongoing for the past week and a half. Patient reports during this time she has been short of breath with a dry cough. Patient states in addition to having this, she has developed headaches from her dry cough. Patient reports that she is coughing fits that are so violent that it causes her to experience vomiting. Patient reportedly took Zofran without relief yesterday. Patient has tested positive for coronavirus in September of last year however she has not had any vaccinations for the virus. Patient also reports the chest pain which is exacerbated by coughing. She denies any fevers. She further denies any abdominal pain or neurological disturbance. She is awake, alert and uncomfortable appearing Review of Systems: Review of Systems: Constitutional: Denies fever or chills. [] Eyes: Denies change in visual acuity. [] HENT: Denies nasal congestion or sore throat. [] Respiratory: Reports cough and shortness of breath. [] Cardiovascular: Denies chest pain or edema. [] GI: Reports posttussive emesis. Denies abdominal pain, bloody stools or diarrhea. [] : Denies dysuria. [] Musculoskeletal: Denies back pain or joint pain. [] Integument: Denies rash. [] Neurologic: Reports headache. Denies focal weakness or sensory changes. [] Endocrine: Denies polyuria or polydipsia. [] Lymphatic: Denies swollen glands. [] Psychiatric: Denies depression or anxiety. [] Current Medications: Current Medications Medications (Trade) Dose Ordered Sig/Nika Start Time Stop Time Status Last Admin Dose Admin Albuterol/ Ipratropium (Duoneb) 3 ml 1X ONCE 03/13/21 08:30 03/13/21 08:31 DC 03/13/21 09:06 3 ML Methylprednisolone Sodium Succinate (SOLU-Medrol 125MG VIAL) 125 mg 1X ONCE 03/13/21 08:30 03/13/21 08:31 DC 03/13/21 08:49 125 MG Allergies: Allergies: Allergies Coded Allergies Type Severity Reaction Last Updated Verified No Known Drug Allergies 01/02/21 No Physical Exam: PE: Constitutional: Uncomfortable appearing. Well developed, well nourished, non- toxic appearance. [] HENT: Normocephalic, atraumatic, bilateral external ears normal, oropharynx moist, no oral exudates, nose normal. [] Eyes: PERRLA, EOMI, conjunctiva normal, no discharge. [] Neck: Normal range of motion, no tenderness, supple, no stridor. [] Cardiovascular:Heart rate regular rhythm, no murmur [] Lungs & Thorax: Expiratory wheezes bilaterally with otherwise good air movement. [] Abdomen: Bowel sounds normal, soft, no tenderness, no masses, no pulsatile masses. [] Skin: Warm, dry, no erythema, no rash. [] Back: No tenderness, no CVA tenderness. [] Extremities: No tenderness, no cyanosis, no clubbing, ROM intact, no edema. [] Neurologic: Alert and oriented X 3, normal motor function, normal sensory function, no focal deficits noted. [] Psychologic: Affect normal, judgement normal, mood normal. [] Current Patient Data: Labs: Laboratory Tests Test 03/13/21 08:40 03/13/21 08:52 Sodium Level 139 mmol/L (136-145) Potassium Level 4.1 mmol/L (3.5-5.1) Chloride Level 102 mmol/L (98-107) Carbon Dioxide Level 26 mmol/L (21-32) Anion Gap 11 (6-14) Blood Urea Nitrogen 22 mg/dL (7-20) H Creatinine 0.6 mg/dL (0.6-1.0) Estimated GFR (Cockcroft-Gault) 106.3 BUN/Creatinine Ratio 37 (6-20) H Glucose Level 140 mg/dL (70-99) H Calcium Level 9.1 mg/dL (8.5-10.1) Total Bilirubin 0.4 mg/dL (0.2-1.0) Aspartate Amino Transferase (AST) 13 U/L (15-37) L Alanine Aminotransferase (ALT) 22 U/L (14-59) Alkaline Phosphatase 86 U/L (46-116) Troponin I Quantitative < 0.017 ng/mL (0.000-0.055) NV-Wce-Y-Type Natriuretic Peptide 107 pg/mL (0-124) Total Protein 7.0 g/dL (6.4-8.2) Albumin 4.2 g/dL (3.4-5.0) Albumin/Globulin Ratio 1.5 (1.0-1.7) White Blood Count 13.0 x10^3/uL (4.0-11.0) H Red Blood Count 5.50 x10^6/uL (3.50-5.40) H Hemoglobin 12.9 g/dL (12.0-15.5) Hematocrit 40.2 % (36.0-47.0) Mean Corpuscular Volume 73 fL (79-100) L Mean Corpuscular Hemoglobin 24 pg (25-35) L Mean Corpuscular Hemoglobin Concent 32 g/dL (31-37) Red Cell Distribution Width 18.5 % (11.5-14.5) H Platelet Count 377 x10^3/uL (140-400) Neutrophils (%) (Auto) 87 % (31-73) H Lymphocytes (%) (Auto) 9 % (24-48) L Monocytes (%) (Auto) 3 % (0-9) Eosinophils (%) (Auto) 0 % (0-3) Basophils (%) (Auto) 0 % (0-3) Neutrophils # (Auto) 11.4 x10^3/uL (1.8-7.7) H Lymphocytes # (Auto) 1.1 x10^3/uL (1.0-4.8) Monocytes # (Auto) 0.4 x10^3/uL (0.0-1.1) Eosinophils # (Auto) 0.0 x10^3/uL (0.0-0.7) Basophils # (Auto) 0.0 x10^3/uL (0.0-0.2) Segmented Neutrophils % 82 % (35-66) H Lymphocytes % 16 % (24-48) L Monocytes % 2 % (0-10) Platelet Estimate Adequate (ADEQUATE) Polychromasia Slight Anisocytosis Slight Tear Drop Cells Occ Laboratory Tests 03/13/21 08:52 Laboratory Tests 03/13/21 08:40 Vital Signs: Vital Signs Date Time Temp Pulse Resp B/P (MAP) Pulse Ox O2 Delivery O2 Flow Rate FiO2 03/13/21 09:30 97.8 75 20 120/70 (87) 95 Room Air 97.8 EKG: EKG: [] EKG was obtained at 8:34 AM and revealed a normal sinus rhythm with a ventricular rate of 63 bpm. There appears to be T wave inversion of the anterior leads without otherwise ischemic change in the form of ST/T wave elevation. Heart Score: C/O Chest Pain: No Risk Factors: Risk Factors: DM, Current or recent (<one month) smoker, HTN, HLP, family history of CAD, obesity. Risk Scores: Score 0 - 3: 2.5% MACE over next 6 weeks - Discharge Home Score 4 - 6: 20.3% MACE over next 6 weeks - Admit for Clinical Observation Score 7 - 10: 72.7% MACE over next 6 weeks - Early Invasive Strategies Radiology/Procedures: Radiology/Procedures: [] Impression: [facility] [address] [place], [place] [id number] IMAGING REPORT Signed PATIENT: ISABELLE WEINER ACCOUNT: [id number] : 1970 LOCATION: ER AGE: 50 SEX: F EXAM STATUS: REG ER ORD. PHYSICIAN: LALO GU DO REASON: Shortness of air PROCEDURE: PORTABLE CHEST 1V XR CHEST 1V 03/13/2021 8:34 AM INDICATION: Shortness of air COMPARISON: 12/21/2020 TECHNIQUE: Portable frontal view of the chest is provided. FINDINGS: The cardiomediastinal silhouette is within normal limits. Lungs are clear. There are no significant pleural effusions. There is no pulmonary vascular congestion. No pneumothorax. No suspicious osseous abnormality. IMPRESSION: There is no acute cardiopulmonary process. Electronically signed by: Lilly Patterson MD (03/13/2021 8:55 AM) [id number] DICTATED and SIGNED BY: LILLY PATTERSON MD DATE: 03/13/21 [id number] 0 Course & Med Decision Making: Course & Med Decision Making Pertinent Labs and Imaging studies reviewed. (See chart for details) [] Dragon Disclaimer: Dragon Disclaimer: This electronic medical record was generated, in whole or in part, using a voice recognition dictation system. Departure Departure Impression: Primary Impression: URI (upper respiratory infection) Additional Impression: Person under investigation for COVID-19 Disposition: 01 HOME / SELF CARE / HOMELESS Condition: IMPROVED Referrals: UNKNOWN PCP NAME (PCP) Patient Instructions: Upper Respiratory Infection, Adult Scripts Promethazine/Phenyleph/Codeine (Jyddshdjjfhk-QW-Hmvumyz Syrup) 118 Ml Syrup 5 ML PO QID for 5 Days, MISC Prov: LALO GU DO 03/13/21 Prednisone (PREDNISONE) 50 Mg Tablet 1 TAB PO DAILY for 5 Days, #5 TAB Prov: LALO GU DO 03/13/21 Problem Qualifiers LALO GU DO Mar 13, 2021 08:29
[2021-03-13] MEDS ORDERED: methylPREDNISolone SOD SUCC PF 125 MG/2 ML VIAL. IV ONE (08:30)
[2021-03-13] MEDS ORDERED: IPRATRPIUM/ALBUTEROL 0.5/2.5MG 3 ML NEBU. NEB ONE (08:30)
--- NOTE | 2021-03-13 08:58 | RAD ---
XR CHEST 1V 03/13/2021 8:34 AM INDICATION: Shortness of air COMPARISON: 12/21/2020 TECHNIQUE: Portable frontal view of the chest is provided. FINDINGS: The cardiomediastinal silhouette is within normal limits. Lungs are clear. There are no significant pleural effusions. There is no pulmonary vascular congestion. No pneumothora x. No suspicious osseous abnormality. IMPRESSION: There is no acute cardiopulmonary process. Electronically signed by: Lilly Patterson MD (03/13/2021 8:55 AM) [id number]
[2021-03-13 08:59] LABS: CALCIUM 9.1 mg/dL (8.5-10.1); CREATININE 0.6 mg/dL (0.6-1.0); GFR 106.3; POTASSIUM 4.1 mmol/L (3.5-5.1)
[2021-03-13 09:05] LABS: ALBUMIN 4.2 g/dL (3.4-5.0); ALBUMIN/GLOBULIN RATIO 1.5 (1.0-1.7); TOTAL BILIRUBIN 0.4 mg/dL (0.2-1.0)
[2021-03-13 09:06] LABS: BASO % 0 % (0-3); EOS % 0 % (0-3); HEMATOCRIT 40.2 % (36.0-47.0); HEMOGLOBIN 12.9 g/dL (12.0-15.5); LYMPH # 1.1 x10^3/uL (1.0-4.8); LYMPH % 9 % (24-48); MEAN CORPUSCULAR HEMOGLOBIN 24 pg (25-35); MEAN CORPUSCULAR HGB CONC 32 g/dL (31-37); MEAN CORPUSCULAR VOLUME 73 fL (79-100); MONO # 0.4 x10^3/uL (0.0-1.1); MONO % 3 % (0-9); NEUT # 11.4 x10^3/uL (1.8-7.7); NEUT % 87 % (31-73); PLATELET COUNT 377 x10^3/uL (140-400); RED CELL DISTRIBUTION WIDTH 18.5 % (11.5-14.5)
[2021-03-13] MEDS ORDERED: PROM118S6 PO (10:08)
[2021-03-13] MEDS ORDERED: PRED50TA PO (10:08)
[2021-03-13 10:24] VITALS: BP 125/58
[2021-03-13 10:25] LABS: % LYMPHS 16 % (24-48); % MONOS 2 % (0-10); % SEGS 82 % (35-66)
[2021-03-13 10:27] LABS: ANISOCYTOSIS SLIGHT; PLT ESTIMATE ADEQUATE (ADEQUATE); POLYCHROMASIA SLIGHT
[2021-03-13 10:28] LABS: TEAR DROP CELLS OCC
--- NOTE | 2021-03-14 09:52 | NUR ---
IP: Attempted to contact pt concerning COVID results. Phone number provided in no longer in service.
== END 2021-03-13 10:36 | disposition home or self-care (01) ==
LOC: ER 07:45
DX: J06.9 Acute upper respiratory infection, unspecified (principal); Z20.822 Contact with and (suspected) exposure to COVID-19; J44.9 Chronic obstructive pulmonary disease, unspecified; F17.200 Nicotine dependence, unspecified, uncomplicated
CPT/HCPCS: 36415; 71045; 80053; 83880; 84484; 85007; 85025; 94640; 96374; 99284; J2930; U0003; U0005; 99285-25

== ENCOUNTER 2021-03-16 08:14 | Emergency (ER) | payer OTHER ==
[~2021-03-16] VITALS: Ht 162.6 cm; Wt 54.0 kg
[~2021-03-16 08:14] MED LIST changes: +PROM118S6 PO
--- NOTE | 2021-03-16 08:47 | PHYS DOC ---
Past Medical History Past Medical History: Asthma, Bronchitis, COPD, Pancreatitis, Pneumonia, Other Additional Past Medical Histor: sciatica Past Surgical History: Cholecystectomy, Tubal ligation Smoking Status: Current Every Day Smoker Alcohol Use: None Drug Use: None Social History Narrative: K2 General Adult EDM: Chief Complaint: NAUSEA/VOMITING/DIARRHEA HPI: HPI: 50-year-old female past medical history significant for CAD and COPD presents to the ED with complaints of nausea and vomiting that started around 4 AM this morning after patient reports she smoked "K2" last night. Reports h/o occasional marijuana use but this was the first time she tried synthetic marijuana. Reports associated abdominal cramping. Denies associated fever chills, diarrhea, hematochezia, hematemesis, fever chills, headache, nuchal rigidity, anorexia, sore throat, cough, urinary complaints or flank pain. Review of Systems: Review of Systems: Constitutional: Denies fever or chills. [] Eyes: Denies change in visual acuity. [] HENT: Denies nasal congestion or sore throat. [] Respiratory: Denies cough or shortness of breath. [] Cardiovascular: Denies chest pain or edema. [] GI: Denies bloody stools or diarrhea. [] : Denies dysuria or vaginal bleeding Musculoskeletal: Denies back pain or joint pain. [] Integument: Denies rash or diaphoresis Neurologic: Denies headache, focal weakness or sensory changes. [] Endocrine: Denies polyuria or polydipsia. [] Lymphatic: Denies swollen glands. [] Psychiatric: Denies depression or anxiety. [] Heart Score: C/O Chest Pain: No Risk Factors: Risk Factors: DM, Current or recent (<one month) smoker, HTN, HLP, family history of CAD, obesity. Risk Scores: Score 0 - 3: 2.5% MACE over next 6 weeks - Discharge Home Score 4 - 6: 20.3% MACE over next 6 weeks - Admit for Clinical Observation Score 7 - 10: 72.7% MACE over next 6 weeks - Early Invasive Strategies Allergies: Allergies: Allergies Coded Allergies Type Severity Reaction Last Updated Verified No Known Drug Allergies 01/02/21 No Physical Exam: PE: Constitutional: Actively dry heaving in ED, nontoxic & unkept appearing HENT: Normocephalic, atraumatic, dry mucous membranes, missing multiple teeth Eyes: EOMI, conjunctiva normal, no discharge. Neck: Normal range of motion, supple, Cardiovascular: S1/2 present, regular rhythm Lungs & Thorax: Speaking in full sentences, bilateral equal chest rise, no tachypnea or increased work of breathing Abdomen: soft, no tenderness, posttussive emesis witnessed in ED Skin: Warm, dry, no erythema, no rash. [] Back: No tenderness, no CVA tenderness. [] Extremities: No tenderness, no cyanosis, no appreciable IV track makes Neurologic: Alert and oriented X 3, normal motor function, normal sensory function, no focal deficits noted. [] Psychologic: Affect normal, judgement normal, mood normal. [] Current Patient Data: Vital Signs: Vital Signs Date Time Temp Pulse Resp B/P (MAP) Pulse Ox O2 Delivery O2 Flow Rate FiO2 03/16/21 08:36 98.0 60 22 134/61 (85) 98 Room Air 98.0 EKG: EKG: Sinus rhythm at 58 bpm, no axis deviation, T wave inversion aVL and V2, no ST elevation or ST depression Radiology/Procedures: Radiology/Procedures: IMAGING REPORT Signed PATIENT: ISABELLE WEINER ACCOUNT: [id number] : 1970 LOCATION: ER AGE: 50 SEX: F EXAM STATUS: REG ER ORD. PHYSICIAN: PITA HAIRSTON DO REASON: NAUSEA/VOMITING/DIARRHEA, COUGH PROCEDURE: CHEST AP ONLY Single view chest dated 03/16/2021. Comparison made to 03/13/2021. CLINICAL INDICATION: Cough. FINDINGS: Single upright portable exam performed. Heart and mediastinal contours are stable. Lungs are clear. No consolidation or pleural effusion. No pneumothorax. There is mild hyperinflation. IMPRESSION: No acute radiographic abnormality. Electronically signed by: Aaron Jeffries MD (03/16/2021 9:03 AM) [id number] DICTATED and SIGNED BY: AARON JEFFRIES MD DATE: 03/16/21 [id number] Course & Med Decision Making: Course & Med Decision Making Pertinent Labs and Imaging studies reviewed. (See chart for details) Concern for nausea and vomiting in the setting of synthetic marijuana use. This is now well controlled with IV fluids and medications. Mild leukocytosis, nonspecific on labs. No anemia or bandemia. Contaminated urinalysis. Positive on drug screen. Patient resting comfortably, symptoms have resolved with no associate abdominal pain. Will discharge home with Zofran ODT prescription and strict ED return precautions were given for dehydration, intractable nausea or vomiting or severe pain. Encouraged urgent outpatient follow-up with PMD and RSI as needed. Life-threatening processes were considered but are low suspicion at this time, given history, physical exam and ED workup. Pt was educated on all prescription medications and adverse effects. All patient's questions were answered and pt was stable at time of discharge. Life/limb-threatening differential includes but is not limited to, acute coronary syndrome/myocardial infarction, Boerhaave's, DKA, gastrointestinal bleeding, intracranial hemorrhage, ischemic bowel, meningitis, sepsis, surgical abdomen (AAA), toxidrome (drug over/overdose/carbon monoxide, etc), ovarian/testicular torsion, trauma, or infection/sepsis. I spoken with the patient and her caregivers. I explained the patient's condition, diagnoses and treatment plan based on the information available to me at this time. I have answered the patient and her caregiver's questions and addressed any concerns. The patient and her caregivers have a good understanding of patient's diagnosis, condition and treatment plan as can be expected at this point. Vital signs have been stable. Patient's condition is stable and appropriate for discharge from the emergency department. Patient will pursue further outpatient evaluation with primary care physician or other designated or consulting physician as outlined in the discharge instructions. The patient and/or caregivers are agreeable to this plan of care and follow-up instructions have been explained in detail. The patient and/or caregivers have received these instructions in written form and have expressed an understanding of the discharge instructions. The patient and/or caregivers are aware that any significant change of condition or worsening of symptoms should prompt immediate return to this or the closest emergency department or call to 911. Mo Disclaimer: Mo Disclaimer: This electronic medical record was generated, in whole or in part, using a voice recognition dictation system. Departure Departure Impression: Primary Impression: Synthetic cannabinoid intoxication Additional Impression: Nausea & vomiting Disposition: HOME / SELF CARE / HOMELESS Condition: STABLE Referrals: UNKNOWN PCP NAME (PCP) follow up with your pcp in 24-48 hours or FOLLOW UP WITH FAMILY MEDICINE: [address] [facility] [address] [place] [address] Patient Instructions: Drug Abuse and Addiction-SportsMed, Marijuana Abuse and Chemical Dependency Additional Instructions: [employer] -for substance abuse counseling 04/05 crisis stabilization services [address] [place] [address] EMERGENCY DEPARTMENT GENERAL DISCHARGE INSTRUCTIONS Thank you for coming to [facility] Emergency Department (ED) today and trusting us with you care. We trust that you had a positive experience in our Emergency Department. If you wish to speak to the department management, you may call the Director at [phone]. YOUR FOLLOW UP INSTRUCTIONS ARE FOLLOWS: 1. Do you have a private Doctor? If you do not have a private doctor, please ask for a resource list of physicians or clinics that may be able to assist you with follow up care. 2. The Emergency Physicain has interpreted your x-rays. The X-Ray specialist will also review them. If there is a change in the findings, you will be notified in 48 hours when at all possible. 3. A lab test or culture has been done, your results will be reviewed and you will be notified if you need a change in treatment. ADDITIONAL INSTRUCTIONS AND INFORMATION: 1. Your care today has been supervised by a physician who is specially trained in emergency care. Many problems require more than one evaluation for a complete diagnosis and treatment. We recommend that you schedule your follow up appointment as recommended to ensure complete treatment of you illness or injury. If you are unable to obtain follow up care and continue to have a problem, or if your condition worsens, we recommend that you return to the ED. 2. We are not able to safely determine your condition over the phone nor are we able to give sound medical advice over the phone. For these safety reasons, if you call for medical advice we will ask you to come to the ED for further evaluation. 3. If you have any questions regarding these discharge instructions please call the ED at [phone]. SAFETY INFORMATION: In the interest of safety, wellness, and injury prevention; we encourage you to wear your sealbelt, if you smoke; quite smoking, and we encourage family to use a protective helmet for bicycling and other sporting events that present an increased risk for head injury. IF YOUR SYMPTOMS WORSEN OR NEW SYMPTOMS DEVELOP, OR YOU HAVE CONCERNS ABOUT YOUR CONDITION; OR IF YOUR CONDITION WORSENS WHILE YOU ARE WAITING FOR YOUR FOLLOW UP APPOINTMENT; EITHER CONTACT YOUR PRIMARY CARE DOCTOR, THE PHYSICIAN WHOSE NAME AND NUMBER YOU WERE GIVEN, OR RETURN TO THE ED IMMEDIATELY. Scripts Ondansetron (ONDANSETRON ODT) 4 Mg Tab.rapdis 1 TAB PO PRN Q6-8HRS, #20 TAB Prov: PITA HAIRSTON DO 03/16/21 PITA HAIRSTON DO Mar 16, 2021 08:47
[2021-03-16] MEDS ORDERED: IV NORMAL SALINE 1000ML BAG 1,000 ML IV ONE (09:00)
[2021-03-16 09:05] LABS: BASO % 0 % (0-3); EOS % 0 % (0-3); HEMATOCRIT 39.9 % (36.0-47.0); HEMOGLOBIN 13.1 g/dL (12.0-15.5); LYMPH # 0.7 x10^3/uL (1.0-4.8); LYMPH % 6 % (24-48); MEAN CORPUSCULAR HEMOGLOBIN 24 pg (25-35); MEAN CORPUSCULAR HGB CONC 33 g/dL (31-37); MEAN CORPUSCULAR VOLUME 72 fL (79-100); MONO # 0.3 x10^3/uL (0.0-1.1); MONO % 3 % (0-9); NEUT # 11.1 x10^3/uL (1.8-7.7); NEUT % 92 % (31-73); PLATELET COUNT 386 x10^3/uL (140-400); RED BLOOD COUNT 5.56 x10^6/uL (3.50-5.40); RED CELL DISTRIBUTION WIDTH 17.9 % (11.5-14.5); WHITE BLOOD COUNT 12.1 x10^3/uL (4.0-11.0)
--- NOTE | 2021-03-16 09:05 | RAD ---
Single view chest dated 03/16/2021. Comparison made to 03/13/2021. CLINICAL INDICATION: Cough. FINDINGS: Single upright portable exam performed. Heart and mediastinal contours are stable. Lungs are clear. N o consolidation or pleural effusion. No pneumothorax. There is mild hyperinflation. IMPRESSION: No acute radiographic abnormality. Electronically signed by: Aaron Jeffries MD (03/16/2021 9:03 AM) [id number]
[2021-03-16] MEDS ORDERED: ONDANSETRON PF 4 MG/2 ML VIAL. IVP ONE (09:15)
[2021-03-16] MEDS ORDERED: HALOPERIDOL LACTATE 5 MG/ML VIAL. IVP ONE (09:15)
[2021-03-16 09:18] LABS: CALCIUM 9.2 mg/dL (8.5-10.1); CREATININE 0.7 mg/dL (0.6-1.0); GFR 88.9; POTASSIUM 3.6 mmol/L (3.5-5.1)
[2021-03-16 09:23] LABS: ALBUMIN 4.3 g/dL (3.4-5.0); ALBUMIN/GLOBULIN RATIO 1.6 (1.0-1.7); TOTAL BILIRUBIN 0.4 mg/dL (0.2-1.0)
[2021-03-16] MEDS ORDERED: METOCLOPRAMIDE HCL 10 MG/2 ML VIAL. IVP ONE (09:30)
[2021-03-16] MEDS ORDERED: FAMOTIDINE 20 MG/2 ML VIAL IVP ONE (09:30)
[2021-03-16 10:00] LABS: % BANDS 2 % (0-9); % LYMPHS 4 % (24-48); % MONOS 2 % (0-10); % SEGS 92 % (35-66); PLT ESTIMATE ADEQUATE (ADEQUATE)
[2021-03-16 10:01] LABS: ANISOCYTOSIS SLIGHT; HYPOCHROMIA SLIGHT; MICROCYTOSIS SLIGHT; OVALOCYTES FEW
[2021-03-16] MEDS ORDERED: KETOROLAC 15 MG/ML VIAL. IVP ONE (11:00)
[2021-03-16 11:04] LABS: BILIRUBIN,URINE NEGATIVE (NEG); CLARITY,URINE TURBID; COLOR,URINE YELLOW; NITRITE,URINE NEGATIVE (NEG); PROTEIN,URINE NEGATIVE (NEG-TRACE); UROBILINOGEN,URINE 0.2 mg/dL (0.2 mg/dL)
[2021-03-16 11:09] LABS: AMPHETAMINE/METHAMPHETAMINE NEG (NEG); BARBITURATES NEG (NEG); BENZODIAZEPINES NEG (NEG); CANNABINOIDS NEG (NEG); COCAINE NEG (NEG); METHADONE NEG (NEG); OPIATES POS (NEG); PHENCYCLIDINE NEG (NEG)
[2021-03-16 11:22] LABS: AMORPHOUS SEDIMENT,UR PRESENT /HPF; RBC,URINE 0 /HPF (0-2); WBC,URINE OCC /HPF (0-4)
[2021-03-16 11:23] LABS: BACTERIA,URINE FEW /HPF (0-FEW)
[2021-03-16] MEDS ORDERED: ONDA4TAB12 PO (11:33)
[2021-03-16 11:59] VITALS: BP 138/74
== END 2021-03-16 12:12 | disposition home or self-care (01) ==
LOC: ER 08:14
DX: F12.129 Cannabis abuse with intoxication, unspecified (principal); R11.2 Nausea with vomiting, unspecified; J44.9 Chronic obstructive pulmonary disease, unspecified; F17.200 Nicotine dependence, unspecified, uncomplicated; Z90.49 Acquired absence of other specified parts of digestive tract; Z98.51 Tubal ligation status
CPT/HCPCS: 36415; 71045; 80053; 80307; 81001; 81025; 83690; 83735; 84484; 85007; 85025; 96361; 96374; 96375; 99285; J1630; J1885; J2405; J2765; J3490; J7030

== ENCOUNTER 2021-03-20 14:07 | Emergency (ER) | payer OTHER ==
[~2021-03-20] VITALS: Ht 162.6 cm; Wt 59.0 kg
--- NOTE | 2021-03-20 14:26 | PHYS DOC ---
Past Medical History Past Medical History: Asthma, Bronchitis, COPD, Pancreatitis, Pneumonia, Other Additional Past Medical Histor: sciatica Past Surgical History: Cholecystectomy, Tubal ligation Smoking Status: Current Every Day Smoker Alcohol Use: None Drug Use: None General Adult EDM: Chief Complaint: CHEST PAIN HPI: HPI: This is a 50-year-old female who presents emergency department today with chest pain that started this morning. It is a left-sided chest pain that is nonradiating moderate and without alleviating factors. She denies any vomiting. She has felt mildly nauseous. She denies diaphoresis. She reports bilateral leg swelling without unilateral leg swelling. She denies hemoptysis history of DVT or PE. Previous ER Reports patient has a history of coronary artery disease the patient denies this to me. She denies ever seeing a floor press operator or having a cardiac catheterization. She has a history of smoking. She denies a history of hypertension diabetes or hyperlipidemia. She does have a family history of heart disease. Review of systems negative for abdominal pain vomiting fevers chills headache nuchal rigidity or any rashes. All other review of systems negative. Heart Score: C/O Chest Pain: Yes HEART Score for Chest Pain: HEART Score for Chest Pain Response (Comments) Value History Slighlty/Non-Suspicious 0 ECG Normal 0 Age >45 - < 65 1 Risk Factors 1 or 2 Risk Factors 1 Troponin < Normal Limit 0 Total 2 Risk Factors: Risk Factors: DM, Current or recent (<one month) smoker, HTN, HLP, family history of CAD, obesity. Risk Scores: Score 0 - 3: 2.5% MACE over next 6 weeks - Discharge Home Score 4 - 6: 20.3% MACE over next 6 weeks - Admit for Clinical Observation Score 7 - 10: 72.7% MACE over next 6 weeks - Early Invasive Strategies Allergies: Allergies: Allergies Coded Allergies Type Severity Reaction Last Updated Verified No Known Drug Allergies 01/02/21 No Physical Exam: PE: Constitutional: Well developed, well nourished, no acute distress, non-toxic appearance. [] HENT: Normocephalic, atraumatic, bilateral external ears normal, oropharynx moist, no oral exudates, nose normal. [] Eyes: PERRLA, EOMI, conjunctiva normal, no discharge. [] Neck: Normal range of motion, no tenderness, supple, no stridor. [] Cardiovascular:Heart rate regular rhythm, no murmur [] Lungs & Thorax: Bilateral breath sounds clear to auscultation [] Abdomen: Bowel sounds normal, soft, no tenderness, no masses, no pulsatile masses. [] Skin: Warm, dry, no erythema, no rash. [] Back: No tenderness, no CVA tenderness. [] Extremities: No tenderness, no cyanosis, no clubbing, ROM intact, no edema. [] Neurologic: Alert and oriented X 3, normal motor function, normal sensory function, no focal deficits noted. [] Psychologic: Affect normal, judgement normal, mood normal. [] EKG: EKG: EKG shows sinus rhythm with a regular rate. ST segments congruent. Not suggestive of ACS. [] Radiology/Procedures: Radiology/Procedures: [] Course & Med Decision Making: Course & Med Decision Making Pertinent Labs and Imaging studies reviewed. (See chart for details) [] 50-year-old female presenting with chest pain. Vitals unremarkable. Labs show a leukocytosis of 18,000. Chemistry panel unremarkable D-dimer within normal limits. Troponin negative x2. Chest x-ray does not show any signs of pneumonia however with her white count being 18,000 we will give her an a ntibiotic and a steroid as she has had a cough and upper respiratory tract infection over the past few days. On reexamination at approximately 525 the patient is feeling much better. Her pain has resolved. Will discharge to follow-up with PCP in 1 to 2 days. Mo Disclaimer: Mo Disclaimer: This electronic medical record was generated, in whole or in part, using a voice recognition dictation system. Departure Departure Impression: Primary Impression: URI (upper respiratory infection) Additional Impression: Chest pain Disposition: HOME / SELF CARE / HOMELESS Condition: STABLE Referrals: UNKNOWN PCP NAME (PCP) Patient Instructions: Chest Pain (Nonspecific), Upper Respiratory Infection, Adult Additional Instructions: EMERGENCY DEPARTMENT GENERAL DISCHARGE INSTRUCTIONS Follow-up with your primary physician in 1 to 2 days. Return to the emergency department if you have any new or concerning findings. Thank you for coming to [facility] Emergency Department (ED) today and trusting us with you care. We trust that you had a positive experience in our Emergency Department. If you wish to speak to the department management, you may call the Director at [phone]. Follow up is important in emergency/acute care visits. This condition should be evaluated by your primary care physician and any necessary consulting services for continued management within a few days (1-2) after discharge. Return to the emergency department if you have any new or concerning symptoms including but not limited to fever, chills, nausea, vomiting, intractable pain, any new rashes, chest pain, shortness of breath, uncontrolled bleeding, difficulty br eathing, and/or vision loss. 1. Do you have a private Doctor? If you do not have a private doctor, please ask for a resource list of physicians or clinics that may be able to assist you with follow up care. 2. If a lab test or culture has been done and does not come back immediately, your results will be reviewed and you will be notified if you need a change in treatment. 3. Your care today has been supervised by a physician who is specially trained in emergency care. Many problems require more than one evaluation for a complete diagnosis and treatment. We recommend that you schedule your follow up appointment as recommended to ensure complete treatment of you illness or injury. If you are unable to obtain follow up care and continue to have a prob kathy, or if your condition worsens, we recommend that you return to the ED. 4. We are not able to safely determine your condition over the phone nor are we able to give sound medical advice over the phone. For these safety reasons, if you call for medical advice we will ask you to come to the ED for further evaluation. IF YOUR SYMPTOMS WORSEN OR NEW SYMPTOMS DEVELOP, OR YOU HAVE CONCERNS ABOUT YOUR CONDITION; OR IF YOUR CONDITION WORSENS WHILE YOU ARE WAITING FOR YOUR FOLLOW UP APPOINTMENT; EITHER CONTACT YOUR PRIMARY CARE DOCTOR, THE PHYSICIAN WHOSE NAME AND NUMBER YOU WERE GIVEN, OR RETURN TO THE ED IMMEDIATELY. Scripts Prednisone (PREDNISONE) 50 Mg Tablet 1 TAB PO DAILY, #5 TAB Prov: VICTORINA BALDWIN MD 03/20/21 Azithromycin (AZITHROMYCIN TABLET) 250 Mg Tablet 1 PKG PO UD, #6 TAB Prov: VICTORINA BALDWIN MD 03/20/21 VICTORINA BALDWIN MD Mar 20, 2021 14:26
[2021-03-20 14:28] LABS: BASO % 0 % (0-3); EOS # 0.1 x10^3/uL (0.0-0.7); EOS % 1 % (0-3); HEMATOCRIT 39.5 % (36.0-47.0); HEMOGLOBIN 12.8 g/dL (12.0-15.5); LYMPH # 2.3 x10^3/uL (1.0-4.8); LYMPH % 13 % (24-48); MEAN CORPUSCULAR HEMOGLOBIN 23 pg (25-35); MEAN CORPUSCULAR HGB CONC 32 g/dL (31-37); MEAN CORPUSCULAR VOLUME 72 fL (79-100); MONO # 1.1 x10^3/uL (0.0-1.1); MONO % 6 % (0-9); NEUT # 14.5 x10^3/uL (1.8-7.7); NEUT % 80 % (31-73); PLATELET COUNT 394 x10^3/uL (140-400); RED BLOOD COUNT 5.46 x10^6/uL (3.50-5.40); RED CELL DISTRIBUTION WIDTH 17.8 % (11.5-14.5); WHITE BLOOD COUNT 18.1 x10^3/uL (4.0-11.0)
[2021-03-20] MEDS ORDERED: ASPIRIN CHEWABLE 81 MG TABLET. PO ONE (14:30)
[2021-03-20] MEDS ORDERED: NITROGLYCERIN SUBLINGUAL 0.4 MG BOTTLE OF 25. SL PRN (14:30)
--- NOTE | 2021-03-20 14:36 | EKG ---
[facility] [address] [place] [address] Test Date: 2021-03-20 Test Time: 14:09:46 Pat Name: ISABELLE WEINER Department: Room: Gender: F Ballistician: : 1970 Requested By: VICTORINA BALDWIN Order Number: [id number] Reading MD: Measurements Intervals [place] Rate: 86 P: 75 NM: 154 QRS: 87 QRSD: 70 T: 68 QT: 340 QTc: 410 Interpretive Statements SINUS RHYTHM LOW LIMB LEAD VOLTAGE NO SPECIFIC ECG ABNORMALITIES RI6.02 No previous ECG available for comparison
--- NOTE | 2021-03-20 14:47 | RAD ---
EXAM: CHEST ONE VIEW. HISTORY: Chest pain. COMPARISON: 03/16/2021. FINDINGS: A frontal view of the chest is obtained. The lungs are expanded to the 12th posterior ribs. There are no confluent infiltrates. There is no pn eumothorax or pleural effusion. The heart is not enlarged. IMPRESSION: 1. Hyperinflation. Correlate for air trapping versus deep inspiratory effort. No confluent infiltrate s. Electronically signed by: Bobby Chandra MD (03/20/2021 2:45 PM) [id number]
[2021-03-20 15:05] LABS: CALCIUM 8.6 mg/dL (8.5-10.1); CREATININE 0.7 mg/dL (0.6-1.0); GFR 88.9
[2021-03-20 15:10] LABS: ALBUMIN 3.8 g/dL (3.4-5.0); DIRECT BILIRUBIN 0.1 mg/dL (0.0-0.2); TOTAL BILIRUBIN 0.3 mg/dL (0.2-1.0); TOTAL PROTEIN 6.5 g/dL (6.4-8.2)
[2021-03-20 15:27] LABS: AMPHETAMINE/METHAMPHETAMINE NEG (NEG); BARBITURATES NEG (NEG); BENZODIAZEPINES NEG (NEG); CANNABINOIDS NEG (NEG); COCAINE NEG (NEG); METHADONE NEG (NEG); OPIATES POS (NEG); PHENCYCLIDINE NEG (NEG)
[2021-03-20 15:55] LABS: % EOS 1 % (0-5); % LYMPHS 14 % (24-48); % MONOS 2 % (0-10); % SEGS 83 % (35-66); PLT ESTIMATE ADEQUATE (ADEQUATE)
[2021-03-20] MEDS ORDERED: PRED50TA PO (17:30)
[2021-03-20] MEDS ORDERED: AZIT250T6 PO (17:30)
[2021-03-20 17:48] VITALS: BP 142/70
== END 2021-03-20 17:55 | disposition home or self-care (01) ==
LOC: ER 14:07
DX: J06.9 Acute upper respiratory infection, unspecified (principal); R07.89 Other chest pain; J44.9 Chronic obstructive pulmonary disease, unspecified; F17.200 Nicotine dependence, unspecified, uncomplicated
CPT/HCPCS: 36415; 71045; 80048; 80076; 80307; 83690; 84484; 85007; 85025; 85379; 93005; 99285-25

== ENCOUNTER 2021-05-22 19:14 | Emergency (ER) | payer OTHER ==
[~2021-05-22] VITALS: Ht 162.6 cm; Wt 59.0 kg
[2021-05-22 19:23] VITALS: BP 116/65
== END 2021-05-22 22:18 | disposition left against medical advice (07) ==
LOC: ER 19:14
DX: R06.02 Shortness of breath (principal); Z53.21 Procedure and treatment not carried out due to patient leaving prior to being seen by health care provider

== ENCOUNTER 2021-08-15 13:04 | Inpatient (IN) | payer OTHER ==
[~2021-08-15] VITALS: Ht 162.6 cm; Wt 62.7 kg
[~2021-08-15 13:04] MED LIST changes: +CYCL10TA19 PO; -CYCL10TA2 PO
--- NOTE | 2021-08-15 13:41 | PHYS DOC ---
Past Medical History Past Medical History: Asthma, Bronchitis, COPD, Pancreatitis, Pneumonia, Other Additional Past Medical Histor: sciatica Past Surgical History: Cholecystectomy, Tubal ligation Smoking Status: Current Every Day Smoker Alcohol Use: None Drug Use: None General Adult EDM: Chief Complaint: LEFT CHEST PAIN HPI: HPI: 51-year-old female presents to the emergency department complaining of left- sided rib pain with gradual onset over the last several days also with cough, fever, malaise and overall not feeling well. She is not vaccinated for COVID- 19. She is a chronic smoker and notes that she was has a smoker's cough but this is more severe. She denies any hormone use, recent travel, recent surgery, blood thinner use, blood production and cough, recent bedridden state, history of blood clots in the past, leg swelling. The patient denies nausea, vomiting, abdominal pain, urinary symptoms, cough, recent trauma, or any other complaints. Review of Systems: Review of Systems: Constitutional: Negative except what was mentioned in HPI. Eyes: Negative except what was mentioned in HPI. HENT: Negative except what was mentioned in HPI. Respiratory: Negative except what was mentioned in HPI. Cardiovascular: Negative except what was mentioned in HPI. GI: Negative except what was mentioned in HPI. : Negative except what was mentioned in HPI. Musculoskeletal: Negative except what was mentioned in HPI. Integument: Negative except what was mentioned in HPI. Neurologic: Negative except what was mentioned in HPI. Heart Score: C/O Chest Pain: Yes HEART Score for Chest Pain: HEART Score for Chest Pain Response (Comments) Value History Moderately Suspicious 1 ECG Nonspecific Repolarizatio 1 Age >45 - < 65 1 Risk Factors 1 or 2 Risk Factors 1 Troponin < Normal Limit 0 Total 4 Allergies: Allergies: Allergies Coded Allergies Type Severity Reaction Last Updated Verified No Known Drug Allergies 01/02/21 No Physical Exam: PE: Constitutional: No acute distress, non-toxic appearance. HENT: Atraumatic, bilateral external ears normal, nose normal. Eyes: PERRLA, EOMI, conjunctiva normal, no discharge. Neck: Normal range of motion, supple, no stridor. Cardiovascular: Heart rate regular rhythm. 2+ radial pulses Lungs & Thorax: No respiratory distress, symmetrical expansion. Bilateral breath sounds clear to auscultation Chest wall: Left-sided rib tenderness to palpation, no overlying skin lesions. Abdomen: Soft, no tenderness Skin: Warm, dry. Extremities: No tenderness, no cyanosis, ROM intact, no edema. Neurologic: Alert and oriented X 3, normal motor function, normal sensory function, no focal deficits noted. Non ataxic gait. GCS 15. Psychologic: Affect normal, judgment normal, mood normal. Current Patient Data: Labs: Laboratory Tests Test 08/15/21 11:30 08/15/21 13:20 08/15/21 13:30 08/15/21 13:33 Lipase 140 U/L (73-393) Urine Collection Type Unknown Urine Color Yellow Urine Clarity Clear Urine pH 5.5 (<5.0-8.0) Urine Specific [place] 1.025 (1.000-1.030) Urine Protein Negative mg/dL (NEG-TRACE) Urine Glucose (UA) Negative mg/dL (NEG) Urine Ketones (Stick) Negative mg/dL (NEG) Urine Blood Negative (NEG) Urine Nitrite Negative (NEG) Urine Bilirubin Negative (NEG) Urine Urobilinogen Dipstick 0.2 mg/dL (0.2 mg/dL) Urine Leukocyte Esterase Negative (NEG) Urine RBC 0 /HPF (0-2) Urine WBC Occ /HPF (0-4) Urine Squamous Epithelial Cells Few /LPF Urine Bacteria 0 /HPF (0-FEW) Urine Mucus Marked /LPF White Blood Count 7.0 x10^3/uL (4.0-11.0) Red Blood Count 5.93 x10^6/uL (3.50-5.40) Hemoglobin 14.0 g/dL (12.0-15.5) Hematocrit 43.5 % (36.0-47.0) Mean Corpuscular Volume 73 fL (79-100) Mean Corpuscular Hemoglobin 24 pg (25-35) Mean Corpuscular Hemoglobin Concent 32 g/dL (31-37) Red Cell Distribution Width 19.3 % (11.5-14.5) Platelet Count 348 x10^3/uL (140-400) Neutrophils (%) (Auto) 58 % (31-73) Lymphocytes (%) (Auto) 32 % (24-48) Monocytes (%) (Auto) 8 % (0-9) Eosinophils (%) (Auto) 2 % (0-3) Basophils (%) (Auto) 1 % (0-3) Neutrophils # (Auto) 4.0 x10^3/uL (1.8-7.7) Lymphocytes # (Auto) 2.2 x10^3/uL (1.0-4.8) Monocytes # (Auto) 0.6 x10^3/uL (0.0-1.1) Eosinophils # (Auto) 0.1 x10^3/uL (0.0-0.7) Basophils # (Auto) 0.0 x10^3/uL (0.0-0.2) Sodium Level 139 mmol/L (136-145) Potassium Level 3.3 mmol/L (3.5-5.1) Chloride Level 99 mmol/L (98-107) Carbon Dioxide Level 31 mmol/L (21-32) Anion Gap 9 (6-14) Blood Urea Nitrogen 25 mg/dL (7-20) Creatinine 0.6 mg/dL (0.6-1.0) Estimated GFR (Cockcroft-Gault) 105.8 Glucose Level 122 mg/dL (70-99) Lactic Acid Level 1.5 mmol/L (0.4-2.0) Calcium Level 8.6 mg/dL (8.5-10.1) Troponin I High Sensitivity < 4 ng/L (4-50) ZB-Okg-J-Type Natriuretic Peptide 82 pg/mL (0-124) Salicylates Level 7.4 mg/dL (2.8-20.0) Salicylate Last Dose Date Unknown Salicylate Last Dose Time Unknown Acetaminophen Level < 2 mcg/ml (10-30) Acetaminophen Last Dose Date Unknown Acetaminophen Last Dose Time Unknown Valproic Acid (Depakene) Level < 3 mcg/mL (50-100) Valproic Acid Last Dose Date Unknown Valproic Acid Last Dose Time Unknown Influenza Type A Antigen Negative (NEGATIVE) Influenza Type B Antigen Negative (NEGATIVE) SARS-CoV-2 Antigen (Rapid) Negative (NEGATIVE) Bedside Urine HCG, Qualitative Hcg negative (Negative) Vital Signs: Vital Signs Date Time Temp Pulse Resp B/P (MAP) Pulse Ox O2 Delivery O2 Flow Rate FiO2 08/15/21 14:15 76 119/61 08/15/21 13:51 20 96 Room Air 08/15/21 13:20 97.9 96 20 134/86 (102) 97 Room Air 97.9 EKG: EKG: Time read: 1332 Normal sinus rhythm rate of 78, no ST-T wave changes, no ectopic beats, normal axis, normal WA, QRS, and QTc intervals. Impression: Normal EKG. interpreted by me, Royal Rivas D.O. Radiology/Procedures: Radiology/Procedures: EXAM: AP View of the chest DATE: 08/15/2021 2:02 PM INDICATION: Reason: rib pain, Left COMPARISON: 04/19/2021 03/16/2021 FINDINGS: The heart is not enlarged. Mediastinal and hilar contours are normal. No focal parenchymal airspace opacity. No pleural effusion or pneumothorax. IMPRESSION: 1. No radiographic evidence for acute cardiopulmonary process. Electronically signed by: Justin Bowser MD (08/15/2021 2:37 PM) Course & Med Decision Making: Course & Med Decision Making At 1410, the patient had a 13 beat run of V. tach, clinically looked worse during the episode, continue to have left-sided rib pain. Her chest x-ray is clear. Concern for cardiac etiology of her chest pain. I discussed the case with cardiology who will see the patient emergently in the emergency department. Patient was given aspirin 325 mg, nitroglycerin, repeat EKG was performed which shows copious motion artifact, no obvious acute change patient felt better after ntg, vitals stable, chest pain resolved, will admit to the hospital for further monitoring and cards consult My Orders - ROYAL RIVAS DO Procedure Category Date Status Time Sars Cov2 ([place]) LAB 08/15/21 In Process 13:36 Sars Antigen Mitra Rapid LAB 08/15/21 Complete 13:36 Cbc W Autodiff LAB 08/15/21 Complete 13:36 Basic Metabolic Panel LAB 08/15/21 Complete 13:36 Lactic Acid With LAB 08/15/21 Complete Reflex 13:36 Blood Culture ASTRID 08/15/21 In Process 13:36 Iv Normal Saline PHA 08/15/21 Complete 1000ml Bag (Iv Sodium 13:45 Morphine Sulfate PHA 08/15/21 Complete (Morphine Sulfate) 13:45 12 Lead Ekg EKG 08/15/21 Complete 13:36 Nt-Pro Bnp LAB 08/15/21 Complete 13:36 Troponin-I High LAB 08/15/21 Complete Sensitivity 13:36 Influenza A&B Rapid LAB 08/15/21 Complete 13:42 Chest Ap Only RAD 08/15/21 Resulted 14:00 Ua, Cult If Indicated LAB 08/15/21 Complete 14:07 Lipase LAB 08/15/21 Complete 14:17 Cardiology Consult CONS 08/15/21 Transmitted 14:21 Nitroglycerin PHA 08/15/21 In Process Sublingual (Nitrostat) 14:30 Aspirin (Vashti PHA 08/15/21 Complete Aspirin) 14:30 [place] Order ADT 08/15/21 Transmitted 14:55 Code Status CODE 08/15/21 Transmitted 14:55 Cardiac DIET 08/15/21 Transmitted Dinner Cbc W Autodiff LAB 08/16/21 Verified 06:00 Basic Metabolic Panel LAB 08/16/21 Verified 06:00 Ondansetron Pf PHA 08/15/21 In Process (Zofran) 15:00 Morphine Sulfate PHA 08/15/21 In Process (Morphine Sulfate) 15:00 Acetaminophen PHA 08/15/21 In Process (Tylenol) 15:00 Sharepoint [employer] Developer HERMINIA 08/15/21 In Process 14:55 Vital Signs Q4h HERMINIA 08/15/21 In Process 14:55 Troponin-I High LAB 08/15/21 Logged Sensitivity 17:00 Departure Departure Impression: Primary Impression: Chest pain Additional Impression: Ventricular tachycardia (paroxysmal) Disposition: ADMITTED INPATIENT Admitting Physician: BERT Mae) Referrals: NO PCP (PCP) ROYAL RIVAS DO Aug 15, 2021 13:41
[2021-08-15 13:45] LABS: BASO % 1 % (0-3); EOS # 0.1 x10^3/uL (0.0-0.7); EOS % 2 % (0-3); HEMATOCRIT 43.5 % (36.0-47.0); LYMPH # 2.2 x10^3/uL (1.0-4.8); LYMPH % 32 % (24-48); MEAN CORPUSCULAR HEMOGLOBIN 24 pg (25-35); MEAN CORPUSCULAR HGB CONC 32 g/dL (31-37); MEAN CORPUSCULAR VOLUME 73 fL (79-100); MONO # 0.6 x10^3/uL (0.0-1.1); MONO % 8 % (0-9); NEUT % 58 % (31-73); PLATELET COUNT 348 x10^3/uL (140-400); RED BLOOD COUNT 5.93 x10^6/uL (3.50-5.40); RED CELL DISTRIBUTION WIDTH 19.3 % (11.5-14.5)
[2021-08-15] MEDS ORDERED: MORPHINE SULFATE 10 MG/ML VIAL. IVP ONE (13:45)
[2021-08-15] MEDS ORDERED: IV NORMAL SALINE 1000ML BAG 1,000 ML IV ONE (13:45)
[2021-08-15 13:57] LABS: CALCIUM 8.6 mg/dL (8.5-10.1); CREATININE 0.6 mg/dL (0.6-1.0); GFR 105.8; POTASSIUM 3.3 mmol/L (3.5-5.1)
[2021-08-15] MEDS ORDERED: NITROGLYCERIN SUBLINGUAL 0.4 MG BOTTLE OF 25. SL ONE (14:10)
[2021-08-15] MEDS ORDERED: ASPIRIN ENTERIC COATED 325 MG TABLET.DR. PO ONE (14:10)
[2021-08-15 14:14] LABS: BILIRUBIN,URINE NEGATIVE (NEG); CLARITY,URINE CLEAR; COLOR,URINE YELLOW; NITRITE,URINE NEGATIVE (NEG); PH,URINE 5.5 (<5.0-8.0); PROTEIN,URINE NEGATIVE (NEG-TRACE); UROBILINOGEN,URINE 0.2 mg/dL (0.2 mg/dL)
[2021-08-15] MEDS ORDERED: ASPIRIN 325 MG TABLET ONE (14:14)
[2021-08-15 14:18] LABS: INFLUENZA A PATIENT NEGATIVE (NEGATIVE); INFLUENZA B PATIENT NEGATIVE (NEGATIVE)
--- NOTE | 2021-08-15 14:19 | EKG ---
[facility] [address] [place] [address] Test Date: 2021-08-15 Test Time: 14:15:16 Pat Name: ISABELLE WEINER Department: Room: Gender: F [employer] Officer: : 1970 Requested By: LEÓN PATEL Order Number: [id number] Reading MD: Rob Cruz Measurements Intervals [place] Rate: 85 P: 70 MA: 172 QRS: 80 QRSD: 64 T: 67 QT: 364 QTc: 439 Interpretive Statements SINUS RHYTHM QRS(T) CONTOUR ABNORMALITY CONSISTENT WITH POSSIBLE ANTEROSEPTAL INFARCT AGE UNDETERMINED ABNORMAL ECG Electronically Signed On 08-19-2021 9:51:09 BANK COMPLIANCE OFFICER by Rob Cruz
[2021-08-15 14:26] LABS: BACTERIA,URINE 0 /HPF (0-FEW); RBC,URINE 0 /HPF (0-2); WBC,URINE OCC /HPF (0-4)
[2021-08-15 14:27] LABS: ACETAMIN < 2 mcg/ml (10-30); SALIC 7.4 mg/dL (2.8-20.0)
[2021-08-15] MEDS ORDERED: NITROGLYCERIN SUBLINGUAL 0.4 MG BOTTLE OF 25. SL PRN (14:30)
[2021-08-15] MEDS ORDERED: ASPIRIN 325 MG TABLET PO ONE (14:30)
--- NOTE | 2021-08-15 14:39 | RAD ---
EXAM: AP View of the chest DATE: 08/15/2021 2:02 PM INDICATION: Reason: rib pain, Left COMPARISON: 04/19/2021 03/16/2021 FINDINGS: The heart is not enlarged. Mediastinal and hilar contours are normal. No focal parenchymal airspace opacity. No pleural effusion or pneumothorax. IMPRESSION: 1. No radiographic evidence for acute cardiopulmonary process. Electronically signed by: Justin Bowser MD (08/15/2021 2:37 PM) DANE
[2021-08-15 14:50] LABS: VAL ACID < 3 mcg/mL (50-100)
[2021-08-15] MEDS ORDERED: ACETAMINOPHEN 325 MG TABLET. PO PRN (15:00)
[2021-08-15] MEDS ORDERED: MORPHINE SULFATE 4 MG/ML INJ. IVP PRN (15:00)
[2021-08-15] MEDS ORDERED: ONDANSETRON PF 4 MG/2 ML VIAL. IVP PRN (15:00)
[2021-08-15 15:03] LABS: BARBITURATES NEG (NEG); BENZODIAZEPINES NEG (NEG); CANNABINOIDS NEG (NEG); COCAINE NEG (NEG); METHADONE NEG (NEG); OPIATES NEG (NEG); PHENCYCLIDINE NEG (NEG)
[2021-08-15 15:05] LABS: AMPHETAMINE/METHAMPHETAMINE NEG (NEG)
[2021-08-15] MEDS ORDERED: POTASSIUM CHLORIDE 20 MEQ TABLET.ER. PO ONE ×2 (15:08→15:30)
--- NOTE | 2021-08-15 15:28 | PDOC2 ---
JACOBO ISABEL STRIP MACHINE TENDER 08/15/21 1527: CARDIAC CONSULT DATE OF CONSULT Date of Consult DATE: 08/15/21 TIME: 15:16 REASON FOR CONSULT Reason for Consult: Vtach, chest pain REFERRING PHYSICIAN Referring Physician: Rob SOURCE Source: Chart review, Patient HISTORY OF PRESENT ILLNESS HISTORY OF PRESENT ILLNESS This is a pleasant 51 yo female admitted for complains of SOA and cough. It has been 2 days has been having productive cough with green sputum and also achiness to her left rib cage. No nausea or vomiting but has off taste. Had fever of 101 at home. She is not vaccinated for covid-19. No hx of CAD but significant for tobacco and COPD. No hx of falls or any recent injuries. No hx of VTE or arrhythmias. In ED she had slow NSVT asymptomatic. Presently she has body aches and having chills. PAST MEDICAL HISTORY Cardiovascular: No pertinent hx Pulmonary: Asthma, COPD GI: GERD, Other (pancreatitis) Musculoskeletal: low back pain (sciatica), Osteoarthritis Renal/: No pertinent hx PAST SURGICAL HISTORY Past Surgical History: Cholecystectomy, Tubal Ligation, Tonsillectomy FAMILY HISTORY Family History: Heart Disease (mother) SOCIAL HISTORY Smoke: <1 pack per day ALCOHOL: occassional Drugs: None Lives: with Family CURRENT MEDICATIONS CURRENT MEDICATIONS Current Medications Medications (Trade) Dose Ordered Sig/Nika Route PRN Reason Start Time Stop Time Status Last Admin Dose Admin Sodium Chloride 1,000 ml @ 2,000 mls/hr 1X ONCE IV 08/15/21 13:45 08/15/21 14:14 DC 08/15/21 13:52 Morphine Sulfate (Morphine Sulfate) 5 mg 1X ONCE IVP 08/15/21 13:45 08/15/21 13:46 DC 08/15/21 13:51 Nitroglycerin (Nitrostat) 0.4 mg PRN Q5MIN PRN SL CHEST PAIN 08/15/21 14:30 08/15/21 14:15 Aspirin (Vashti Aspirin) 325 mg 1X ONCE PO 08/15/21 14:30 08/15/21 14:31 DC 08/15/21 14:15 ALLERGIES ALLERGIES: Coded Allergies: No Known Drug Allergies (Unverified , 01/02/21) ROS Review of System 14 point ROS evaluated with pertinent positives noted per HPI PHYSICAL EXAM General: Alert, Oriented X3, Cooperative, No acute distress HEENT: Atraumatic, Mucous membr. moist/pink Lungs: Other (rhonchi throughout) Heart: Regular rate (SR), Normal S1, Normal S2, No murmurs Abdomen: Soft, No tenderness Extremities: No cyanosis, No edema Skin: No breakdown, No significant lesion Neuro: Normal speech, Sensation intact Psych/Mental Status: Mental status NL, Mood NL MUSCULOSKELETAL: Osteoarthritic changes both hands VITALS/I&O VITALS/I&O: Vital Signs Date Time Temp Pulse Resp B/P (MAP) Pulse Ox O2 Delivery O2 Flow Rate FiO2 08/15/21 14:15 76 119/61 08/15/21 13:51 20 96 Room Air 08/15/21 13:20 97.9 97.9 LABS Lab: Laboratory Tests Test 08/15/21 11:30 08/15/21 13:20 08/15/21 13:30 08/15/21 13:33 Lipase 140 U/L (73-393) Urine Collection Type Unknown Urine Color Yellow Urine Clarity Clear Urine pH 5.5 (<5.0-8.0) Urine Specific [place] 1.025 (1.000-1.030) Urine Protein Negative mg/dL (NEG-TRACE) Urine Glucose (UA) Negative mg/dL (NEG) Urine Ketones (Stick) Negative mg/dL (NEG) Urine Blood Negative (NEG) Urine Nitrite Negative (NEG) Urine Bilirubin Negative (NEG) Urine Urobilinogen Dipstick 0.2 mg/dL (0.2 mg/dL) Urine Leukocyte Esterase Negative (NEG) Urine RBC 0 /HPF (0-2) Urine WBC Occ /HPF (0-4) Urine Squamous Epithelial Cells Few /LPF Urine Bacteria 0 /HPF (0-FEW) Urine Mucus Marked /LPF Urine Opiates Screen Neg (NEG) Urine Methadone Screen Neg (NEG) Urine Barbiturates Neg (NEG) Urine Phencyclidine Screen Neg (NEG) Urine Amphetamine/Methamphetamine Neg (NEG) Urine Benzodiazepines Screen Neg (NEG) Urine Cocaine Screen Neg (NEG) Urine Cannabinoids Screen Neg (NEG) Urine Ethyl Alcohol Neg (NEG) White Blood Count 7.0 x10^3/uL (4.0-11.0) Red Blood Count 5.93 x10^6/uL (3.50-5.40) H Hemoglobin 14.0 g/dL (12.0-15.5) Hematocrit 43.5 % (36.0-47.0) Mean Corpuscular Volume 73 fL (79-100) L Mean Corpuscular Hemoglobin 24 pg (25-35) L Mean Corpuscular Hemoglobin Concent 32 g/dL (31-37) Red Cell Distribution Width 19.3 % (11.5-14.5) H Platelet Count 348 x10^3/uL (140-400) Neutrophils (%) (Auto) 58 % (31-73) Lymphocytes (%) (Auto) 32 % (24-48) Monocytes (%) (Auto) 8 % (0-9) Eosinophils (%) (Auto) 2 % (0-3) Basophils (%) (Auto) 1 % (0-3) Neutrophils # (Auto) 4.0 x10^3/uL (1.8-7.7) Lymphocytes # (Auto) 2.2 x10^3/uL (1.0-4.8) Monocytes # (Auto) 0.6 x10^3/uL (0.0-1.1) Eosinophils # (Auto) 0.1 x10^3/uL (0.0-0.7) Basophils # (Auto) 0.0 x10^3/uL (0.0-0.2) Sodium Level 139 mmol/L (136-145) Potassium Level 3.3 mmol/L (3.5-5.1) L Chloride Level 99 mmol/L (98-107) Carbon Dioxide Level 31 mmol/L (21-32) Anion Gap 9 (6-14) Blood Urea Nitrogen 25 mg/dL (7-20) H Creatinine 0.6 mg/dL (0.6-1.0) Estimated GFR (Cockcroft-Gault) 105.8 Glucose Level 122 mg/dL (70-99) H Lactic Acid Level 1.5 mmol/L (0.4-2.0) Calcium Level 8.6 mg/dL (8.5-10.1) Magnesium Level 2.1 mg/dL (1.8-2.4) Troponin I High Sensitivity < 4 ng/L (4-50) L UU-Eoa-W-Type Natriuretic Peptide 82 pg/mL (0-124) Thyroid Stimulating Hormone (TSH) 1.276 uIU/mL (0.358-3.74) Salicylates Level 7.4 mg/dL (2.8-20.0) Salicylate Last Dose Date Unknown Salicylate Last Dose Time Unknown Acetaminophen Level < 2 mcg/ml (10-30) L Acetaminophen Last Dose Date Unknown Acetaminophen Last Dose Time Unknown Valproic Acid Level < 3 mcg/mL (50-100) L Valproic Acid Last Dose Date Unknown Valproic Acid Last Dose Time Unknown Influenza Type A Antigen Negative (NEGATIVE) Influenza Type B Antigen Negative (NEGATIVE) SARS-CoV-2 Antigen (Rapid) Negative (NEGATIVE) POC Urine HCG, Qualitative Hcg negative (Negative) Laboratory Tests 08/15/21 13:30 Laboratory Tests 08/15/21 13:30 ASSESSMENT/PLAN ASSESSMENT/PLAN 1. AECOPD 2. PUI with reported Fever of 101: unvaccinated 3. Slow NSVT: x1 in the setting of low K. QTc 436, No acute EKG changes 4. Tobaccoism Recommendations 1. Will consider for TTE, await Covid PCR 2. Replace K 3. Mg, UDS, TSH. Monitor rhythm 4. Smoking cessation MARY BHATIA MD 08/15/21 1611: CARDIAC CONSULT ASSESSMENT/PLAN ASSESSMENT/PLAN Patient seen and evaluated. I agree with our nurse practitioners assessment and plan. AECOPD. Continuing present medications. Patient is feeling slightly better. Covid testing pending. PUI with reported Fever of 101: unvaccinated Slow NSVT: x1 in the setting of low K. QTc 436, No acute EKG changes. Rhythm now stable. Continue on telemetry. Update echo as per Covid guidelines. Previous testing from 07/25/2020 showed an echo with an ejection fraction of 50% with trace mitral regurgitation and trace tricuspid vegetation. The same day the patient had a Lexiscan MPI testing that showed no evidence of fixed or reversible ischemia. Tobaccoism JACOBO ISABEL APRN Aug 15, 2021 15:27 MARY BHATIA MD Aug 15, 2021 16:11
--- NOTE | 2021-08-15 15:56 | EKG ---
[facility] [address] [place] [address] Test Date: 2021-08-15 Test Time: 13:28:28 Pat Name: ISABELLE WEINER Department: Room: [facility] Gender: F Print Buyer: : 1970 Requested By: LEÓN PATEL Order Number: [id number] Reading MD: Rob Cruz Measurements Intervals [place] Rate: 78 P: 90 NM: 56 QRS: 202 QRSD: 176 T: 116 QT: 460 QTc: 529 Interpretive Statements SINUS RHYTHM ABNORMAL RIGHT SUPERIOR AXIS DEVIATION MILD NON SPECIFIC ST CHANGES Electronically Signed On 08-19-2021 9:52:50 CONSTRUCTION ADMINISTRATOR by Rob Cruz
--- NOTE | 2021-08-15 16:37 | HP ---
DATE OF SERVICE: 08/15/2021 ADMIT DATE: 08/15/2021 CHIEF COMPLAINT: Shortness of breath, chest discomfort. HISTORY OF PRESENT ILLNESS: The patient is a pleasant 51-year-old female who continues to smoke and has COPD. She presented with shortness of breath and cough. She had a slight subjective fever of 101 at home. While here in the ER, she also developed a 13-beat run of V-tach. Her troponin is negative. Chest x-ray is negative, but clinically she seems to be having some possible cardiac issues and COPD exacerbation. I discussed the case with ER physician. We are going to admit the patient and consult Cardiology. PAST MEDICAL HISTORY: Continued tobacco abuse about a pack per day, COPD, asthma, GERD, chronic back pain, osteoarthritis. ALLERGIES: None. FAMILY HISTORY: Coronary artery disease in her mom and she has some family members who have prolonged QT. MEDICATIONS: Reviewed, please refer to the MRAD. REVIEW OF SYSTEMS: GENERAL: No history of weight change, weakness or fevers. SKIN: No bruising, hair changes or rashes. EYES: No blurred, double or loss of vision. NOSE AND THROAT: No history of nosebleeds, hoarseness or sore throat. HEART: She complains of chest discomfort. LUNGS: She complains of shortness of breath. GASTROINTESTINAL: Denies changes in appetite, nausea, vomiting, diarrhea or constipation. GENITOURINARY: No history of frequency, urgency, hesitancy or nocturia. NEUROLOGIC: Denies history of numbness, tingling, tremor or weakness. PSYCHIATRIC: No history of panic, anxiety or depression. ENDOCRINE: No history of heat or cold intolerance, polyuria or polydipsia. EXTREMITIES: Denies muscle weakness, joint pain, pain on walking or stiffness. PHYSICAL EXAMINATION: VITALS: Within normal limits and are stable. GENERAL: No apparent distress. Alert and oriented. HEENT: Normal cephalic atraumatic, external auditory canals are patent. EYES: Extraocular muscles are intact, pupils are equally round and reactive to light and accommodation. MUSCULOSKELETAL: Well developed, well nourished, good range of motion. ENDOCRINE: No thyromegaly was palpated. LYMPHATICS: No cervical chain or axillary nodes were noted. HEMATOPOIETIC: No bruising. NECK: Supple, no JVD, no thyromegaly was noted. LUNGS: She has decreased breath sounds. HEART: RRR, S1, S2 present. Peripheral pulses intact, no obvious murmurs were noted. ABDOMEN: Soft, nontender. Positive bowel sounds no organomegaly, normal bowel sounds. EXTREMITIES: Without any cyanosis, clubbing, or edema. Pedal pulses intact, Homans sign is negative. NEUROLOGIC: Normal speech, normal tone. A and O x 3, moves all extremities, no obvious focal deficits. PSYCHIATRIC: Normal affect, normal mood. Stable. SKIN: No ulcerations or rashes, good skin turgor, no jaundice. VASCULAR: Good capillary refill, neurovascular bundle appears to be intact. LABORATORY DATA: COVID testing is negative. Influenza testing negative. Drug screen negative. Urinalysis negative. Electrolytes are pending. Troponin is 0. BNP 82. White count 7, hemoglobin 14, platelets 348. Potassium is 3.3. ASSESSMENT AND PLAN: Chest discomfort and chronic obstructive pulmonary disease exacerbation, nonsustained V-tach. The patient has been admitted to the cardiac floor. We will check serial enzymes, serial EKGs. Consult Cardiology. Suspect she will need an echocardiogram if Cardiology agrees. Home meds. Deep venous thrombosis prophylaxis. Full code. P.r.n. nitro (we did give her one dose in the ER that seemed to help). Her potassium was also little low at 3.3, we replaced that. I spent 16 minutes discussing cigarette cessation education with the patient. We checked a TSH and it is normal at 1.2. LOPEZ/CARLOS DR: LOPEZ/hermelinda TID: [id number]
[2021-08-15 16:55] VITALS: BP 89/62
[2021-08-15] MEDS ORDERED: PANT40TA77 PO (19:43)
[2021-08-15] MEDS ORDERED: PROAIR RESPICL90 MCG IH (19:43)
[2021-08-15] MEDS ORDERED: FAMO40TA4 PO (19:43)
[2021-08-15 19:59] VITALS: BP 105/58
[2021-08-15] MEDS ORDERED: NON FORMULARY ITEM (Albuterol Sulfate (Proair Respiclick) 1 PUFF) IH PRN (20:00)
[2021-08-15] MEDS ORDERED: ALBUTEROL SULFATE 2.5 MG/3 ML NEBU. NEB PRN (20:15)
[2021-08-15 23:27] VITALS: BP 107/62
[2021-08-16 02:00] VITALS: BP 137/67
--- NOTE | 2021-08-16 02:00 | NUR ---
Patient C/O "Not feeling right." Lungs wheezy. C/O rib pain. States she's having same symptoms that brought her to hospital. Kamilla RN monitored Telemetry and informed Patient that her "Telemetry readings were okay." Patient started to relax and stated "As long as it's okay." Patient encouraged to do some relaxation techniques. Patient instructed to call for assistance to go to restroom or get out of bed. Patient verbalized understanding. Call light in reach.
--- NOTE | 2021-08-16 06:00 | NUR ---
Patient has been resting quietly. No further complaints. Call light in reach.
[2021-08-16 07:15] VITALS: BP 97/56
[2021-08-16] MEDS: PANTOPRAZOLE 40 MG TABLET.DR. PO SCH (07:30)
[2021-08-16 08:47] LABS: CALCIUM 8.3 mg/dL (8.5-10.1); CREATININE 0.6 mg/dL (0.6-1.0); GFR 105.8
[2021-08-16 08:48] LABS: BASO % 0 % (0-3); EOS # 0.2 x10^3/uL (0.0-0.7); EOS % 3 % (0-3); HEMOGLOBIN 11.9 g/dL (12.0-15.5); LYMPH # 1.8 x10^3/uL (1.0-4.8); LYMPH % 34 % (24-48); MEAN CORPUSCULAR HEMOGLOBIN 23 pg (25-35); MEAN CORPUSCULAR HGB CONC 31 g/dL (31-37); MEAN CORPUSCULAR VOLUME 74 fL (79-100); MONO # 0.4 x10^3/uL (0.0-1.1); MONO % 7 % (0-9); NEUT % 56 % (31-73); PLATELET COUNT 275 x10^3/uL (140-400); RED BLOOD COUNT 5.17 x10^6/uL (3.50-5.40); WHITE BLOOD COUNT 5.3 x10^3/uL (4.0-11.0)
[2021-08-16 08:55] LABS: POTASSIUM 4.8 mmol/L (3.5-5.1)
[2021-08-16 10:49] VITALS: BP 100/52
--- NOTE | 2021-08-16 11:00 | NUR ---
SS following for discharge planning. SS reviewed pt chart and discussed with pt RN. Pt is from home and is currently on room air. COVID19 negative. Cardiology consulted. SS will continue to follow for discharge planning.
--- NOTE | 2021-08-16 11:27 | PDOC ---
CARDIO Progress Notes Date and Time Date of Service 08/16/2021 Time of Evaluation 1120 Vitals Vitals Vital Signs Date Time Temp Pulse Resp B/P (MAP) Pulse Ox O2 Delivery O2 Flow Rate FiO2 08/16/21 10:49 98.3 70 20 100/52 (68) 96 Room Air 98.3 Weight Weight [ ] Input and Output Intake and Output Intake and Output 08/16/21 07:00 Intake Total 200 ml Balance 200 ml Intake Oral 200 ml # Voids 2 Laboratory Labs Laboratory Tests Test 08/15/21 11:30 08/15/21 13:20 08/15/21 13:30 08/15/21 13:33 Lipase 140 U/L (73-393) Urine Collection Type Unknown Urine Color Yellow Urine Clarity Clear Urine pH 5.5 (<5.0-8.0) Urine Specific [place] 1.025 (1.000-1.030) Urine Protein Negative mg/dL (NEG-TRACE) Urine Glucose (UA) Negative mg/dL (NEG) Urine Ketones (Stick) Negative mg/dL (NEG) Urine Blood Negative (NEG) Urine Nitrite Negative (NEG) Urine Bilirubin Negative (NEG) Urine Urobilinogen Dipstick 0.2 mg/dL (0.2 mg/dL) Urine Leukocyte Esterase Negative (NEG) Urine RBC 0 /HPF (0-2) Urine WBC Occ /HPF (0-4) Urine Squamous Epithelial Cells Few /LPF Urine Bacteria 0 /HPF (0-FEW) Urine Mucus Marked /LPF Urine Opiates Screen Neg (NEG) Urine Methadone Screen Neg (NEG) Urine Barbiturates Neg (NEG) Urine Phencyclidine Screen Neg (NEG) Urine Amphetamine/Methamphetamine Neg (NEG) Urine Benzodiazepines Screen Neg (NEG) Urine Cocaine Screen Neg (NEG) Urine Cannabinoids Screen Neg (NEG) Urine Ethyl Alcohol Neg (NEG) White Blood Count 7.0 x10^3/uL (4.0-11.0) Red Blood Count 5.93 x10^6/uL (3.50-5.40) Hemoglobin 14.0 g/dL (12.0-15.5) Hematocrit 43.5 % (36.0-47.0) Mean Corpuscular Volume 73 fL (79-100) Mean Corpuscular Hemoglobin 24 pg (25-35) Mean Corpuscular Hemoglobin Concent 32 g/dL (31-37) Red Cell Distribution Width 19.3 % (11.5-14.5) Platelet Count 348 x10^3/uL (140-400) Neutrophils (%) (Auto) 58 % (31-73) Lymphocytes (%) (Auto) 32 % (24-48) Monocytes (%) (Auto) 8 % (0-9) Eosinophils (%) (Auto) 2 % (0-3) Basophils (%) (Auto) 1 % (0-3) Neutrophils # (Auto) 4.0 x10^3/uL (1.8-7.7) Lymphocytes # (Auto) 2.2 x10^3/uL (1.0-4.8) Monocytes # (Auto) 0.6 x10^3/uL (0.0-1.1) Eosinophils # (Auto) 0.1 x10^3/uL (0.0-0.7) Basophils # (Auto) 0.0 x10^3/uL (0.0-0.2) Sodium Level 139 mmol/L (136-145) Potassium Level 3.3 mmol/L (3.5-5.1) Chloride Level 99 mmol/L (98-107) Carbon Dioxide Level 31 mmol/L (21-32) Anion Gap 9 (6-14) Blood Urea Nitrogen 25 mg/dL (7-20) Creatinine 0.6 mg/dL (0.6-1.0) Estimated GFR (Cockcroft-Gault) 105.8 Glucose Level 122 mg/dL (70-99) Lactic Acid Level 1.5 mmol/L (0.4-2.0) Calcium Level 8.6 mg/dL (8.5-10.1) Magnesium Level 2.1 mg/dL (1.8-2.4) Troponin I High Sensitivity < 4 ng/L (4-50) OO-Ysn-A-Type Natriuretic Peptide 82 pg/mL (0-124) Thyroid Stimulating Hormone (TSH) 1.276 uIU/mL (0.358-3.74) Salicylates Level 7.4 mg/dL (2.8-20.0) Salicylate Last Dose Date Unknown Salicylate Last Dose Time Unknown Acetaminophen Level < 2 mcg/ml (10-30) Acetaminophen Last Dose Date Unknown Acetaminophen Last Dose Time Unknown Valproic Acid (Depakene) Level < 3 mcg/mL (50-100) Valproic Acid Last Dose Date Unknown Valproic Acid Last Dose Time Unknown Influenza Type A Antigen Negative (NEGATIVE) Influenza Type B Antigen Negative (NEGATIVE) SARS-CoV-2 Antigen (Rapid) Negative (NEGATIVE) Bedside Urine HCG, Qualitative Hcg negative (Negative) Test 08/15/21 20:45 08/16/21 08:05 Troponin I High Sensitivity 5 ng/L (4-50) White Blood Count 5.3 x10^3/uL (4.0-11.0) Red Blood Count 5.17 x10^6/uL (3.50-5.40) Hemoglobin 11.9 g/dL (12.0-15.5) Hematocrit 38.0 % (36.0-47.0) Mean Corpuscular Volume 74 fL (79-100) Mean Corpuscular Hemoglobin 23 pg (25-35) Mean Corpuscular Hemoglobin Concent 31 g/dL (31-37) Red Cell Distribution Width 19.0 % (11.5-14.5) Platelet Count 275 x10^3/uL (140-400) Neutrophils (%) (Auto) 56 % (31-73) Lymphocytes (%) (Auto) 34 % (24-48) Monocytes (%) (Auto) 7 % (0-9) Eosinophils (%) (Auto) 3 % (0-3) Basophils (%) (Auto) 0 % (0-3) Neutrophils # (Auto) 3.0 x10^3/uL (1.8-7.7) Lymphocytes # (Auto) 1.8 x10^3/uL (1.0-4.8) Monocytes # (Auto) 0.4 x10^3/uL (0.0-1.1) Eosinophils # (Auto) 0.2 x10^3/uL (0.0-0.7) Basophils # (Auto) 0.0 x10^3/uL (0.0-0.2) Sodium Level 139 mmol/L (136-145) Potassium Level 4.8 mmol/L (3.5-5.1) Chloride Level 105 mmol/L (98-107) Carbon Dioxide Level 28 mmol/L (21-32) Anion Gap 6 (6-14) Blood Urea Nitrogen 19 mg/dL (7-20) Creatinine 0.6 mg/dL (0.6-1.0) Estimated GFR (Cockcroft-Gault) 105.8 Glucose Level 75 mg/dL (70-99) Calcium Level 8.3 mg/dL (8.5-10.1) Physical Exam HEENT: Neck Supple W Full Motion Chest: Symmetric LUNGS: Other (rhoncus) Heart: RRR Abdomen: Soft N/T Extremities: No Edema, No Calf Tenderness Neurology: alert, oriented, follow commands Assessment Assessment 1. AECOPD; per PCP 2. Fever: rapid neg for covid unvaccinated 3. Slow NSVT: x1 in the setting of low K. QTc 436, No acute EKG changes. None further 4. Tobaccoism Recommendations 1. Baseline TTE otherwise nonefurther 2. Smoking cessation 3. Supportive care Justicifation of Admission Dx: Justifications for Admission: Justification of Admission Dx: Yes JACOBO ISABEL [employer] Aug 16, 2021 11:27
[2021-08-16 15:02] VITALS: BP 91/46
--- NOTE | 2021-08-16 15:34 | PDOC ---
[facility] PROGRESS NOTE Date of Service DOS: DATE: 08/16/21 TIME: 15:30 Chief Complaint Chief Complaint Acute COPD exacerbation Symptomatic nonsustained V. tach. Tobacco misuse DuoNebs as needed Not currently requiring any oxygen or steroids Continue telemetry monitoring Pending TTE Anticipate discharge in the next 24 hours History of Present Illness History of Present Illness 51-year-old female who continues to smoke and has COPD. She presented with shortness of breath and cough. She had a slight subjective fever of 101 at home. While here in the ER, she also developed a 13-beat run of V-tach. Her troponin is negative. Chest x-ray is negative, but clinically she seems to be having some possible cardiac issues and COPD exacerbation. 08/16/2021 No acute events overnight. Patient seen and examined bedside. No major telemetry events since admission. Patient in normal sinus rhythm at this time. Patient's chart, labs, images were reviewed and discussed with RN Vitals/I&O Vitals/I&O: Vital Signs Date Time Temp Pulse Resp B/P (MAP) Pulse Ox O2 Delivery O2 Flow Rate FiO2 08/16/21 10:49 98.3 70 20 100/52 (68) 96 Room Air 98.3 I & O 08/15/21 08/15/21 08/16/21 15:00 23:00 07:00 Intake Total 200 ml Balance 200 ml Physical Exam General: Alert, Oriented X3, Cooperative, No acute distress Heart: Regular rate (SR), Normal S1, Normal S2, No murmurs Lungs: Crackles Abdomen: Soft, No tenderness Extremities: No cyanosis, No edema Skin: No breakdown, No significant lesion Labs Labs: Laboratory Tests Test 08/15/21 20:45 08/16/21 08:05 Troponin I High Sensitivity 5 ng/L (4-50) White Blood Count 5.3 x10^3/uL (4.0-11.0) Red Blood Count 5.17 x10^6/uL (3.50-5.40) Hemoglobin 11.9 g/dL (12.0-15.5) Hematocrit 38.0 % (36.0-47.0) Mean Corpuscular Volume 74 fL (79-100) Mean Corpuscular Hemoglobin 23 pg (25-35) Mean Corpuscular Hemoglobin Concent 31 g/dL (31-37) Red Cell Distribution Width 19.0 % (11.5-14.5) Platelet Count 275 x10^3/uL (140-400) Neutrophils (%) (Auto) 56 % (31-73) Lymphocytes (%) (Auto) 34 % (24-48) Monocytes (%) (Auto) 7 % (0-9) Eosinophils (%) (Auto) 3 % (0-3) Basophils (%) (Auto) 0 % (0-3) Neutrophils # (Auto) 3.0 x10^3/uL (1.8-7.7) Lymphocytes # (Auto) 1.8 x10^3/uL (1.0-4.8) Monocytes # (Auto) 0.4 x10^3/uL (0.0-1.1) Eosinophils # (Auto) 0.2 x10^3/uL (0.0-0.7) Basophils # (Auto) 0.0 x10^3/uL (0.0-0.2) Sodium Level 139 mmol/L (136-145) Potassium Level 4.8 mmol/L (3.5-5.1) Chloride Level 105 mmol/L (98-107) Carbon Dioxide Level 28 mmol/L (21-32) Anion Gap 6 (6-14) Blood Urea Nitrogen 19 mg/dL (7-20) Creatinine 0.6 mg/dL (0.6-1.0) Estimated GFR (Cockcroft-Gault) 105.8 Glucose Level 75 mg/dL (70-99) Calcium Level 8.3 mg/dL (8.5-10.1) Assessment and Plan Assessmemt and Plan Problems Medical Problems: (1) Chest pain Status: Acute (2) Ventricular tachycardia (paroxysmal) Status: Acute Comment Review of Relevant I have reviewed the following items belle (where applicable) has been applied. Medications: Current Medications Medications (Trade) Dose Ordered Sig/Nika Route PRN Reason Start Time Stop Time Status Last Admin Dose Admin Pantoprazole Sodium (Protonix) 40 mg DAILYAC PO 08/16/21 07:30 08/16/21 07:30 Justifications for Admission Other Justification HI MATAMOROS MD Aug 16, 2021 15:34
--- NOTE | 2021-08-16 15:36 | CARD ---
MR#: [id number] Date of Study: 08/16/2021 Ordering Physician: JACOBO ISABEL, Referring Physician: JACOBO ISABEL Tech: Samuel Lira [facility] APPROVED REPORT EXAM: Two-dimensional and M-mode echocardiogram with Doppler and color Doppler. Other Information Quality : FairHR: 70bpm Rhythm : NSR INDICATION NSVT RISK FACTORS Smoking 2D DIMENSIONS Left Atrium(2D)2.9 (1.6-4.0cm)IVSd0.8 (0.7-1.1cm) Aortic Root(2D)2.4 (2.0-3.7cm)LVDd4.3 (3.9-5.9cm) LVOT Diameter1.8 (1.8-2.4cm)PWd0.8 (0.7-1.1cm) LVDs2.9 (2.5-4.0cm)FS (%) 32.6 % SV49.8 mlLVEF(%)61.3 (>50%) Aortic Valve AoV Peak Palmer.133.8cm/sAoV VTI24.1cm AO Peak GR.7.2mmHgLVOT Peak Palmer.72.4cm/s LVOT VTI 14.97cmAO Mean GR.4mmHg NARA (VMAX)1.31yn8GOI (VTI)1.58cm2 Mitral Valve MV E Ysqghtzo97.1cm/sMV DECEL [id number] MV A Rqbpiiec17.5cm/sMV HOT34bf E/A Ratio1.1MVA (PHT)2.23cm2 TDI E/Lateral E'5.6E/Medial E'6.7 Pulmonary Valve PV Peak Kukvqfzg250.0cm/sPV Peak Grad.5mmHg Tricuspid Valve TR P. Wxyutdok308py/sTR Peak Gr.24mmHg Pulmonary Vein S1 Zsvwlfsf44.0cm/sD2 Akzsxoxt46.8cm/s LEFT VENTRICLE The left ventricle is normal size. There is normal left ventricular wall thickness. The left ventricu lar systolic function is normal. The ejection fraction is 60%. There is normal LV segmental wall mera on. Transmitral Doppler flow pattern is Grade II-pseudonormal filling dynamics. No left ventricle thr ombus noted on this study. There is no ventricular septal defect visualized. There is no left ventric ular aneurysm. There is no mass noted in the left ventricle. RIGHT VENTRICLE The right ventricle is mildly dilated. There is normal right ventricular wall thickness. ATRIA The left atrium is borderline dilated. The right atrium size is normal. The interatrial septum is int act with no evidence for an atrial septal defect or patent foramen ovale as noted on 2-D or Doppler i maging. AORTIC VALVE The aortic valve is not well seen. Doppler and Color Flow revealed no significant aortic regurgitatio n. There is no significant aortic valvular stenosis. There is no aortic valvular vegetation. MITRAL VALVE The mitral valve is normal in structure and function. There is no evidence of mitral valve prolapse. There is no mitral valve stenosis. Doppler and Color-flow revealed trace mitral regurgitation. TRICUSPID VALVE There is tricuspid annular calcification. Doppler and Color Flow revealed trace to mild tricuspid reg urgitation. There is no tricuspid valve prolapse or vegetation. There is no tricuspid valve stenosis. PULMONIC VALVE The pulmonic valve is not well seen. Doppler and Color Flow revealed no pulmonic valvular regurgitati on. There is no pulmonic valvular stenosis. GREAT VESSELS The aortic root is normal in size. The ascending aorta is normal in size. The IVC is normal in size a nd collapses >50% with inspiration. PERICARDIAL EFFUSION There is no pleural effusion. There is no evidence of significant pericardial effusion. Critical Notification Critical Value: No <Conclusion> The left ventricular systolic function is normal. The ejection fraction is 60%. There is normal LV segmental wall motion. Trace mitral regurgitation. Trace to mild tricuspid regurgitation. There is no evidence of significant pericardial effusion. Signed by : Titus Quiros, Electronically Approved : 08/16/2021 15:36:21
[2021-08-16 19:48] VITALS: BP 102/53
[2021-08-16 22:45] VITALS: BP 101/49
[2021-08-17 03:34] VITALS: BP 109/59
[2021-08-17] MEDS: PANTOPRAZOLE 40 MG TABLET.DR. PO SCH (06:12)
[2021-08-17 07:00] VITALS: BP 110/61
[2021-08-17] MEDS: HYDROcodone/APAP 5/325MG 1 TAB TABLET PO PRN ×2 (08:13→22:12)
[2021-08-17 11:00] VITALS: BP 98/53
--- NOTE | 2021-08-17 11:45 | PDOC ---
[facility] PROGRESS NOTE Date of Service DOS: DATE: 08/17/21 TIME: 11:37 Chief Complaint Chief Complaint Acute COPD exacerbation Symptomatic nonsustained V. tach. Tobacco misuse Start nicotine patch today Start 40 mg prednisone daily DuoNebs as needed Not currently requiring any oxygen or steroids Continue telemetry monitoring TTE completed showed LVEF of 60% and normal wall motions Anticipate discharge in the next 24 hours Smoking cessation: Total time spent was 12 minutes in face to face counseling. Patient has agreed to consider nicotine patches/gum or to start on Varnicline when discharged History of Present Illness History of Present Illness 51-year-old female who continues to smoke and has COPD. She presented with shortness of breath and cough. She had a slight subjective fever of 101 at home. While here in the ER, she also developed a 13-beat run of V-tach. Her troponin is negative. Chest x-ray is negative, but clinically she seems to be having some possible cardiac issues and COPD exacerbation. 08/16/2021 No acute events overnight. Patient seen and examined bedside. No major telemetry events since admission. Patient in normal sinus rhythm at this time. Patient's chart, labs, images were reviewed and discussed with RN 08/17/2021 No acute events overnight. Patient seen examined bedside. Saturating well on room air. No major telemetry events overnight. Patient does not really feel too good and is weak. She definitely is very fatigued but not short of breath. Patient has gotten up to sit in the chair. Denies any coughing spells or dyspnea. Has not received breathing treatments. Smoking cessation: Total time spent was 12 minutes in face to face counseling. Patient has agreed to consider nicotine patches/gum or to start on Varnicline when discharged Vitals/I&O Vitals/I&O: Vital Signs Date Time Temp Pulse Resp B/P (MAP) Pulse Ox O2 Delivery O2 Flow Rate FiO2 08/17/21 08:13 18 99 Room Air 08/17/21 07:00 96.3 73 110/61 (77) 96.3 I & O 08/16/21 08/16/21 08/17/21 15:00 23:00 07:00 Intake Total 480 ml 210 ml Output Total 450 ml Balance 480 ml 210 ml -450 ml Physical Exam General: Alert, Oriented X3, Cooperative, No acute distress Heart: Regular rate (SR), Normal S1, Normal S2, No murmurs Lungs: Crackles Abdomen: Soft, No tenderness Extremities: No cyanosis, No edema Skin: No breakdown, No significant lesion Assessment and Plan Assessmemt and Plan Problems Medical Problems: (1) Chest pain Status: Acute (2) Ventricular tachycardia (paroxysmal) Status: Acute Comment Review of Relevant I have reviewed the following items belle (where applicable) has been applied. Medications: Current Medications Medications (Trade) Dose Ordered Sig/Nika Route PRN Reason Start Time Stop Time Status Last Admin Dose Admin Acetaminophen/ Hydrocodone Bitart (Lortab 5/325) 1 tab PRN Q4HRS PRN PO PAIN 08/16/21 20:15 08/17/21 08:13 Justifications for Admission Other Justification HI MATAMOROS MD Aug 17, 2021 11:45
[2021-08-17] MEDS: predniSONE 10 MG TABLET PO SCH (12:21)
[2021-08-17] MEDS: IV 1/2 NORMAL SALINE 1,000 ML IV SCH ×2 (12:22→22:15)
[2021-08-17] MEDS: IPRATRPIUM/ALBUTEROL 0.5/2.5MG 3 ML NEBU. NEB SCH ×3 (12:29→20:00)
--- NOTE | 2021-08-17 12:30 | PDOC ---
PROGRESS NOTES Date of Service: DATE: 08/17/21 TIME: 12:30 Subjective Subjective Feeling better today. Objective Objective Vital Signs Date Time Temp Pulse Resp B/P (MAP) Pulse Ox O2 Delivery O2 Flow Rate FiO2 08/17/21 08:45 18 99 Room Air 08/17/21 07:00 96.3 73 110/61 (77) 96.3 Intake and Output 08/17/21 07:00 Intake Total 690 ml Output Total 450 ml Balance 240 ml Intake Oral 690 ml Output Urine Total 450 ml # Voids 10 Physical Exam Abdomen: Soft, No tenderness Heart: Regular rate (SR), Normal S1, Normal S2, No murmurs Extremities: No cyanosis, No edema General: Alert, Oriented X3, Cooperative, No acute distress HEENT: Atraumatic, Mucous membr. moist/pink Lungs: Other (rhonchi throughout) MUSCULOSKELETAL: Osteoarthritic changes both hands Neuro: Normal speech, Sensation intact Psych/Mental Status: Mental status NL, Mood NL Skin: No breakdown, No significant lesion Assessment Assessment 1. AECOPD; improved 2. Fever: rapid neg for covid unvaccinated 3. Slow NSVT: x1 in the setting of low K. QTc 436, No acute EKG changes. None further 4. Tobaccoism Recommendations 1. 2D echo showed normal LV systolic function without any wall motion abnormalities 2. Smoking cessation 3. Supportive care Plan Plan of Care Problems Medical Problems: (1) Chest pain Status: Acute (2) Ventricular tachycardia (paroxysmal) Status: Acute Comment Review of Relevant I have reviewed the following items belle (where applicable) has been applied. Labs Microbiology 08/15/21 Blood Culture - Preliminary, Resulted NO GROWTH AFTER 1 DAY Medications Current Medications Acetaminophen/ Hydrocodone Bitart (Lortab 5/325) 1 tab PRN Q4HRS PRN PO PAIN Last administered on 08/17/21at 08:13; Start 08/16/21 at 20:15 Albuterol/ Ipratropium (Duoneb) 3 ml RTQID NEB ; Start 08/17/21 at 12:00 Nicotine (Nicoderm Cq 14mg) 1 patch DAILY TD ; Start 08/18/21 at 09:00 Prednisone (Prednisone) 40 mg DAILY PO Last administered on 08/17/21at 12:21; Start 08/17/21 at 11:45 Sodium Chloride 1,000 ml @ 125 mls/hr Q8H IV Last administered on 08/17/21at 12:22; Start 08/17/21 at 11:45; Stop 08/18/21 at 11:44 Vitals/I & O Vital Sign - Last 24 Hours 08/16/21 08/16/21 08/16/21 08/16/21 15:02 19:48 20:30 22:45 Temp 98.8 98.9 97.5 98.8 98.9 97.5 Pulse 71 66 65 Resp 18 16 18 B/P (MAP) 91/46 (61) 102/53 (69) 101/49 (66) Pulse Ox 95 96 93 O2 Delivery Room Air Room Air Room Air Room Air 08/17/21 08/17/21 08/17/21 08/17/21 03:34 07:00 08:00 08:13 Temp 98.3 96.3 98.3 96.3 Pulse 53 73 Resp 18 18 18 B/P (MAP) 109/59 (76) 110/61 (77) Pulse Ox 99 100 99 O2 Delivery Room Air Room Air Room Air Room Air 08/17/21 08:45 Resp 18 Pulse Ox 99 O2 Delivery Room Air Intake and Output 08/16/21 08/16/21 08/17/21 15:00 23:00 07:00 Intake Total 480 ml 210 ml Output Total 450 ml Balance 480 ml 210 ml -450 ml BEATA BETTS MD Aug 17, 2021 12:30
[2021-08-17 15:00] VITALS: BP 93/54
[2021-08-17 19:00] VITALS: BP 102/51
[2021-08-17 22:37] VITALS: BP 107/50
[2021-08-18 02:48] VITALS: BP 99/42
[2021-08-18] MEDS: IV 1/2 NORMAL SALINE 1,000 ML IV SCH (05:31)
[2021-08-18 07:00] VITALS: BP 112/69
[2021-08-18] MEDS: IPRATRPIUM/ALBUTEROL 0.5/2.5MG 3 ML NEBU. NEB SCH ×3 (08:33→15:29)
[2021-08-18] MEDS ORDERED: NICOTINE 14MG PATCH. TD SCH (09:00)
[2021-08-18] MEDS: PANTOPRAZOLE 40 MG TABLET.DR. PO SCH (09:00)
[2021-08-18] MEDS: predniSONE 10 MG TABLET PO SCH (09:00)
--- NOTE | 2021-08-18 09:36 | PDOC ---
PROGRESS NOTES Date of Service: DATE: 08/18/21 TIME: 09:35 Subjective Subjective Dyspnea improved. Denied any chest pain. c/o dizziness Objective Objective Vital Signs Date Time Temp Pulse Resp B/P (MAP) Pulse Ox O2 Delivery O2 Flow Rate FiO2 08/18/21 08:33 96 Nasal Cannula 2.0 08/18/21 07:00 98.5 67 18 112/69 (83) 98.5 Intake and Output 08/18/21 07:00 Intake Total 2780 ml Output Total 300 ml Balance 2480 ml Intake Oral 780 ml IV Total 2000 ml Output Urine Total 300 ml Physical Exam Abdomen: Soft, No tenderness Heart: Regular rate (SR), Normal S1, Normal S2, No murmurs Extremities: No cyanosis, No edema General: Alert, Oriented X3, Cooperative, No acute distress HEENT: Atraumatic, Mucous membr. moist/pink Lungs: Other (rhonchi throughout) MUSCULOSKELETAL: Osteoarthritic changes both hands Neuro: Normal speech, Sensation intact Psych/Mental Status: Mental status NL, Mood NL Skin: No breakdown, No significant lesion Assessment Assessment 1. AECOPD; improved 2. Slow NSVT: x1 in the setting of low K. QTc 436, No acute EKG changes. None further 3. Tobaccoism Recommendations 1. 2D echo showed normal LV systolic function without any wall motion abnormalities 2. Smoking cessation 3. Supportive care Plan Plan of Care Problems Medical Problems: (1) Chest pain Status: Acute (2) Ventricular tachycardia (paroxysmal) Status: Acute Comment Review of Relevant I have reviewed the following items belle (where applicable) has been applied. Labs Microbiology 08/15/21 Blood Culture - Preliminary, Resulted NO GROWTH AFTER 2 DAYS Medications Current Medications Albuterol/ Ipratropium (Duoneb) 3 ml RTQID NEB Last administered on 08/18/21at 08:33; Start 08/17/21 at 12:00 Nicotine (Nicoderm Cq 14mg) 1 patch DAILY TD Last administered on 08/18/21at 09:00; Start 08/18/21 at 09:00 Prednisone (Prednisone) 40 mg DAILY PO Last administered on 08/18/21at 09:00; Start 08/17/21 at 11:45 Sodium Chloride 1,000 ml @ 125 mls/hr Q8H IV Last administered on 08/18/21at 05:31; Start 08/17/21 at 11:45; Stop 08/18/21 at 11:44 Vitals/I & O Vital Sign - Last 24 Hours 08/17/21 08/17/21 08/17/21 08/17/21 11:00 12:35 15:00 16:28 Temp 97.7 98.2 97.7 98.2 Pulse 66 73 Resp 18 18 B/P (MAP) 98/53 (68) 93/54 (67) Pulse Ox 95 96 91 O2 Delivery Room Air Room Air Nasal Cannula Room Air O2 Flow Rate 4.0 08/17/21 08/17/21 08/17/21 08/17/21 19:00 20:00 21:18 22:12 Temp 97.2 97.2 Pulse 80 Resp 16 19 B/P (MAP) 102/51 (68) Pulse Ox 95 O2 Delivery Nasal Cannula Room Air Room Air Room Air O2 Flow Rate 4.0 3.0 08/17/21 08/17/21 08/18/21 08/18/21 22:37 22:42 02:48 07:00 Temp 98.2 97.3 98.5 98.2 97.3 98.5 Pulse 87 66 67 Resp 18 18 20 18 B/P (MAP) 107/50 (69) 99/42 (61) 112/69 (83) Pulse Ox 98 99 96 O2 Delivery Nasal Cannula Room Air Nasal Cannula Nasal Cannula O2 Flow Rate 4.0 4.0 2.0 08/18/21 08:33 Pulse Ox 96 O2 Delivery Nasal Cannula O2 Flow Rate 2.0 Intake and Output 08/17/21 08/17/21 08/18/21 15:00 23:00 07:00 Intake Total 420 ml 1360 ml 1000 ml Output Total 300 ml Balance 420 ml 1060 ml 1000 ml EBATA BETTS MD Aug 18, 2021 09:36
[2021-08-18] MEDS ORDERED: MECLIZINE HCL 12.5 MG TABLET. PO ONE (10:45)
[2021-08-18] MEDS ORDERED: MECLIZINE HCL 12.5 MG TABLET. PO PRN (10:45)
[2021-08-18 11:00] VITALS: BP 101/54
[2021-08-18 14:43] VITALS: BP 88/87
[2021-08-18] MEDS ORDERED: PRED-220 PO (14:54)
[2021-08-18] MEDS ORDERED: VARE0.5T6 PO (14:54)
[2021-08-18] MEDS ORDERED: MECL12.582 PO (14:54)
--- NOTE | 2021-08-18 14:55 | DISCH ---
DISCHARGE INSTRUCTIONS Condition on Discharge Condition on Discharge: Stable Activity After Discharge Activity Instructions for Disc: Activity as tolerated Lifting Instructions after Dis: No heavy lifting Exercise Instruction after Dis: Progress as tolerated Driving Instructions after Dis: Do not drive today Weight Bearing Status after Di: Full weight bearing Diet after Discharge Diet after Discharge: GI Soft, Regular Diet Texture: Regular Liquid Texture: Thin Liquid Swallowing Supervision: None needed Wound Incision Care Wound/Incision Care: No wound care needed Checks after Discharge Checks after discharge: Check blood press - daily Contacting the DR. after DC Call your doctor for: If your condition worsens Follow-Up Follow up with: PCP within 2 weeks of discharge Follow Up With: cardiology a needed Treatment/Equipment after DC Adaptive Equipment Issued: None HI MATAMOROS MD Aug 18, 2021 14:55
[2021-08-18] MEDS: HYDROcodone/APAP 5/325MG 1 TAB TABLET PO PRN (15:30)
--- NOTE | 2021-08-18 16:45 | NUR ---
Discharge instructions reviewed with pt, questions answered. Tele and Piv discontinued. Discharge instructions, education materials and all belongings sent with pt. Pt wheeled out to car where daughter was waiting.
--- NOTE | 2021-08-23 16:51 | PDOC3 ---
[facility]-Discharge Summary Date of Admission: Date of Admission: Aug 15, 2021 Date of Discharge: Date of Discharge: Aug 18, 2021 Discharge Diagnosis: Discharge Diagnosis: Acute COPD exacerbation Symptomatic nonsustained V. tach. Tobacco misuse Consults: Consults: cardiology Assessment 1. AECOPD; improved 2. Slow NSVT: x1 in the setting of low K. QTc 436, No acute EKG changes. None further 3. Tobaccoism Recommendations 1. 2D echo showed normal LV systolic function without any wall motion abnormalities 2. Smoking cessation 3. Supportive care Hospital Course: Hospital Course: 51-year-old female who continues to smoke and has COPD. She presented with shortness of breath and cough. She had a slight subjective fever of 101 at home. While here in the ER, she also developed a 13-beat run of V-tach. Her troponin is negative. Chest x-ray is negative, but clinically she seems to be having some possible cardiac issues and COPD exacerbation. 08/16/2021 No acute events overnight. Patient seen and examined bedside. No major telemetry events since admission. Patient in normal sinus rhythm at this time. Patient's chart, labs, images were reviewed and discussed with RN 08/17/2021 No acute events overnight. Patient seen examined bedside. Saturating well on room air. No major telemetry events overnight. Patient does not really feel too good and is weak. She definitely is very fatigued but not short of breath. Patient has gotten up to sit in the chair. Denies any coughing spells or dyspnea. Has not received breathing treatments. By day of discharge, pt was clinically stable and ready for discharge. Please see cardiology recommendations above. Rest of hospital course was uneventful Disposition: Disposition/Orders: D/C to Home Activity: Activity: Resume previous activity Diet: Diet: Cardiac Medications: Home Meds Active Scripts Varenicline Tartrate (Varenicline Tartrate) 0.5 Mg Tablet, 0.5 MG PO DAILY for smoking cessation for 7 Days, #11 TAB Prov:HI MATAMOROS MD 08/18/21 Meclizine Hcl (MECLIZINE HCL) 12.5 Mg Tablet, 1 TAB PO TID PRN for dizziness, #30 TAB Prov:HI MATAMOROS MD 08/18/21 Prednisone (PREDNISONE ) 10 Mg Tablet, 40 MG PO DAILY for copd for 3 Days, #12 TAB Prov:HI MATAMOROS MD 08/18/21 Sennosides/Docusate Sodium (Colace 2-in-1 Tablet) 1 Each Tablet, 1 TAB PO QHS PRN for CONSTIPATION, #20 TAB 0 Refills Prov:MATHEWSREBECCA DO 06/11/20 Acetaminophen (ACETAMINOPHEN) 500 Mg Tablet, 500 MG PO PRN Q6HRS PRN for MILD PAIN / TEMP for 10 Days, #30 TAB Prov:LYNETTE LACY MD 11/13/19 Fluticasone/Salmeterol (ADVAIR 250-50 DISKUS) 1 Each Disk.w.dev, 1 PUFF IH BID, #1 INHALER Prov:SKYLER POTTER MD 09/28/17 Albuterol Sulfate (PROAIR HFA INHALER) 8.5 Gm Hfa.aer.ad, 1 PUFF INH PRN Q6HRS PRN for SHORTNESS OF BREATH, #1 INHALER Prov:JENIFER BENTON TRIMMER [employer]AT 11/21/16 Reported Medications Albuterol Sulfate (Proair Respiclick) 90 Mcg Aer.pow.ba, 1 PUFF IH PRN Q4HRS PRN for SHORTNESS OF BREATH, EACH 08/15/21 Pantoprazole Sodium (PROTONIX ) 40 Mg Tablet.dr, 40 MG PO DAILYAC for GERD, TAB 08/15/21 Famotidine (FAMOTIDINE) 40 Mg Tablet, 40 MG PO HS for GERD, TAB 08/15/21 Discontinued Scripts Prednisone (PREDNISONE) 50 Mg Tablet, 1 TAB PO DAILY, #5 TAB Prov:VICTORINA BALDWIN MD 03/20/21 Azithromycin (AZITHROMYCIN TABLET) 250 Mg Tablet, 1 PKG PO UD, #6 TAB Prov:VICTORINA BALDWIN MD 03/20/21 Ondansetron (ONDANSETRON ODT) 4 Mg Tab.rapdis, 1 TAB PO PRN Q6-8HRS, #20 TAB Prov:PITA HAIRSTON DO 03/16/21 Promethazine/Phenyleph/Codeine (Gsfcvrkxdkev-WJ-Lrsiwes Syrup) 118 Ml Syrup, 5 ML PO QID for 5 Days, MISC Prov:LALO GU DO 03/13/21 Prednisone (PREDNISONE) 50 Mg Tablet, 1 TAB PO DAILY for 5 Days, #5 TAB Prov:LALO GU DO 03/13/21 Ondansetron (ONDANSETRON ODT) 4 Mg Tab.rapdis, 1 TAB PO PRN Q6-8HRS PRN for NAUSEA, #16 TAB Prov:REBECCA MATHEWS DO 06/11/20 Lactobacillus Rhamnosus Gg (CULTURELLE) 1 Each Cap.sprink, 1 CAP PO BID for supplement for 30 Days, #60 CAP Prov:LYNETTE LACY MD 11/13/19 Scheduled Famotidine (Famotidine), 40 MG PO HS, (Reported) Fluticasone/Salmeterol (Advair 250-50 Diskus), 1 PUFF IH BID Pantoprazole Sodium (Protonix ), 40 MG PO DAILYAC, (Reported) Prednisone (Prednisone ), 40 MG PO DAILY Varenicline Tartrate (Varenicline Tartrate), 0.5 MG PO DAILY Scheduled PRN Acetaminophen (Acetaminophen), 500 MG PO PRN Q6HRS PRN for MILD PAIN / TEMP Albuterol Sulfate (Proair Hfa Inhaler), 1 PUFF INH PRN Q6HRS PRN for SHORTNESS OF BREATH Albuterol Sulfate (Proair Respiclick), 1 PUFF IH PRN Q4HRS PRN for SHORTNESS OF BREATH, (Reported) Meclizine Hcl (Meclizine Hcl), 1 TAB PO TID PRN for dizziness Sennosides/Docusate Sodium (Colace 2-in-1 Tablet), 1 TAB PO QHS PRN for CONSTIPATION Discontinued Medications Azithromycin (Azithromycin Tablet), 1 PKG PO UD Lactobacillus Rhamnosus Gg (Culturelle), 1 CAP PO BID Ondansetron (Ondansetron Odt), 1 TAB PO PRN Q6-8HRS PRN for NAUSEA Ondansetron (Ondansetron Odt), 1 TAB PO PRN Q6-8HRS Prednisone (Prednisone), 1 TAB PO DAILY Prednisone (Prednisone), 1 TAB PO DAILY Promethazine/Phenyleph/Codeine (Dztsyvvybdvn-KE-Hdmgueh Syrup), 5 ML PO QID Total Time: Total Time: Total time spent was 36 minutes in preparing scripts, discharge planning with SW and RN, and preparing this discharge summary. Justicifation of Admission Dx: Justifications for Admission: Justification of Admission Dx: Yes HI MATAMOROS MD Aug 23, 2021 16:51
== END 2021-08-18 16:45 | disposition home or self-care (01) | DRG 191 ==
LOC: ER 13:04 → 6 SOUTH 14:48
PROVIDERS: ADMIT Internal Medicine; ATTEND Internal Medicine
DX: J44.1 Chronic obstructive pulmonary disease with (acute) exacerbation (principal); I47.2 Ventricular tachycardia; F17.210 Nicotine dependence, cigarettes, uncomplicated; Z20.822 Contact with and (suspected) exposure to COVID-19; Z82.49 Family history of ischemic heart disease and other diseases of the circulatory system; G89.29 Other chronic pain; K21.9 Gastro-esophageal reflux disease without esophagitis; M19.90 Unspecified osteoarthritis, unspecified site; Z90.49 Acquired absence of other specified parts of digestive tract; Z98.51 Tubal ligation status; Z71.6 Tobacco abuse counseling; Z28.3 Underimmunization status
CPT/HCPCS: 36415; 71045; 80048; 80164; 80307; 80329; 81001; 81025; 83605; 83690; 83735; 83880; 84443; 84484; 85025; 87040; 87426; 87804; 93005; 93306; 94618; 94640; 94760; 96361; 96374; J2270; J3490; J7030; J7512; U0003; U0005; 99285-25; G0378; G0480; J8597

== ENCOUNTER 2021-08-21 17:12 | Emergency (ER) | payer OTHER ==
[~2021-08-21] VITALS: Ht 162.6 cm; Wt 61.3 kg
[~2021-08-21 17:12] MED LIST changes: +FAMO40TA4 PO; +MECL12.582 PO; +PROAIR RESPICL90 MCG IH; +VARE0.5T6 PO
[2021-08-21 17:28] VITALS: BP 121/63
--- NOTE | 2021-08-21 17:56 | PHYS DOC ---
Past Medical History Past Medical History: Asthma, Bronchitis, COPD, Pancreatitis, Pneumonia, Other Additional Past Medical Histor: sciatica Past Surgical History: Cholecystectomy, Tubal ligation Smoking Status: Current Every Day Smoker Alcohol Use: None Drug Use: None General Adult EDM: Chief Complaint: FOOT INJURY PAIN HPI: HPI: Patient is a 51-year-old female who presents to the emergency department for right great toe and foot pain after kicking a door yesterday. Patient rates pain 10 out of 10. She reports that she is unable to bear weight or ambulate due to the pain. Patient denies any decreased sensation to her, reports ecchymosis and swelling to her great toe and foot, reports decreased range of motion due to pain. Review of Systems: Review of Systems: Musculoskeletal: See HPI Integument: See HPI Neurologic: See HPI Heart Score: C/O Chest Pain: N/A Risk Factors: Risk Factors: DM, Current or recent (<one month) smoker, HTN, HLP, family history of CAD, obesity. Risk Scores: Score 0 - 3: 2.5% MACE over next 6 weeks - Discharge Home Score 4 - 6: 20.3% MACE over next 6 weeks - Admit for Clinical Observation Score 7 - 10: 72.7% MACE over next 6 weeks - Early Invasive Strategies Allergies: Allergies: Allergies Coded Allergies Type Severity Reaction Last Updated Verified No Known Drug Allergies 01/02/21 No Physical Exam: PE: Constitutional: Well developed, well nourished, no acute distress, non-toxic appearance. [] HENT: Normocephalic, atraumatic, bilateral external ears normal, oropharynx moist, no oral exudates, nose normal. [] Eyes: PERRL, EOMI, conjunctiva normal, no discharge. [] Neck: Normal range of motion, no stridor Cardiovascular: Normal peripheral perfusion Lungs & Thorax: Normal work of breathing, no tachypnea Abdomen: Soft and flat Skin: Warm, dry, no erythema, no rash. [] Back: Normal range of motion Extremities: No tenderness, no cyanosis, no clubbing, ROM intact, no edema. Right foot: Swelling and ecchymosis noted to right foot, limited range of motion due to pain, neuro intact, no open wounds or obvious deformity Neurologic: Alert and oriented X 3, normal motor function, normal sensory function, no focal deficits noted. [] Psychologic: Affect normal, judgement normal, mood normal. [] EKG: EKG: [] Radiology/Procedures: Radiology/Procedures: PROCEDURE: FOOT RIGHT 3V Exam: Right foot 3 views INDICATION: Foot injury TECHNIQUE: Frontal, lateral and oblique views of the right foot Comparisons: None FINDINGS: Moderately comminuted fracture of the proximal phalanx first digit, which is minimally displaced. No other fracture identified. Mild soft tissue swelling at the forefoot. Joint spaces are well-maintained. IMPRESSION: Comminuted fracture of the proximal phalanx first digit, minimally displaced. Electronically signed by: Phillip Salas MD (08/21/2021 6:26 PM) [facility] DICTATED and SIGNED BY: PHILLIP SALAS MD DATE: 08/21/21 [id number] 0 Course & Med Decision Making: Course & Med Decision Making Pertinent Labs and Imaging studies reviewed. (See chart for details) [] Patient presents to the emergency department for right great toe and foot pain after she kicked a door. An x-ray was performed that showed a right great toe fracture. Patient's toe braulio taped placed in a postop shoe and given crutches and crutch training. Patient continues to be neurovascularly intact. Patient advised to take Tylenol and/ibuprofen for her pain. Educated on rice protocol. Advised to follow-up with her primary care provider. Mo Disclaimer: Mo Disclaimer: This electronic medical record was generated, in whole or in part, using a voice recognition dictation system. Departure Departure Impression: Primary Impression: Toe fracture Qualified Codes: S92.411A - Displaced fracture of proximal phalanx of right great toe, initial encounter for closed fracture Disposition: HOME / SELF CARE / HOMELESS Condition: GOOD Referrals: NO PCP (PCP) Patient Instructions: DEVIKA - Routine Care for Injuries, Toe Fracture Additional Instructions: You were seen in the emergency department today for a toe injury. An x-ray was performed and you do have a fracture of your right great toe. Your toe was braulio taped to the toe decided, continue to use this for support. You can apply ice and elevate to help with swelling. You can take Tylenol and/or ibuprofen for your pain. You were also given crutches and crutch training, please use these as needed. Follow-up with your primary care provider tomorrow regarding your ER visit. Return to the emergency department if you develop worsening of your pain, increased swelling, decreased range of motion for decreased sensation in your extremity. EFREN YOUNG PHOTOVOLTAIC TECHNICIAN Aug 21, 2021 17:56
--- NOTE | 2021-08-21 18:28 | RAD ---
Exam: Right foot 3 views INDICATION: Foot injury TECHNIQUE: Frontal, lateral and oblique views of the right foot Comparisons: None FINDINGS: Moderately comminuted fracture of the proximal phalanx first digit, which is minimally displaced. No other fracture identified. Mild soft tissue swelling at the forefoot. Joint spaces are well-maintaine d. IMPRESSION: Comminuted fracture of the proximal phalanx first digit, minimally displaced. Electronically signed by: Phillip Pace MD (08/21/2021 6:26 PM) [facility]
== END 2021-08-21 18:58 | disposition home or self-care (01) ==
LOC: ER 17:12
DX: S92.411A Displaced fracture of proximal phalanx of right great toe, initial encounter for closed fracture (principal); J44.9 Chronic obstructive pulmonary disease, unspecified; F17.200 Nicotine dependence, unspecified, uncomplicated; W22.09XA Striking against other stationary object, initial encounter; Y93.89 Activity, other specified; Y92.89 Other specified places as the place of occurrence of the external cause; Y99.8 Other external cause status
CPT/HCPCS: 73630; 99283

== ENCOUNTER 2022-01-09 13:02 | Inpatient (IN) | payer OTHER ==
[~2022-01-09] VITALS: Ht 162.6 cm; Wt 68.6 kg
[2022-01-09] MEDS ORDERED: MORPHINE SULFATE 4 MG/ML INJ. IVP ONE (13:30)
[2022-01-09] MEDS ORDERED: NITROGLYCERIN SUBLINGUAL 0.4 MG BOTTLE OF 25. SL PRN ×2 (13:30→15:45)
[2022-01-09] MEDS ORDERED: MORPHINE SULFATE 4 MG/ML INJ. IV/SQ PRN (13:30)
--- NOTE | 2022-01-09 13:32 | EKG ---
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
[2022-01-09 13:46] LABS: BASO % 0 % (0-3); EOS # 0.1 x10^3/uL (0.0-0.7); EOS % 1 % (0-3); HEMATOCRIT 37.2 % (36.0-47.0); HEMOGLOBIN 11.7 g/dL (12.0-15.5); LYMPH # 1.6 x10^3/uL (1.0-4.8); LYMPH % 19 % (24-48); MEAN CORPUSCULAR HEMOGLOBIN 22 pg (25-35); MEAN CORPUSCULAR HGB CONC 32 g/dL (31-37); MEAN CORPUSCULAR VOLUME 70 fL (79-100); MONO # 0.6 x10^3/uL (0.0-1.1); MONO % 7 % (0-9); NEUT % 72 % (31-73); PLATELET COUNT 276 x10^3/uL (140-400); RED BLOOD COUNT 5.29 x10^6/uL (3.50-5.40); RED CELL DISTRIBUTION WIDTH 17.7 % (11.5-14.5); WHITE BLOOD COUNT 8.3 x10^3/uL (4.0-11.0)
--- NOTE | 2022-01-09 13:56 | PHYS DOC ---
Past Medical History Past Medical History: Asthma, Bronchitis, COPD, Hypertension, Pancreatitis, Pneumonia, Other Additional Past Medical Histor: sciatica Past Surgical History: Cholecystectomy, Tubal ligation Smoking Status: Current Every Day Smoker Alcohol Use: None Drug Use: None General Adult EDM: Chief Complaint: CHEST PAIN HPI: HPI: Patient is a 51 year old female with a history of hypertension, COPD, current smoker, asthma, presenting to the ED today complaining of 8 out of 10 substernal chest pain nonradiating, symptoms began at 2 AM. Patient states the pain woke her up. She she states the pain is worse when she is taking deep breaths or coughing. She states she has a chronic describes the pain as "soreness". Smoker's cough. Denies any fever. Denies any shortness of breath. Denies anything relieving her pain. Review of Systems: Review of Systems: Constitutional: Denies fever or chills. [] Eyes: Denies change in visual acuity. [] HENT: Denies nasal congestion or sore throat. [] Respiratory: Reports chronic cough, denies shortness of breath. [] Cardiovascular: Reports chest pain GI: Denies abdominal pain, nausea, vomiting, bloody stools or diarrhea. [] : Denies dysuria. [] Musculoskeletal: Denies back pain or joint pain. [] Integument: Denies rash. [] Neurologic: Denies headache, focal weakness or sensory changes. [] Psychiatric: Denies depression or anxiety. [] Heart Score: C/O Chest Pain: Yes HEART Score for Chest Pain: HEART Score for Chest Pain Response (Comments) Value History Slighlty/Non-Suspicious 0 ECG Normal 0 Age >45 - < 65 1 Risk Factors 1 or 2 Risk Factors 1 Troponin < Normal Limit 0 Total 2 Risk Factors: Risk Factors: DM, Current or recent (<one month) smoker, HTN, HLP, family history of CAD, obesity. Risk Scores: Score 0 - 3: 2.5% MACE over next 6 weeks - Discharge Home Score 4 - 6: 20.3% MACE over next 6 weeks - Admit for Clinical Observation Score 7 - 10: 72.7% MACE over next 6 weeks - Early Invasive Strategies Current Medications: Current Medications Medications (Trade) Dose Ordered Sig/Nika Start Time Stop Time Status Last Admin Dose Admin Morphine Sulfate (Morphine Sulfate) 4 mg 1X ONCE 01/09/22 13:30 01/09/22 13:31 DC 01/09/22 13:47 4 MG Nitroglycerin (Nitrostat) 0.4 mg PRN Q5MIN PRN 01/09/22 13:30 01/10/22 13:29 01/09/22 13:46 0.4 MG Allergies: Allergies: Allergies Coded Allergies Type Severity Reaction Last Updated Verified No Known Drug Allergies 01/02/21 No Physical Exam: PE: Constitutional: Well developed, well nourished, no acute distress, non-toxic appearance. [] HENT: Normocephalic, atraumatic, bilateral external ears normal, oropharynx moist, no oral exudates, nose normal. [] Eyes: PERRLA, EOMI, conjunctiva normal, no discharge. [] Neck: Normal range of motion, no tenderness, supple, no stridor. [] Cardiovascular:Heart rate regular rhythm, no murmur [] Lungs & Thorax: Bilateral breath sounds clear to auscultation [] Abdomen: Bowel sounds normal, soft, no tenderness, no masses, no pulsatile masses. [] Skin: Warm, dry, no erythema, no rash. [] Back: No tenderness, no CVA tenderness. [] Extremities: No tenderness, no cyanosis, no clubbing, ROM intact, no edema. [] Neurologic: Alert and oriented X 3, normal motor function, normal sensory fu nction, no focal deficits noted. [] Psychologic: Flat affect, moaning and groaning Current Patient Data: Labs: Laboratory Tests Test 01/09/22 13:35 White Blood Count 8.3 x10^3/uL (4.0-11.0) Red Blood Count 5.29 x10^6/uL (3.50-5.40) Hemoglobin 11.7 g/dL (12.0-15.5) L Hematocrit 37.2 % (36.0-47.0) Mean Corpuscular Volume 70 fL (79-100) L Mean Corpuscular Hemoglobin 22 pg (25-35) L Mean Corpuscular Hemoglobin Concent 32 g/dL (31-37) Red Cell Distribution Width 17.7 % (11.5-14.5) H Platelet Count 276 x10^3/uL (140-400) Neutrophils (%) (Auto) 72 % (31-73) Lymphocytes (%) (Auto) 19 % (24-48) L Monocytes (%) (Auto) 7 % (0-9) Eosinophils (%) (Auto) 1 % (0-3) Basophils (%) (Auto) 0 % (0-3) Neutrophils # (Auto) 6.0 x10^3/uL (1.8-7.7) Lymphocytes # (Auto) 1.6 x10^3/uL (1.0-4.8) Monocytes # (Auto) 0.6 x10^3/uL (0.0-1.1) Eosinophils # (Auto) 0.1 x10^3/uL (0.0-0.7) Basophils # (Auto) 0.0 x10^3/uL (0.0-0.2) Platelet Estimate Pending Laboratory Tests 01/09/22 13:35 Vital Signs: Vital Signs Date Time Temp Pulse Resp B/P (MAP) Pulse Ox O2 Delivery O2 Flow Rate FiO2 01/09/22 13:47 34 95 Room Air 01/09/22 13:46 79 113/54 01/09/22 13:05 97.8 97.8 EKG: EK interpreted by Dr. Landry sinus rhythm heart rate 81 no STEMI [] [address] Landry sinus rhythm heart rate 75 no STEMI [] Radiology/Procedures: Radiology/Procedures: []PROCEDURE: PORTABLE CHEST 1V XR CHEST 1V INDICATION: chest pain . COMPARISON STUDY: 08/15/2021. FINDINGS: Lungs: Normal lung volume. No pulmonary mass or consolidation. The tracheobronchial tree and hilar structures are normal. Pleura: No pleural effusion or pneumothorax. Heart and Mediastinum: The cardiomediastinal silhouette is normal. The great vessels of the thorax are normal. Bones and Soft Tissues: The bones and soft tissues are within normal limits. IMPRESSION: No acute cardiopulmonary process. Electronically signed by: Jerilyn Raymundo MD (01/09/2022 3:15 PM) [id number] DICTATED and SIGNED BY: JERILYN RAYMUNDO MD DATE: 01/09/22 1514 Course & Med Decision Making: Course & Med Decision Making Pertinent Labs and Imaging studies reviewed. (See chart for details) This a 51-year-old female patient presented to the ED today complaining of chest pain that began this morning. EKG is negative. Initial high-sensitivity troponin is 5. CBC CMP with no acute findings. Chest x-ray is negative. Spoke to Dr. Moran who accepted patient for admission Routine consult placed for cardiology Mo Disclaimer: Mo Disclaimer: This electronic medical record was generated, in whole or in part, using a voice recognition dictation system. Departure Departure Impression: Primary Impression: Chest pain Qualified Codes: R07.9 - Chest pain, unspecified Additional Impression: COPD (chronic obstructive pulmonary disease) Qualified Codes: J44.9 - Chronic obstructive pulmonary disease, unspecified Disposition: ADMITTED INPATIENT Condition: STABLE Referrals: REBECCA GREEN MD (PCP) JARED HODGE METAL MOLDER Jan 09, 2022 13:56
--- NOTE | 2022-01-09 14:17 | EKG ---
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
[2022-01-09 14:21] LABS: BARBITURATES NEG (NEG); BENZODIAZEPINES NEG (NEG); CANNABINOIDS NEG (NEG); COCAINE NEG (NEG); METHADONE NEG (NEG); OPIATES POS (NEG); PHENCYCLIDINE NEG (NEG)
[2022-01-09 14:23] LABS: AMPHETAMINE/METHAMPHETAMINE NEG (NEG)
[2022-01-09 14:28] LABS: CALCIUM 9.1 mg/dL (8.5-10.1); CREATININE 0.6 mg/dL (0.6-1.0); GFR 105.8; POTASSIUM 3.9 mmol/L (3.5-5.1)
[2022-01-09 14:30] LABS: BACTERIA,URINE 0 /HPF (0-FEW); RBC,URINE 0 /HPF (0-2); WBC,URINE 0 /HPF (0-4)
[2022-01-09] MEDS ORDERED: ONDANSETRON PF 4 MG/2 ML VIAL. IVP ONE (14:30)
[2022-01-09 14:34] LABS: ALBUMIN 3.7 g/dL (3.4-5.0); ALBUMIN/GLOBULIN RATIO 1.1 (1.0-1.7); TOTAL BILIRUBIN 0.3 mg/dL (0.2-1.0)
[2022-01-09 14:44] LABS: PLT ESTIMATE ADEQUATE (ADEQUATE)
[2022-01-09 14:46] LABS: ANISOCYTOSIS SLIGHT; HYPOCHROMIA SLIGHT; MICROCYTOSIS SLIGHT
--- NOTE | 2022-01-09 15:17 | RAD ---
XR CHEST 1V INDICATION: chest pain . COMPARISON STUDY: 08/15/2021. FINDINGS: Lungs: Normal lung volume. No pulmonary mass or consolidation. The tracheobronchial tree and hilar st ructures are normal. Pleura: No pleural effusion or pneumothorax. Heart and Mediastinum: The cardiomediastinal silhouette is normal. The great vessels of the thorax ar e normal. Bones and Soft Tissues: The bones and soft tissues are within normal limits. IMPRESSION: No acute cardiopulmonary process. Electronically signed by: Michael Raymundo MD (01/09/2022 3:15 PM) [id number]
[2022-01-09] MEDS ORDERED: ACETAMINOPHEN 325 MG TABLET. PO PRN ×2 (15:45→17:00)
[2022-01-09] MEDS ORDERED: ONDANSETRON PF 4 MG/2 ML VIAL. IVP PRN ×2 (15:45→17:00)
[2022-01-09] MEDS ORDERED: MORPHINE SULFATE 4 MG/ML INJ. IVP PRN (15:45)
[2022-01-09] MEDS ORDERED: CALCIUM CARBONATE 500 MG TAB.CHEW PO PRN (17:00)
[2022-01-09] MEDS ORDERED: ZOLPIDEM 5 MG TABLET. PO PRN (17:00)
[2022-01-09] MEDS ORDERED: ELECTROLYTE (NON-ICU) PROTOCOL. MC PRN (17:00)
[2022-01-09] MEDS ORDERED: oxyCODONE/APAP 5/325 1 TAB TABLET PO PRN ×2 (17:00)
[2022-01-09 17:15] VITALS: BP 121/63
--- NOTE | 2022-01-09 18:57 | PDOC1 ---
History and Physical Date of Service: DOS: DATE: 01/09/22 TIME: 18:56 Chief Complaint: Chief Complain: chest pain History of Present Illness: HPI: 51-year-old female presented the emergency room today due to 1 day history of chest pain. 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 Describes pain as substernal. Pain woke her up from bed. She is a smoker and has a chronic smoker's cough. Reports compliant with home medications. Pain worse with deep breaths. Work-up in emergency room pretty unremarkable. Cardiology consulted in ER. Past Medical/Surgical History: PMH/PSH: Past Medical History: Asthma, Bronchitis, COPD, Hypertension, Pancreatitis, Additional Past Medical Histor: sciatica Past Surgical History: Cholecystectomy, Tubal ligation Smoking Status: Current Every Day Smoker Alcohol Use: None Drug Use: None Allergies: Allergies: Coded Allergies: No Known Drug Allergies (Unverified , 01/02/21) Family History: Family History: HTN Current Medications: Current Medications Current Medications Nitroglycerin (Nitrostat) 0.4 mg PRN Q5MIN PRN SL CP RATING > 1/10 Last administered on 01/09/22at 13:46; Start 01/09/22 at 13:30; Stop 01/09/22 at 17:05; Status DC Morphine Sulfate (Morphine Sulfate) 4 mg PRN Q15MIN PRN IV/SQ PAIN GREATER THAN 3/10 Last administered on 01/09/22at 14:16; Start 01/09/22 at 13:30; Stop 01/10/22 at 13:29 Morphine Sulfate (Morphine Sulfate) 4 mg 1X ONCE IVP Last administered on 01/09/22at 13:47; Start 01/09/22 at 13:30; Stop 01/09/22 at 13:31; Status DC Ondansetron HCl (Zofran) 4 mg 1X ONCE IVP Last administered on 01/09/22at 14:47; Start 01/09/22 at 14:30; Stop 01/09/22 at 14:31; Status DC Ondansetron HCl (Zofran) 4 mg PRN Q8HRS PRN IVP NAUSEA/VOMITING; Start 01/09/22 at 15:45; Stop 01/10/22 at 15:44 Morphine Sulfate (Morphine Sulfate) 4 mg PRN Q2HR PRN IVP PAIN Last administered on 01/09/22at 18:14; Start 01/09/22 at 15:45; Stop 01/10/22 at 15:44 Acetaminophen (Tylenol) 650 mg PRN Q4HRS PRN PO FEVER > 100.3'F Last administered on 01/09/22at 18:13; Start 01/09/22 at 15:45; Stop 01/10/22 at 15:44 Nitroglycerin (Nitrostat) 0.4 mg PRN Q5MIN PRN SL CHEST PAIN; Start 01/09/22 at 15:45; Stop 01/10/22 at 15:44 Ondansetron HCl (Zofran) 4 mg PRN Q6HRS PRN IVP NAUSEA/VOMITING; Start 01/09/22 at 17:00 Calcium Carbonate/ Glycine (Tums) 500 mg PRN Q3HRS PRN PO UPSET STOMACH; Start 01/09/22 at 17:00 Zolpidem Tartrate (Ambien) 5 mg PRN QHS PRN PO INSOMNIA, MAY REPEAT IN 1HR; Start 01/09/22 at 17:00 Info (Non-Icu Electrolyte Protocol) 1 ea PRN DAILY PRN MC SEE COMMENTS; Start 01/09/22 at 17:00 Oxycodone/ Acetaminophen (Percocet 5/325) 1 tab PRN Q4HRS PRN PO MILD PAIN, 1ST CHOICE; Start 01/09/22 at 17:00 Oxycodone/ Acetaminophen (Percocet 5/325) 2 tab PRN Q4HRS PRN PO MODERATE PAIN, SEVERE PAIN; Start 01/09/22 at 17:00 Acetaminophen (Tylenol) 650 mg PRN Q6HRS PRN PO Headaches, Temp > 101.5F; Start 01/09/22 at 17:00 Senna/Docusate Sodium (Senna Plus) 1 tab BID PO ; Start 01/09/22 at 21:00 Heparin Sodium (Porcine) (Heparin Sodium) 5,000 unit Q8HRS SQ ; Start 01/09/22 at 22:00 Active Scripts Active Varenicline Tartrate 0.5 Mg Tablet 0.5 Mg PO DAILY 7 Days Meclizine Hcl 12.5 Mg Tablet 1 Tab PO TID PRN Prednisone (Prednisone) 10 Mg Tablet 40 Mg PO DAILY 3 Days Colace 2-in-1 Tablet (Sennosides/Docusate Sodium) 1 Each Tablet 1 Tab PO QHS PRN Acetaminophen 500 Mg Tablet 500 Mg PO PRN Q6HRS PRN 10 Days Advair 250-50 Diskus (Fluticasone/Salmeterol) 1 Each Disk.w.dev 1 Puff IH BID Proair Hfa Inhaler (Albuterol Sulfate) 8.5 Gm Hfa.aer.ad 1 Puff INH PRN Q6HRS PRN Reported Proair Respiclick (Albuterol Sulfate) 90 Mcg Aer.pow.ba 1 Puff IH PRN Q4HRS PRN Protonix (Pantoprazole Sodium) 40 Mg Tablet.dr 40 Mg PO DAILYAC Famotidine 40 Mg Tablet 40 Mg PO HS ROS: Review of Systems Review of System Unless noted in HPI 14 point review systems negative Physical Exam: Vital Signs: Vital Signs Date Time Temp Pulse Resp B/P (MAP) Pulse Ox O2 Delivery O2 Flow Rate FiO2 01/09/22 16:30 82 18 109/62 (78) 93 Room Air 01/09/22 13:05 97.8 97.8 Physcial Exam: GEN: No apparent distress. Alert and oriented HEENT: Normal cephalic, atraumatic, external auditory canals are patent EYES: Extraocular muscles are intact, pupil are equally round and reactive to light and accommodation MUSCULOSKELETAL: Well developed , well nourished, good range of motion ENDOCRINE: No thyromegaly was palpated LYMPHATICS: No cervical chain or axillary nodes were noted HEMATOPOIETIC: No bruising NECK: Supple, no JVD, no thyromegaly was noted LUNGS: Clear to auscultation in all lung narayan without rhonchi or wheezing HEART: RRR, S!, S2 present. Peripheral pulses intact, no obvious murmurs noted ABDOMEN: Soft, nontender. Positive bowel sounds, no organomegaly, normal bowel sounds EXTREMITIES: Without clubbing, cyanosis, or edema. Pedal pulses intact. Negative Homans sign NEUROLOGIC: Normal speech and tone. A&O x 3, moves all extremities, no obvious focal deficits PSYCHIATRIC: Normal affect, normal mood. Stable SKIN: No ulcerations or rashes, good skin turgor, no jaundice VASCULAR: Good capillary refill, neurovascular bundle appears to be intact Labs: Labs: Laboratory Tests Test 01/09/22 13:35 01/09/22 14:06 01/09/22 16:50 White Blood Count 8.3 x10^3/uL (4.0-11.0) Red Blood Count 5.29 x10^6/uL (3.50-5.40) Hemoglobin 11.7 g/dL (12.0-15.5) Hematocrit 37.2 % (36.0-47.0) Mean Corpuscular Volume 70 fL (79-100) Mean Corpuscular Hemoglobin 22 pg (25-35) Mean Corpuscular Hemoglobin Concent 32 g/dL (31-37) Red Cell Distribution Width 17.7 % (11.5-14.5) Platelet Count 276 x10^3/uL (140-400) Neutrophils (%) (Auto) 72 % (31-73) Lymphocytes (%) (Auto) 19 % (24-48) Monocytes (%) (Auto) 7 % (0-9) Eosinophils (%) (Auto) 1 % (0-3) Basophils (%) (Auto) 0 % (0-3) Neutrophils # (Auto) 6.0 x10^3/uL (1.8-7.7) Lymphocytes # (Auto) 1.6 x10^3/uL (1.0-4.8) Monocytes # (Auto) 0.6 x10^3/uL (0.0-1.1) Eosinophils # (Auto) 0.1 x10^3/uL (0.0-0.7) Basophils # (Auto) 0.0 x10^3/uL (0.0-0.2) Platelet Estimate Adequate (ADEQUATE) Hypochromasia Slight Anisocytosis Slight Microcytosis Slight Sodium Level 136 mmol/L (136-145) Potassium Level 3.9 mmol/L (3.5-5.1) Chloride Level 99 mmol/L (98-107) Carbon Dioxide Level 30 mmol/L (21-32) Anion Gap 7 (6-14) Blood Urea Nitrogen 16 mg/dL (7-20) Creatinine 0.6 mg/dL (0.6-1.0) Estimated GFR (Cockcroft-Gault) 105.8 BUN/Creatinine Ratio 27 (6-20) Glucose Level 106 mg/dL (70-99) Calcium Level 9.1 mg/dL (8.5-10.1) Magnesium Level 2.0 mg/dL (1.8-2.4) Total Bilirubin 0.3 mg/dL (0.2-1.0) Aspartate Amino Transf (AST/SGOT) 14 U/L (15-37) Alanine Aminotransferase (ALT/SGPT) 18 U/L (14-59) Alkaline Phosphatase 91 U/L (46-116) Troponin I High Sensitivity 5 ng/L (4-50) 5 ng/L (4-50) HX-Ldr-C-Type Natriuretic Peptide 136 pg/mL (0-124) Total Protein 7.0 g/dL (6.4-8.2) Albumin 3.7 g/dL (3.4-5.0) Albumin/Globulin Ratio 1.1 (1.0-1.7) Thyroid Stimulating Hormone (TSH) 3.808 uIU/mL (0.358-3.74) Urine Collection Type Unknown Urine Color (Auto) Light yellow Urine Turbidity Clear Urine pH (Auto) 7.0 (<5.0-8.0) Urine Specific [place] 1.012 (1.000-1.030) Urine Protein (Auto) Negative mg/dL (Negative) Urine Glucose (Auto)(UA) Negative mg/dL (Negative) Urine Ketones (Auto) Negative mg/dL (Negative) Urine Blood (Auto) Negative (Negative) Urine Nitrite Negative (Negative) Urine Bilirubin (Auto) Negative (Negative) Urine Urobilinogen (Auto) Normal mg/dL (Normal) Urine Leukocyte Esterase (Auto) Negative (Negative) Urine RBC 0 /HPF (0-2) Urine WBC 0 /HPF (0-4) Urine Squamous Epithelial Cells Few /LPF Urine Bacteria 0 /HPF (0-FEW) Urine Opiates Screen Pos (NEG) Urine Methadone Screen Neg (NEG) Urine Barbiturates Neg (NEG) Urine Phencyclidine Screen Neg (NEG) Urine Amphetamine/Methamphetamine Neg (NEG) Urine Benzodiazepines Screen Neg (NEG) Urine Cocaine Screen Neg (NEG) Urine Cannabinoids Screen Neg (NEG) Urine Ethyl Alcohol Neg (NEG) Laboratory Tests Test 01/09/22 13:35 01/09/22 14:06 01/09/22 16:50 White Blood Count 8.3 x10^3/uL (4.0-11.0) Red Blood Count 5.29 x10^6/uL (3.50-5.40) Hemoglobin 11.7 g/dL (12.0-15.5) Hematocrit 37.2 % (36.0-47.0) Mean Corpuscular Volume 70 fL (79-100) Mean Corpuscular Hemoglobin 22 pg (25-35) Mean Corpuscular Hemoglobin Concent 32 g/dL (31-37) Red Cell Distribution Width 17.7 % (11.5-14.5) Platelet Count 276 x10^3/uL (140-400) Neutrophils (%) (Auto) 72 % (31-73) Lymphocytes (%) (Auto) 19 % (24-48) Monocytes (%) (Auto) 7 % (0-9) Eosinophils (%) (Auto) 1 % (0-3) Basophils (%) (Auto) 0 % (0-3) Neutrophils # (Auto) 6.0 x10^3/uL (1.8-7.7) Lymphocytes # (Auto) 1.6 x10^3/uL (1.0-4.8) Monocytes # (Auto) 0.6 x10^3/uL (0.0-1.1) Eosinophils # (Auto) 0.1 x10^3/uL (0.0-0.7) Basophils # (Auto) 0.0 x10^3/uL (0.0-0.2) Platelet Estimate Adequate (ADEQUATE) Hypochromasia Slight Anisocytosis Slight Microcytosis Slight Sodium Level 136 mmol/L (136-145) Potassium Level 3.9 mmol/L (3.5-5.1) Chloride Level 99 mmol/L (98-107) Carbon Dioxide Level 30 mmol/L (21-32) Anion Gap 7 (6-14) Blood Urea Nitrogen 16 mg/dL (7-20) Creatinine 0.6 mg/dL (0.6-1.0) Estimated GFR (Cockcroft-Gault) 105.8 BUN/Creatinine Ratio 27 (6-20) Glucose Level 106 mg/dL (70-99) Calcium Level 9.1 mg/dL (8.5-10.1) Magnesium Level 2.0 mg/dL (1.8-2.4) Total Bilirubin 0.3 mg/dL (0.2-1.0) Aspartate Amino Transf (AST/SGOT) 14 U/L (15-37) Alanine Aminotransferase (ALT/SGPT) 18 U/L (14-59) Alkaline Phosphatase 91 U/L (46-116) Troponin I High Sensitivity 5 ng/L (4-50) 5 ng/L (4-50) TH-Nwu-J-Type Natriuretic Peptide 136 pg/mL (0-124) Total Protein 7.0 g/dL (6.4-8.2) Albumin 3.7 g/dL (3.4-5.0) Albumin/Globulin Ratio 1.1 (1.0-1.7) Thyroid Stimulating Hormone (TSH) 3.808 uIU/mL (0.358-3.74) Urine Collection Type Unknown Urine Color (Auto) Light yellow Urine Turbidity Clear Urine pH (Auto) 7.0 (<5.0-8.0) Urine Specific [place] 1.012 (1.000-1.030) Urine Protein (Auto) Negative mg/dL (Negative) Urine Glucose (Auto)(UA) Negative mg/dL (Negative) Urine Ketones (Auto) Negative mg/dL (Negative) Urine Blood (Auto) Negative (Negative) Urine Nitrite Negative (Negative) Urine Bilirubin (Auto) Negative (Negative) Urine Urobilinogen (Auto) Normal mg/dL (Normal) Urine Leukocyte Esterase (Auto) Negative (Negative) Urine RBC 0 /HPF (0-2) Urine WBC 0 /HPF (0-4) Urine Squamous Epithelial Cells Few /LPF Urine Bacteria 0 /HPF (0-FEW) Urine Opiates Screen Pos (NEG) Urine Methadone Screen Neg (NEG) Urine Barbiturates Neg (NEG) Urine Phencyclidine Screen Neg (NEG) Urine Amphetamine/Methamphetamine Neg (NEG) Urine Benzodiazepines Screen Neg (NEG) Urine Cocaine Screen Neg (NEG) Urine Cannabinoids Screen Neg (NEG) Urine Ethyl Alcohol Neg (NEG) Assessment/Plan Assessment/Plan Chest pain. History asthma COPD hypertension. Tobacco abuse. -1 day history of chest pain. Nothing relieving -Cardiac work-up unremarkable so far. Consult cardiology from emergency room -Given that she is endorsing some pain with deep breaths will check CT PE for completeness -Trend troponins overnight -DVT prophylaxis -Home meds as indicated -Cardiac diet Justifications for Admission Other Justification DUANE HAIRSTON MD Jan 09, 2022 18:57
[2022-01-09 19:00] VITALS: BP 118/63
[2022-01-09] MEDS: HEPARIN for SUB-Q USE 5,000 UNIT/ML VIAL. SQ SCH (20:46)
[2022-01-09] MEDS: SENNOSIDES/DOCUSATE 8.6/50MG TABLET. PO SCH (20:46)
[2022-01-09 22:30] VITALS: BP 107/55
[2022-01-10 02:37] LABS: BASO % 1 % (0-3); EOS # 0.1 x10^3/uL (0.0-0.7); EOS % 2 % (0-3); HEMATOCRIT 36.2 % (36.0-47.0); HEMOGLOBIN 11.3 g/dL (12.0-15.5); LYMPH # 1.7 x10^3/uL (1.0-4.8); LYMPH % 27 % (24-48); MEAN CORPUSCULAR HEMOGLOBIN 22 pg (25-35); MEAN CORPUSCULAR HGB CONC 31 g/dL (31-37); MEAN CORPUSCULAR VOLUME 71 fL (79-100); MONO # 0.5 x10^3/uL (0.0-1.1); MONO % 8 % (0-9); NEUT % 63 % (31-73); PLATELET COUNT 250 x10^3/uL (140-400); RED BLOOD COUNT 5.14 x10^6/uL (3.50-5.40); RED CELL DISTRIBUTION WIDTH 17.2 % (11.5-14.5); WHITE BLOOD COUNT 6.3 x10^3/uL (4.0-11.0)
[2022-01-10 02:55] VITALS: BP 105/61
[2022-01-10 02:57] LABS: ALBUMIN 3.4 g/dL (3.4-5.0); ALBUMIN/GLOBULIN RATIO 1.3 (1.0-1.7); CALCIUM 8.6 mg/dL (8.5-10.1); CREATININE 0.5 mg/dL (0.6-1.0); GFR 130.6; POTASSIUM 4.2 mmol/L (3.5-5.1); TOTAL BILIRUBIN 0.5 mg/dL (0.2-1.0); TOTAL PROTEIN 6.1 g/dL (6.4-8.2)
[2022-01-10] MEDS: HEPARIN for SUB-Q USE 5,000 UNIT/ML VIAL. SQ SCH (06:03)
[2022-01-10 07:00] VITALS: BP 114/54
--- NOTE | 2022-01-10 07:26 | PDOC2 ---
CARDIAC CONSULT DATE OF CONSULT Date of Consult DATE: 01/10/22 TIME: 07:18 REASON FOR CONSULT Reason for Consult: chest pain REFERRING PHYSICIAN Referring Physician: Bandar SOURCE Source: Chart review, Patient HISTORY OF PRESENT ILLNESS HISTORY OF PRESENT ILLNESS This is a pleasant 51 yo female admitted for complains of chest pain. This is sharp and reproducible with palpation and positional changes. Apparently she has been having coughing spells and at times feeling of chest congestion. Had some SOA with productive cough with yellow to green sputum. No palpitations, had some chills but no recroded fever. She continues to smoke tobacco. PAST MEDICAL HISTORY Past Medical History Cardiovascular: No pertinent hx Pulmonary: Asthma, COPD GI: GERD, Other (pancreatitis) Musculoskeletal: low back pain (sciatica), Osteoarthritis Renal/: No pertinent hx PAST SURGICAL HISTORY Past Surgical History Cholecystectomy, Tubal Ligation, Tonsillectomy FAMILY HISTORY Family History: Heart Disease (mother) SOCIAL HISTORY Smoke: <1 pack per day ALCOHOL: occassional Drugs: None CURRENT MEDICATIONS CURRENT MEDICATIONS Current Medications Medications (Trade) Dose Ordered Sig/Nika Route PRN Reason Start Time Stop Time Status Last Admin Dose Admin Nitroglycerin (Nitrostat) 0.4 mg PRN Q5MIN PRN SL CP RATING > 1/10 01/09/22 13:30 01/09/22 17:05 DC 01/09/22 13:46 Morphine Sulfate (Morphine Sulfate) 4 mg PRN Q15MIN PRN IV/SQ PAIN GREATER THAN 3/10 01/09/22 13:30 01/10/22 13:29 01/09/22 14:16 Morphine Sulfate (Morphine Sulfate) 4 mg 1X ONCE IVP 01/09/22 13:30 01/09/22 13:31 DC 01/09/22 13:47 Ondansetron HCl (Zofran) 4 mg 1X ONCE IVP 01/09/22 14:30 01/09/22 14:31 DC 01/09/22 14:47 Morphine Sulfate (Morphine Sulfate) 4 mg PRN Q2HR PRN IVP PAIN 01/09/22 15:45 01/10/22 15:44 01/09/22 18:14 Acetaminophen (Tylenol) 650 mg PRN Q4HRS PRN PO FEVER > 100.3'F 01/09/22 15:45 01/10/22 15:44 01/09/22 18:13 Ondansetron HCl (Zofran) 4 mg PRN Q6HRS PRN IVP NAUSEA/VOMITING 01/09/22 17:00 01/09/22 19:43 Senna/Docusate Sodium (Senna Plus) 1 tab BID PO 01/09/22 21:00 01/09/22 20:46 Heparin Sodium (Porcine) (Heparin Sodium) 5,000 unit Q8HRS SQ 01/09/22 22:00 01/10/22 06:03 ALLERGIES ALLERGIES: Coded Allergies: No Known Drug Allergies (Unverified , 01/02/21) ROS Review of System 14 point ROS evlauated with pertinent positives noted per HPI PHYSICAL EXAM General: Alert, Oriented X3, Cooperative, No acute distress HEENT: Atraumatic, Mucous membr. moist/pink Lungs: Other (diffuse rhonchi) Heart: Regular rate (SR), Normal S1, Normal S2, No murmurs Abdomen: Soft, No tenderness Extremities: No cyanosis, No edema Skin: No breakdown, No significant lesion Neuro: Normal speech, Sensation intact Psych/Mental Status: Mental status NL, Mood NL MUSCULOSKELETAL: Osteoarthritic changes both hands VITALS/I&O VITALS/I&O: Vital Signs Date Time Temp Pulse Resp B/P (MAP) Pulse Ox O2 Delivery O2 Flow Rate FiO2 01/10/22 02:55 98.7 78 19 105/61 (76) 90 Room Air 98.7 I & O 01/09/22 01/09/22 01/10/22 15:00 23:00 07:00 Intake Total 200 ml Balance 200 ml LABS Lab: Laboratory Tests Test 01/09/22 13:35 01/09/22 14:06 01/09/22 16:50 01/10/22 02:00 White Blood Count 8.3 x10^3/uL (4.0-11.0) 6.3 x10^3/uL (4.0-11.0) Red Blood Count 5.29 x10^6/uL (3.50-5.40) 5.14 x10^6/uL (3.50-5.40) Hemoglobin 11.7 g/dL (12.0-15.5) L 11.3 g/dL (12.0-15.5) L Hematocrit 37.2 % (36.0-47.0) 36.2 % (36.0-47.0) Mean Corpuscular Volume 70 fL (79-100) L 71 fL (79-100) L Mean Corpuscular Hemoglobin 22 pg (25-35) L 22 pg (25-35) L Mean Corpuscular Hemoglobin Concent 32 g/dL (31-37) 31 g/dL (31-37) Red Cell Distribution Width 17.7 % (11.5-14.5) H 17.2 % (11.5-14.5) H Platelet Count 276 x10^3/uL (140-400) 250 x10^3/uL (140-400) Neutrophils (%) (Auto) 72 % (31-73) 63 % (31-73) Lymphocytes (%) (Auto) 19 % (24-48) L 27 % (24-48) Monocytes (%) (Auto) 7 % (0-9) 8 % (0-9) Eosinophils (%) (Auto) 1 % (0-3) 2 % (0-3) Basophils (%) (Auto) 0 % (0-3) 1 % (0-3) Neutrophils # (Auto) 6.0 x10^3/uL (1.8-7.7) 4.0 x10^3/uL (1.8-7.7) Lymphocytes # (Auto) 1.6 x10^3/uL (1.0-4.8) 1.7 x10^3/uL (1.0-4.8) Monocytes # (Auto) 0.6 x10^3/uL (0.0-1.1) 0.5 x10^3/uL (0.0-1.1) Eosinophils # (Auto) 0.1 x10^3/uL (0.0-0.7) 0.1 x10^3/uL (0.0-0.7) Basophils # (Auto) 0.0 x10^3/uL (0.0-0.2) 0.0 x10^3/uL (0.0-0.2) Platelet Estimate Adequate (ADEQUATE) Hypochromasia Slight Anisocytosis Slight Microcytosis Slight Sodium Level 136 mmol/L (136-145) 136 mmol/L (136-145) Potassium Level 3.9 mmol/L (3.5-5.1) 4.2 mmol/L (3.5-5.1) Chloride Level 99 mmol/L (98-107) 100 mmol/L (98-107) Carbon Dioxide Level 30 mmol/L (21-32) 32 mmol/L (21-32) Anion Gap 7 (6-14) 4 (6-14) L Blood Urea Nitrogen 16 mg/dL (7-20) 16 mg/dL (7-20) Creatinine 0.6 mg/dL (0.6-1.0) 0.5 mg/dL (0.6-1.0) L Estimated GFR (Cockcroft-Gault) 105.8 130.6 BUN/Creatinine Ratio 27 (6-20) H 32 (6-20) H Glucose Level 106 mg/dL (70-99) H 103 mg/dL (70-99) H Calcium Level 9.1 mg/dL (8.5-10.1) 8.6 mg/dL (8.5-10.1) Magnesium Level 2.0 mg/dL (1.8-2.4) Iron Level 23 ug/dL (50-170) L Total Iron Binding Capacity 440 ug/dL (250-450) Iron Saturation 5 % (15-34) L Total Bilirubin 0.3 mg/dL (0.2-1.0) 0.5 mg/dL (0.2-1.0) Aspartate Amino Transferase (AST) 14 U/L (15-37) L 24 U/L (15-37) Alanine Aminotransferase (ALT) 18 U/L (14-59) 26 U/L (14-59) Alkaline Phosphatase 91 U/L (46-116) 89 U/L (46-116) Troponin I High Sensitivity 5 ng/L (4-50) 5 ng/L (4-50) 7 ng/L (4-50) ZS-Umv-T-Type Natriuretic Peptide 136 pg/mL (0-124) H Total Protein 7.0 g/dL (6.4-8.2) 6.1 g/dL (6.4-8.2) L Albumin 3.7 g/dL (3.4-5.0) 3.4 g/dL (3.4-5.0) Albumin/Globulin Ratio 1.1 (1.0-1.7) 1.3 (1.0-1.7) Thyroid Stimulating Hormone (TSH) 3.808 uIU/mL (0.358-3.74) H Urine Collection Type Unknown Urine Color (Auto) Light yellow Urine Turbidity Clear Urine pH (Auto) 7.0 (<5.0-8.0) Urine Specific [place] 1.012 (1.000-1.030) Urine Protein (Auto) Negative mg/dL (Negative) Urine Glucose (Auto)(UA) Negative mg/dL (Negative) Urine Ketones (Auto) Negative mg/dL (Negative) Urine Blood (Auto) Negative (Negative) Urine Nitrite Negative (Negative) Urine Bilirubin (Auto) Negative (Negative) Urine Urobilinogen (Auto) Normal mg/dL (Normal) Urine Leukocyte Esterase (Auto) Negative (Negative) Urine RBC 0 /HPF (0-2) Urine WBC 0 /HPF (0-4) Urine Squamous Epithelial Cells Few /LPF Urine Bacteria 0 /HPF (0-FEW) Urine Opiates Screen Pos (NEG) Urine Methadone Screen Neg (NEG) Urine Barbiturates Neg (NEG) Urine Phencyclidine Screen Neg (NEG) Urine Amphetamine/Methamphetamine Neg (NEG) Urine Benzodiazepines Screen Neg (NEG) Urine Cocaine Screen Neg (NEG) Urine Cannabinoids Screen Neg (NEG) Urine Ethyl Alcohol Neg (NEG) Laboratory Tests 01/09/22 13:35 01/10/22 02:00 Laboratory Tests 01/09/22 13:35 01/10/22 02:00 ECHOCARDIOGRAM ECHOCARDIOGRAM <Conclusion> The left ventricular systolic function is normal. The ejection fraction is 60%. There is normal LV segmental wall motion. Trace mitral regurgitation. Trace to mild tricuspid regurgitation. There is no evidence of significant pericardial effusion. DATE: 08/16/21 [id number] STRESS TEST STRESS TEST Conclusion 1. No EKG evidence of stress-induced ischemia. 2. Episode of chest pain with infusion. 3. Nuclear imaging shows no reversible ischemia or infarct. 4. Normal left ventricular systolic function with no regional wall motion abnormalities, an ejection fraction of greater than 72% and a TID of 1.15. 5. Moderately low to low risk Lexiscan nuclear stress test. DATE: 07/25/20 0955 ASSESSMENT/PLAN ASSESSMENT/PLAN 1. Atypical chest pain: MSK, noncardiac 2. GERD 3. AECOPD with current tobacco use Recommendations Continue current regimen. COPD regimen per PCP. nothing further cardiac andino smoking cessation JACOBO ISABEL DOG BARBER Jan 10, 2022 07:26
[2022-01-10 08:22] LABS: CHOLESTEROL/HDL RATIO 2.9
[2022-01-10] MEDS ORDERED: IOHEXOL 350 MG/ML 100 ML VIAL. IV ONE (08:30)
[2022-01-10] MEDS: SENNOSIDES/DOCUSATE 8.6/50MG TABLET. PO SCH (08:44)
[2022-01-10] MEDS ORDERED: CONTRAST GIVEN. MC PRN (08:45)
--- NOTE | 2022-01-10 09:20 | RAD ---
Exam Date: 01/10/2022 7:54 AM CTA CHEST Indication: Reason: eval for PE, CHEST PAIN / Spl. Instructions: OMNI 350 INJ. 90 MLS / History: . TECHNIQUE: CT angiogram of the chest was performed following the administration of nonionic intrave nous contrast for evaluation of pulmonary embolus. 3D MIPs were created and reviewed on an Talknote workstation to assist in diagnosis and clinical management. One or more of the following dose red uction techniques were utilized: *Automated exposure control (AEC) *Adjustment of mA and/or kV according to patient size *Use of iterative reconstruction technique *CT scan done according to ALARA, or ALARA/IMAGE GENTLY FINDINGS: There is adequate opacification of the pulmonary arteries. No central intravascular filling defects are appreciated. There is no evidence for central pulmonary embolus. The aorta is normal in caliber without evidence for dissection. Aortic calcifications are present. The heart is normal in size without pericardial effusion. Minimal or no significant coronary artery calcifications are identified. The visualized thyroid gland is within normal limits. No lymphadenopathy is seen. There are a few small clustered nodular opacities in the right lower lobe on images 99-103. These me asure 5 mm or smaller. Similar small nodular and groundglass opacities are seen in the lingula. The central airways are patent. There is no focal consolidation, pleural effusion or pneumothorax. Images of the upper abdomen demonstrate no focal abnormality. Degenerative changes are seen in the s pine. IMPRESSION: No evidence for central pulmonary embolus. Small clustered nodular and groundglass opacities are seen in the right lower lobe and lingula. Thes e are nonspecific but suggestive of an inflammatory or infectious etiology. The largest nodular opac ity measures up to 5 mm. According to the 2017 Fleischner Society Guidelines for Management of Incid ental Pulmonary Nodules Detected on CT, for multiple subsolid nodules less than 6 mm in diameter a fo llow up CT is recommended in 3-6 months to confirm persistence. If stable, consider additional CT at 2 and 4 years to confirm stability. Electronically signed by: Won Newton MD (01/10/2022 9:18 AM) [id number]
[2022-01-10 11:00] VITALS: BP 114/53
--- NOTE | 2022-01-10 11:24 | PDOC ---
[employer] PROGRESS NOTE Date of Service DOS: DATE: 01/10/22 TIME: 11:24 Chief Complaint Chief Complaint Chest pain History of Present Illness History of Present Illness 01/10: Patient seen the bedside. States feels much better. Discussed results of CTA; negative for PE but with some pulmonary nodules. Told patient to follow-up with the PCP and repeat CTA 3-6 months. She has been cleared by cardiology for discharge. Greater than 30 minutes spent in the management of this patient's discharge Vitals/I&O Vitals/I&O: Vital Signs Date Time Temp Pulse Resp B/P (MAP) Pulse Ox O2 Delivery O2 Flow Rate FiO2 01/10/22 08:00 Room Air 01/10/22 07:00 98.4 70 19 114/54 (74) 91 98.4 I & O 01/09/22 01/09/22 01/10/22 15:00 23:00 07:00 Intake Total 200 ml Balance 200 ml Physical Exam General: Alert, Oriented X3, Cooperative, No acute distress Heart: Regular rate (SR), Normal S1, Normal S2, No murmurs Lungs: Crackles Abdomen: Soft, No tenderness Extremities: No cyanosis, No edema Skin: No breakdown, No significant lesion Labs Labs: Laboratory Tests Test 01/09/22 13:35 01/09/22 14:06 01/09/22 16:50 01/10/22 02:00 White Blood Count 8.3 x10^3/uL (4.0-11.0) 6.3 x10^3/uL (4.0-11.0) Red Blood Count 5.29 x10^6/uL (3.50-5.40) 5.14 x10^6/uL (3.50-5.40) Hemoglobin 11.7 g/dL (12.0-15.5) 11.3 g/dL (12.0-15.5) Hematocrit 37.2 % (36.0-47.0) 36.2 % (36.0-47.0) Mean Corpuscular Volume 70 fL (79-100) 71 fL (79-100) Mean Corpuscular Hemoglobin 22 pg (25-35) 22 pg (25-35) Mean Corpuscular Hemoglobin Concent 32 g/dL (31-37) 31 g/dL (31-37) Red Cell Distribution Width 17.7 % (11.5-14.5) 17.2 % (11.5-14.5) Platelet Count 276 x10^3/uL (140-400) 250 x10^3/uL (140-400) Neutrophils (%) (Auto) 72 % (31-73) 63 % (31-73) Lymphocytes (%) (Auto) 19 % (24-48) 27 % (24-48) Monocytes (%) (Auto) 7 % (0-9) 8 % (0-9) Eosinophils (%) (Auto) 1 % (0-3) 2 % (0-3) Basophils (%) (Auto) 0 % (0-3) 1 % (0-3) Neutrophils # (Auto) 6.0 x10^3/uL (1.8-7.7) 4.0 x10^3/uL (1.8-7.7) Lymphocytes # (Auto) 1.6 x10^3/uL (1.0-4.8) 1.7 x10^3/uL (1.0-4.8) Monocytes # (Auto) 0.6 x10^3/uL (0.0-1.1) 0.5 x10^3/uL (0.0-1.1) Eosinophils # (Auto) 0.1 x10^3/uL (0.0-0.7) 0.1 x10^3/uL (0.0-0.7) Basophils # (Auto) 0.0 x10^3/uL (0.0-0.2) 0.0 x10^3/uL (0.0-0.2) Platelet Estimate Adequate (ADEQUATE) Hypochromasia Slight Anisocytosis Slight Microcytosis Slight Sodium Level 136 mmol/L (136-145) 136 mmol/L (136-145) Potassium Level 3.9 mmol/L (3.5-5.1) 4.2 mmol/L (3.5-5.1) Chloride Level 99 mmol/L (98-107) 100 mmol/L (98-107) Carbon Dioxide Level 30 mmol/L (21-32) 32 mmol/L (21-32) Anion Gap 7 (6-14) 4 (6-14) Blood Urea Nitrogen 16 mg/dL (7-20) 16 mg/dL (7-20) Creatinine 0.6 mg/dL (0.6-1.0) 0.5 mg/dL (0.6-1.0) Estimated GFR (Cockcroft-Gault) 105.8 130.6 BUN/Creatinine Ratio 27 (6-20) 32 (6-20) Glucose Level 106 mg/dL (70-99) 103 mg/dL (70-99) Calcium Level 9.1 mg/dL (8.5-10.1) 8.6 mg/dL (8.5-10.1) Magnesium Level 2.0 mg/dL (1.8-2.4) Iron Level 23 ug/dL (50-170) Total Iron Binding Capacity 440 ug/dL (250-450) Iron Saturation 5 % (15-34) Total Bilirubin 0.3 mg/dL (0.2-1.0) 0.5 mg/dL (0.2-1.0) Aspartate Amino Transf (AST/SGOT) 14 U/L (15-37) 24 U/L (15-37) Alanine Aminotransferase (ALT/SGPT) 18 U/L (14-59) 26 U/L (14-59) Alkaline Phosphatase 91 U/L (46-116) 89 U/L (46-116) Troponin I High Sensitivity 5 ng/L (4-50) 5 ng/L (4-50) 7 ng/L (4-50) ZB-Uhn-E-Type Natriuretic Peptide 136 pg/mL (0-124) Total Protein 7.0 g/dL (6.4-8.2) 6.1 g/dL (6.4-8.2) Albumin 3.7 g/dL (3.4-5.0) 3.4 g/dL (3.4-5.0) Albumin/Globulin Ratio 1.1 (1.0-1.7) 1.3 (1.0-1.7) Thyroid Stimulating Hormone (TSH) 3.808 uIU/mL (0.358-3.74) Urine Collection Type Unknown Urine Color (Auto) Light yellow Urine Turbidity Clear Urine pH (Auto) 7.0 (<5.0-8.0) Urine Specific [place] 1.012 (1.000-1.030) Urine Protein (Auto) Negative mg/dL (Negative) Urine Glucose (Auto)(UA) Negative mg/dL (Negative) Urine Ketones (Auto) Negative mg/dL (Negative) Urine Blood (Auto) Negative (Negative) Urine Nitrite Negative (Negative) Urine Bilirubin (Auto) Negative (Negative) Urine Urobilinogen (Auto) Normal mg/dL (Normal) Urine Leukocyte Esterase (Auto) Negative (Negative) Urine RBC 0 /HPF (0-2) Urine WBC 0 /HPF (0-4) Urine Squamous Epithelial Cells Few /LPF Urine Bacteria 0 /HPF (0-FEW) Urine Opiates Screen Pos (NEG) Urine Methadone Screen Neg (NEG) Urine Barbiturates Neg (NEG) Urine Phencyclidine Screen Neg (NEG) Urine Amphetamine/Methamphetamine Neg (NEG) Urine Benzodiazepines Screen Neg (NEG) Urine Cocaine Screen Neg (NEG) Urine Cannabinoids Screen Neg (NEG) Urine Ethyl Alcohol Neg (NEG) Triglycerides Level 126 mg/dL (0-150) Cholesterol Level 160 mg/dL (0-200) LDL Cholesterol, Calculated 79 mg/dL (0-100) VLDL Cholesterol, Calculated 25 mg/dL (0-40) Non-HDL Cholesterol Calculated 104 mg/dL (0-129) HDL Cholesterol 56 mg/dL (40-60) Cholesterol/HDL Ratio 2.9 Assessment and Plan Assessmemt and Plan Problems Medical Problems: (1) Chest pain Status: Acute Comment Review of Relevant I have reviewed the following items belle (where applicable) has been applied. Medications: Current Medications Medications (Trade) Dose Ordered Sig/Nika Route PRN Reason Start Time Stop Time Status Last Admin Dose Admin Nitroglycerin (Nitrostat) 0.4 mg PRN Q5MIN PRN SL CP RATING > 10/2101/09/22 13:30 01/09/22 17:05 DC 01/09/22 13:46 Morphine Sulfate (Morphine Sulfate) 4 mg PRN Q15MIN PRN IV/SQ PAIN GREATER THAN 12/1901/09/22 13:30 01/10/22 13:29 01/09/22 14:16 Morphine Sulfate (Morphine Sulfate) 4 mg 1X ONCE IVP 01/09/22 13:30 01/09/22 13:31 DC 01/09/22 13:47 Ondansetron HCl (Zofran) 4 mg 1X ONCE IVP 01/09/22 14:30 01/09/22 14:31 DC 01/09/22 14:47 Morphine Sulfate (Morphine Sulfate) 4 mg PRN Q2HR PRN IVP PAIN 01/09/22 15:45 01/10/22 15:44 01/09/22 18:14 Acetaminophen (Tylenol) 650 mg PRN Q4HRS PRN PO FEVER > 100.3'F 01/09/22 15:45 01/10/22 15:44 01/09/22 18:13 Ondansetron HCl (Zofran) 4 mg PRN Q6HRS PRN IVP NAUSEA/VOMITING 01/09/22 17:00 01/09/22 19:43 Senna/Docusate Sodium (Senna Plus) 1 tab BID PO 01/09/22 21:00 01/10/22 08:44 Heparin Sodium (Porcine) (Heparin Sodium) 5,000 unit Q8HRS SQ 01/09/22 22:00 01/10/22 06:03 Justifications for Admission Other Justification JENNI BRADFORD MD Jan 10, 2022 11:24
--- NOTE | 2022-01-10 11:25 | PDOC3 ---
Discharge Summary Visit Information Date of Admission: Jan 09, 2022 Date of Discharge: Jan 10, 2022 Final Diagnosis Problems Medical Problems: (1) Chest pain Status: Acute Brief Hospital Course Allergies Allergies Coded Allergies Type Severity Reaction Last Updated Verified No Known Drug Allergies 01/02/21 No Vital Signs Vital Signs Date Time Temp Pulse Resp B/P (MAP) Pulse Ox O2 Delivery O2 Flow Rate FiO2 01/10/22 08:00 Room Air 01/10/22 07:00 98.4 70 19 114/54 (74) 91 98.4 Lab Results Laboratory Tests Test 01/09/22 13:35 01/09/22 14:06 01/09/22 16:50 01/10/22 02:00 White Blood Count 8.3 x10^3/uL (4.0-11.0) 6.3 x10^3/uL (4.0-11.0) Red Blood Count 5.29 x10^6/uL (3.50-5.40) 5.14 x10^6/uL (3.50-5.40) Hemoglobin 11.7 g/dL (12.0-15.5) 11.3 g/dL (12.0-15.5) Hematocrit 37.2 % (36.0-47.0) 36.2 % (36.0-47.0) Mean Corpuscular Volume 70 fL (79-100) 71 fL (79-100) Mean Corpuscular Hemoglobin 22 pg (25-35) 22 pg (25-35) Mean Corpuscular Hemoglobin Concent 32 g/dL (31-37) 31 g/dL (31-37) Red Cell Distribution Width 17.7 % (11.5-14.5) 17.2 % (11.5-14.5) Platelet Count 276 x10^3/uL (140-400) 250 x10^3/uL (140-400) Neutrophils (%) (Auto) 72 % (31-73) 63 % (31-73) Lymphocytes (%) (Auto) 19 % (24-48) 27 % (24-48) Monocytes (%) (Auto) 7 % (0-9) 8 % (0-9) Eosinophils (%) (Auto) 1 % (0-3) 2 % (0-3) Basophils (%) (Auto) 0 % (0-3) 1 % (0-3) Neutrophils # (Auto) 6.0 x10^3/uL (1.8-7.7) 4.0 x10^3/uL (1.8-7.7) Lymphocytes # (Auto) 1.6 x10^3/uL (1.0-4.8) 1.7 x10^3/uL (1.0-4.8) Monocytes # (Auto) 0.6 x10^3/uL (0.0-1.1) 0.5 x10^3/uL (0.0-1.1) Eosinophils # (Auto) 0.1 x10^3/uL (0.0-0.7) 0.1 x10^3/uL (0.0-0.7) Basophils # (Auto) 0.0 x10^3/uL (0.0-0.2) 0.0 x10^3/uL (0.0-0.2) Platelet Estimate Adequate (ADEQUATE) Hypochromasia Slight Anisocytosis Slight Microcytosis Slight Sodium Level 136 mmol/L (136-145) 136 mmol/L (136-145) Potassium Level 3.9 mmol/L (3.5-5.1) 4.2 mmol/L (3.5-5.1) Chloride Level 99 mmol/L (98-107) 100 mmol/L (98-107) Carbon Dioxide Level 30 mmol/L (21-32) 32 mmol/L (21-32) Anion Gap 7 (6-14) 4 (6-14) Blood Urea Nitrogen 16 mg/dL (7-20) 16 mg/dL (7-20) Creatinine 0.6 mg/dL (0.6-1.0) 0.5 mg/dL (0.6-1.0) Estimated GFR (Cockcroft-Gault) 105.8 130.6 BUN/Creatinine Ratio 27 (6-20) 32 (6-20) Glucose Level 106 mg/dL (70-99) 103 mg/dL (70-99) Calcium Level 9.1 mg/dL (8.5-10.1) 8.6 mg/dL (8.5-10.1) Magnesium Level 2.0 mg/dL (1.8-2.4) Iron Level 23 ug/dL (50-170) Total Iron Binding Capacity 440 ug/dL (250-450) Iron Saturation 5 % (15-34) Total Bilirubin 0.3 mg/dL (0.2-1.0) 0.5 mg/dL (0.2-1.0) Aspartate Amino Transf (AST/SGOT) 14 U/L (15-37) 24 U/L (15-37) Alanine Aminotransferase (ALT/SGPT) 18 U/L (14-59) 26 U/L (14-59) Alkaline Phosphatase 91 U/L (46-116) 89 U/L (46-116) Troponin I High Sensitivity 5 ng/L (4-50) 5 ng/L (4-50) 7 ng/L (4-50) VR-Klt-S-Type Natriuretic Peptide 136 pg/mL (0-124) Total Protein 7.0 g/dL (6.4-8.2) 6.1 g/dL (6.4-8.2) Albumin 3.7 g/dL (3.4-5.0) 3.4 g/dL (3.4-5.0) Albumin/Globulin Ratio 1.1 (1.0-1.7) 1.3 (1.0-1.7) Thyroid Stimulating Hormone (TSH) 3.808 uIU/mL (0.358-3.74) Urine Collection Type Unknown Urine Color (Auto) Light yellow Urine Turbidity Clear Urine pH (Auto) 7.0 (<5.0-8.0) Urine Specific [place] 1.012 (1.000-1.030) Urine Protein (Auto) Negative mg/dL (Negative) Urine Glucose (Auto)(UA) Negative mg/dL (Negative) Urine Ketones (Auto) Negative mg/dL (Negative) Urine Blood (Auto) Negative (Negative) Urine Nitrite Negative (Negative) Urine Bilirubin (Auto) Negative (Negative) Urine Urobilinogen (Auto) Normal mg/dL (Normal) Urine Leukocyte Esterase (Auto) Negative (Negative) Urine RBC 0 /HPF (0-2) Urine WBC 0 /HPF (0-4) Urine Squamous Epithelial Cells Few /LPF Urine Bacteria 0 /HPF (0-FEW) Urine Opiates Screen Pos (NEG) Urine Methadone Screen Neg (NEG) Urine Barbiturates Neg (NEG) Urine Phencyclidine Screen Neg (NEG) Urine Amphetamine/Methamphetamine Neg (NEG) Urine Benzodiazepines Screen Neg (NEG) Urine Cocaine Screen Neg (NEG) Urine Cannabinoids Screen Neg (NEG) Urine Ethyl Alcohol Neg (NEG) Triglycerides Level 126 mg/dL (0-150) Cholesterol Level 160 mg/dL (0-200) LDL Cholesterol, Calculated 79 mg/dL (0-100) VLDL Cholesterol, Calculated 25 mg/dL (0-40) Non-HDL Cholesterol Calculated 104 mg/dL (0-129) HDL Cholesterol 56 mg/dL (40-60) Cholesterol/HDL Ratio 2.9 Laboratory Tests Test 01/09/22 13:35 01/09/22 14:06 01/09/22 16:50 01/10/22 02:00 White Blood Count 8.3 x10^3/uL (4.0-11.0) 6.3 x10^3/uL (4.0-11.0) Red Blood Count 5.29 x10^6/uL (3.50-5.40) 5.14 x10^6/uL (3.50-5.40) Hemoglobin 11.7 g/dL (12.0-15.5) 11.3 g/dL (12.0-15.5) Hematocrit 37.2 % (36.0-47.0) 36.2 % (36.0-47.0) Mean Corpuscular Volume 70 fL (79-100) 71 fL (79-100) Mean Corpuscular Hemoglobin 22 pg (25-35) 22 pg (25-35) Mean Corpuscular Hemoglobin Concent 32 g/dL (31-37) 31 g/dL (31-37) Red Cell Distribution Width 17.7 % (11.5-14.5) 17.2 % (11.5-14.5) Platelet Count 276 x10^3/uL (140-400) 250 x10^3/uL (140-400) Neutrophils (%) (Auto) 72 % (31-73) 63 % (31-73) Lymphocytes (%) (Auto) 19 % (24-48) 27 % (24-48) Monocytes (%) (Auto) 7 % (0-9) 8 % (0-9) Eosinophils (%) (Auto) 1 % (0-3) 2 % (0-3) Basophils (%) (Auto) 0 % (0-3) 1 % (0-3) Neutrophils # (Auto) 6.0 x10^3/uL (1.8-7.7) 4.0 x10^3/uL (1.8-7.7) Lymphocytes # (Auto) 1.6 x10^3/uL (1.0-4.8) 1.7 x10^3/uL (1.0-4.8) Monocytes # (Auto) 0.6 x10^3/uL (0.0-1.1) 0.5 x10^3/uL (0.0-1.1) Eosinophils # (Auto) 0.1 x10^3/uL (0.0-0.7) 0.1 x10^3/uL (0.0-0.7) Basophils # (Auto) 0.0 x10^3/uL (0.0-0.2) 0.0 x10^3/uL (0.0-0.2) Platelet Estimate Adequate (ADEQUATE) Hypochromasia Slight Anisocytosis Slight Microcytosis Slight Sodium Level 136 mmol/L (136-145) 136 mmol/L (136-145) Potassium Level 3.9 mmol/L (3.5-5.1) 4.2 mmol/L (3.5-5.1) Chloride Level 99 mmol/L (98-107) 100 mmol/L (98-107) Carbon Dioxide Level 30 mmol/L (21-32) 32 mmol/L (21-32) Anion Gap 7 (6-14) 4 (6-14) Blood Urea Nitrogen 16 mg/dL (7-20) 16 mg/dL (7-20) Creatinine 0.6 mg/dL (0.6-1.0) 0.5 mg/dL (0.6-1.0) Estimated GFR (Cockcroft-Gault) 105.8 130.6 BUN/Creatinine Ratio 27 (6-20) 32 (6-20) Glucose Level 106 mg/dL (70-99) 103 mg/dL (70-99) Calcium Level 9.1 mg/dL (8.5-10.1) 8.6 mg/dL (8.5-10.1) Magnesium Level 2.0 mg/dL (1.8-2.4) Iron Level 23 ug/dL (50-170) Total Iron Binding Capacity 440 ug/dL (250-450) Iron Saturation 5 % (15-34) Total Bilirubin 0.3 mg/dL (0.2-1.0) 0.5 mg/dL (0.2-1.0) Aspartate Amino Transf (AST/SGOT) 14 U/L (15-37) 24 U/L (15-37) Alanine Aminotransferase (ALT/SGPT) 18 U/L (14-59) 26 U/L (14-59) Alkaline Phosphatase 91 U/L (46-116) 89 U/L (46-116) Troponin I High Sensitivity 5 ng/L (4-50) 5 ng/L (4-50) 7 ng/L (4-50) OZ-Zys-P-Type Natriuretic Peptide 136 pg/mL (0-124) Total Protein 7.0 g/dL (6.4-8.2) 6.1 g/dL (6.4-8.2) Albumin 3.7 g/dL (3.4-5.0) 3.4 g/dL (3.4-5.0) Albumin/Globulin Ratio 1.1 (1.0-1.7) 1.3 (1.0-1.7) Thyroid Stimulating Hormone (TSH) 3.808 uIU/mL (0.358-3.74) Urine Collection Type Unknown Urine Color (Auto) Light yellow Urine Turbidity Clear Urine pH (Auto) 7.0 (<5.0-8.0) Urine Specific [place] 1.012 (1.000-1.030) Urine Protein (Auto) Negative mg/dL (Negative) Urine Glucose (Auto)(UA) Negative mg/dL (Negative) Urine Ketones (Auto) Negative mg/dL (Negative) Urine Blood (Auto) Negative (Negative) Urine Nitrite Negative (Negative) Urine Bilirubin (Auto) Negative (Negative) Urine Urobilinogen (Auto) Normal mg/dL (Normal) Urine Leukocyte Esterase (Auto) Negative (Negative) Urine RBC 0 /HPF (0-2) Urine WBC 0 /HPF (0-4) Urine Squamous Epithelial Cells Few /LPF Urine Bacteria 0 /HPF (0-FEW) Urine Opiates Screen Pos (NEG) Urine Methadone Screen Neg (NEG) Urine Barbiturates Neg (NEG) Urine Phencyclidine Screen Neg (NEG) Urine Amphetamine/Methamphetamine Neg (NEG) Urine Benzodiazepines Screen Neg (NEG) Urine Cocaine Screen Neg (NEG) Urine Cannabinoids Screen Neg (NEG) Urine Ethyl Alcohol Neg (NEG) Triglycerides Level 126 mg/dL (0-150) Cholesterol Level 160 mg/dL (0-200) LDL Cholesterol, Calculated 79 mg/dL (0-100) VLDL Cholesterol, Calculated 25 mg/dL (0-40) Non-HDL Cholesterol Calculated 104 mg/dL (0-129) HDL Cholesterol 56 mg/dL (40-60) Cholesterol/HDL Ratio 2.9 Brief Hospital Course Ms. Espinoza is a 51 old female who presented with chest pain. Consultation placed to cardiology. She had CTA that was negative for PE. Chest pain was deemed atypical chest pain, and stable for discharge with close PCP follow-up. Discharge Information Disposition/Orders: D/C to Home Scheduled Famotidine (Famotidine) 40 Mg Tablet, 40 MG PO HS for GERD, (Reported) Entered as Reported by: MARYSOL DAVENPORT on 08/15/211942 Fluticasone/Salmeterol (Advair 250-50 Diskus) 1 Each Disk.w.dev, 1 PUFF IH BID, #1 Prescribed by: SKYLER POTTER on 09/28/17 1032 Pantoprazole Sodium (Protonix ) 40 Mg Tablet.dr, 40 MG PO DAILYAC for GERD, (Reported) Entered as Reported by: MARYSOL DAVENPORT on 08/15/211942 Prednisone (Prednisone ) 10 Mg Tablet, 40 MG PO DAILY for copd for 3 Days, #12 Prescribed by: HI MATAMOROS MD on 08/18/21 1454 Varenicline Tartrate (Varenicline Tartrate) 0.5 Mg Tablet, 0.5 MG PO DAILY for smoking cessation for 7 Days, #11 Prescribed by: HI MATAMOROS MD on 08/18/21 1454 Scheduled PRN Acetaminophen (Acetaminophen) 500 Mg Tablet, 500 MG PO PRN Q6HRS PRN for MILD PAIN / TEMP for 10 Days, #30 Prescribed by: LYNETTE LACY MD on 11/13/19 1523 Albuterol Sulfate (Proair Hfa Inhaler) 8.5 Gm Hfa.aer.ad, 1 PUFF INH PRN Q6HRS PRN for SHORTNESS OF BREATH, #1 Prescribed by: JENIFER BENTON APRN on 11/21/16 1216 Albuterol Sulfate (Proair Respiclick) 90 Mcg Aer.pow.ba, 1 PUFF IH PRN Q4HRS PRN for SHORTNESS OF BREATH, (Reported) Entered as Reported by: MARYSOL DAVENPORT on 08/15/21 1943 Meclizine Hcl (Meclizine Hcl) 12.5 Mg Tablet, 1 TAB PO TID PRN for dizziness, #30 Prescribed by: HI MATAMOROS MD on 08/18/21 1454 Sennosides/Docusate Sodium (Colace 2-in-1 Tablet) 1 Each Tablet, 1 TAB PO QHS PRN for CONSTIPATION, #20 Ref 0 Prescribed by: REBECCA MATHEWS D.O. on 06/11/20 1314 Justicifation of Admission Dx: Justifications for Admission: Justification of Admission Dx: Yes JENNI BRADFORD MD Jan 10, 2022 11:25
--- NOTE | 2022-01-10 12:50 | NUR ---
DISCHARGE INSTRUCTIONS GIVEN, QUESTIONS AND CONCERNS ANSWERED, PATIENT VERBALIZED UNDERSTANDING OF DISCHARGE INFORMATION INCLUDING TAKING ALL MEDICATIONS INSTRUCTED AND FOLLOWING UP WITH HER PRIMARY PROVIDER AND GETTING A FOLLOW UP CT SCAN IN 3-6 MONTHS.
--- NOTE | 2022-01-10 13:10 | NUR ---
PATIENT LEAVES THE UNIT PER W/C AND ACCOMPANIED BY STAFF, EMOTIONAL SUPPORT GIVEN, F/U APPOINTMENTS ENCOURAGED.
== END 2022-01-10 13:10 | disposition home or self-care (01) | DRG 313 ==
LOC: ER 13:02 → 2 NORTH 15:11
PROVIDERS: ADMIT Student in an Organized Health Care Education/Training Program; ATTEND Student in an Organized Health Care Education/Training Program
DX: R07.89 Other chest pain (principal); J44.1 Chronic obstructive pulmonary disease with (acute) exacerbation; K21.9 Gastro-esophageal reflux disease without esophagitis; Z79.51 Long term (current) use of inhaled steroids; I10 Essential (primary) hypertension; F17.210 Nicotine dependence, cigarettes, uncomplicated; Z79.899 Other long term (current) drug therapy; Z82.49 Family history of ischemic heart disease and other diseases of the circulatory system; M19.90 Unspecified osteoarthritis, unspecified site; Z90.49 Acquired absence of other specified parts of digestive tract; Z98.51 Tubal ligation status
CPT/HCPCS: 36415; 71045; 71275; 80053; 80061; 80307; 81001; 83540; 83550; 83735; 83880; 84443; 84484; 85025; 93005; 96374; 96375; 96376; J1644; J2270; J2405; 97110-GP; 99285-25; G0378